=== PATIENT | female | born 1960 | race Caucasian/White ===

== ENCOUNTER 2017-05-29 16:11 | Inpatient (IN) | payer OTHER ==
[~2017-05-29] VITALS: Ht 157.5 cm; Wt 75.5 kg
[~2017-05-29 16:11] MED LIST: ASPI325T PO; GABA300C3 PO; HYDR-2768 PO; LEVEMIR SQ; LISI-363 PO; NOVOLOGP2 SQ; OXYC10TA8 PO; PERC5TAB12 PO; PLAV75TA PO
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
[2017-05-29] MEDS ORDERED: PIPERACIL-TAZO 4.5 GM PREMIX 100 ML IV STA (17:25)
[2017-05-29] MEDS ORDERED: VANCOMYCIN INJ 1,000 MG in SODIUM CHLOR 0.9% 250 ML INJ 250 ML IV STA (17:25)
[2017-05-29] MEDS ORDERED: SODIUM CHLOR 0.9% 1000 ML INJ 400 ML IV ONE (17:25)
[2017-05-29] MEDS ORDERED: SODIUM CHLOR 0.9% 1000 ML INJ 1,000 ML IV ONE ×2 (17:25)
[2017-05-29 17:45] VITALS: BP 165/81; PULSE 120; RESP 20; O2SAT 99
--- NOTE | 2017-05-29 17:54 | RADRPT ---
EXAM DATE/TIME: 05/29/2017 17:30 [facility] COMPARISON: No previous studies available for comparison. INDICATIONS : Fever and chest pain. MEDICAL HISTORY : Chronic obstructive pulmonary disease. Diabetes mellitus type II. Umbilical hernia. SURGICAL HISTORY : None. ENCOUNTER: Initial ACUITY: 1 day PAIN SCORE: 2/10 LOCATION: middle lower chest. FINDINGS: A single view of the chest demonstrates the lungs to be symmetrically aerated without evidence of mas s, infiltrate or effusion. The cardiomediastinal contours are unremarkable. Osseous structures are intact. CONCLUSION: 1. No active disease. Benny Garcia MD on May 29, 2017 at 17:52 Board Certified Radiologist. This report was verified electronically.
--- NOTE | 2017-05-29 17:55 | RADRPT ---
EXAM DATE/TIME: 05/29/2017 17:33 [facility] COMPARISON: No previous studies available for comparison. INDICATIONS : Left foot pain and sore on plantar surface. MEDICAL HISTORY : Diabetes mellitus type II. SURGICAL HISTORY : None. ENCOUNTER: Initial ACUITY: 4 - 6 days PAIN SCORE: 9/10 LOCATION: Left foot, plantar surface, 1st meta tarsal region. FINDINGS: Three view examination of the left foot demonstrates no soft tissue swelling, dislocation, or fractur e. The tarsal bones appear intact. The interphalangeal and metatarsophalangeal joints are intact. The calcaneus is intact. Bony mineralization is normal. CONCLUSION: 1. No acute bony abnormalities. Benny Garcia MD on May 29, 2017 at 17:53 Board Certified Radiologist. This report was verified electronically.
[2017-05-29 17:56] LABS: AUTOMATED NEUTROPHIL # 9.9 TH/MM3 (1.8-7.7); BASOPHIL # 0.1 TH/MM3 (0-0.2); BASOPHIL % 0.7 % (0.0-2.0); EOSINOPHIL # 0.1 TH/MM3 (0-0.4); EOSINOPHIL % 0.6 % (0.0-4.0); HEMATOCRIT 45.8 % (35.0-46.0); HEMO FLAGS DIFF FINAL; LYMPH % 16.3 % (9.0-44.0); LYMPHOCYTE # 2.2 TH/MM3 (1.0-4.8); MEAN CELL VOLUME 94.7 FL (80.0-100.0); MEAN CORPUSCULAR HEMOGLOBIN 32.6 PG (27.0-34.0); MEAN CORPUSCULAR HGB CONC 34.5 % (32.0-36.0); MONO % 7.9 % (0.0-8.0); NEUT % 74.5 % (16.0-70.0); PLATELET COUNT 293 TH/MM3 (150-450); RED BLOOD COUNT 4.84 MIL/MM3 (4.00-5.30); RED CELL DISTRIBUTION WIDTH 13.6 % (11.6-17.2); WHITE BLOOD COUNT 13.3 TH/MM3 (4.0-11.0)
[2017-05-29] MEDS ORDERED: MIDAZOLAM HCL 2 MG/2 ML VIAL IV PUSH ONE ×2 (18:15→19:15)
[2017-05-29] MEDS ORDERED: PLAV75TA29 PO (18:15)
[2017-05-29] MEDS ORDERED: GABA100C4 PO (18:15)
[2017-05-29] MEDS ORDERED: ASPI325T PO (18:15)
[2017-05-29] MEDS ORDERED: HYDR12.56 PO (18:15)
[2017-05-29 18:16] LABS: ALKALINE PHOSPHATASE 82 U/L (45-117); ALT (GPT) 34 U/L (10-53); ANION GAP 15 MEQ/L (5-15); AST (GOT) 17 U/L (15-37); BICARBONATE 23.6 MEQ/L (21.0-32.0); BLOOD UREA NITROGEN 14 MG/DL (7-18); CHLORIDE 97 MEQ/L (98-107); GLOMERULAR FILTRATION RATE 48 ML/MIN (>89); POTASSIUM 3.5 MEQ/L (3.5-5.1); SODIUM (NA) 136 MEQ/L (136-145); TOTAL BILIRUBIN ADULT 0.3 MG/DL (0.2-1.0)
[2017-05-29 18:32] LABS: BLOOD, URINE NEG (NEG); COMMENT (UR) CATH-CULT NOT IND; CULTURE IF INDICATED CATH CULTURE NOT IND; GLUCOSE,URINE 1000 mg/dL (NEG); KETONE, URINE TRACE mg/dL (NEG); NITRITE,URINE NEG (NEG); SQUAMOUS EPITHELIAL CELL URINE 1 /hpf (0-5); URINE COLOR LIGHT-YELLOW (YELLW/STRAW)
[2017-05-29 19:46] LABS: LACTIC ACID GHOST NOT REPORTABLE
--- NOTE | 2017-05-29 19:53 | HHI.HP ---
[facility] Service Critical Care Medicine Primary Care Physician Maranda Mary MD Admission Diagnosis sepsis, hyperglycemia, diabetic foot wound, reduced hernia Diagnosis: Travel History International Travel<30 Days: No Contact w/Intl Traveler <30 Da: No Traveled to Known Affected Are: No History of Present Illness 57-year-old female presents with history of left toe wound that is not healing. She has stepped on a hard rock without noticing injury. Patient says that she was hospitalized until 2 days ago at [facility] and she left AMA because the surgeon wanted to amputate her toe. Patient is a diabetic. She was tachycardic upon arrival saying her leg hurts. She also says she has 2 hernias and her belly hurts. No history of vomiting. No history of fever or chills. Review of Systems Constitutional: COMPLAINS OF: Fatigue, DENIES: Diaphoretic episodes, Fever, Weight gain, Weight loss, Chills, Dizziness, Change in appetite, Night Sweats Endocrine: DENIES: Abnorml menstrual pattern, Heat/cold intolerance, Polydipsia , Polyuria, Polyphagia Eyes: DENIES: Blurred vision, Diplopia, Eye inflammation, Eye pain, Vision loss , Photosensitivity, Double Vision Ears, nose, mouth, throat: DENIES: Tinnitus, Hearing loss, Vertigo, Nasal discharge, Oral lesions, Throat pain, Hoarseness, Ear Pain, Running Nose, Epistaxis, Sinus Pain, Toothache, Odynophagia Respiratory: DENIES: Apneas, Cough, Snoring, Wheezing, Hemoptysis, Sputum production, Shortness of breath Cardiovascular: DENIES: Chest pain, Palpitations, Syncope, Dyspnea on Exertion , PND, Lower Extremity Edema, Orthopnea, Claudication Gastrointestinal: COMPLAINS OF: Abdominal pain, DENIES: Black stools, Bloody stools, Constipation, Diarrhea, Nausea, Vomiting, Difficulty Swallowing, Anorexia Genitourinary: DENIES: Abnormal vaginal bleeding, Dysmenorrhea, Dyspareunia, Sexual dysfunction, Urinary frequency, Urinary incontinence, Urgency, Hematuria , Dysuria, Nocturia, Vaginal discharge Musculoskeletal: DENIES: Joint pain, Muscle aches, Stiffness, Joint Swelling, Back pain, Neck pain Integumentary: DENIES: Abnormal pigmentation, Pruritus, Rash, Nail changes, Breast masses, Breast skin changes, Nipple discharge Hematologic/lymphatic: DENIES: Bruising, Lymphadenopathy Immunologic/allergic: DENIES: Eczema, Urticaria Neurologic: DENIES: Abnormal gait, Headache, Localized weakness, Paresthesias, Seizures, Speech Problems, Tremor, Poor Balance Psychiatric: COMPLAINS OF: Anxiety, DENIES: Confusion, Mood changes, Depression, Hallucinations, Agitation, Suicidal Ideation, Homicidal Ideation, Delusions Past Family Social History Allergies: Coded Allergies: Cipro (Verified Allergy, Severe, 06/15/16) heart stops Levaquin (Verified Allergy, Severe, Anaphylaxis, 06/15/16) stopped her heart Past Medical History Dyslipidemia COPD Diabetes Right renal mass Renal calculi Hypertension Arthritis Osteoporosis CVA 2 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 weakness Anxiety Depressions Obstructive sleep apnea Past Surgical History Partial bowel resection due to clot Left leg stent Tubal ligation Tonsillectomy Hysterectomy Reported Medications Reported Meds & Active Scripts Active Reported Hydrochlorothiazide 12.5 Mg Tab 12.5 Mg PO DAILY Gabapentin 100 Mg Cap 100 Mg PO BID Plavix (Clopidogrel Bisulfate) 75 Mg Tab 75 Mg PO DAILY Aspirin 325 Mg Tab 325 Mg PO DAILY Active Ordered Medications Current Medications Medications (Trade) Dose Ordered Sig/Sachin Route PRN Reason Start Time Stop Time Status Last Admin Dose Admin Aspirin (Aspirin) 325 mg DAILY PO 05/30/17 09:00 UNV Clopidogrel Bisulfate (Plavix) 75 mg DAILY PO 05/30/17 09:00 UNV Gabapentin (Neurontin) 100 mg BID PO 05/29/17 21:00 UNV Hydrochlorothiazide 12.5 mg 12.5 mg DAILY PO 05/30/17 09:00 UNV Sodium Chloride (NS 1000 ml Inj) 1,000 ml @ 124 mls/hr Q8H4M IV 05/29/17 19:53 UNV Sodium Chloride (NS Flush) 2 ml UNSCH PRN .XX FLUSH AFTER USING IV ACCESS 05/29/17 20:00 UNV Sodium Chloride (NS Flush) 2 ml BID .XX 05/29/17 21:00 UNV Acetaminophen (Tylenol) 650 mg Q6H PRN PO PAIN 1-10 AND/OR FEVER >101F 05/29/17 20:00 UNV Morphine Sulfate (Morphine Inj) 2 mg Q2H PRN IV PAIN SCALE 6 TO 10 05/29/17 20:00 UNV Famotidine (Pepcid Inj) 20 mg Q12HR IV PUSH 05/29/17 21:00 UNV Lorazepam (Ativan Inj) 1 mg Q1H PRN IV Agitation/Sedation 05/29/17 20:00 UNV Ondansetron HCl (Zofran Inj) 4 mg Q6H PRN IV NAUSEA OR VOMITING 05/29/17 20:00 UNV Metoclopramide HCl (Reglan Inj) 10 mg Q6H PRN IV NAUSEA OR VOMITING 05/29/17 20:00 UNV Zolpidem Tartrate (Ambien) 5 mg HS PRN PO INSOMNIA 05/29/17 20:00 UNV Heparin Sodium (Porcine) (Heparin Inj) 5,000 units Q8H SQ 05/29/17 20:00 UNV Miscellaneous Information 1 Q361D XX 05/29/17 20:00 UNV Chlorhexidine Gluconate (Chlorhexidine 2% Cloth) 3 pack Taper DAILY@04 TOP 05/30/17 04:00 05/26/18 03:59 UNV Chlorhexidine Gluconate (Chlorhexidine 2% Cloth) 3 pack UNSCH PRN TOP HYGIENIC CARE 05/29/17 20:00 UNV Senna/Docusate Sodium (Elidia-Colace) 1 tab BID PO 05/29/17 21:00 UNV Magnesium Hydroxide (Milk Of Magnesia Liq) 30 ml Q12H PRN PO MILD - MODERATE CONSTIPATION 05/29/17 20:00 UNV Sennosides (Senokot) 17.2 mg Q12H PRN PO MODERATE - SEVERE CONSTIPATION 05/29/17 20:00 UNV Bisacodyl (Dulcolax Supp) 10 mg DAILY PRN RECTAL SEVERE CONSITIPATION 05/29/17 20:00 UNV Lactulose (Lactulose Liq) 30 ml DAILY PRN PO SEVERE CONSITIPATION 05/29/17 20:00 UNV Family History No family history of early cancer or coronary artery disease Social History Smokes one pack per day lifelong Denies alcohol or illicit drug abuse Physical Exam Vital Signs Vital Signs Date Time Temp Pulse Resp B/P Pulse Ox O2 Delivery O2 Flow Rate FiO2 05/29/17 17:45 120 20 165/81 99 Room Air 05/29/17 17:29 95 Room Air Physical Exam GENERAL: Well-nourished, well-developed patient. SKIN: Warm and dry. HEAD: Normocephalic. EYES: No scleral icterus. No injection or drainage. NECK: Supple, trachea midline. No JVD or lymphadenopathy. CARDIOVASCULAR: Regular rate and rhythm without gallops, or rubs. RESPIRATORY: Breath sounds equal bilaterally. No accessory muscle use. Occasional fine rhonchi bilaterally GASTROINTESTINAL: Abdomen soft, mild tenderness in the lower quadrants, nondistended. 2 moderate sized hernias on the ventral aspect of the abdomen below umbilicus. These were tender to touch MUSCULOSKELETAL: No cyanosis, or edema. BACK: Nontender without obvious deformity. No CVA tenderness. EXTREMITIES: Moves all 4, 2+ pulses bilaterally, 5 mm diabetic ulcer on the bottom of the left big toe with no discharge, no redness or edema NEURO EXAM: Mental Status: The patient is alert and oriented to person, place, and time with normal speech. Cranial Nerves: Visual acuity intact bilaterally. Visual mccray normal in all quadrants. Pupils are round, reactive to light and accommodation. Extraocular movements are intact without ptosis. Facial sensation is intact to bilaterally to dull, sharp, and light touch stimuli. Facial muscle strength is normal and equal bilaterally. Hearing is normal bilaterally. Voice is normal. Shoulder shrug strong, and equal bilaterally. Tongue protrudes midline and moves symmetrically. Reflexes: Biceps, brachioradialis, triceps, patellar, and Achilles are 2/4 bilaterally. No clonus. Plantar reflex is downward bilaterally. Sensation: Sensation is intact bilaterally to pain and light touch. Two-point discrimination is intact. Motor: Good muscle tone. Strength is 5/5 bilaterally. Cerebellar: [id number] and [id number] test normal bilaterally. Laboratory Laboratory Tests Test 05/29/17 05/29/17 17:30 17:45 White Blood Count 13.3 Red Blood Count 4.84 Hemoglobin 15.8 Hematocrit 45.8 Mean Corpuscular Volume 94.7 Mean Corpuscular Hemoglobin 32.6 Mean Corpuscular Hemoglobin 34.5 Concent Red Cell Distribution Width 13.6 Platelet Count 293 Mean Platelet Volume 8.9 Neutrophils (%) (Auto) 74.5 Lymphocytes (%) (Auto) 16.3 Monocytes (%) (Auto) 7.9 Eosinophils (%) (Auto) 0.6 Basophils (%) (Auto) 0.7 Neutrophils # (Auto) 9.9 Lymphocytes # (Auto) 2.2 Monocytes # (Auto) 1.1 Eosinophils # (Auto) 0.1 Basophils # (Auto) 0.1 CBC Comment DIFF FINAL Differential Comment Sodium Level 136 Potassium Level 3.5 Chloride Level 97 Carbon Dioxide Level 23.6 Anion Gap 15 Blood Urea Nitrogen 14 Creatinine 1.17 Estimat Glomerular Filtration 48 Rate Random Glucose 431 Lactic Acid Level 5.6 Calcium Level 9.7 Total Bilirubin 0.3 Aspartate Amino Transf 17 (AST/SGOT) Alanine Aminotransferase 34 (ALT/SGPT) Alkaline Phosphatase 82 Total Protein 7.5 Albumin 3.5 Urine Color LIGHT-YELLOW Urine Turbidity CLEAR Urine pH 6.0 Urine Specific [place] 1.035 Urine Protein 100 Urine Glucose (UA) 1000 Urine Ketones TRACE Urine Occult Blood NEG Urine Nitrite NEG Urine Bilirubin NEG Urine Urobilinogen LESS THAN 2.0 Urine Leukocyte Esterase NEG Urine RBC LESS THAN 1 Urine WBC LESS THAN 1 Urine Squamous Epithelial 1 Cells Microscopic Urinalysis Comment CATH-CULT NOT IND Date/Time Procedure Status Source Growth 05/29/17 17:30 Aerobic Blood Culture Received Blood Peripheral Pending 05/29/17 17:30 Anaerobic Blood Culture Received Blood Peripheral Pending Result Diagram: 05/29/17 1730 05/29/17 1730 Imaging Last 24 hours Impressions Chest X-Ray 05/29/17 1725 Signed Impressions: Service Date/Time: Monday, May 29, 2017 17:30 - CONCLUSION: 1. No active disease. Benny Garcia MD Foot X-Ray 05/29/17 0000 Signed Impressions: Service Date/Time: Monday, May 29, 2017 17:33 - CONCLUSION: 1. No acute bony abnormalities. Benny Garcia MD Assessment and Plan Assessment and Plan Diabetic ulcer - Left big toe - Vascular surgery consult - Empiric antibiotics - Follow blood cultures - Follow-up lactic acid trend Dyslipidemia - Atorvastatin Peripheral vascular disease - Aspirin, Plavix, vascular surgery consult Diabetic neuropathy - Gabapentin COPD - No exacerbation - DuoNeb scheduled and when necessary Diabetes mellitus - Uncontrolled - Insulin drip Hypertension - Hydralazine and labetalol when necessary to keep SBP less than 150 Obstructive sleep apnea - Nocturnal BiPAP when necessary DVT GI prophylaxis - Pepcid - Teds SCDs - Subcutaneous heparin Critical Care: The total critical care time was 35 minutes. Time to perform other separately billable procedures was not included in the critical care time. Satish Faith MD May 29, 2017 19:53
[2017-05-29] MEDS ORDERED: LORazepam 2 MG/ML VIAL IV PRN (20:00)
[2017-05-29] MEDS ORDERED: CHLORHEXIDINE GLUCONATE 2 % 1 PACK (2 CLOTHS) TOP PRN (20:00)
[2017-05-29] MEDS ORDERED: MISCELLANEOUS NURSING INFORMATION XX SCH (20:00)
[2017-05-29] MEDS ORDERED: ONDANSETRON HCL 4 MG/2 ML VIAL IV PRN (20:00)
[2017-05-29] MEDS ORDERED: METOCLOPRAMIDE HCL 10 MG/2 ML VIAL IV PRN (20:00)
[2017-05-29] MEDS ORDERED: ZOLPIDEM TARTRATE 5 MG TAB PO PRN (20:00)
[2017-05-29] MEDS ORDERED: SODIUM CHLORIDE 0.9% FLUSH 10 ML FLUSH PRN (20:00)
[2017-05-29] MEDS ORDERED: SENNOSIDES 8.6 MG TAB PO PRN (20:00)
[2017-05-29] MEDS ORDERED: BISACODYL 10 MG SUPP RECTAL PRN (20:00)
[2017-05-29] MEDS ORDERED: LACTULOSE SYRUP 20 GM/30 ML CUP PO PRN (20:00)
[2017-05-29] MEDS ORDERED: ACETAMINOPHEN 325 MG TAB PO PRN (20:00)
[2017-05-29] MEDS ORDERED: MAGNESIUM HYDROXIDE SUSP 30 ML CUP PO PRN (20:00)
[2017-05-29] MEDS ORDERED: RESP: ALBUTEROL 2.5 MG/IPRATROPIUM 0.5 MG NEB (PRN) INH (20:00)
[2017-05-29] MEDS ORDERED: DEXTROSE 50% IN WATER 50 ML VIAL(D50) IV PRN (20:15)
[2017-05-29] MEDS ORDERED: GLUCAGON 1 MG/ML VIAL OTHER PRN (20:15)
[2017-05-29 20:42] VITALS: BP 148/75; PULSE 85; RESP 20; O2SAT 99
[2017-05-29] MEDS: GABAPENTIN 100 MG CAP PO SCH (21:00)
[2017-05-29] MEDS: SODIUM CHLORIDE 0.9% FLUSH 10 ML FLUSH SCH (21:00)
[2017-05-29] MEDS ORDERED: INSULIN ASPART SUPPLEMENTAL SCALE SQ SCH (21:00)
[2017-05-29] MEDS ORDERED: VANCOMYCIN INJ 1,000 MG in SODIUM CHLOR 0.9% 250 ML INJ 250 ML IV ONE (21:00)
[2017-05-29] MEDS: DOCUSATE SODIUM 50 MG/SENNA 8.6 MG TAB PO SCH (21:00)
[2017-05-29] MEDS ORDERED: Vancomycin Consult Pharmacy 1 EA OTHER SCH (21:00)
[2017-05-29] MEDS: RESP: ALBUTEROL 2.5 MG/IPRATROPIUM 0.5 MG NEB (SCH) INH (21:14)
[2017-05-29 21:15] VITALS: O2SAT 98
[2017-05-29] MEDS ORDERED: MISC INFORMATION OTHER ONE (21:15)
[2017-05-29] MEDS ORDERED: INSULIN REGULAR (IV INFUSION) 100 UNITS in SODIUM CHLORIDE 0.9% INJ 99 ML IV SCH (21:15)
[2017-05-29] MEDS ORDERED: DEXTROSE 50% IN WATER 50 ML VIAL(D50) IV PUSH PRN (21:15)
[2017-05-29] MEDS: SODIUM CHLOR 0.9% 1000 ML INJ 1,000 ML IV SCH (22:09)
[2017-05-29] MEDS: FAMOTIDINE 20 MG/2 ML VIAL IV PUSH SCH (22:10)
[2017-05-29] MEDS: HEPARIN SODIUM - SQ 10,000 UNITS/ML VIAL SQ SCH (22:11)
[2017-05-29 22:56] VITALS: BP 170/87; PULSE 91; RESP 20; TEMP 98.6; O2SAT 94
[2017-05-29] MEDS: MORPHINE SULFATE 4 MG/ML INJ IV PRN (23:25)
[2017-05-29] MEDS: PIPERACIL-TAZO 4.5 GM PREMIX 100 ML IV SCH (23:25)
[2017-05-30] VITALS (15 sets, daily range): BP systolic 109–165; BP diastolic 77–92; PULSE 84–114; RESP 14–22; TEMP 97.7–98.4; O2SAT 95–98
[2017-05-30] MEDS ORDERED: LABETALOL HCL 100 MG/20 ML VIAL IV PUSH PRN (02:45)
[2017-05-30] MEDS: RESP: ALBUTEROL 2.5 MG/IPRATROPIUM 0.5 MG NEB (SCH) INH ×4 (03:33→21:52)
[2017-05-30] MEDS: hydrALAZINE HCL 20 MG/ML VIAL IV PUSH PRN (03:43)
[2017-05-30] MEDS: MORPHINE SULFATE 4 MG/ML INJ IV PRN (03:44)
[2017-05-30] MEDS: SODIUM CHLOR 0.9% 1000 ML INJ 1,000 ML IV SCH ×2 (03:44→11:32)
[2017-05-30] MEDS: CHLORHEXIDINE GLUCONATE 2 % 1 PACK (2 CLOTHS) TOP SCH (03:44)
[2017-05-30] MEDS: PIPERACIL-TAZO 4.5 GM PREMIX 100 ML IV SCH ×3 (03:45→18:17)
[2017-05-30] MEDS: HEPARIN SODIUM - SQ 10,000 UNITS/ML VIAL SQ SCH ×3 (06:00→21:59)
[2017-05-30] MEDS: DOCUSATE SODIUM 50 MG/SENNA 8.6 MG TAB PO SCH ×2 (08:58→20:02)
[2017-05-30] MEDS: FAMOTIDINE 20 MG/2 ML VIAL IV PUSH SCH ×2 (08:58→20:02)
[2017-05-30] MEDS: CLOPIDOGREL 75 MG TAB PO SCH (08:59)
[2017-05-30] MEDS: ATORVASTATIN 40 MG TAB PO SCH (08:59)
[2017-05-30] MEDS: GABAPENTIN 100 MG CAP PO SCH ×2 (08:59→20:01)
[2017-05-30] MEDS: HYDROCHLOROTHIAZIDE 12.5 MG CAP PO SCH (08:59)
[2017-05-30] MEDS: ASPIRIN 325 MG TAB PO SCH (08:59)
[2017-05-30 10:00] LABS: AUTOMATED NEUTROPHIL # 12.5 TH/MM3 (1.8-7.7); BASOPHIL # 0.1 TH/MM3 (0-0.2); BASOPHIL % 0.7 % (0.0-2.0); EOSINOPHIL % 0.2 % (0.0-4.0); HEMATOCRIT 42.2 % (35.0-46.0); HEMO FLAGS DIFF FINAL; LYMPH % 11.1 % (9.0-44.0); LYMPHOCYTE # 1.7 TH/MM3 (1.0-4.8); MEAN CELL VOLUME 94.9 FL (80.0-100.0); MEAN CORPUSCULAR HEMOGLOBIN 31.7 PG (27.0-34.0); MEAN CORPUSCULAR HGB CONC 33.4 % (32.0-36.0); MONO % 6.7 % (0.0-8.0); NEUT % 81.3 % (16.0-70.0); PLATELET COUNT 294 TH/MM3 (150-450); RED BLOOD COUNT 4.45 MIL/MM3 (4.00-5.30); RED CELL DISTRIBUTION WIDTH 13.4 % (11.6-17.2); WHITE BLOOD COUNT 15.4 TH/MM3 (4.0-11.0)
[2017-05-30 10:28] LABS: ALT (GPT) 28 U/L (10-53); ANION GAP 10 MEQ/L (5-15); AST (GOT) 16 U/L (15-37); BICARBONATE 24.3 MEQ/L (21.0-32.0); BLOOD UREA NITROGEN 10 MG/DL (7-18); CHLORIDE 107 MEQ/L (98-107); GLOMERULAR FILTRATION RATE 95 ML/MIN (>89); MAGNESIUM 1.6 MG/DL (1.5-2.5); POTASSIUM 3.3 MEQ/L (3.5-5.1); SODIUM (NA) 141 MEQ/L (136-145)
[2017-05-30 10:39] LABS: ALKALINE PHOSPHATASE 69 U/L (45-117); TOTAL BILIRUBIN ADULT 0.3 MG/DL (0.2-1.0)
[2017-05-30] MEDS ORDERED: DEXTROSE 50% IN WATER 50 ML VIAL(D50) IV PRN (10:45)
[2017-05-30] MEDS: INSULIN NovoLIN REGULAR SUPPLEMENTAL SCALE SQ SCH ×4 (10:45→21:59)
[2017-05-30] MEDS ORDERED: GLUCAGON 1 MG/ML VIAL OTHER PRN (10:45)
[2017-05-30] MEDS: INSULIN DETEMIR 100 UNITS/ML VIAL SQ SCH ×2 (10:45→20:05)
--- NOTE | 2017-05-30 10:49 | HHI.CCPN ---
Subjective Remarks/Hospital Course 57-year-old female presents with history of left toe wound that is not healing. She has stepped on a hard rock without noticing injury. Patient says that she was hospitalized until [address] [facility] and she left AMA because the surgeon wanted to amputate her toe. Patient is a diabetic. She was tachycardic upon arrival saying her leg hurts. She also says she has 2 hernias and her belly hurts. No history of vomiting. No history of fever or chills. 05/30 No events overnight on Insulin drip 2units/hr. Afebrile. Objective Vital Signs Date Time Temp Pulse Resp B/P Pulse Ox O2 Delivery O2 Flow Rate FiO2 05/30/17 08:40 95 05/30/17 06:00 101 05/30/17 04:00 98.4 14 115/79 05/29/17 20:42 Room Air Result Diagram: 05/30/17 0941 05/29/17 1730 Other Results Laboratory Tests Test 05/29/17 05/29/17 05/29/17 05/29/17 17:30 17:45 21:02 21:30 White Blood Count 13.3 TH/MM3 Red Blood Count 4.84 MIL/MM3 Hemoglobin 15.8 GM/DL Hematocrit 45.8 % Mean Corpuscular Volume 94.7 FL Mean Corpuscular Hemoglobin 32.6 PG Mean Corpuscular Hemoglobin 34.5 % Concent Red Cell Distribution Width 13.6 % Platelet Count 293 TH/MM3 Mean Platelet Volume 8.9 FL Neutrophils (%) (Auto) 74.5 % Lymphocytes (%) (Auto) 16.3 % Monocytes (%) (Auto) 7.9 % Eosinophils (%) (Auto) 0.6 % Basophils (%) (Auto) 0.7 % Neutrophils # (Auto) 9.9 TH/MM3 Lymphocytes # (Auto) 2.2 TH/MM3 Monocytes # (Auto) 1.1 TH/MM3 Eosinophils # (Auto) 0.1 TH/MM3 Basophils # (Auto) 0.1 TH/MM3 CBC Comment DIFF FINAL Differential Comment Sodium Level 136 MEQ/L Potassium Level 3.5 MEQ/L Chloride Level 97 MEQ/L Carbon Dioxide Level 23.6 MEQ/L Anion Gap 15 MEQ/L Blood Urea Nitrogen 14 MG/DL Creatinine 1.17 MG/DL Estimat Glomerular Filtration 48 ML/MIN Rate Random Glucose 431 MG/DL Lactic Acid Level 5.6 mmol/L 3.5 mmol/L Calcium Level 9.7 MG/DL Total Bilirubin 0.3 MG/DL Aspartate Amino Transf 17 U/L (AST/SGOT) Alanine Aminotransferase 34 U/L (ALT/SGPT) Alkaline Phosphatase 82 U/L Total Protein 7.5 GM/DL Albumin 3.5 GM/DL Urine Color LIGHT-YELLOW Urine Turbidity CLEAR Urine pH 6.0 Urine Specific [place] 1.035 Urine Protein 100 mg/dL Urine Glucose (UA) 1000 mg/dL Urine Ketones TRACE mg/dL Urine Occult Blood NEG Urine Nitrite NEG Urine Bilirubin NEG Urine Urobilinogen LESS THAN 2.0 MG/DL Urine Leukocyte Esterase NEG Urine RBC LESS THAN 1 /hpf Urine WBC LESS THAN 1 /hpf Urine Squamous Epithelial 1 /hpf Cells Microscopic Urinalysis Comment CATH-CULT NOT IND Nasal Screen MRSA (PCR) MRSA NOT DETECTED Test 05/29/17 05/30/17 05/30/17 23:05 09:32 09:41 Lactic Acid Level 3.2 mmol/L 2.1 mmol/L White Blood Count 15.4 TH/MM3 Red Blood Count 4.45 MIL/MM3 Hemoglobin 14.1 GM/DL Hematocrit 42.2 % Mean Corpuscular Volume 94.9 FL Mean Corpuscular Hemoglobin 31.7 PG Mean Corpuscular Hemoglobin 33.4 % Concent Red Cell Distribution Width 13.4 % Platelet Count 294 TH/MM3 Mean Platelet Volume 8.4 FL Neutrophils (%) (Auto) 81.3 % Lymphocytes (%) (Auto) 11.1 % Monocytes (%) (Auto) 6.7 % Eosinophils (%) (Auto) 0.2 % Basophils (%) (Auto) 0.7 % Neutrophils # (Auto) 12.5 TH/MM3 Lymphocytes # (Auto) 1.7 TH/MM3 Monocytes # (Auto) 1.0 TH/MM3 Eosinophils # (Auto) 0.0 TH/MM3 Basophils # (Auto) 0.1 TH/MM3 CBC Comment DIFF FINAL Differential Comment Imaging Last 24 hours Impressions Chest X-Ray 05/29/17 1725 Signed Impressions: Service Date/Time: Monday, May 29, 2017 17:30 - CONCLUSION: 1. No active disease. Benny Garcia MD Foot X-Ray 05/29/17 0000 Signed Impressions: Service Date/Time: Monday, May 29, 2017 17:33 - CONCLUSION: 1. No acute bony abnormalities. Benny Garcia MD Objective Remarks GENERAL: Well-nourished, well-developed patient. SKIN: Warm and dry. HEAD: Normocephalic. EYES: No scleral icterus. No injection or drainage. NECK: Supple, trachea midline. No JVD or lymphadenopathy. CARDIOVASCULAR: Regular rate and rhythm without gallops, or rubs. RESPIRATORY: Breath sounds equal bilaterally. No accessory muscle use. GASTROINTESTINAL: Abdomen soft, mild tenderness in the lower quadrants, nondistended. 2 moderate sized hernias on the ventral aspect of the abdomen below umbilicus. T MUSCULOSKELETAL: No cyanosis, or edema. BACK: Nontender without obvious deformity. No CVA tenderness. EXTREMITIES: Moves all 4, 2+ pulses bilaterally, 5 mm diabetic ulcer on the bottom of the left big toe with no discharge, no redness or edema NEURO EXAM: Awake and alert A/P Assessment and Plan 1)Resp Insuff 2)Diabetic ulcer - Left big toe 3)Lactic acidemia 4)Hyperglycemia 5)Dyslipidemia 6)Peripheral vascular disease 7)Diabetic neuropathy 8)COPD 9)Hypertension 10)Obstructive sleep apnea Neuro: Awake, alert , monitor neuro status Pulm: Continue with oxygen keep sat >92% Bronchodilators CV: Monitor HR and BP keep MAP>65mmHg Continue ASA/Plavix/HCTZ/Lipitor Serial lactic acid monitoring, Lactic acid 2.1, continue with IVF : Monitor renal function, I/O's, electrolytes replacement as needed Decrease IVF-NS@75ml/hr GI: On Pepcid 20mg Q12, start PO diabetic diet ID: Continue with abx ( Zosyn) monitor for signs of infections ( Fever, WBC) 05/29 BC: NGTD, wound care eval, Vasc surg consulted yesterday- patient was recommended amputation of her toe previously. For CTA w runoff Aorta Heme: Monitor CBC Endo- On insulin drip 2units/hr transition to SSI with Levemir GI prophylaxis- On Pepcid DVT prophylaxis-Heparin SQ Level 3 Joaquin Ramos MD May 30, 2017 10:49
[2017-05-30] MEDS ORDERED: POTASSIUM CHLOR 40 MEQ PREMIX 100 ML IV PRN ×2 (11:00)
[2017-05-30] MEDS ORDERED: MAGNESIUM OXIDE 400 MG TAB PO PRN (11:00)
[2017-05-30] MEDS ORDERED: POTASSIUM PHOSPHATE INJ 30 MMOL in SODIUM CHLOR 0.9% 250 ML INJ 250 ML IV PRN (11:00)
[2017-05-30] MEDS ORDERED: SODIUM PHOSPHATE INJ 30 MMOL in SODIUM CHLOR 0.9% 250 ML INJ 240 ML IV PRN (11:00)
[2017-05-30] MEDS ORDERED: POTASSIUM PHOSPHATE MONOBASIC 500 MG TAB PO/TUBE PRN (11:00)
[2017-05-30] MEDS ORDERED: MAGNESIUM SULFATE INJ 2 GM in SODIUM CHLORIDE 0.9% INJ 96 ML IV PRN (11:00)
[2017-05-30] MEDS ORDERED: POTASSIUM CHLORIDE 25 MEQ EFFERVESCENT TAB PO PRN (11:00)
[2017-05-30] MEDS ORDERED: MAGNESIUM SULFATE INJ 4 GM in SODIUM CHLORIDE 0.9% INJ 92 ML IV PRN (11:00)
[2017-05-30] MEDS ORDERED: POTASSIUM PHOSPHATE MONOBASIC 500 MG TAB PO PRN (11:00)
[2017-05-30] MEDS ORDERED: POTASSIUM CHLOR 20 MEQ PREMIX 100 ML IV PRN ×2 (11:00)
--- NOTE | 2017-05-30 11:04 | PD.VS.CON ---
History of Present Illness Chief Complaint: Non Healing Left Great Toe Wound Consult Requested by: Dr. Faith History of Present Illness Ms. Chahal is a 57/F patient who c/o Left great toe ulceration that has worsened over the past 2 weeks. Pt reported she was walking at [employer] 2 weeks ago and stepped on a rock Pt denies fever or chills (Carey Arrington) Past/Family/Social History Past Medical History DM COPD Hyperlipidemia HTN Arthritis Osteoporosis CVA Anxiety Depression Past Surgical History Partial Bowel Resection LLE Stent 2 years ago / Dr. Polanco RLE - Balloon Angio 10/2016/ Dr. Polanco C- Section Tubal Ligation Hysterectomy Tonsillectomy Social History Pt denies Etoh Pt denies Illicit drug usage Pt smokes 1 pack of cigarettes daily Family History Pt denies (Carey Arrington) Home Medications Reported Medications Hydrochlorothiazide 12.5 Mg Tab12.5 Mg PO DAILY #30 TAB Ref 0 05/29/17 Gabapentin 100 Mg [id number] Mg PO BID #60 CAP Ref 0 05/29/17 Clopidogrel (Plavix)75 Mg Tab75 Mg PO DAILY #30 TAB Ref 0 05/29/17 Aspirin 325 Mg [id number] Mg PO DAILY #30 TAB Ref 0 05/29/17 Coded Allergies: Cipro (Verified Allergy, Severe, 06/15/16) heart stops Levaquin (Verified Allergy, Severe, Anaphylaxis, 06/15/16) stopped her heart Review of Systems Integumentary: COMPLAINS OF: Abnormal pigmentation (Left great toe ulceration ) (Carey Arrington) Physical Exam Vitals/I&O Date Time Temp Pulse Resp B/P Pulse Ox O2 Delivery O2 Flow Rate FiO2 05/30/17 08:40 95 05/30/17 06:00 101 05/30/17 04:00 114 05/30/17 04:00 98.4 105 14 115/79 96 05/30/17 02:00 101 05/30/17 00:00 89 05/30/17 00:00 98.0 109 18 109/77 96 05/29/17 22:56 98.6 91 20 170/87 94 05/29/17 21:15 98 05/29/17 20:42 85 20 148/75 99 Room Air 05/29/17 17:45 120 20 165/81 99 Room Air 05/29/17 17:29 95 Room Air Neuro: A&OX3 GCS15 Neck: No JVD Heart: +S1,S2 Lungs: No accessory muscle use Abdomen: NT Vascular: Bilat Palpable Femoral pulses L DP/PT NON PALPABLE R DP/PT NON PALPABLE + R phasic DP/PT heard via Doppler + L phasic DP/PT heard via Doppler LLE cool to touch BLE w/ motor intact Extremities: Left toe ulceration noted Measures 2cm X 1 cm times 2 weeks (Carey Arrington) Laboratory Tests Test 05/29/17 05/29/17 05/29/17 05/29/17 17:30 17:45 21:02 21:30 White Blood Count 13.3 Red Blood Count 4.84 Hemoglobin 15.8 Hematocrit 45.8 Mean Corpuscular Volume 94.7 Mean Corpuscular Hemoglobin 32.6 Mean Corpuscular Hemoglobin 34.5 Concent Red Cell Distribution Width 13.6 Platelet Count 293 Mean Platelet Volume 8.9 Neutrophils (%) (Auto) 74.5 Lymphocytes (%) (Auto) 16.3 Monocytes (%) (Auto) 7.9 Eosinophils (%) (Auto) 0.6 Basophils (%) (Auto) 0.7 Neutrophils # (Auto) 9.9 Lymphocytes # (Auto) 2.2 Monocytes # (Auto) 1.1 Eosinophils # (Auto) 0.1 Basophils # (Auto) 0.1 CBC Comment DIFF FINAL Differential Comment Sodium Level 136 Potassium Level 3.5 Chloride Level 97 Carbon Dioxide Level 23.6 Anion Gap 15 Blood Urea Nitrogen 14 Creatinine 1.17 Estimat Glomerular Filtration 48 Rate Random Glucose 431 Lactic Acid Level 5.6 3.5 Calcium Level 9.7 Total Bilirubin 0.3 Aspartate Amino Transf 17 (AST/SGOT) Alanine Aminotransferase 34 (ALT/SGPT) Alkaline Phosphatase 82 Total Protein 7.5 Albumin 3.5 Urine Color LIGHT-YELLOW Urine Turbidity CLEAR Urine pH 6.0 Urine Specific [place] 1.035 Urine Protein 100 Urine Glucose (UA) 1000 Urine Ketones TRACE Urine Occult Blood NEG Urine Nitrite NEG Urine Bilirubin NEG Urine Urobilinogen LESS THAN 2.0 Urine Leukocyte Esterase NEG Urine RBC LESS THAN 1 Urine WBC LESS THAN 1 Urine Squamous Epithelial 1 Cells Microscopic Urinalysis Comment CATH-CULT NOT IND Nasal Screen MRSA (PCR) MRSA NOT DETECTED Test 05/29/17 05/30/17 05/30/17 23:05 09:32 09:41 Lactic Acid Level 3.2 2.1 Sodium Level 141 Potassium Level 3.3 Chloride Level 107 Carbon Dioxide Level 24.3 Anion Gap 10 Blood Urea Nitrogen 10 Creatinine 0.64 Estimat Glomerular Filtration 95 Rate Random Glucose 149 Calcium Level 7.9 Phosphorus Level 2.3 Magnesium Level 1.6 Total Bilirubin 0.3 Aspartate Amino Transf 16 (AST/SGOT) Alanine Aminotransferase 28 (ALT/SGPT) Alkaline Phosphatase 69 Total Protein 6.6 Albumin 3.1 White Blood Count 15.4 Red Blood Count 4.45 Hemoglobin 14.1 Hematocrit 42.2 Mean Corpuscular Volume 94.9 Mean Corpuscular Hemoglobin 31.7 Mean Corpuscular Hemoglobin 33.4 Concent Red Cell Distribution Width 13.4 Platelet Count 294 Mean Platelet Volume 8.4 Neutrophils (%) (Auto) 81.3 Lymphocytes (%) (Auto) 11.1 Monocytes (%) (Auto) 6.7 Eosinophils (%) (Auto) 0.2 Basophils (%) (Auto) 0.7 Neutrophils # (Auto) 12.5 Lymphocytes # (Auto) 1.7 Monocytes # (Auto) 1.0 Eosinophils # (Auto) 0.0 Basophils # (Auto) 0.1 CBC Comment DIFF FINAL Differential Comment Date/Time Procedure Status Source Growth 05/29/17 17:30 Aerobic Blood Culture Received Blood Peripheral Pending 05/29/17 17:30 Anaerobic Blood Culture Received Blood Peripheral Pending Last 48 hours Impressions Chest X-Ray 05/29/17 1725 Signed Impressions: Service Date/Time: Monday, May 29, 2017 17:30 - CONCLUSION: 1. No active disease. Benny Garcia MD Foot X-Ray 05/29/17 0000 Signed Impressions: Service Date/Time: Monday, May 29, 2017 17:33 - CONCLUSION: 1. No acute bony abnormalities. Benny Garcia MD (Carey Arrington [facility]) Assessment and Plan Assessment: (1) Diabetic toe ulcer Status: Acute Plan Pt presents with a non healing/worsening L great toe ulceration for 2 weeks Pt with non palpable bilat DP/PT Pt reported she has a HX of an occluded LLE stent that was placed 2 years ago Plan Ordered an JEREMY/ CTA w/ Runoff Will Review exams to determine next plan of action Discussed potential Angiogram w/ patient Pt agreed w/ plan Will schedule for later this week with Dr. Ramirez if indicated Carey MARQUEZ [facility] [phone] (Carey Arrington) Plan I agree with above. Patient with known PAD with multiple endovascular revascularizations at [facility]. She notified me that she had stent and stent revisions of her left leg in the past. She has strong left PT signals by doppler. Will get a CTA to confirm anatomy and if stent appears patent. Foot appears to be neuropathic in nature on the plantar aspect of the toe. Patient still continues to smoke about a pack of cigarettes a day. She was tearful when we discussed smoking cessation and that she wanted to leave now and go smoke. Trevor Ramirez DO,FACS (Trevor Ramirez DO) Problem Qualifiers (1) Diabetic toe ulcer: Qualified Code: E13.621 - Diabetic ulcer of toe of left foot associated with diabetes mellitus of other type, unspecified ulcer stage Carey Arrington May 30, 2017 11:04 Trevor Ramirez DO May 30, 2017 12:45
[2017-05-30] MEDS: SODIUM CHLORIDE 0.9% FLUSH 10 ML FLUSH SCH ×2 (11:31→20:01)
--- NOTE | 2017-05-30 14:00 | RADRPT ---
EXAM DATE/TIME: 05/30/2017 00:00 [facility] COMPARISON: No previous studies available for comparison. INDICATIONS : Sepsis, diabetic foot wound TECHNIQUE: Four-cuff ankle and brachial pressures were obtained. Pulse cuff waveform tracings of the ankles were recorded, and ankle-brachial indices were calculated. PRESSURES (mmHg): Brachial (arm): Right 120 Left IV site Ankle: Right 145 Left 148 JEREMY: Right 1.21 Left 1.23 TBI: Right 0.87 Left 1.13 PULSED CUFF WAVEFORMS: Demonstrate normal amplitude bilaterally. CONCLUSION: Unremarkable ankle brachial indices. Ayaan Alejo MD on May 30, 2017 at 13:58 Board Certified Radiologist. This report was verified electronically.
[2017-05-30] MEDS: VANCOMYCIN INJ 1,500 MG in SODIUM CHLORID 0.9% 500 ML INJ 500 ML IV SCH (15:18)
[2017-05-30] MEDS: ALPRAZolam 0.5 MG TAB PO PRN ×2 (15:28→21:59)
[2017-05-30] MEDS: oxyCODONE/ACETAMINOPHEN 10 MG/325 MG TAB PO PRN (15:28)
--- NOTE | 2017-05-30 15:58 | PD.WCN.NOT ---
Wound Consult Description: Consult for WOUND MANAGEMENT of left toe per Dr Ramos Communicated with: ALICIA Dye Recommendation: Apply skin prep BID and PRN to callused dry wound bed on left plantar surface of great toe Additional Information: Patient seen on [facility] for wound eval of left great toe. Patients sock removed from left foot to reveal a hyperkeratotic dry wound bed noted to left plantar surface of great toe. There is no odor, no active drainage. Wound is measuring ~1cm x 2cm x 0.2cm with a dry red center. Periwound is blanching with hazy yellow discoloration noted at 9 o'clock ~1cm out from callused wound bed. There is no fluctuance noted to the dry wound bed or periwound at this time. Sock was returned to patients left foot after skin prepping great toe with Bards barrier film. Di Silverman [facility] May 30, 2017 15:58
[2017-05-30] MEDS ORDERED: IOHEXOL 350 MG/ML 10 ML VIAL (for RAD DIAG) IV ONE (17:56)
[2017-05-30] MEDS: NICOTINE 14 MG/24 HR PATCH T-DERMAL SCH (19:53)
[2017-05-30] MEDS: REMOVE OLD NICODERM (NICOTINE) PATCH T-DERMAL SCH (20:02)
--- NOTE | 2017-05-30 20:29 | RADRPT ---
EXAM DATE/TIME: 05/30/2017 17:41 [facility] COMPARISON: No previous studies available for comparison. INDICATIONS : Patient has history of left great toe ulcer. IV CONTRAST: 100 cc Omnipaque 350 (iohexol) IV RADIATION DOSE: 9.92 CTDIvol (mGy) MEDICAL HISTORY : Cerebrovascular disease. Hypertension. Renal calculi. SURGICAL HISTORY : Hysterectomy. partial bowel resection ENCOUNTER: Initial ACUITY: 2 months PAIN SCALE: 4/10 LOCATION: Left great toe TECHNIQUE: Volumetric scanning was performed using a multi-row detector CT scanner. The data was post processed with a variety of visualization algorithms including full volume maximum intensity projection, multi -planar sliding thin slab reformation, curved planar reformation, and surface rendering techniques. Using automated exposure control and adjustment of the mA and/or kV according to patient size, radiat ion dose was kept as low as reasonably achievable to obtain optimal diagnostic quality images. DICO M format image data is available electronically for review and comparison. FINDINGS: CT findings include diffuse fatty change in liver, 3.2 cm enhancing mass in the left adrenal gland (8 0 Hounsfield units), prominent ventral hernia lower abdominal wall with separation between the rectus muscles measuring 4.1 cm and the hernia sac containing fat. ABDOMINAL AORTA: Atherosclerotic calcification diffusely throughout the abdominal aorta without significant luminal na rrowing. There is prominent calcification at the origin of the celiac artery which causes less than a 30% stenosis. There are 2 renal arteries bilaterally without evidence of ostial stenosis. BIFURCATION: Normal. RIGHT PELVIS: The right common iliac, internal iliac, and external iliac vessels are patent without luminal irregul arity. LEFT PELVIS: The left common iliac, internal iliac, and external iliac vessels are patent and without luminal irre gularity. RIGHT THIGH: Diffuse calcified and noncalcified plaque throughout the thigh with the most severe area of narrowing in the region of the adductor canal, 60%. Multiple noncalcified areas proximally are less than 50% narrowing. LEFT THIGH: Mid femoral artery stent is patent. Mild calcified and noncalcified plaque in the proximal femoral a rtery with less than 50% stenosis. There is proximal 50% stenosis in the femoral artery distal to th e stent. RIGHT KNEE: Popliteal artery is normal dimension. LEFT KNEE: Popliteal artery has mild plaque formation both calcified and noncalcified with less than 30% luminal narrowing. RIGHT LEG: The trifurcation is intact. 2-vessel runoff LEFT LEG: The trifurcation is intact. 1 vessel runoff CONCLUSION: 1. Diffuse atherosclerotic calcification in the femoral and popliteal vessels with most severe stenos is less than 50%. There is a short segment 60% narrowing in the distal right femoral artery. 2. Left femoral artery stent is patent. 3. Intact trifurcation bilaterally. 4. Enhancing 3.2 cm left adrenal mass which does not have features of an adenoma. This suggests a ma lignant adrenal lesion. 5. Large fat containing lower abdominal ventral hernia. Jl Remy MD on May 30, 2017 at 20:16 Board Certified Radiologist. This report was verified electronically.
--- NOTE | 2017-05-30 20:54 | MB ---
cc: JIMMY DIA MD DATE OF CONSULTATION 05/30/17 REASON FOR CONSULTATION Ulcer of the left foot, peripheral vascular disease and previous vascular procedures. HISTORY OF PRESENT ILLNESS This 57-year-old female was admitted to the hospital yesterday with a history of left toe inferior aspect wound that is not healing. The patient apparently said she stepped on something a few weeks ago and this has not healed since. She was apparently hospitalized in another hospital and she left AMA because they suggested toe amputation I guess. This is all unclear. The patient has longstanding diabetes mellitus which is poorly managed. Question arises what to do with the foot. PAST MEDICAL HISTORY 1. Anxiety 2. Hypercholesteremia, 3. Diabetes mellitus, 4. COPD, 5. Hypothyroidism, 6. Renal calculi 7. Hypertension, 8. Arthritis 9. Diabetic neuropathy PAST SURGICAL HISTORY 1. Trans-abdominal hysterectomy and C-sections 2. Tonsillectomy. 3. Some sort of abdominal surgery with bowel resection in the past. 4. Stenting of the left and right leg previously. MEDICATIONS Can be found on the record PHYSICAL EXAMINATION GENERAL: A white female in no acute distress. HEENT: Normocephalic. No trauma to the head. Pupils equally reactive. Extraocular muscles intact. NECK: Bilateral carotid pulses, bilateral carotid faint bruits. CHEST: Clear bilateral breath sounds. HEART: Regular rhythm. ABDOMEN: Soft. Active bowel sounds. The patient has a ventral hernia which is easily reducible. PELVIS: Stable. EXTREMITIES: The patient has very weak palpable femoral pulses and distal pulses by Doppler. dorsalis pedis strong, posterior tibial very weak. Feet are warm. The patient does have indeed small ulceration of the left greater toe which does not seem to be inflamed or infected. IMPRESSION/RECOMMENDATIONS Patient with severe peripheral vascular disease and poorly controlled diabetes mellitus. At this point, the patient does have indeed ulceration of the left hallux. I do not know how deep this is and if it is reaching the bone. The patient will need a bone scan to assess for this. Other than that, we will do CTA with a runoff and see any possible implications as a road map to see if patient will require some type of vascular construction. Thank you much for referral. Jimmy WILHELM /8:32 PM 8:45 PM
--- NOTE | 2017-05-30 22:04 | PD.CAR.PN ---
CVT Progress Note Subjective/Hospital Course: Patient with peripheral vascular disease previous endovascular intervention CTA reveals the non-hemodynamically significant stenotic disease Patient was for some reason seen by both Dr. White and myself for we were both consulted for vascular problems Considering that I'll be leaving town in a few days I would relinquish vascular care at this point to Dr. White and his expertise Will sign off Thanks J Objective: Vital Signs Date Time Temp Pulse Resp B/P Pulse Ox O2 Delivery O2 Flow Rate FiO2 05/30/17 20:00 98.2 84 19 145/92 98 05/30/17 20:00 84 05/30/17 18:00 99 05/30/17 16:00 98.1 91 18 152/77 95 05/30/17 16:00 91 05/30/17 14:00 100 05/30/17 12:00 97.7 97 22 120/81 97 05/30/17 12:00 104 05/30/17 11:00 97 05/30/17 10:00 100 05/30/17 09:00 101 05/30/17 08:40 95 05/30/17 08:00 97.9 104 18 165/85 95 05/30/17 08:00 104 05/30/17 06:00 101 05/30/17 04:00 114 05/30/17 04:00 98.4 105 14 115/79 96 05/30/17 02:00 101 05/30/17 00:00 89 05/30/17 00:00 98.0 109 18 109/77 96 05/29/17 22:56 98.6 91 20 170/87 94 Labs: Laboratory Tests Test 05/30/17 13:00 Phosphorus Level 2.4 MG/DL (2.5-4.9) Result Diagram: 05/30/17 0941 05/30/17 0932 Jimmy Mcgarry MD May 30, 2017 22:04
[2017-05-31] VITALS (13 sets, daily range): BP systolic 142–179; BP diastolic 80–108; PULSE 77–120; RESP 16–41; TEMP 97.8–98.5; O2SAT 94–96
[2017-05-31] MEDS: INSULIN NovoLIN REGULAR SUPPLEMENTAL SCALE SQ SCH ×6 (02:45→22:23)
[2017-05-31] MEDS: CHLORHEXIDINE GLUCONATE 2 % 1 PACK (2 CLOTHS) TOP SCH (04:00)
[2017-05-31] MEDS: RESP: ALBUTEROL 2.5 MG/IPRATROPIUM 0.5 MG NEB (SCH) INH ×4 (04:11→22:00)
[2017-05-31] MEDS: SODIUM CHLOR 0.9% 1000 ML INJ 1,000 ML IV SCH ×2 (04:50→21:34)
[2017-05-31] MEDS: VANCOMYCIN INJ 1,500 MG in SODIUM CHLORID 0.9% 500 ML INJ 500 ML IV SCH ×2 (04:52→17:39)
[2017-05-31] MEDS: HEPARIN SODIUM - SQ 10,000 UNITS/ML VIAL SQ SCH ×3 (04:52→21:35)
[2017-05-31] MEDS: PIPERACIL-TAZO 4.5 GM PREMIX 100 ML IV SCH ×3 (04:53→17:39)
[2017-05-31] MEDS: DOCUSATE SODIUM 50 MG/SENNA 8.6 MG TAB PO SCH ×2 (09:00→21:00)
[2017-05-31] MEDS: GABAPENTIN 100 MG CAP PO SCH ×2 (09:00→21:00)
--- NOTE | 2017-05-31 09:21 | HHI.CCPN ---
Subjective Remarks/Hospital Course 57-year-old female presents with history of left toe wound that is not healing. She has stepped on a hard rock without noticing injury. Patient says that she was hospitalized until [address] [facility] and she left AMA because the surgeon wanted to amputate her toe. Patient is a diabetic. She was tachycardic upon arrival saying her leg hurts. She also says she has 2 hernias and her belly hurts. No history of vomiting. No history of fever or chills. 05/30 No events overnight on Insulin drip 2units/hr. Afebrile. 05/31: Lying in bed no acute distress. Left DP pulse palpable. CTA with run off shows diffuse atherosclerotic disease and patent left femoral stent. Vascular surgery Dr. Thomas following. CT also showed left adrenal mass suspicious for malignancy-oncology consulted Objective Vital Signs Date Time Temp Pulse Resp B/P Pulse Ox O2 Delivery O2 Flow Rate FiO2 05/31/17 06:00 104 05/31/17 04:00 98.3 22 179/80 95 05/29/17 20:42 Room Air Intake and Output 05/30/17 05/30/17 05/30/17 07:59 15:59 23:59 Intake Total 1365 ml 1621 ml 1534 ml Output Total 350 ml Balance 1015 ml 1621 ml 1534 ml Result Diagram: 05/30/17 0941 05/30/17 0932 Imaging Last 24 hours Impressions Chest X-Ray 05/29/17 1725 Signed Impressions: Service Date/Time: Monday, May 29, 2017 17:30 - CONCLUSION: 1. No active disease. Benny Garcia MD Foot X-Ray 05/29/17 0000 Signed Impressions: Service Date/Time: Monday, May 29, 2017 17:33 - CONCLUSION: 1. No acute bony abnormalities. Benny Garcia MD Objective Remarks GENERAL: Well-nourished, well-developed patient. SKIN: Warm and dry. HEAD: Normocephalic. EYES: No scleral icterus. No injection or drainage. NECK: Supple, trachea midline. No JVD or lymphadenopathy. CARDIOVASCULAR: Regular rate and rhythm without gallops, or rubs. RESPIRATORY: Breath sounds equal bilaterally. No accessory muscle use. GASTROINTESTINAL: Abdomen soft, mild tenderness in the lower quadrants, nondistended. 2 moderate sized hernias on the ventral aspect of the abdomen below umbilicus. MUSCULOSKELETAL: No cyanosis, or edema. BACK: Nontender without obvious deformity. No CVA tenderness. EXTREMITIES: 5 mm diabetic ulcer on the bottom of the left big toe with no discharge, no redness or edema. +ve DP and PT pulses by Doppler and weakly palpable NEURO EXAM: Awake and alert. No FND A/P Assessment and Plan Diabetic ulcer, Left big toe Peripheral arterial disease Lactic acidemia Sepsis Hyperglycemia Dyslipidemia Diabetic neuropathy COPD Hypertension Obstructive sleep apnea Neuro: Awake, alert , monitor neuro status Pulm: Continue with oxygen keep sat >90% Bronchodilators CV: Monitor HR and BP keep MAP>65mmHg Continue ASA/Plavix/HCTZ/Lipitor Serial lactic acid monitoring, Lactic acid 2.1, continue with IVF CTA with run off shows diffuse atherosclerotic disease, and patent left femoral artery stent Dr. Thomas following; will discuss with him treatment plan : Monitor renal function, I/O's, electrolytes replacement as needed NS@75ml/hr GI: On Pepcid 20mg Q12, start PO diabetic diet if no OR plan. Currently NPO ID: Continue with abx ( Zosyn) monitor for signs of infections ( Fever, WBC) 05/29 BC: NGTD, wound care eval, Vasc surg Dr. Thomas Heme: Monitor CBC Endo- On SSI with Levemir. Hold Levemir while NPO GI prophylaxis- On Pepcid DVT prophylaxis-Heparin SQ Level 2 Consult [facility] to assume care in am. If no OR plan transfer to Medical Floor Laith Isaac MD May 31, 2017 09:20
[2017-05-31] MEDS: hydrALAZINE HCL 20 MG/ML VIAL IV PUSH PRN ×2 (09:24→22:13)
[2017-05-31] MEDS: FAMOTIDINE 20 MG/2 ML VIAL IV PUSH SCH ×2 (09:26→21:00)
[2017-05-31] MEDS: HYDROCHLOROTHIAZIDE 12.5 MG CAP PO SCH (09:26)
[2017-05-31] MEDS: NICOTINE 14 MG/24 HR PATCH T-DERMAL SCH (09:27)
[2017-05-31] MEDS: oxyCODONE/ACETAMINOPHEN 10 MG/325 MG TAB PO PRN ×2 (09:55→21:57)
--- NOTE | 2017-05-31 10:44 | PD.VS.PN ---
Subjective Subjective/Hospital Course Patient without complaints. Objective Vitals/I&O Date Time Temp Pulse Resp B/P Pulse Ox O2 Delivery O2 Flow Rate FiO2 05/31/17 09:16 94 05/31/17 06:00 104 05/31/17 04:00 79 05/31/17 04:00 98.3 79 22 179/80 95 05/31/17 02:00 77 05/31/17 00:00 77 05/31/17 00:00 77 22 142/84 05/30/17 22:00 92 05/30/17 20:00 98.2 84 19 145/92 98 05/30/17 20:00 84 05/30/17 18:00 99 05/30/17 16:00 98.1 91 18 152/77 95 05/30/17 16:00 91 05/30/17 14:00 100 05/30/17 12:00 97.7 97 22 120/81 97 05/30/17 12:00 104 05/30/17 11:00 97 05/31/17 05/31/17 05/31/17 06:59 14:59 22:59 Intake Total 813 ml Balance 813 ml Laboratory Laboratory Tests Test 05/30/17 13:00 Phosphorus Level 2.4 Date/Time Procedure Status Source Growth 05/29/17 17:30 Aerobic Blood Culture - Preliminary Resulted Blood Peripheral NO GROWTH IN 1 DAY 05/29/17 17:30 Anaerobic Blood Culture - Preliminary Resulted Blood Peripheral NO GROWTH IN 1 DAY Imaging Last 48 hours Impressions Aorta w/Runoff CTA 05/30/17 0000 Signed Impressions: Service Date/Time: Tuesday, May 30, 2017 17:41 - CONCLUSION: 1. Diffuse atherosclerotic calcification in the femoral and popliteal vessels with most severe stenosis less than 50%%. There is a short segment 60%% narrowing in the distal right femoral artery. 2. Left femoral artery stent is patent. 3. Intact trifurcation bilaterally. 4. Enhancing 3.2 cm left adrenal mass which does not have features of an adenoma. This suggests a malignant adrenal lesion. 5. Large fat containing lower abdominal ventral hernia. Jl Remy MD Chest X-Ray 05/29/17 1725 Signed Impressions: Service Date/Time: Monday, May 29, 2017 17:30 - CONCLUSION: 1. No active disease. Benny Garcia MD Assessment and Plan Assessment: (1) Diabetic toe ulcer Status: Acute Plan Patient with known PAD with multiple endovascular revascularizations at [facility] with Dr. Polanco She notified me that she had stent and stent revisions of her left leg in the past. CTA shows patent left SFA stent. She has strong left PT signals by doppler. Foot appears to be neuropathic in nature on the plantar aspect of the left great toe. Patient still continues to smoke about a pack of cigarettes a day. Patient says she will stop smoking now. Podiatry should assess the patient to arrange follow up and to discuss off- loading with the patient. Discussed the plan with Dr. Carrion who will be consulted Plan for follow up with Dr. Polanco after discharge. Patient understands this. Trevor Ramirez DO, FACS Problem Qualifiers (1) Diabetic toe ulcer: Qualified Code: E13.621 - Diabetic ulcer of toe of left foot associated with diabetes mellitus of other type, unspecified ulcer stage Trevor Ramirez DO May 31, 2017 10:44
[2017-05-31] MEDS: ASPIRIN 325 MG TAB PO SCH (11:31)
[2017-05-31] MEDS: CLOPIDOGREL 75 MG TAB PO SCH (11:32)
[2017-05-31] MEDS: ATORVASTATIN 40 MG TAB PO SCH (11:32)
[2017-05-31] MEDS: SODIUM CHLORIDE 0.9% FLUSH 10 ML FLUSH SCH ×2 (11:32→21:35)
[2017-05-31] MEDS: INSULIN DETEMIR 100 UNITS/ML VIAL SQ SCH ×2 (11:34→21:00)
[2017-05-31] MEDS: ALPRAZolam 0.5 MG TAB PO PRN ×2 (14:39→21:23)
[2017-05-31] MEDS: REMOVE OLD NICODERM (NICOTINE) PATCH T-DERMAL SCH (21:00)
--- NOTE | 2017-05-31 21:18 | MB ---
cc: LIDIA CARRION DPM DATE OF CONSULTATION: 05/31/2017. REASON FOR CONSULTATION: Left focal ulcer. HISTORY OF PRESENT ILLNESS: The patient is 57-year-old female with longstanding history of PVD. She had undergone revascularization by Dr. Polanco at [place]. She has been hospitalized at another hospital and left against medical advice because of potential amputation. PAST MEDICAL HISTORY: 1. Anxiety. 2. Diabetes. 3. COPD. 4. Hypothyroidism. 5. Hypertension. 6. Diabetic neuropathy. PAST SURGICAL HISTORY: 1. Transabdominal hysterectomy. 2. section. 3. Tonsillectomy. 4. Stenting bilateral legs. MEDICATIONS: Per history of present illness. PHYSICAL EXAMINATION: DP and PT pulses are diminished bilaterally. The feet are warm proximal to distal. Plantar sub left hallux with a keratotic lesion with no active drainage. No erythema. No acute sign of infection. ASSESSMENT AND PLAN: 1. Diabetes mellitus with neuropathy. 2. Peripheral vascular disease. 3. Left hallux ulcer. At bedside, the ulcer was sharply debrided with a #15 blade to normal healthy vascular bleeding tissue. There was no probing. No deep open wound. There was no exposed bone or tendon. There was no purulence noted. There is no acute sign of infection. I do not think the patient is at risk for bridge to loss. Her CTA with runoff indicated patent superficial femoral artery stent. Her left foot x-rays without cortical disruption of the left hallux. I did discuss with Dr. Thomas while in-house and the patient will follow up with Dr. Polanco as an outpatient. The patient will follow up with Dr. Carrion within one week of discharge. Dry sterile dressings were applied. The patient can be discharged for podiatry. Lidia Carrion DPM SR/NICK /8:52 PM /9:07 PM
[2017-06-01] VITALS (10 sets, daily range): BP systolic 152–190; BP diastolic 78–91; PULSE 80–105; RESP 14–20; TEMP 96.3–98.5; O2SAT 92–98
[2017-06-01] MEDS ORDERED: PHARMACY ORDERED LAB ONE (02:45)
[2017-06-01] MEDS: INSULIN NovoLIN REGULAR SUPPLEMENTAL SCALE SQ SCH ×3 (02:45→10:39)
[2017-06-01] MEDS: VANCOMYCIN INJ 1,500 MG in SODIUM CHLORID 0.9% 500 ML INJ 500 ML IV SCH (03:00)
[2017-06-01] MEDS: CHLORHEXIDINE GLUCONATE 2 % 1 PACK (2 CLOTHS) TOP SCH (04:00)
[2017-06-01] MEDS: RESP: ALBUTEROL 2.5 MG/IPRATROPIUM 0.5 MG NEB (SCH) INH ×4 (04:22→20:00)
[2017-06-01] MEDS: SODIUM CHLOR 0.9% 1000 ML INJ 1,000 ML IV SCH (04:45)
[2017-06-01] MEDS: PIPERACIL-TAZO 4.5 GM PREMIX 100 ML IV SCH ×5 (06:00→23:35)
[2017-06-01] MEDS: HEPARIN SODIUM - SQ 10,000 UNITS/ML VIAL SQ SCH ×3 (06:41→20:59)
[2017-06-01] MEDS: NICOTINE 14 MG/24 HR PATCH T-DERMAL SCH (08:41)
[2017-06-01] MEDS: FAMOTIDINE 20 MG/2 ML VIAL IV PUSH SCH ×2 (09:00→21:03)
[2017-06-01] MEDS: SODIUM CHLORIDE 0.9% FLUSH 10 ML FLUSH SCH ×2 (09:00→21:05)
[2017-06-01] MEDS: GABAPENTIN 100 MG CAP PO SCH ×2 (09:00→21:00)
[2017-06-01] MEDS: HYDROCHLOROTHIAZIDE 12.5 MG CAP PO SCH (09:00)
[2017-06-01] MEDS: DOCUSATE SODIUM 50 MG/SENNA 8.6 MG TAB PO SCH ×2 (09:00→21:00)
[2017-06-01] MEDS: INSULIN DETEMIR 100 UNITS/ML VIAL SQ SCH ×2 (09:00→21:38)
[2017-06-01] MEDS: ASPIRIN 325 MG TAB PO SCH (09:00)
[2017-06-01] MEDS: CLOPIDOGREL 75 MG TAB PO SCH (09:00)
[2017-06-01] MEDS: ATORVASTATIN 40 MG TAB PO SCH (09:00)
[2017-06-01] MEDS ORDERED: INSULIN NovoLIN REGULAR SUPPLEMENTAL SCALE SQ SCH ×2 (10:30→12:00)
[2017-06-01] MEDS: ALPRAZolam 0.5 MG TAB PO PRN ×2 (10:31→20:59)
[2017-06-01] MEDS: oxyCODONE/ACETAMINOPHEN 10 MG/325 MG TAB PO PRN ×2 (14:57→21:42)
--- NOTE | 2017-06-01 15:08 | HHI.DCPOC ---
Discharge Care Plan Diagnosis: (1) Diabetic toe ulcer (2) Adrenal mass (3) HTN (hypertension) Additional Problems infected diabetic foot ulcer adrenal mass Low potassium levels Goals to Promote Your Health * To prevent worsening of your condition and complications * To maintain your health at the optimal level Keep appts for oncology. Directions to Meet Your Goals Take your medications as prescribed Follow your dietary instruction Follow activity as directed Follow-up with primary care provider regarding your dabetes and take steps to obtain better control of your sugars. erous to Your Health. Avoid second hand smoke Call the 24-hour hour crisis hotline for domestic abuse at Julio C Haney MD Jun 01, 2017 15:08
[2017-06-01 15:44] LABS: AUTOMATED NEUTROPHIL # 8.3 TH/MM3 (1.8-7.7); BASOPHIL # 0.1 TH/MM3 (0-0.2); BASOPHIL % 0.5 % (0.0-2.0); EOSINOPHIL # 0.1 TH/MM3 (0-0.4); EOSINOPHIL % 1.2 % (0.0-4.0); HEMATOCRIT 39.1 % (35.0-46.0); HEMO FLAGS DIFF FINAL; LYMPH % 20.2 % (9.0-44.0); LYMPHOCYTE # 2.4 TH/MM3 (1.0-4.8); MEAN CELL VOLUME 93.1 FL (80.0-100.0); MEAN CORPUSCULAR HEMOGLOBIN 32.1 PG (27.0-34.0); MEAN CORPUSCULAR HGB CONC 34.5 % (32.0-36.0); MONO % 8.4 % (0.0-8.0); NEUT % 69.7 % (16.0-70.0); PLATELET COUNT 261 TH/MM3 (150-450); RED CELL DISTRIBUTION WIDTH 12.9 % (11.6-17.2); WHITE BLOOD COUNT 11.9 TH/MM3 (4.0-11.0)
[2017-06-01 16:16] LABS: ALKALINE PHOSPHATASE 82 U/L (45-117); ALT (GPT) 33 U/L (10-53); ANION GAP 9 MEQ/L (5-15); AST (GOT) 15 U/L (15-37); BICARBONATE 28.7 MEQ/L (21.0-32.0); BLOOD UREA NITROGEN 8 MG/DL (7-18); CHLORIDE 102 MEQ/L (98-107); GLOMERULAR FILTRATION RATE 59 ML/MIN (>89); MAGNESIUM 1.8 MG/DL (1.5-2.5); SODIUM (NA) 140 MEQ/L (136-145); TOTAL BILIRUBIN ADULT 0.2 MG/DL (0.2-1.0)
[2017-06-01 16:26] LABS: POTASSIUM 2.8 MEQ/L (3.5-5.1)
[2017-06-01] MEDS ORDERED: POTASSIUM CHLORIDE 10 MEQ CONTROLLED RELEASE TAB PO ONE (16:30)
[2017-06-01] MEDS: POTASSIUM CHLORIDE INJ 40 MEQ in SODIUM CHLOR 0.45% 1000 ML INJ 1,000 ML IV SCH (17:33)
--- NOTE | 2017-06-01 18:00 | HHI.PR ---
Subjective Remarks Follow-up on diabetic foot ulcer. Patient feels good today. Pending lab for follow-up of hypokalemia. Still hypertensive today. Objective Vital Signs Date Time Temp Pulse Resp B/P Pulse Ox O2 Delivery O2 Flow Rate FiO2 06/01/17 13:00 98.2 99 18 189/91 98 06/01/17 12:00 105 06/01/17 08:00 14 06/01/17 06:00 89 06/01/17 04:00 80 06/01/17 04:00 16 06/01/17 02:00 86 06/01/17 00:00 82 06/01/17 00:00 98.0 96 14 152/78 94 05/31/17 22:57 16 05/31/17 22:00 96 05/31/17 20:00 97.8 88 16 179/98 96 05/31/17 20:00 88 05/31/17 18:00 109 I/O 05/31/17 05/31/17 05/31/17 06/01/17 06/01/17 06/01/17 07:00 15:00 23:00 07:00 15:00 23:00 Intake Total 813 ml 1234 ml 393 ml 120 ml Output Total 700 ml Balance 813 ml 534 ml 393 ml 120 ml Intake Oral 480 ml 140 ml 120 ml IV Total 813 ml 754 ml 253 ml 0 ml Output Urine Total 700 ml # Voids 3 3 2 2 # Bowel Movements 1 1 1 0 Result Diagram: 06/01/17 1529 06/01/17 1529 Imaging Last Impressions Aorta w/Runoff CTA 05/30/17 0000 Signed Impressions: Service Date/Time: Tuesday, May 30, 2017 17:41 - CONCLUSION: 1. Diffuse atherosclerotic calcification in the femoral and popliteal vessels with most severe stenosis less than 50%%. There is a short segment 60%% narrowing in the distal right femoral artery. 2. Left femoral artery stent is patent. 3. Intact trifurcation bilaterally. 4. Enhancing 3.2 cm left adrenal mass which does not have features of an adenoma. This suggests a malignant adrenal lesion. 5. Large fat containing lower abdominal ventral hernia. Jl Remy MD Chest X-Ray 05/29/17 1725 Signed Impressions: Service Date/Time: Monday, May 29, 2017 17:30 - CONCLUSION: 1. No active disease. Benny Garcia MD Foot X-Ray 05/29/17 0000 Signed Impressions: Service Date/Time: Monday, May 29, 2017 17:33 - CONCLUSION: 1. No acute bony abnormalities. Benny Garcia MD Objective Remarks GENERAL: Resting comfortably, much better spirits today. EYES: No scleral icterus. No injection or drainage. CARDIOVASCULAR: Regular rate and rhythm without murmurs, gallops, or rubs. RESPIRATORY: Breath sounds equal bilaterally. No accessory muscle use. GASTROINTESTINAL: Abdomen soft, non-tender, nondistended. MUSCULOSKELETAL: No cyanosis, or edema. Extremity: Left first digit with pressure ulcer at the base of distal phalanx with no signs of purulence, surrounding erythema, nor any tenderness. A/P Problem List: (1) Hyperglycemia ICD Code: R73.9 (2) Sepsis ICD Code: A41.9 (3) Diabetic toe ulcer ICD Code: E11.621 Assessment and Plan Sepsis secondary to infected diabetic ulcer - sepsis component resolved, treating ulcer with wound care and antibiotics. podiatry consulted, appreciate recommendations, no need for acute intervention warranted at this time per their note. Vascular surgery feels similarly, outpatient follow-up warranted after discharge. Peripheral arterial disease - Continue aspirin, Plavix, Lipitor Hypertension - uncontrolled, continue lisinopril, vasotec prn hi BP Uncontrolled diabetes - after carefully reviewing in real modifying the patient' s regimen, we will restart her Levemir but at a lower dose of [address] her on a low-dose sliding scale. Dyslipidemia - continue Lipitor Diabetic neuropathy - continue gabapentin Hypokalemia - replace orally and IV, recheck tomorrow. Problem Qualifiers (1) Sepsis: Qualified Code: A41.9 - Sepsis, due to unspecified organism (2) Diabetic toe ulcer: Qualified Code: E13.621 - Diabetic ulcer of toe of left foot associated with diabetes mellitus of other type, unspecified ulcer stage Julio C Haney MD Jun 01, 2017 18:00 (2) Diabetic toe ulcer: Qualified Code: E13.621 - Diabetic ulcer of toe of left foot associated with diabetes mellitus of other type, unspecified ulcer stage Julio C Haney MD Jun 01, 2017 18:00 treatment for her infected diabetic foot wound and short-term with antibiotics the long-term with smoking cessation and antiplatelet therapy. I I spoke to the patient about her adrenal mass and that she would need this worked up by a specialist from other endocrinology or oncology. I related to her that I spoke with the medical oncologist s iron worker and he agreed to see her outpatient since this was not contribution to her acute picture today. Patient also agreed to stop arbitrarily refusing medications as being administered by the nurse so that we could optimize her medical status and facilitate her discharge in a punctual manner when appropriate. GI prophylaxis- On Pepcid Problem Qualifiers (1) Sepsis: Qualified Code: A41.9 - Sepsis, due to unspecified organism (2) Diabetic toe ulcer: Qualified Code: E13.621 - Diabetic ulcer of toe of left foot associated with diabetes mellitus of other type, unspecified ulcer stage Julio C Haney MD Jun 01, 2017 18:00
--- NOTE | 2017-06-01 20:47 | MB ---
cc: KHALIF BETANCUR MD DATE OF CONSULTATION 06/01/17 1959 REQUESTED BY The hospitalist service. REASON FOR CONSULTATION Left adrenal gland mass of unknown etiology. Oncology service has been asked to see the patient for further workup and evaluation. CHIEF COMPLAINT Painful and swollen left big toe. HISTORY OF PRESENT ILLNESS Ms. Chahal is a very pleasant 57-year-old female. She is recently . She lives at home with her two grandchildren whom she has legally adopted after the of her daughter. Ms. Chahal has a longstanding history of diabetes and peripheral arterial disease. She reports having been out walking barefoot about two weeks ago. She stubbed her left big toe and broke the skin. The toe became infected and the patient noticed copious amounts of pus being expressed from the skin break. She assessed the toe to be infected. She was seen at [facility] in [place]. The doctors there recommended surgical debridement and possible amputation. The patient decided to come to [place] for a second opinion. She therefore left [facility] against medical advice and came straight to [place]. The patient was seen at [place] by podiatry and was recommended antibiotic therapy as well as wound care. During the hospitalization, the patient was seen by vascular surgery given her previous history of arterial stent placement in the left lower extremity. As a part of the workup, she underwent a CT scan of the abdomen and pelvis with aorta runoff. The CT scan revealed findings of a 3.2 cm left adrenal mass which was enhancing. The patient denies any abdominal pain or other symptoms at this time. PAST MEDICAL HISTORY 1. Tobaccoism. 2. Diabetes. 3. Peripheral arterial disease. 4. Peripheral neuropathy related to diabetes. 5. H of kidney stones. 6. History of stroke 20 years ago. 7. Hypertension. 8. Chronic elevation of white blood cells. PAST SURGICAL HISTORY 1. Abdominal surgery for removal of intestines for bleeding. 2. Arterial stent placement. FAMILY HISTORY Mother had colon cancer at the age of 76. Father of coronary artery disease and strokes. SOCIAL HISTORY The patient is . She had two children. One of her daughters in a motor vehicle collision in 2013. The patient has adopted the twin babies of the daughter who . (They are now four years old). She has another daughter who is in and out of drug rehab. The patient has been a smoker since her teenage years. HEALTH CARE MAINTENANCE Colonoscopy in 2015 which checked out good without polyps. She is current with mammograms. ALLERGIES LEVOFLOXACIN CIPROFLOXACIN MEDICATIONS Current inpatient 1. Half normal saline with sodium chloride 42 cc/hour. 2. Zosyn 4.5 grams IV q.6 h. 3. Vancomycin per pharmacy dosing 4. Tylenol 650 mg p.o. q. 6 hours. 5. Albuterol/ipratropium 1 ampule q. six as needed for wheezing. 6. Alprazolam 0.5 mg q.6 h as needed for anxiety. 7. Aspirin 325 mg p.o. daily. 8. Atorvastatin 40 mg p.o. daily 9. Plavix 75 mg p.o. daily. 10. Femotidine 20 mcg IV q.12 h. 11. Heparin 5000 units subcu q.8 h. 12. HCTZ 12.5 mg p.o. daily. 13. Labetalol 10 mg IV q 4 hr as needed for hypertension. 14. Lisinopril 20 mg p.o. daily 15. Insulin sliding scale per protocol. 16. Milk of magnesia q.12 h. 17. Metoclopramide 10 mg IV q.6 h. 18. Zofran 4 mg IV q.6 h as needed for nausea or vomiting. 19. Ambien 5 mg p.o. q.h.s. as needed for insomnia. REVIEW OF SYSTEMS A 13-point review of systems is obtained. The following are the pertinent positives: CONSTITUTIONAL: The patient denies fevers, chills, night sweats, fatigue, weakness or weight loss. HEENT: Denies headaches, blurry vision, difficulty swallowing or soreness in the throat. She reports a chronic cough due to scratchiness in her throat. RESPIRATORY: She reports shortness of breath with exertion. She reports chronic cough "smoker's cough". CARDIOVASCULAR: Denies angina-like chest pain, PND, orthopnea. She denies lower extremity swelling. GI: Denies nausea, vomiting, diarrhea, hematochezia, melena, abdominal distension. : No complaints of dysuria, hematuria, urinary incontinence or vaginal discharge or bleeding. LOWER EXTREMITIES: Reports having had a swollen big left toe with pus draining from it. This was not very painful. RESIDENCE LIFE COORDINATOR: Denies any focal sensory or motor deficits. PHYSICAL EXAMINATION VITAL SIGNS: Temperature 98.5 degrees Fahrenheit, heart rate 100 beats a minute, blood pressure is 165-85, respiratory rate 20, O2 sats are 98% on room air. GENERAL APPEARANCE: Ms. Chahal is a middle-aged female. She is of medium height and is of moderate build. She has truncal obesity. She appears to be in no acute distress. HEENT: Head atraumatic, normocephalic, conjunctivae are not pale, sclerae are anicteric, EOMI, PERRLA, oral exam no pharyngeal erythema. NECK: No palpable cervical or supraclavicular adenopathy. RESPIRATORY: Good air movement bilaterally without any added breath sounds. CARDIOVASCULAR: Regular rate and rhythm, S1-S2. No obvious murmurs, rubs or gallops. ABDOMEN: Obese belly, soft, no obvious tenderness. She has a fully healed vertical laparotomy incision in the midline just right of the umbilicus. LYMPH NODES: No palpable hepatosplenomegaly. LOWER EXTREMITIES: Trace pretibial edema. No calf tenderness. There is a small bandage circling the left big toe. There is some erythema but no tenderness. RESIDENCE LIFE COORDINATOR: No motor deficits, but she does have lack of sensation in a sock distribution on her feet. LABORATORY FINDINGS Blood work dated 06/01/2017: WBC count 11.9, hemoglobin 13.5 gm/dl, hematocrit 39%, platelet count is 261, absolute neutrophil count is 8.3. Chemistries: Sodium 140, potassium 2.8, chloride 102, bicarbonate 28.7, BUN 8, creatinine 0.97, random glucose 289, calcium is 8.1. Magnesium is 1.8, total bilirubin 0.2, AST 35, ALT is 33, alkaline phosphatase is 82, albumin 2.7. IMAGING STUDIES CT aorta with runoff dated 05/30/2017: Indicates diffuse atherosclerotic calcifications in the femoral and popliteal vessels with most severe stenosis less than 50%. There is a short segment of 60% narrowing in the distal right femoral artery. Left femoral artery stent is patent. Intact trifurcation bilaterally. Enhancing 3 cm left adrenal mass which does not have features of an adenoma. This suggests presence of malignant adrenal lesion. Fat containing lower abdominal ventral hernia. ASSESSMENT Ms. Chahal is a 57-year-old female with an extensive past history of tobaccoism, diabetes (poorly controlled), hypertension, history of stroke (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 neurologic deficits). She presented to the hospital for an infection involving the left big toe after she stubbed it about a week ago on a rock. She reports having had purulent drainage from it. She does have a history of peripheral arterial disease with a left femoral artery stent placed about a year and a half ago. CT imaging of the abdomen with aortic runoff indicated patency of the left femoral artery stent. However, she was found an enhancing mass involving the left adrenal gland concerning for malignancy. The hematology service has been asked to see this patient for further workup and evaluation. RECOMMENDATIONS 1.. Left adrenal mass: This lesion has a high HU density at over 35. Typically, adrenal lesions with HU units density greater than greater than 20 are likely malignant. I will, therefore, request the patient undergo an MRI of the abdomen with contrast and I will also order CT imaging of the chest to rule out primary lesion within the thorax, especially given her history of tobaccoism. Should there be no primary malignancies identified, she may require a workup by an production graphic designer to rule out a productive adrenal lesion such as a pheochromocytoma or other vasoactive lesions. I will see this patient in my office in the upcoming weeks for further management and followup. MD NAINA Corbin/ /7:09 PM /8:17 PM MTDMaranda
[2017-06-01] MEDS: REMOVE OLD NICODERM (NICOTINE) PATCH T-DERMAL SCH (21:00)
[2017-06-01] MEDS ORDERED: INSULIN ASPART SUPPLEMENTAL SCALE SQ SCH (21:00)
[2017-06-01] MEDS: LISINOPRIL 20 MG TAB PO SCH (21:03)
--- NOTE | 2017-06-01 22:33 | RADRPT ---
EXAM DATE/TIME: 06/01/2017 21:53 [facility] COMPARISON: CTA RUNOFF W 3D RECON, May 30, 2017, 17:41. INDICATIONS : Adrenal mass; rule out metastatic disease. RADIATION DOSE: 9.57 CTDIvol (mGy) MEDICAL HISTORY : Renal calculi. Chronic obstructive pulmonary disease. Cerebrovascular disease. Asthma SURGICAL HISTORY : None. ENCOUNTER: Subsequent ACUITY: 1 day PAIN SCALE: 0/10 LOCATION: chest TECHNIQUE: Volumetric scanning of the chest was performed. Using automated exposure control and adjustment of t he mA and/or kV according to patient size, radiation dose was kept as low as reasonably achievable to obtain optimal diagnostic quality images. DICOM format image data is available electronically for r eview and comparison. Follow-up recommendations for incidentally detected pulmonary nodules are based at a minimum on nodul e size and patient risk factors according to Fleischner Society Guidelines. FINDINGS: LUNGS: Small elongated infiltrate or scarring in the right posterior costophrenic angle. The remainder of t he lungs are clear. No nodules seen. Scattered cystic areas in the lungs suggest moderate severity emphysema. PLEURAE: There is no pleural thickening or pleural effusion. MEDIASTINUM: The heart and great vessels demonstrate no acute abnormality. There is no mediastinal or hilar lymph adenopathy. Coronary artery calcification. AXILLAE: Within normal limits. No lymphadenopathy. MUSCULOSKELETAL: Within normal limits for patient age. MISCELLANEOUS: 3 cm left adrenal mass is low density, [address] runoff performed yesterday demonstrat ed irregular enhancement (80 Hounsfield units). The degree of enhancement in this lesion is greater then would be seen with an adenoma. CONCLUSION: 1. Small area of scarring or infiltrate in the posterior right lung. No suspicious masses seen. 2. 3 cm left adrenal mass is low density on this noncontrast study. However, contrast-enhanced CTA p erformed yesterday demonstrated prominent enhancement with greater than 60 Hounsfield unit increase i n CT density between the pre-and postcontrast images. Jl Remy MD on June 01, 2017 at 22:27 Board Certified Radiologist. This report was verified electronically.
[2017-06-01] MEDS: ENALAPRILAT 1.25 MG/ML VIAL IV PUSH PRN (23:32)
[2017-06-02] VITALS (7 sets, daily range): BP systolic 153–199; BP diastolic 89–98; PULSE 79–103; RESP 17–20; TEMP 96–97.6; O2SAT 95–98
[2017-06-02] MEDS: INSULIN ASPART SUPPLEMENTAL SCALE SQ SCH ×6 (01:54→20:35)
[2017-06-02] MEDS: CHLORHEXIDINE GLUCONATE 2 % 1 PACK (2 CLOTHS) TOP SCH (04:00)
[2017-06-02] MEDS: RESP: ALBUTEROL 2.5 MG/IPRATROPIUM 0.5 MG NEB (SCH) INH ×4 (04:00→20:12)
[2017-06-02] MEDS: HEPARIN SODIUM - SQ 10,000 UNITS/ML VIAL SQ SCH ×3 (05:50→20:36)
[2017-06-02] MEDS: PIPERACIL-TAZO 4.5 GM PREMIX 100 ML IV SCH ×3 (05:50→18:00)
[2017-06-02] MEDS: HYDROCHLOROTHIAZIDE 12.5 MG CAP PO SCH (08:41)
[2017-06-02] MEDS: ASPIRIN 325 MG TAB PO SCH (08:41)
[2017-06-02] MEDS: ALPRAZolam 0.5 MG TAB PO PRN ×2 (08:41→16:33)
[2017-06-02] MEDS: LISINOPRIL 20 MG TAB PO SCH (08:41)
[2017-06-02] MEDS: CLOPIDOGREL 75 MG TAB PO SCH (08:41)
[2017-06-02] MEDS: ATORVASTATIN 40 MG TAB PO SCH (08:41)
[2017-06-02] MEDS: NICOTINE 14 MG/24 HR PATCH T-DERMAL SCH (08:42)
[2017-06-02] MEDS: DOCUSATE SODIUM 50 MG/SENNA 8.6 MG TAB PO SCH ×2 (08:42→20:36)
[2017-06-02] MEDS: SODIUM CHLORIDE 0.9% FLUSH 10 ML FLUSH SCH ×2 (08:43→20:36)
[2017-06-02] MEDS: FAMOTIDINE 20 MG/2 ML VIAL IV PUSH SCH ×2 (08:47→20:36)
[2017-06-02] MEDS: GABAPENTIN 100 MG CAP PO SCH ×2 (08:47→20:36)
[2017-06-02] MEDS ORDERED: GADODIAMIDE PF 287 MG/ML 10 ML VIAL (for RAD MRI) IV ONE (10:02)
--- NOTE | 2017-06-02 10:16 | RADRPT ---
EXAM DATE/TIME: 06/02/2017 09:39 [place] COMPARISON: CT THORAX W/O CONTRAST, June 01, 2017, 21:53. INDICATIONS : Adrenal mass. CONTRAST: 10 cc Omniscan (gadodiamide) IV MEDICAL HISTORY : Hypertension. Diabetes mellitus type 2. SURGICAL HISTORY : Colon resection. section. ENCOUNTER: Initial ACUITY: 1 day PAIN SCORE: 0/10 LOCATION: Abdomen. TECHNIQUE: Multiplanar, multisequence magnetic resonance imaging of the abdomen was performed without and with i ntravenous contrast. FINDINGS: LIVER: The liver measures 20.6 cm and demonstrates moderate to severe signal loss on out of phase imaging. No lesion is identified. Portal vein is within normal limits. BILIARY: There is no intra- or extra-hepatic biliary ductal dilatation. Gallbladder contains no stones. SPLEEN: Within normal limits. PANCREAS: Within normal limits. ADRENALS: There is a left adrenal gland mass measuring 3.1 x 2.4 cm. It demonstrates signal loss on the phase i maging and enhances homogeneously. Right adrenal gland is normal. KIDNEYS: Normal size and signal intensity. There is no hydronephrosis or mass. There is a 7 mm simple cyst in the left mid kidney. OTHER: Aorta is nonaneurysmal. There is no lymphadenopathy. CONCLUSION: 1. There is a 3.1 cm left adrenal gland mass. Imaging features are characteristic of an adrenal gland adenoma. 2. Hepatomegaly with moderate to severe steatosis. Poncho Agosto MD on June 02, 2017 at 10:07 Board Certified Radiologist. This report was verified electronically.
--- NOTE | 2017-06-02 11:02 | PD.ONC.PN ---
Subjective Subjective Remarks Afebrile overnight. Resting in room in nad. No complaints. Objective Data Date Time Temp Pulse Resp B/P Pulse Ox O2 Delivery O2 Flow Rate FiO2 06/02/17 08:00 96.6 88 20 169/89 98 06/02/17 05:59 96.5 86 18 153/96 97 06/02/17 00:30 19 06/02/17 00:00 97.6 103 20 199/93 97 06/01/17 20:01 97 21 06/01/17 20:00 96.3 102 20 190/85 92 06/01/17 16:00 98.5 100 20 165/85 98 06/01/17 13:00 98.2 99 18 189/91 98 06/01/17 12:00 105 06/02/17 06/02/17 06/02/17 07:00 15:00 23:00 Intake Total 1464 ml Balance 1464 ml Result Diagram: 06/01/17 1529 06/01/17 1529 Laboratory Results Laboratory Tests Test 06/01/17 06/01/17 15:29 19:15 White Blood Count 11.9 TH/MM3 Red Blood Count 4.20 MIL/MM3 Hemoglobin 13.5 GM/DL Hematocrit 39.1 % Mean Corpuscular Volume 93.1 FL Mean Corpuscular Hemoglobin 32.1 PG Mean Corpuscular Hemoglobin 34.5 % Concent Red Cell Distribution Width 12.9 % Platelet Count 261 TH/MM3 Mean Platelet Volume 8.9 FL Neutrophils (%) (Auto) 69.7 % Lymphocytes (%) (Auto) 20.2 % Monocytes (%) (Auto) 8.4 % Eosinophils (%) (Auto) 1.2 % Basophils (%) (Auto) 0.5 % Neutrophils # (Auto) 8.3 TH/MM3 Lymphocytes # (Auto) 2.4 TH/MM3 Monocytes # (Auto) 1.0 TH/MM3 Eosinophils # (Auto) 0.1 TH/MM3 Basophils # (Auto) 0.1 TH/MM3 CBC Comment DIFF FINAL Differential Comment Sodium Level 140 MEQ/L Potassium Level 2.8 MEQ/L Chloride Level 102 MEQ/L Carbon Dioxide Level 28.7 MEQ/L Anion Gap 9 MEQ/L Blood Urea Nitrogen 8 MG/DL Creatinine 0.97 MG/DL Estimat Glomerular Filtration 59 ML/MIN Rate Random Glucose 289 MG/DL Calcium Level 8.1 MG/DL Magnesium Level 1.8 MG/DL 1.9 MG/DL Total Bilirubin 0.2 MG/DL Aspartate Amino Transf 15 U/L (AST/SGOT) Alanine Aminotransferase 33 U/L (ALT/SGPT) Alkaline Phosphatase 82 U/L Total Protein 6.1 GM/DL Albumin 2.7 GM/DL Procalcitonin 0.10 ng/mL Vancomycin Level Trough 7.8 MCG/ML Imaging Studies Last 24 hours Impressions Abdomen MRI 06/02/17 0000 Signed Impressions: Service Date/Time: Friday, June 02, 2017 09:39 - CONCLUSION: 1. There is a 3.1 cm left adrenal gland mass. Imaging features are characteristic of an adrenal gland adenoma. 2. Hepatomegaly with moderate to severe steatosis. Poncho Agosto MD Administered Medications Medications (Trade) Dose Ordered Sig/Sachin Route PRN Reason Start Time Stop Time Status Last Admin Dose Admin Aspirin (Aspirin) 325 mg DAILY PO 05/30/17 09:00 06/02/17 08:41 Clopidogrel Bisulfate (Plavix) 75 mg DAILY PO 05/30/17 09:00 06/02/17 08:41 Gabapentin (Neurontin) 100 mg BID PO 05/29/17 21:00 05/30/17 20:01 Hydrochlorothiazide (Microzide) 12.5 mg DAILY PO 05/30/17 09:00 06/02/17 08:41 Sodium Chloride (NS Flush) 2 ml BID .XX 05/29/17 21:00 06/02/17 08:43 Famotidine (Pepcid Inj) 20 mg Q12HR IV PUSH 05/29/17 21:00 06/01/17 21:03 Zolpidem Tartrate (Ambien) 5 mg HS PRN PO INSOMNIA 05/29/17 20:00 06/01/17 23:39 Heparin Sodium (Porcine) (Heparin Inj) 5,000 units Q8HR SQ 05/29/17 22:00 06/02/17 05:50 Chlorhexidine Gluconate (Chlorhexidine 2% Cloth) 3 pack Taper DAILY@04 TOP 05/30/17 04:00 05/26/18 03:59 06/02/17 04:00 Senna/Docusate Sodium 1 tab 1 tab BID PO 05/29/17 21:00 05/30/17 20:02 Piperacillin Sod/ Tazobactam Sod (Zosyn 4.5 Gm Premix) 100 ml @ 200 mls/hr Q6H IV 05/30/17 00:00 06/02/17 05:50 Labetalol HCl (Trandate Inj) 10 mg Q4H PRN IV PUSH SBP>160, DBP>90 05/30/17 02:45 05/31/17 17:49 Hydralazine HCl (Apresoline Inj) 20 mg Q4H PRN IV PUSH SBP>160, DBP>90 05/30/17 02:45 05/31/17 22:13 Atorvastatin Calcium (Lipitor) 40 mg DAILY PO 05/30/17 09:00 06/02/17 08:41 Alprazolam (Xanax) 0.5 mg Q6H PRN PO anxiety 05/30/17 04:30 06/02/17 08:41 Nicotine (Habitrol 14 Mg Patch.24 Hr) 1 patch DAILY T-DERMAL 05/30/17 19:15 06/02/17 08:42 Miscellaneous Information 1 HS T-DERMAL 05/30/17 21:00 06/01/17 21:00 Enalaprilat 1.25 mg 1.25 mg Q6H PRN IV PUSH SBP>160, DBP>90 06/01/17 15:30 06/01/17 23:32 Potassium Chloride/Sodium Chloride (KCl Inj/1/2 NS 1000 ml Inj) 1,020 ml @ 42 mls/hr Q24H IV 06/01/17 17:00 06/01/17 17:33 Insulin Detemir (Levemir Inj) 8 units HS SQ 06/01/17 21:00 06/01/17 21:38 Lisinopril (Prinivil) 20 mg DAILY PO 06/01/17 18:30 06/02/17 08:41 Oxycodone/ Acetaminophen (Percocet 10-325 Mg) 1 tab Q4H PRN PO pain 6-10 06/01/17 21:45 06/01/17 21:42 Insulin Aspart (NovoLOG SUPPLEMENTAL SCALE) 1 Q4H SQ 06/02/17 00:00 06/02/17 08:45 Objective Remarks GENERAL: Middle aged female upright in bed in nad. SKIN: Warm and dry. HEAD: Normocephalic. EYES: No injection or drainage. NECK: Supple, trachea midline. CARDIOVASCULAR: Regular rate and rhythm RESPIRATORY: Breath sounds equal bilaterally. No accessory muscle use. GASTROINTESTINAL: Abdomen soft, non-tender, nondistended. EXTREMITIES: No cyanosis NEUROLOGICAL: No obvious focal deficit. Awake, alert, and oriented x3. Assessment/Plan Assessment 57y/o female admitted with complications from PAD. Oncology consulted for left adrenal gland mass of unknown etiology. Plan 1. MRI abdomen and CT thorax reviewed. MRI abdomen indicating adrenal mass more consistent with adenoma. discussed with patient. advised to follow up to have it monitored 2. supportive care 3. antibiotics per primary Attending Statement The exam, history, and the medical decision-making described in the above note were completed with the assistance of the mid-level provider. I reviewed and agree with the findings presented. I attest that I had a [id number] encounter with the patient on the same day, and personally performed and documented my assessment and findings in the medical record. Review MRI result with pt. MRI finding is more consistent with adenoma. I told her she will need outpt f/u to ensure stability. Harriet Mcghee Jun 02, 2017 11:02 Perfecto Capellan MD Jun 02, 2017 11:16
[2017-06-02] MEDS: oxyCODONE/ACETAMINOPHEN 10 MG/325 MG TAB PO PRN ×2 (11:43→16:34)
[2017-06-02] MEDS ORDERED: hydrALAZINE HCL 25 MG TAB PO ONE (13:00)
[2017-06-02] MEDS: CARVEDILOL 6.25 MG TAB PO SCH ×2 (13:41→20:36)
[2017-06-02] MEDS: ENALAPRILAT 1.25 MG/ML VIAL IV PUSH PRN ×2 (13:41→21:11)
[2017-06-02] MEDS: MUPIROCIN 2% CREAM 15 GM TOPICAL SCH ×2 (14:30→20:36)
[2017-06-02] MEDS ORDERED: PHARMACY ORDERED LAB ONE (14:45)
[2017-06-02] MEDS ORDERED: MUPI2%T TOPICAL (15:51)
[2017-06-02] MEDS: POTASSIUM CHLORIDE INJ 40 MEQ in SODIUM CHLOR 0.45% 1000 ML INJ 1,000 ML IV SCH (17:00)
[2017-06-02 18:23] LABS: BICARBONATE 28.3 MEQ/L (21.0-32.0)
[2017-06-02] MEDS: INSULIN DETEMIR 100 UNITS/ML VIAL SQ SCH (20:35)
[2017-06-02] MEDS: REMOVE OLD NICODERM (NICOTINE) PATCH T-DERMAL SCH (21:00)
[2017-06-03] MEDS: CHLORHEXIDINE GLUCONATE 2 % 1 PACK (2 CLOTHS) TOP SCH (01:18)
[2017-06-03 04:00] VITALS: BP 126/65; PULSE 70; RESP 18; TEMP 96.9; O2SAT 100
[2017-06-03] MEDS: INSULIN ASPART SUPPLEMENTAL SCALE SQ SCH ×4 (04:36→12:00)
[2017-06-03] MEDS: HEPARIN SODIUM - SQ 10,000 UNITS/ML VIAL SQ SCH (04:37)
[2017-06-03] MEDS: PIPERACIL-TAZO 4.5 GM PREMIX 100 ML IV SCH ×3 (04:37→12:00)
[2017-06-03 08:00] VITALS: PULSE 90; RESP 18; TEMP 97.4; O2SAT 96
[2017-06-03] MEDS: NICOTINE 14 MG/24 HR PATCH T-DERMAL SCH (08:59)
[2017-06-03] MEDS: FAMOTIDINE 20 MG/2 ML VIAL IV PUSH SCH (09:00)
[2017-06-03] MEDS: SODIUM CHLORIDE 0.9% FLUSH 10 ML FLUSH SCH (09:00)
[2017-06-03] MEDS: DOCUSATE SODIUM 50 MG/SENNA 8.6 MG TAB PO SCH (09:00)
[2017-06-03] MEDS: CARVEDILOL 6.25 MG TAB PO SCH (09:00)
[2017-06-03] MEDS: GABAPENTIN 100 MG CAP PO SCH (09:00)
[2017-06-03] MEDS: MUPIROCIN 2% CREAM 15 GM TOPICAL SCH (09:00)
[2017-06-03] MEDS: HYDROCHLOROTHIAZIDE 12.5 MG CAP PO SCH (09:01)
[2017-06-03] MEDS: ATORVASTATIN 40 MG TAB PO SCH (09:01)
[2017-06-03] MEDS: CLOPIDOGREL 75 MG TAB PO SCH (09:01)
[2017-06-03] MEDS: LISINOPRIL 20 MG TAB PO SCH (09:02)
[2017-06-03] MEDS: ASPIRIN 325 MG TAB PO SCH (09:02)
--- NOTE | 2017-06-03 10:46 | HHI.PR ---
Subjective Remarks Pt was seen on 06/02. Follow-up on diabetic foot ulcer. Patient feels good today. Pending lab for follow-up of hypokalemia. Still very hypertensive today. CT scan chest showing no suspicious lesion. Objective Vital Signs Date Time Temp Pulse Resp B/P Pulse Ox O2 Delivery O2 Flow Rate FiO2 06/03/17 08:00 97.4 90 18 96 06/03/17 04:00 96.9 70 18 126/65 100 06/02/17 21:00 97.3 79 17 170/98 95 06/02/17 20:00 06/02/17 16:27 162/93 06/02/17 16:00 96.0 81 20 169/97 98 06/02/17 12:24 97.1 103 20 169/96 95 I/O 06/02/17 06/02/17 06/02/17 06/03/17 06/03/17 06/03/17 07:00 15:00 23:00 07:00 15:00 23:00 Intake Total 1464 ml 720 ml 480 ml 240 ml Balance 1464 ml 720 ml 480 ml 240 ml Intake Oral 720 ml 720 ml 480 ml 240 ml IV Total 744 ml # Voids 2 4 2 1 # Bowel Movements 0 0 Result Diagram: 06/01/17 1529 06/02/17 1725 Imaging Last Impressions Abdomen MRI 06/02/17 0000 Signed Impressions: Service Date/Time: Friday, June 02, 2017 09:39 - CONCLUSION: 1. There is a 3.1 cm left adrenal gland mass. Imaging features are characteristic of an adrenal gland adenoma. 2. Hepatomegaly with moderate to severe steatosis. Poncho Agosto MD Chest CT 06/01/17 0000 Signed Impressions: Service Date/Time: Thursday, June 01, 2017 21:53 - CONCLUSION: 1. Small area of scarring or infiltrate in the posterior right lung. No suspicious masses seen. 2. 3 cm left adrenal mass is low density on this noncontrast study. However, contrast-enhanced CTA performed yesterday demonstrated prominent enhancement with greater than 60 Houn[address] increase in CT density between the pre- and postcontrast images. Jl Remy MD Aorta w/Runoff CTA 05/30/17 0000 Signed Impressions: Service Date/Time: Tuesday, May 30, 2017 17:41 - CONCLUSION: 1. Diffuse atherosclerotic calcification in the femoral and popliteal vessels with most severe stenosis less than 50%%. There is a short segment 60%% narrowing in the distal right femoral artery. 2. Left femoral artery stent is patent. 3. Intact trifurcation bilaterally. 4. Enhancing 3.2 cm left adrenal mass which does not have features of an adenoma. This suggests a malignant adrenal lesion. 5. Large fat containing lower abdominal ventral hernia. lJ Remy MD Chest X-Ray 05/29/17 1725 Signed Impressions: Service Date/Time: Monday, May 29, 2017 17:30 - CONCLUSION: 1. No active disease. Benny Garcia MD Foot X-Ray 05/29/17 0000 Signed Impressions: Service Date/Time: Monday, May 29, 2017 17:33 - CONCLUSION: 1. No acute bony abnormalities. Benny Garcia MD Objective Remarks GENERAL: Resting comfortably, much better spirits today. EYES: No scleral icterus. No injection or drainage. CARDIOVASCULAR: Regular rate and rhythm without murmurs, gallops, or rubs. RESPIRATORY: Breath sounds equal and clear bilaterally. No accessory muscle use. GASTROINTESTINAL: Abdomen soft, non-tender, nondistended. MUSCULOSKELETAL: No cyanosis, or edema. Extremity: Left first digit with pressure ulcer at the base of distal phalanx with no signs of purulence, surrounding erythema, nor any tenderness. A/P Problem List: (1) Hyperglycemia ICD Code: R73.9 (2) Sepsis ICD Code: A41.9 (3) Diabetic toe ulcer ICD Code: E11.621 Assessment and Plan Sepsis secondary to infected diabetic ulcer - sepsis component resolved, treating ulcer with wound care and antibiotics. podiatry consulted, appreciate recommendations, no need for acute intervention warranted at this time per their note. Vascular surgery feels similarly, outpatient follow-up warranted after discharge. Peripheral arterial disease - Continue aspirin, Plavix, Lipitor Hypertension - still very uncontrolled, adding on coreg scheduled and prn hydralazine, continue scheduled lisinopril, vasotec prn hi BP Uncontrolled diabetes - after carefully reviewing in real modifying the patient' s regimen, we will restart her Levemir but at a lower dose of [address] her on a low-dose sliding scale. Dyslipidemia - continue Lipitor Diabetic neuropathy - continue gabapentin Hypokalemia - delay on lab, called lab, pending result. replace orally and IV, recheck tomorrow. Pt staying another night due to persistent severe hypertension and hypokalemia. Problem Qualifiers (1) Sepsis: Qualified Code: A41.9 - Sepsis, due to unspecified organism (2) Diabetic toe ulcer: Qualified Code: E13.621 - Diabetic ulcer of toe of left foot associated with diabetes mellitus of other type, unspecified ulcer stage Julio C Haney MD Jun 03, 2017 10:46
[2017-06-03] MEDS ORDERED: POTA-163 PO (11:24)
[2017-06-03] MEDS ORDERED: CARV6.252 PO (11:24)
[2017-06-03] MEDS ORDERED: LISI40TA PO (11:24)
[2017-06-03] MEDS ORDERED: LANTUS2P SQ (11:26)
[2017-06-03] MEDS ORDERED: NOVOLOGP2 SQ (11:28)
[2017-06-03] MEDS ORDERED: POTASSIUM CHLORIDE 20 MEQ CONTROLLED RELEASE TAB PO ONE (11:30)
--- NOTE | 2017-06-03 11:40 | HHI.DS ---
Discharge Summary Admission Date May 29, 2017 at 18:53 Discharge Date: Jun 03, 2017 Admitting Diagnosis sepsis, hyperglycemia, diabetic foot wound, reduced hernia (1) Diabetic toe ulcer ICD Code: E11.621 Diagnosis: Principal (2) Adrenal mass ICD Code: E27.9 Diagnosis: Secondary (3) HTN (hypertension) ICD Code: I10 Diagnosis: Secondary Procedures Lower extremity CTA Brief History - From Admission 57-year-old female presents with history of left toe wound that is not healing. She has stepped on a hard rock without noticing injury. Patient says that she was hospitalized until 2 days ago at [facility] and she left AMA because the surgeon wanted to amputate her toe. Patient is a diabetic. She was tachycardic upon arrival saying her leg hurts. She also says she has 2 hernias and her belly hurts. No history of vomiting. No history of fever or chills. CBC/BMP: 06/01/17 1529 06/02/17 1725 Significant Findings Laboratory Tests Test 06/01/17 06/02/17 15:29 17:25 White Blood Count 11.9 TH/MM3 (4.0-11.0) Monocytes (%) (Auto) 8.4 % (0.0-8.0) Neutrophils # (Auto) 8.3 TH/MM3 (1.8-7.7) Monocytes # (Auto) 1.0 TH/MM3 (0-0.9) Potassium Level 2.8 MEQ/L 3.0 MEQ/L (3.5-5.1) (3.5-5.1) Estimat Glomerular Filtration 59 ML/MIN (>89) 74 ML/MIN (>89) Rate Random Glucose 289 MG/DL 310 MG/DL (74-106) (74-106) Calcium Level 8.1 MG/DL (8.5-10.1) Total Protein 6.1 GM/DL (6.4-8.2) Albumin 2.7 GM/DL (3.4-5.0) Imaging Last Impressions Abdomen MRI 06/02/17 0000 Signed Impressions: Service Date/Time: Friday, June 02, 2017 09:39 - CONCLUSION: 1. There is a 3.1 cm left adrenal gland mass. Imaging features are characteristic of an adrenal gland adenoma. 2. Hepatomegaly with moderate to severe steatosis. Poncho Agosto MD Chest CT 06/01/17 0000 Signed Impressions: Service Date/Time: Thursday, June 01, 2017 21:53 - CONCLUSION: 1. Small area of scarring or infiltrate in the posterior right lung. No suspicious masses seen. 2. 3 cm left adrenal mass is low density on this noncontrast study. However, contrast-enhanced CTA performed yesterday demonstrated prominent enhancement with greater than 60 Houn[address] unit increase in CT density between the pre- and postcontrast images. Jl Remy MD Aorta w/Runoff CTA 05/30/17 0000 Signed Impressions: Service Date/Time: Tuesday, May 30, 2017 17:41 - CONCLUSION: 1. Diffuse atherosclerotic calcification in the femoral and popliteal vessels with most severe stenosis less than 50%%. There is a short segment 60%% narrowing in the distal right femoral artery. 2. Left femoral artery stent is patent. 3. Intact trifurcation bilaterally. 4. Enhancing 3.2 cm left adrenal mass which does not have features of an adenoma. This suggests a malignant adrenal lesion. 5. Large fat containing lower abdominal ventral hernia. Jl Remy MD Chest X-Ray 05/29/17 1725 Signed Impressions: Service Date/Time: Monday, May 29, 2017 17:30 - CONCLUSION: 1. No active disease. Benny Garcia MD Foot X-Ray 05/29/17 0000 Signed Impressions: Service Date/Time: Monday, May 29, 2017 17:33 - CONCLUSION: 1. No acute bony abnormalities. Benny Garcia MD PE at Discharge GENERAL: Resting comfortably, ambulating without any limp EYES: No scleral icterus. No injection or drainage. CARDIOVASCULAR: Regular rate and rhythm without murmurs, gallops, or rubs. RESPIRATORY: Breath sounds equal and clear bilaterally. No accessory muscle use. GASTROINTESTINAL: nondistended. MUSCULOSKELETAL: Grossly intact range of motion, ambulating well Hospital Course Patient was admitted to intensive care due to sepsis secondary to a foot ulcer after leaving [facility] since she was against statement by one of their physicians stating she needed to have an amputation of her right toe. Vascular surgery was involved, performed a aorta CTA which showed some perfusion. Patient's overall foot ulcer improved clinically with aggressive antibiotics. Podiatry was consulted and did not have any further recommendations apart from completing classic antibiotic course. While undergoing imaging of her vasculature, and incidental adrenal mass was noted on the patient's left side measuring greater than 3 cm. Oncology was consulted, performed further imaging and did not find any secondary or any other primary source for could be cancer. Patient completed her antibiotic course eventually showed clinical resolution of infection in her foot ulcer. Have her blood pressures remained high throughout her stay and had to stay an additional 48 hours to stabilize her pressures and her hypokalemia. Had a very thorough discussion with the patient about following up with numerous consultants including cardiovascular surgery, podiatry, oncology, and also primary care to ultimately control her blood sugars, her potassium levels, and her blood pressures. I instructed the patient that she needed to demonstrate her administration of her home insulin to a certified professional outpatient since it is difficult to predict how she will respond to her home regimen of 20 units of Lantus since she was responding quite well to much lower dosing while she was inpatient on just 8 units at nighttime Levemir. For this reason her home regimen was not adjusted since the patient says that she has sugars running the 200s easily in the mornings prior to her hospitalization. Patient has met maximal benefit from hospitalization and is clinically stable for discharge. Pt Condition on Discharge: Good Discharge Disposition: Discharge Home Discharge Time: > 30 minutes Discharge Instructions DIET: Follow Instructions for: As Tolerated, No Restrictions Activities you can perform: Regular-No Restrictions Follow up Referrals: Appointment for Follow Up Appointment for Follow Up - [address] Polanco Oncology - 1 Week with Samy Francis MD PCP Follow-up - 1 Week Podiatry - 1 Week with Lidia Carrion DPM Podiatry - 2 Weeks New Medications: Carvedilol (Carvedilol) 6.25 Mg Tab 6.25 MG PO BID #60 Ref 0 TAB Lisinopril (Lisinopril) 40 Mg Tab 40 MG PO DAILY Blood Pressure Management #30 Ref 0 TAB Mupirocin Topical (Bactroban Topical) 22 Gm Cream 1 APPLIC TOPICAL BID Mgmt Bacterial Infection #1 Ref 0 TUBE Potassium Chloride ER (Potassium Chloride ER) 20 Meq Tab 20 MEQ PO BID Electrolyte Replacement #60 Ref 0 TAB Continued Medications: Aspirin (Aspirin) 325 Mg Tab 325 MG PO DAILY #30 Ref 0 TAB Clopidogrel (Plavix) 75 Mg Tab 75 MG PO DAILY Blood Clot Prevention #30 Ref 0 TAB Gabapentin (Gabapentin) 100 Mg Cap 100 MG PO BID #60 Ref 0 CAP Hydrochlorothiazide (Hydrochlorothiazide) 12.5 Mg Tab 12.5 MG PO DAILY #30 Ref 0 TAB Insulin Aspart Inj (Novolog Inj) 1,000 Unit/10 Ml Vial 15 UNITS SQ TIDAC Blood Sugar Management #10 Ref 0 ML Insulin Glargine Inj (Lantus Inj) 1,000 Unit/10 Ml Vial 20 UNITS SQ HS Blood Sugar Management #30 Ref 0 VIAL Julio C Haney MD Jun 03, 2017 11:40
[2017-06-03 12:00] VITALS: PULSE 84; RESP 18; TEMP 97; O2SAT 97
== END 2017-06-03 14:16 | disposition home or self-care (01) | DRG 854 ==
LOC: NEPE 16:11 → NEDA 18:53 → HIMN 22:40 → HOCA 06-01 12:52
PROVIDERS: ADMIT Hospitalist; ATTEND Hospitalist
PROC: 0HBNXZZ Excision of Left Foot Skin, External Approach (ICD-10-PCS; principal; 2017-05-31)
DX: A41.9 Sepsis, unspecified organism (principal); E87.2 Acidosis; E11.51 Type 2 diabetes mellitus with diabetic peripheral angiopathy without gangrene; E11.42 Type 2 diabetes mellitus with diabetic polyneuropathy; K43.6 Other and unspecified ventral hernia with obstruction, without gangrene; E11.621 Type 2 diabetes mellitus with foot ulcer; E11.65 Type 2 diabetes mellitus with hyperglycemia; L97.529 Non-pressure chronic ulcer of other part of left foot with unspecified severity; J44.9 Chronic obstructive pulmonary disease, unspecified; I10 Essential (primary) hypertension; M19.90 Unspecified osteoarthritis, unspecified site; M81.0 Age-related osteoporosis without current pathological fracture; R00.0 Tachycardia, unspecified; F41.9 Anxiety disorder, unspecified; F32.9 Major depressive disorder, single episode, unspecified; E03.9 Hypothyroidism, unspecified; G47.33 Obstructive sleep apnea (adult) (pediatric); G47.30 Sleep apnea, unspecified; F17.210 Nicotine dependence, cigarettes, uncomplicated; E78.5 Hyperlipidemia, unspecified; E87.6 Hypokalemia; E27.8 Other specified disorders of adrenal gland; Z86.73 Personal history of transient ischemic attack (TIA), and cerebral infarction 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 deficits; Z95.820 Peripheral vascular angioplasty status with implants and grafts
CPT/HCPCS: 71010; 71250; 73630; 74183; 75635; 76937; 80048; 80053; 80202; 81001; 82948; 83605; 83735; 84100; 84145; 85025; 87040; 87641; 93922; 94640; 94664; A9579; J0360; J1644; J1815; J1817; J2250; J2270; J2405; J2543; J3010; J3370; J3480; J7030; J7040; J7050; Q9967

== ENCOUNTER 2017-09-07 13:01 | Emergency (ER) | payer OTHER ==
[~2017-09-07] VITALS: Ht 157.5 cm; Wt 75.0 kg
[~2017-09-07 13:01] MED LIST changes: +ASPI-183 PO; -ASPI325T PO; +AUGM500T7 PO; +CARV6.252 PO; -GABA300C3 PO; -HYDR-2768 PO; +HYDR12.56 PO; +LANTUS2P SQ; -LEVEMIR SQ; -LISI-363 PO; -OXYC10TA8 PO; -PERC5TAB12 PO; +PHEN0.4T PO; -PLAV75TA PO; +PLAV75TA29 PO; +POTA-163 PO
[2017-09-07 13:04] VITALS: BP 180/83; PULSE 130; RESP 14; TEMP 98.6; O2SAT 97
--- NOTE | 2017-09-07 13:13 | PD ---
HPI Chief Complaint: Skin Problem Time Seen by Provider: 13:11 Travel History International Travel<30 days: No Contact w/Intl Traveler<30days: No Traveled to known affect area: No History of Present Illness HPI 57 YO F with PMH of DMT2, HTN, PVD, HLD, MEGAN, current smoker presents to the ED for evaluation of chronic wound of the left great toe. She states that the wound has gotten worse over the last few days. She states that she has chronic neuropathy and is unable to feel the wound. She denies fever or chills. She endorses chronic nausea, no worse today. She states that she was treated at this hospital for multiple medical conditions in the past and has been unable to follow up with the laser set up operator as ordered at discharge. She states that she has not taken her antihypertensive medications for 2 days. Her primary care provider is in [place]. [facility] Past Medical History Autoimmune Disease: No Anxiety: No Depression: No Heart Rhythm Problems: No Cancer: No Cardiovascular Problems: No High Cholesterol: Yes Chest Pain: No Congestive Heart Failure: No COPD: Yes Cerebrovascular Accident: Yes Diabetes: Yes Endocrine: Yes Gastrointestinal Disorders: Yes (GERD) GERD: No Genitourinary: Yes (CALCULI, RIGHT RENAL 4MM MASS) Hepatitis: No Hiatal Hernia: No Hypertension: Yes Immune Disorder: No Kidney Stones: Yes Musculoskeletal: Yes (ARTHRITIS, OSTEOPOROSIS) Neurologic: Yes (NUMB FEET, STROKE (X2)) Psychiatric: Yes (ANXIETY/ DEPRESSION) Reproductive: No Respiratory: Yes (COPD, SLEEP APNEA/ NO CPAP) Renal Failure: No Sleep Apnea: No Thyroid Disease: No Ulcer: No Menopausal: Yes Past Surgical History Abdominal Surgery: Yes (PARTIAL BOWEL RESECT. (CLOT)) AICD: No Body Medical Devices: LEFT LEG STENT Cardiac Surgery: No Ear Surgery: No Endocrine Surgery: No Eye Surgery: No Genitourinary Surgery: No Gynecologic Surgery: Yes (C SECTION, LIZETT) Joint Replacement: No Oral Surgery: Yes (TONSILLECTOMY) Pacemaker: No Thoracic Surgery: No Other Surgery: Yes (hysterectomy/intestinal/tonsillectomy/.) Social History Alcohol Use: No Tobacco Use: Yes Substance Use: No Allergies-Medications (Allergen,Severity, Reaction): Coded Allergies: ciprofloxacin (Unverified Allergy, Severe, 09/07/17) heart stops levofloxacin (Unverified Allergy, Severe, Anaphylaxis, 09/07/17) stopped her heart Reported Meds & Prescriptions Reported Meds & Active Scripts Active Pyridium (Phenazopyridine HCl) 100 Mg Tab 100 Mg PO Q8HR Augmentin (Amoxicillin-Clavulanate) 500-125 mg Tab 500 Mg PO Q8H Potassium Chloride ER (Potassium Chloride) 20 Meq Tab 20 Meq PO BID Carvedilol 6.25 Mg Tab 6.25 Mg PO BID Reported Novolog Inj (Insulin Aspart) 1,000 Unit/10 Ml Vial 15 Units SQ TIDAC Lantus Inj (Insulin Glargine) 1,000 Unit/10 Ml Vial 20 Units SQ HS Hydrochlorothiazide 12.5 Mg Tab 12.5 Mg PO DAILY Plavix (Clopidogrel Bisulfate) 75 Mg Tab 75 Mg PO DAILY Aspirin 325 Mg Tab 325 Mg PO DAILY Review of Systems Except as stated in HPI: all other systems reviewed are Neg Physical Exam Narrative GENERAL: Well-nourished, well-developed centrally obese white female in no acute distress. SKIN: Focused skin assessment warm/dry. There is a 2.5 x 1.5 cm chronic appearing shallow ulcer on the plantar aspect of the left great toe. There is no associated erythema, warmth, edema, or discharge. HEAD: Normocephalic. EYES: No scleral icterus. No injection or drainage. NECK: Supple, trachea midline. No JVD or lymphadenopathy. CARDIOVASCULAR: Regular rate and rhythm without murmurs, gallops, or rubs. RESPIRATORY: Breath sounds clear and equal bilaterally. No accessory muscle use. GASTROINTESTINAL: Abdomen soft, protuberant, non-tender, nondistended. Active bowel sounds. MUSCULOSKELETAL: No cyanosis, or edema. FOCUSED LEFT LOWER EXTREMITY EXAM: Dopplerable DP pulse. Patient retains full, active, painless ROM of the joints of the foot and ankle. Sensation diminished distally, chronic according to the patient. Cap refill less than 2 seconds. BACK: Nontender without obvious deformity. No CVA tenderness. Data Data Last Documented VS Vital Signs Date Time Temp Pulse Resp B/P (MAP) Pulse Ox O2 Delivery O2 Flow Rate FiO2 09/07/17 13:25 114 20 09/07/17 13:04 98.6 180/83 (115) 97 Orders Orders Complete Blood Count With Diff (09/07/17 13:18) Blood Culture (09/07/17 13:18) Wound Culture And Gram Stain (09/07/17 13:18) Iv Access Insert/Monitor (09/07/17 13:18) Comprehensive Metabolic Panel (09/07/17 13:18) Toe (Min 2vws) (09/07/17 13:26) Ed Discharge Order (09/07/17 14:52) Labs Laboratory Tests Test 09/07/17 13:45 White Blood Count 11.9 TH/MM3 Red Blood Count 4.39 MIL/MM3 Hemoglobin 14.1 GM/DL Hematocrit 41.9 % Mean Corpuscular Volume 95.3 FL Mean Corpuscular Hemoglobin 32.1 PG Mean Corpuscular Hemoglobin Concent 33.7 % Red Cell Distribution Width 13.6 % Platelet Count 288 TH/MM3 Mean Platelet Volume 8.6 FL Neutrophils (%) (Auto) 74.6 % Lymphocytes (%) (Auto) 16.8 % Monocytes (%) (Auto) 7.3 % Eosinophils (%) (Auto) 0.8 % Basophils (%) (Auto) 0.5 % Neutrophils # (Auto) 8.9 TH/MM3 Lymphocytes # (Auto) 2.0 TH/MM3 Monocytes # (Auto) 0.9 TH/MM3 Eosinophils # (Auto) 0.1 TH/MM3 Basophils # (Auto) 0.1 TH/MM3 CBC Comment DIFF FINAL Differential Comment Blood Urea Nitrogen 13 MG/DL Creatinine 0.94 MG/DL Random Glucose 312 MG/DL Total Protein 6.9 GM/DL Albumin 3.0 GM/DL Calcium Level 8.4 MG/DL Alkaline Phosphatase 84 U/L Aspartate Amino Transf (AST/SGOT) 29 U/L Alanine Aminotransferase (ALT/SGPT) 26 U/L Total Bilirubin 0.3 MG/DL Sodium Level 138 MEQ/L Potassium Level 4.1 MEQ/L Chloride Level 103 MEQ/L Carbon Dioxide Level 24.4 MEQ/L Anion Gap 11 MEQ/L Estimat Glomerular Filtration Rate 61 ML/MIN [facility] Medical Decision Making Medical Screen Exam Complete: Yes Emergency Medical Condition: Yes Differential Diagnosis Diabetic ulcer versus cellulitis versus osteomyelitis versus less likely sepsis versus other Narrative Course 57 YO F with PMH of DMT2, HTN, PVD, HLD, MEGAN, current smoker presents to the ED for evaluation of chronic wound of the left great toe. She states that the wound has gotten worse over the last few days. She states that she has chronic neuropathy and is unable to feel the wound. She denies fever or chills. She endorses chronic nausea, no worse today. She has been unable to follow up with the laser set up operator as ordered at previous discharge. She states that she has not taken her antihypertensive medications for 2 days. Her primary care provider is in [place]. Vitals reviewed. Patient is hypertensive and tachycardic on presentation. Physical exam revealed an anxious white female in no acute distress. There is a 2.5 x 1.5 cm shallow, chronic appearing wound on the plantar aspect of the left great toe without signs of active infection. She has a white count 11.9 and her blood sugars over 300 but the laboratory evaluation is otherwise unremarkable. X-ray reveals no evidence of osteomyelitis per radiology read. Blood and wound cultures were obtained and are pending at this time. I feel the patient is safe for follow-up with the laser set up operator for care of her chronic wound. I discussed the results of the work up with the patient who is very reassured. She assures me that she will follow up with the laser set up operator. She is instructed to resume her at-home medications, especially her antihypertensives. We discussed reasons to return to the ED. She is stable and discharged home. Diagnosis Primary Impression: Diabetic toe ulcer Qualified Codes: E11.621 - Type 2 diabetes mellitus with foot ulcer; L97.529 - Non-pressure chronic ulcer of other part of left foot with unspecified severity Referrals: Curly Viera DPM Patient Instructions: Diabetic Foot Ulcers (ED), General Instructions Additional Instructions: Rest, hydrate. Return to normal, gentle activities as tolerated. Keep the wound clean, dry and covered. Resume your at home medications as prescribed. Follow-up with the laser set up operator who's information was provided on these discharge instructions. Return to the ED for worsening symptoms or any urgent or emergent medical condition. Disposition: 01 DISCHARGE HOME Condition: Stable Shirley Melendrez Sep 07, 2017 13:13
[2017-09-07 14:09] LABS: AUTOMATED NEUTROPHIL # 8.9 TH/MM3 (1.8-7.7); BASOPHIL # 0.1 TH/MM3 (0-0.2); BASOPHIL % 0.5 % (0.0-2.0); EOSINOPHIL # 0.1 TH/MM3 (0-0.4); EOSINOPHIL % 0.8 % (0.0-4.0); HEMATOCRIT 41.9 % (35.0-46.0); HEMO FLAGS DIFF FINAL; LYMPH % 16.8 % (9.0-44.0); MEAN CELL VOLUME 95.3 FL (80.0-100.0); MEAN CORPUSCULAR HEMOGLOBIN 32.1 PG (27.0-34.0); MEAN CORPUSCULAR HGB CONC 33.7 % (32.0-36.0); MONO % 7.3 % (0.0-8.0); NEUT % 74.6 % (16.0-70.0); PLATELET COUNT 288 TH/MM3 (150-450); RED BLOOD COUNT 4.39 MIL/MM3 (4.00-5.30); RED CELL DISTRIBUTION WIDTH 13.6 % (11.6-17.2); WHITE BLOOD COUNT 11.9 TH/MM3 (4.0-11.0)
[2017-09-07 14:30] LABS: ALKALINE PHOSPHATASE 84 U/L (45-117); ALT (GPT) 26 U/L (10-53); TOTAL BILIRUBIN ADULT 0.3 MG/DL (0.2-1.0)
--- NOTE | 2017-09-07 14:34 | RADRPT ---
EXAM DATE/TIME: 09/07/2017 14:13 [facility] COMPARISON: No previous studies available for comparison. INDICATIONS : Toe infection. MEDICAL HISTORY : Diabetes mellitus type II. SURGICAL HISTORY : None. ENCOUNTER: Initial ACUITY: 1 day PAIN SCORE: 3/10 LOCATION: Left toe. FINDINGS: Examination of the first digit of the left foot demonstrates no evidence of fracture or dislocation. No radiopaque foreign bodies are seen. Soft tissue swelling. CONCLUSION: Soft tissue swelling great toe, negative for osteomyelitis.. Tyshawn Francisco MD FACR on September 07, 2017 at 14:32 Board Certified Radiologist. This report was verified electronically.
[2017-09-07 14:38] LABS: ANION GAP 11 MEQ/L (5-15); AST (GOT) 29 U/L (15-37); BICARBONATE 24.4 MEQ/L (21.0-32.0); BLOOD UREA NITROGEN 13 MG/DL (7-18); CHLORIDE 103 MEQ/L (98-107); GLOMERULAR FILTRATION RATE 61 ML/MIN (>89); SODIUM (NA) 138 MEQ/L (136-145)
[2017-09-07 14:40] LABS: POTASSIUM 4.1 MEQ/L (3.5-5.1)
[2017-09-07 15:07] VITALS: BP 156/80
== END 2017-09-07 15:08 | disposition home or self-care (01) ==
LOC: NEPC 13:01
DX: E11.621 Type 2 diabetes mellitus with foot ulcer (principal); L97.529 Non-pressure chronic ulcer of other part of left foot with unspecified severity; B96.20 Unspecified Escherichia coli [E. coli] as the cause of diseases classified elsewhere; B95.2 Enterococcus as the cause of diseases classified elsewhere; I10 Essential (primary) hypertension; E11.40 Type 2 diabetes mellitus with diabetic neuropathy, unspecified; I73.9 Peripheral vascular disease, unspecified; E78.5 Hyperlipidemia, unspecified; R00.0 Tachycardia, unspecified
CPT/HCPCS: 73660; 80053; 85025; 87040; 87070; 87077; 87186; 87205; 99284

== ENCOUNTER 2018-06-26 11:30 | Inpatient (IN) ==
[2018-06-26] MEDS ORDERED: Sod Chloride 0.9% Inj 1,000 ML IV.SIG SCH ×2 (12:15→13:15)
[2018-06-26] MEDS ORDERED: Piperacil/Tazo 3.375 GM Premix 50 ML IV.SIG ONE (12:17)
--- NOTE | 2018-06-26 12:26 | ED ---
HPI General Chief Complaint: Wound/Laceration Stated Complaint: Dizziness/Medical Complaint Time Seen by Provider: 06/26/18 12:11 Source: patient Mode of arrival: ambulatory Limitations: no limitations History of Present Illness HPI narrative: 58-year-old female presents with wound to the bottom of her foot that she has had for a year. She states 3 weeks ago it got painful but over the past couple of days her foot got red and felt worse. She states now she has chills and nausea as well. She denies any other concurrent complaints. Onset (ago): day(s) Extremity Location: Left: foot Related Data Home Medications Medication Instructions Recorded Confirmed Novolog U-100 Insulin aspart 20 unit SUB-Q DAILY 06/26/18 06/26/18 clopidogrel [Plavix] 75 mg PO DAILY 06/26/18 06/26/18 hydrochlorothiazide 0 mg PO DAILY 06/26/18 06/26/18 insulin glargine [Lantus U-100 20 unit SUB-Q DAILY 06/26/18 06/26/18 Insulin] Allergies Allergy/AdvReac Type Severity Reaction Status Date / Time ciprofloxacin Allergy Severe Anaphylaxis Verified 06/26/18 12:09 levofloxacin Allergy Severe Anaphylaxis Verified 06/26/18 12:09 Review of Systems ROS: all other systems reviewed are negative [facility] Medical History Medical History Carotid artery disease (Acute) Diabetes (Acute) H/O: hysterectomy (Acute) Hernia (Acute) Surgical History Surgical History H/O heart artery stent (Acute) Social History Social History Substance History: No History of Abuse Second Hand Smoke Exposure: No Smoking Status: Current every day smoker Tobacco Type: Cigarettes How Often Do You Have a Drink Containing Alcohol: Never Recent Travel in [facility] within the Last 8 Weeks: No Recent Out of Country Travel within the Last 8 Weeks: No Immunization History Tetanus Immunization: >5 Years Hx Influenza Vaccine This Season: No Exam Narrative Exam Narrative: GENERAL: 58 y/o female in no apparent distress SKIN: Patient has thickened skin noted to the plantar aspect of her left hallux. She has associated erythema and warmth spreading up the top of her left foot HEAD: Atraumatic. Normocephalic. EYES: Pupils equal and round. No scleral icterus. No injection or drainage. ENT: No nasal bleeding or discharge. Mucous membranes pink and moist. NECK: Trachea midline. CARDIOVASCULAR: Tachycardic rate and regular rhythm RESPIRATORY: No accessory muscle use. Clear to auscultation. Breath sounds equal bilaterally. GASTROINTESTINAL: Abdomen soft, non-tender, nondistended. MUSCULOSKELETAL: No obvious deformities. No clubbing. No cyanosis. No edema. Pain with palpation of left foot, no pain with other joints , neurovascularly intact, compartments soft. NEUROLOGICAL: Awake and alert. Moves all extremities. Normal speech. PSYCHIATRIC: Appropriate mood and affect; insight and judgment normal. Course Reevaluation(s) Reevaluation #1: Patient given pain control, will admit Consultations Consultation #1: Dr. hernandez agrees to admission Initial Documented Vital Signs Temperature 98.6 F 06/26/18 11:34 Pulse Rate 135 H 06/26/18 11:34 Respiratory Rate 24 06/26/18 11:34 Blood Pressure 177/99 H 06/26/18 11:34 Pulse Oximetry 97 06/26/18 11:34 Last Documented Vital Signs Temperature 98.6 F 06/26/18 11:34 Pulse Rate 117 H 06/26/18 12:03 Respiratory Rate 18 06/26/18 12:03 Blood Pressure 182/92 H 06/26/18 12:03 Pulse Oximetry 99 06/26/18 12:03 Medical Decision Making MDM Narrative Medical decision making narrative: Will check blood work, imaging and dose with IV fluids and antibiotics and reevaluate Medical Screen Exam Complete: Yes Emergency Medical Condition: Yes Differential Diagnosis Differential Diagnosis: Cellulitis, sepsis, abscess Medical Records Medical records reviewed: Yes I reviewed the patient's medical records. Lab Data Lab results reviewed: Yes I reviewed the patient's lab results. Result diagrams: 06/26/18 12:31 06/26/18 12:31 Lab Results 06/26/18 06/26/18 06/26/18 Range/Units 12:20 12:31 12:31 WBC (4.0-11.0) th/mm3 RBC (4.00-5.30) mil/mm3 Hgb (11.6-15.3) gm/dL Hct (35.0-46.0) % MCV (80.0-100.0) fL MCH (27.0-34.0) pg MCHC (32.0-36.0) % RDW (11.6-17.2) % Plt Count (150-450) th/mm3 MPV (7.0-11.0) fL Neut % (Auto) (16.0-70.0) % Lymph % (Auto) (9.0-44.0) % [place] % (Auto) (0.0-8.0) % Eos % (Auto) (0.0-4.0) % Baso % (Auto) (0.0-2.0) % Neut # (Auto) (1.8-7.7) th/mm3 Lymph # (Auto) (1.0-4.8) th/mm3 [place] # (Auto) (0.0-0.9) th/mm3 Eos # (Auto) (0.0-0.4) th/mm3 Baso # (Auto) (0.0-0.2) th/mm3 WBC Differential Differential Comment PT 9.6 L (9.8-11.6) sec INR 0.9 Ratio APTT 25.0 (24.3-30.1) sec Sodium 133 L (136-145) meq/L Potassium 3.6 (3.5-5.1) meq/L Chloride 97 L (98-107) meq/L Carbon Dioxide 22.3 (21.0-32.0) meq/L Anion Gap 14 (5-15) meq/L BUN 10 (7-18) mg/dL Creatinine 1.06 H (0.50-1.00) mg/dL Estimated GFR 53 L (>89) mL/min Random Glucose 492 H* (74-106) mg/dL Lactic Acid 4.6 H* (0.4-2.0) mmol/L Calcium 8.8 (8.5-10.1) mg/dL Prot Corrected Calcium Magnesium 2.0 (1.5-2.5) mg/dL Total Bilirubin 0.3 (0.2-1.0) mg/dL AST 9 L (15-37) U/L ALT 14 (10-53) U/L Alkaline Phosphatase 101 (45-117) U/L Total Protein 7.9 (6.4-8.2) g/dL Albumin 2.9 L (3.4-5.0) g/dL 06/26/18 06/26/18 Range/Units 12:31 12:31 WBC 22.2 H (4.0-11.0) th/mm3 RBC 4.52 (4.00-5.30) mil/mm3 Hgb 14.3 (11.6-15.3) gm/dL Hct 43.5 (35.0-46.0) % MCV 96.2 (80.0-100.0) fL MCH 31.7 (27.0-34.0) pg MCHC 33.0 (32.0-36.0) % RDW 13.8 (11.6-17.2) % Plt Count 287 (150-450) th/mm3 MPV 9.1 (7.0-11.0) fL Neut % (Auto) 87.8 H (16.0-70.0) % Lymph % (Auto) 3.8 L (9.0-44.0) % [place] % (Auto) 8.1 H (0.0-8.0) % Eos % (Auto) 0.0 (0.0-4.0) % Baso % (Auto) 0.3 (0.0-2.0) % Neut # (Auto) 19.5 H (1.8-7.7) th/mm3 Lymph # (Auto) 0.8 L (1.0-4.8) th/mm3 [place] # (Auto) 1.8 H (0.0-0.9) th/mm3 Eos # (Auto) 0.0 (0.0-0.4) th/mm3 Baso # (Auto) 0.1 (0.0-0.2) th/mm3 WBC Differential . Differential Comment Auto diff final PT (9.8-11.6) sec INR Ratio APTT (24.3-30.1) sec Sodium Cancelled (136-145) meq/L Potassium Cancelled (3.5-5.1) meq/L Chloride Cancelled (98-107) meq/L Carbon Dioxide Cancelled (21.0-32.0) meq/L Anion Gap Cancelled (5-15) meq/L BUN Cancelled (7-18) mg/dL Creatinine Cancelled (0.50-1.00) mg/dL Estimated GFR Cancelled (>89) mL/min Random Glucose Cancelled (74-106) mg/dL Lactic Acid (0.4-2.0) mmol/L Calcium Cancelled (8.5-10.1) mg/dL Prot Corrected Calcium Cancelled Magnesium (1.5-2.5) mg/dL Total Bilirubin Cancelled (0.2-1.0) mg/dL AST Cancelled (15-37) U/L ALT Cancelled (10-53) U/L Alkaline Phosphatase Cancelled (45-117) U/L Total Protein Cancelled (6.4-8.2) g/dL Albumin Cancelled (3.4-5.0) g/dL Imaging Data Attestation: I personally reviewed and interpreted this imaging study as follows : Radiologist's impression: Foot X-Ray 06/26/18 12:13 CONCLUSION: The first digit nail appears up lifted and there is soft tissue swelling of the first digit. Chest X-Ray 06/26/18 12:14 CONCLUSION: No acute cardiopulmonary abnormality is identified. Discharge Plan Discharge Disposition Patient Disposition: 30 Still Patient Discharge Condition Condition: Stable Discharge Details Diagnosis: Severe sepsis, Diabetic foot infection Physicians Team ED Provider: Sonia Lunsford Primary Care Provider: Ammy Nj Attending Provider: Jax Nelson Status ED Status: Admitted Patient
[2018-06-26 12:50] LABS: Baso # (Auto) 0.1 th/mm3 (0.0-0.2); Baso % (Auto) 0.3 % (0.0-2.0); Hematocrit 43.5 % (35.0-46.0); Hemoglobin 14.3 gm/dL (11.6-15.3); Lymph # (Auto) 0.8 th/mm3 (1.0-4.8); Lymph % (Auto) 3.8 % (9.0-44.0); Mean Corpuscular Hemoglobin 31.7 pg (27.0-34.0); Mean Corpuscular Volume 96.2 fL (80.0-100.0); Mean Platelet Volume 9.1 fL (7.0-11.0); Mono # (Auto) 1.8 th/mm3 (0.0-0.9); Mono % (Auto) 8.1 % (0.0-8.0); Neut # (Auto) 19.5 th/mm3 (1.8-7.7); Neut % (Auto) 87.8 % (16.0-70.0); Platelet Count 287 th/mm3 (150-450); Red Blood Count 4.52 mil/mm3 (4.00-5.30); Red Cell Distribution Width 13.8 % (11.6-17.2); White Blood Count 22.2 th/mm3 (4.0-11.0)
[2018-06-26 12:59] LABS: INR 0.9 Ratio; Prothrombin Time 9.6 sec (9.8-11.6)
[2018-06-26] MEDS ORDERED: Vancomycin Inj 1 GM/200 ML PIGGYBACK IV.SIG ONE (13:06)
--- NOTE | 2018-06-26 13:08 | XR ---
EXAM DATE: 06/26/2018 12:40 PM EDT AGE/SEX: 58 years / Female INDICATIONS: Productive cough and fever. CLINICAL DATA: This is the patient's initial encounter. Patient reports that signs and symptoms have been present for 1 day and indicates a pain score of 0/10. MEDICAL/SURGICAL HISTORY: . Hypertension. Diabetes mellitus type 2. . Colon resection. Asim an section. COMPARISON: [facility] [place], CHEST SINGLE AP, 05/29/2017. . FINDINGS: Single AP view of the chest demonstrates a normal size cardiac silhouette with calcification of the a neelam. EKG lines overlie the patient. No effusion, consolidation, or pneumothorax is identified. The b ones and soft tissues demonstrate no acute finding. CONCLUSION: No acute cardiopulmonary abnormality is identified. Electronically signed by: Poncho Agosto MD 06/26/2018 1:07 PM EDT
--- NOTE | 2018-06-26 13:13 | XR ---
EXAM DATE: 06/26/2018 12:48 PM EDT AGE/SEX: 58 years / Female INDICATIONS: Stepped on a rock and swelling started one week ago. CLINICAL DATA: This is the patient's initial encounter. Patient reports that signs and symptoms have been present for 1 week and indicates a pain score of 9/10. MEDICAL/SURGICAL HISTORY: . Hypertension. Diabetes mellitus type 2. . Colon resection. Asim an section. [place] [facility] [place] 1ST [place]MIN 2VWS[place] 09/07/2017. . FINDINGS: The patient's first digit toenail appears upper lifted with soft tissue swelling. No underlying fract ures are seen. Bone density is normal and joint space widths are intact. CONCLUSION: The first digit nail appears up lifted and there is soft tissue swelling of the first digit. Electronically signed by: Keivn Rivera MD 06/26/2018 1:12 PM EDT
[2018-06-26 13:16] LABS: Alanine Aminotransferase 14 U/L (10-53); Albumin 2.9 g/dL (3.4-5.0); Alkaline Phosphatase 101 U/L (45-117); Anion Gap 14 meq/L (5-15); Aspartate Aminotransferase 9 U/L (15-37); Blood Urea Nitrogen 10 mg/dL (7-18); Calcium 8.8 mg/dL (8.5-10.1); Carbon Dioxide 22.3 meq/L (21.0-32.0); Chloride 97 meq/L (98-107); Glomerular Filtration Rate 53 mL/min (>89); Potassium 3.6 meq/L (3.5-5.1); Sodium 133 meq/L (136-145); Total Protein 7.9 g/dL (6.4-8.2)
[2018-06-26 13:17] LABS: Glucose,Random 492 mg/dL (74-106)
[2018-06-26] MEDS ORDERED: Dextrose 50% in Water 50 ML Vial IV.PUSH PRN (13:29)
[2018-06-26] MEDS ORDERED: Acetaminophen 325 MG Tablet PO PRN (13:29)
--- NOTE | 2018-06-26 13:55 | P.HPIM ---
History of Present Illness Primary Care Physician: Ammy Nj Chief Complaint: left foot infection History of Present Illness: patient is a 58 y/o female with history of PVD, diabetes, neuropathy, CVA who presented to ER with redness and pain to the left foot. she says that she was treated for left big toe ulcer about a year ago but ' it never healed all the way'. she says that she noticed some redness, pain of the left foot with some extension to the left leg. she had some fever and chills. she denies any recent trauma. pain was moderate in intensity at the time of my evaluation. Inpatient Certification: I certify that the inpatient services were ordered in accordance with Medicare regulations governing the order. This includes certification that hospital inpatient services are reasonable and necessary and in the case of services not specified as inpatient-only under 42 CFR 419.22(n), that they are appropriately provided as inpatient services in accordance to with the 2-midnight benchmark under 43 CFR 412.3(e) Review of Systems All other systems reviewed negative except as stated in HPI PMFSH - History History Provided By: Patient - Medical History Medical History: Medical History (Last Reviewed 06/26/18 @ 12:24 by Sonia Lunsford MD) Carotid artery disease Diabetes H/O: hysterectomy Hernia - Surgical History Surgical History: Surgical History (Last Reviewed 06/26/18 @ 12:24 by Sonia Lunsford MD) H/O heart artery stent - Family History Family History: Family History (Last Updated 06/26/18 @ 14:07 by Jax Nelson MD) Mother Family history of cancer - Tobacco History Second Hand Smoke Exposure: No Tobacco Use In Past 30 Days: Yes Smoking Status: Current every day smoker Tobacco Type: Cigarettes - Alcohol History How Often Do You Have a Drink Containing Alcohol: Never - Substance Use History Substance History: No History of Abuse - Travel History Recent Travel in the [place] Within the Last 8 Weeks: No Recent Travel Out of the Country Within the Last 8 Weeks: No - Immunization History Tetanus Immunization: >5 Years Hx Influenza Vaccine This Season: No Medications and Allergies Active Medications: Active Medications Acetaminophen (Tylenol) 650 mg PO Q4H PRN PRN Reason: fever Dextrose (D50w Vial) 50 ml IV.PUSH UNSCH PRN PRN Reason: PER HYPOGLYCEMIA PROTOCOL Glucagon (Glucagon Inj) 1 mg OTHER UNSCH PRN PRN Reason: for Hypoglycemia Protocol Sodium Chloride (Ns Inj) 1,000 mls @ 0 mls/hr IV.SIG BOLUS GIL Sodium Chloride (Ns Inj) 1,000 mls @ 0 mls/hr IV.SIG BOLUS GIL Vancomycin HCl 1,000 mg/ (Sodium Chloride) 250 mls @ 250 mls/hr IV.SIG ONCE ONE Stop: 06/26/18 14:59 Insulin Aspart (Novolog Insulin Correctional Sugar Inj) 0 unit SQ ACHS GIL; Protocol Allergies Allergy/AdvReac Type Severity Reaction Status Date / Time ciprofloxacin Allergy Severe Anaphylaxis Verified 06/26/18 12:09 levofloxacin Allergy Severe Anaphylaxis Verified 06/26/18 12:09 Home Medications Medication Instructions Recorded Confirmed Type Novolog U-100 Insulin aspart 20 unit SUB-Q DAILY 06/26/18 06/26/18 History clopidogrel [Plavix] 75 mg PO DAILY 06/26/18 06/26/18 History hydrochlorothiazide 0 mg PO DAILY 06/26/18 06/26/18 History insulin glargine [Lantus U-100 20 unit SUB-Q DAILY 06/26/18 06/26/18 History Insulin] Exam Vital signs: Vital Signs 06/26/18 11:34 06/26/18 12:03 Temperature 98.6 F Pulse Rate 135 H 117 H Respiratory Rate 24 18 Blood Pressure 177/99 H 182/92 H Pulse Oximetry 97 99 Intake & Output 06/25/18 06/26/18 06/26/18 18:59 06:59 18:59 Weight 72.575 kg - Constitutional no acute distress - Routine Respiratory Exam Present: CTA bilaterally - Routine Cardiovascular Exam Present: RRR - Routine Abdominal Exam Present: soft - Routine Extremities Exam Present: tenderness Comments: left foot/ left leg. - Routine Skin Exam Present: erythema Comments: left leg. - Routine Neurological Exam Present: alert, oriented X3 Results - Labs CBC & Chem 7: 06/26/18 12:31 06/26/18 12:31 Labs: Short CBC 06/26/18 Range/Units 12:31 WBC 22.2 H (4.0-11.0) th/mm3 Hgb 14.3 (11.6-15.3) gm/dL Hct 43.5 (35.0-46.0) % Plt Count 287 (150-450) th/mm3 BMP 06/26/18 06/26/18 12:31 12:31 Sodium 133 L Cancelled Potassium 3.6 Cancelled Chloride 97 L Cancelled Carbon Dioxide 22.3 Cancelled BUN 10 Cancelled Creatinine 1.06 H Cancelled Calcium 8.8 Cancelled Liver Function 06/26/18 06/26/18 Range/Units 12:31 12:31 Total Bilirubin 0.3 Cancelled (0.2-1.0) mg/dL AST 9 L Cancelled (15-37) U/L ALT 14 Cancelled (10-53) U/L Alkaline Phosphatase 101 Cancelled (45-117) U/L Albumin 2.9 L Cancelled (3.4-5.0) g/dL - Imaging Impressions Foot X-Ray 06/26/18 12:13 CONCLUSION: The first digit nail appears up lifted and there is soft tissue swelling of the first digit. Chest X-Ray 06/26/18 12:14 CONCLUSION: No acute cardiopulmonary abnormality is identified. Caprini VTE Risk Assessment Caprini VTE Risk Assessment: Moderate/High Risk (score >= 2) Caprini Risk Assessment Model: Point Value = 1 Point Value = 2 Point Value = 3 Point Value = 5 Age 41-60 Minor surgery BMI > 25 kg/m2 Swollen legs Varicose veins or History of unexplained or recurrent spontaneous Oral contraceptives or hormone replacement Sepsis (< 1 month) Serious lung disease, including pneumonia (< 1 month) Abnormal pulmonary function Acute myocardial infarction Congestive heart failure (< 1 month) History of inflammatory bowel disease Medical patient at bed rest Age 61-74 Arthroscopic surgery Major open surgery (> 45 min) Laparoscopic surgery (> 45 min) Malignancy Confined to bed (> 72 hours) Immobilizing plaster cast Central venous access Age >= 75 History of VTE Family history of VTE Factor V Leiden Prothrombin [id number] Lupus anticoagulant Anticardiolipin antibodies Elevated serum homocysteine Heparin-induced thrombocytopenia Other congenital or acquired thrombophilia Stroke (< 1 month) Elective arthroplasty Hip, pelvis, or leg fracture Acute spinal cord injury (< 1 month) Prophylaxis Regimen: Total Risk Factor Score Risk Level Prophylaxis Regimen 0-1 Low Early ambulation 2 Moderate Order ONE of the following: *Sequential Compression Device (SCD) *Heparin 5000 units SQ BID 3-4 Higher Order ONE of the following medications: *Heparin 5000 units SQ TID *Enoxaparin/Lovenox 40 mg SQ daily (WT < 150 kg, CrCl > 30 mL/min) *Enoxaparin/Lovenox 30 mg SQ daily (WT < 150 kg, CrCl > 10-29 mL/min) *Enoxaparin/Lovenox 30 mg SQ BID (WT < 150 kg, CrCl > 30 mL/min) AND/OR *Sequential Compression Device (SCD) 5 or more Highest Order ONE of the following medications: *Heparin 5000 units SQ TID (Preferred with Epidurals) *Enoxaparin/Lovenox 40 mg SQ daily (WT < 150 kg, CrCl > 30 mL/min) *Enoxaparin/Lovenox 30 mg SQ daily (WT < 150 kg, CrCl > 10-29 mL/min) *Enoxaparin/Lovenox 30 mg SQ BID (WT < 150 kg, CrCl > 30 mL/min) AND *Sequential Compression Device (SCD) Assessment and Plan - Plan A/P -severe sepsis due to diabetic foot infection continue with broad-spectrum IV antibiotics; Vanco and Zosyn- follow the cultures and consult podiatry -diabetes mellitus; uncontrolled resume home insulin regimen and start on IV fluid and accu-check with SSI -PVD- s/p angioplasty/ stent placement lower extremities- hold Plavix till podiatry evaluation. -history of CVA; hold plavix till podiatry evaluation. -DVT prophylaxis with subq Lovenox. Discussed Condition With: ER physician and the patient.
[2018-06-26] MEDS ORDERED: Vancomycin Consult Pharmacy OTHER PRN (13:56)
[2018-06-26] MEDS ORDERED: Vancomycin Inj 1,000 MG in Sodium Chlor 0.9% Inj 250 ML IV.SIG ONE (14:00)
[2018-06-26] MEDS: Sod Chloride 0.9% Inj 1,000 ML IV.CONT SCH (17:59)
[2018-06-26] MEDS: Piperacil/Tazo 3.375 GM Premix 50 ML IV.SIG SCH (18:00)
[2018-06-26] MEDS: Insulin NovoLOG Aspart Correctional Sugar Inj SQ SCH ×2 (18:35→22:17)
--- NOTE | 2018-06-26 18:36 | P.CON ---
History of Present Illness Service: Foot and ankle surgery/podiatry Consult date: 06/26/18 Reason for Consult: Left foot infection Primary Care Provider: Ammy Nj Chief Complaint: left foot infection History of Present Illness: Podiatry consulted for this 58-year-old female with history of peripheral vascular disease, diabetes, neuropathy, and CVA who presented to the emergency department with redness and pain to the left hallux. She states that she did have treatment for a hallux ulcer to the left foot about a year ago but has stayed open and never healed all the way. She does relate that she has peripheral arterial disease to the left lower extremity and that she has had stents placed in her leg, she feels like maybe one might be closed. She does report fevers and chills. She reports sensitivity and pain to submetatarsal area of first metatarsal. Review of Systems All other systems reviewed negative except as stated in HPI Constitutional: Reports chills, Reports fatigue, Reports fever(s) PMFSH - History History Provided By: Patient - Medical History Medical History: Medical History (Last Reviewed 06/26/18 @ 18:23 by Magaly Cat DPM) Carotid artery disease Diabetes H/O: hysterectomy Hernia - Surgical History Surgical History: Surgical History (Last Reviewed 06/26/18 @ 18:23 by Magaly Cat DPM) H/O heart artery stent - Family History Family History: Family History (Last Reviewed 06/26/18 @ 18:23 by Magaly Cat DPM) Mother Family history of cancer - Tobacco History Second Hand Smoke Exposure: No Tobacco Use In Past 30 Days: Yes Smoking Status: Current every day smoker Tobacco Type: Cigarettes - Alcohol History How Often Do You Have a Drink Containing Alcohol: Never - Substance Use History Substance History: No History of Abuse - Travel History Recent Travel in the [place] Within the Last 8 Weeks: No Recent Travel Out of the Country Within the Last 8 Weeks: No - Immunization History Tetanus Immunization: >5 Years Hx Influenza Vaccine This Season: No Medications and Allergies Active Medications: Active Medications Acetaminophen (Tylenol) 650 mg PO Q4H PRN PRN Reason: fever/pain 1-5 Hydrocodone Bitart/Acetaminophen ([place] 5/325) 1 tab PO Q4H PRN PRN Reason: acute pain 6-10 Dextrose (D50w Vial) 50 ml IV.PUSH UNSCH PRN PRN Reason: PER HYPOGLYCEMIA PROTOCOL Enalaprilat (Vasotec Inj) 1.25 mg IV.PUSH Q8H PRN PRN Reason: SBP > 180 or DBP > 100. Enoxaparin Sodium (Lovenox Inj) 40 mg SQ DAILY GIL Glucagon (Glucagon Inj) 1 mg OTHER UNSCH PRN PRN Reason: for Hypoglycemia Protocol Sodium Chloride (Ns Inj) 1,000 mls @ 0 mls/hr IV.SIG BOLUS GIL Sodium Chloride (Ns Inj) 1,000 mls @ 0 mls/hr IV.SIG BOLUS GIL Piperacillin/Tazobactam/Dextrose (Zosyn 3.375 Gm Premix) 50 mls @ 100 mls/hr IV.SIG Q6H GIL Last Admin: 06/26/18 18:00 Dose: 100 mls/hr Sodium Chloride (Ns Inj) 1,000 mls @ 100 mls/hr IV.CONT .Q10H GIL Last Admin: 06/26/18 17:59 Dose: 100 mls/hr Vancomycin HCl 1,250 mg/ (Sodium Chloride) 262.5 mls @ 250 mls/hr IV.SIG Q24H GIL Insulin Aspart (Novolog Insulin Correctional Sugar Inj) 0 unit SQ ACHS GIL; Protocol Insulin Detemir (Levemir Inj) 20 unit SQ DAILY GIL Miscellaneous Information ([facility] Ordered Lab Info) 0 each OTHER ONCE ONE Stop: 06/29/18 16:46 Pharmacy Profile Note (Vancomycin Consult Pharmacy) 1 each OTHER UNSCH PRN PRN Reason: Pharmacy to dose Allergies Allergy/AdvReac Type Severity Reaction Status Date / Time ciprofloxacin Allergy Severe Anaphylaxis Verified 06/26/18 12:09 levofloxacin Allergy Severe Anaphylaxis Verified 06/26/18 12:09 Home Medications Medication Instructions Recorded Confirmed Type Novolog U-100 Insulin aspart 20 unit SUB-Q DAILY 06/26/18 06/26/18 History clopidogrel [Plavix] 75 mg PO DAILY 06/26/18 06/26/18 History hydrochlorothiazide 0 mg PO DAILY 06/26/18 06/26/18 History insulin glargine [Lantus U-100 20 unit SUB-Q DAILY 06/26/18 06/26/18 History Insulin] Physical Exam Vital signs: Vital Signs 06/26/18 11:34 06/26/18 12:03 06/26/18 14:02 Temperature 98.6 F Pulse Rate 135 H 117 H Respiratory Rate 24 18 Blood Pressure 177/99 H 182/92 H Pulse Oximetry 97 99 95 06/26/18 16:00 Temperature 98.5 F Pulse Rate 109 H Respiratory Rate 16 Blood Pressure 178/89 H Pulse Oximetry 97 Intake & Output 06/25/18 06/26/18 06/26/18 18:59 06:59 18:59 Intake Total 300 / 300 Balance 300 / 300 Weight 72.575 kg Intake: IV 300 / 300 Zosyn 3.375 GM Premix 50 ML @ 50 / 50 100 mls/hr IV.SIG ONCE ONE Rx#: [id number] Vancomycin Inj 1,000 MG In NS 250 / 250 Inj 250 ML @ 250 mls/hr IV.SIG ONCE ONE Rx#:[id number] Narrative: GENERAL: This is a well-nourished, well-developed patient, in no apparent distress. SKIN: HEAD: Atraumatic. EYES: Pupils equal round and reactive. ENT: Airway patent. NECK: Trachea midline. RESPIRATORY: Nonlabored breathing. MUSCULOSKELETAL:. Negative Homans sign bilaterally. NEUROLOGICAL: Awake and alert. Normal speech. Lower extremity physical exam: Vascular: Dorsalis pedis nonpalpable, posterior tibial nonpalpable. Capillary refill time within normal limits to digits 5 bilateral foot. Edema present left foot Neuro: Gross sensation intact to bilateral lower extremity. Pinpoint sensation intact. No hyperalgesia noted to bilateral lower extremity Dermatology: Erythema present to left hallux with erythema extending into forefoot. Purulent drainage noted to the submetatarsal 1 ulceration with hyperkeratotic borders and mild fluctuance noted assessment 1. Musculoskeletal: Tender to palpation to left sub-met one. Assessment and Plan - Plan 58-year-old female with left hallux ulceration and left foot infection Patient examined and evaluated Will obtain ABIs Will obtain MRI N.p.o. after midnight for possible surgical intervention tomorrow Consent to be obtained for left foot incision and drainage/debridement and irrigation with possible bone biopsy Will sign out care to Dr. Nadir LOCKWOOD per hospitalist Will consult ID once OR cultures obtained
--- NOTE | 2018-06-26 18:51 | ECHRPT ---
EXAM DATE: 06/26/2018 6:44 PM EDT AGE/SEX: 58 years / Female INDICATIONS: SEPSIS, DIABETIC FOOT INFECTION CLINICAL DATA: This is the patient's initial encounter. Patient reports that signs and symptoms have been present for 3 weeks and indicates a pain score of 9/10. MEDICAL/SURGICAL HISTORY: . PVD, CAD, DIABETES, HERNIA . HEART ARTERY STENT, HYSTERECTOMY COMPARISON: No prior exams available for comparison. TECHNIQUE: Five-station segmental examination of the lower extremities was performed. Pulsed-cuff wa veform tracings and pressures were recorded. Ankle-brachial indices and toe-brachial indices were christina culated. PRESSURES (mmHg): Brachial (arm) : RIGHT: 189, LEFT: 168 Lower Thigh : RIGHT: 77, LEFT: 132 Calf : RIGHT: 59, LEFT: 103 Ankle : RIGHT: 80, LEFT: 77 Toe : RIGHT: 45, LEFT: 55 JEREMY : RIGHT: 0.42, LEFT: 0.41 TBI : RIGHT: 0.24, LEFT: 0.29 FINDINGS: Pulsed-Cuff Waveform: There are good upstroke and dicrotic downstroke of the tracings. Other: None. CONCLUSION: 1. Decreased pressure in the right thigh concerning for right pelvic/proximal thigh disease. 2. Decreased ankle brachial indices bilaterally consistent with bilateral lower extremity disease. 3. The pressure in the right ankle is higher than the right knee which could be secondary to calcifi ed vessels. Electronically signed by: Poncho Duval MD 06/26/2018 6:50 PM EDT
--- NOTE | 2018-06-26 21:02 | ECG ---
Date Performed: 06/26/2018 Time Performed: 11:47:47 PTAGE: 58 years EKG: SINUS TACHYCARDIA LEFT ATRIAL ENLARGEMENT MARKED LEFT AXIS DEVIATION INCOMPLETE RIGHT BUNDL E BRANCH BLOCK NONSPECIFIC T-WAVE ABNORMALITY ABNORMAL ECG PREVIOUS TRACING : 05/31/2016 10.37 Compared to previous tracing, sinus tachycardia is new DOCTOR: Mark Wheeler Interpretating Date/Time 06/26/2018 21:00:06
[2018-06-26] MEDS ORDERED: ALPRAZolam 0.25 MG Tablet PO ONE (22:37)
[2018-06-26 23:34] LABS: Bacteria,Urine Rare /hpf; Bilirubin,Urine Negative (Negative); Clarity,Urine Cloudy (Clear); Color,Urine Yellow (Yellw/Straw); Glucose,Urine (UA) 500 or Greater mg/dL (Negative); Leukocyte Esterase,Urine Small (Negative); Mucus,Urine Few /lpf (Occasional); Nitrite,Urine Negative (Negative); Specific Gravity,Urine 1.037 (1.002-1.035); Squamous Epithelial Cell,Urine 2 /hpf (0-5)
[2018-06-27] MEDS: Piperacil/Tazo 3.375 GM Premix 50 ML IV.SIG SCH ×4 (01:50→18:47)
[2018-06-27] MEDS: Sod Chloride 0.9% Inj 1,000 ML IV.CONT SCH ×3 (04:59→20:43)
[2018-06-27 07:03] LABS: Baso # (Auto) 0.1 th/mm3 (0.0-0.2); Baso % (Auto) 0.4 % (0.0-2.0); Eos # (Auto) 0.1 th/mm3 (0.0-0.4); Eos % (Auto) 0.4 % (0.0-4.0); Hematocrit 35.4 % (35.0-46.0); Lymph # (Auto) 1.3 th/mm3 (1.0-4.8); Lymph % (Auto) 8.4 % (9.0-44.0); Mean Corpuscular HGB Conc 33.8 % (32.0-36.0); Mean Corpuscular Hemoglobin 32.1 pg (27.0-34.0); Mean Corpuscular Volume 95.1 fL (80.0-100.0); Mean Platelet Volume 8.8 fL (7.0-11.0); Mono # (Auto) 1.2 th/mm3 (0.0-0.9); Mono % (Auto) 8.1 % (0.0-8.0); Neut # (Auto) 12.7 th/mm3 (1.8-7.7); Neut % (Auto) 82.7 % (16.0-70.0); Platelet Count 261 th/mm3 (150-450); Red Blood Count 3.72 mil/mm3 (4.00-5.30); Red Cell Distribution Width 13.3 % (11.6-17.2); White Blood Count 15.3 th/mm3 (4.0-11.0)
[2018-06-27 07:41] LABS: Anion Gap 8 meq/L (5-15); Blood Urea Nitrogen 6 mg/dL (7-18); Carbon Dioxide 25.7 meq/L (21.0-32.0); Chloride 104 meq/L (98-107); Glomerular Filtration Rate Greater Than 89 mL/min (>89); Glucose,Random 292 mg/dL (74-106); Potassium 3.4 meq/L (3.5-5.1); Sodium 138 meq/L (136-145)
[2018-06-27] MEDS ORDERED: Insulin Detemir Inj 1,000 UNIT/10 ML Vial SQ SCH (09:00)
[2018-06-27] MEDS ORDERED: Gadobutrol PF 7.5 MMOL/7.5 ML Vial (for RAD) IV.SIG ONE (10:30)
--- NOTE | 2018-06-27 10:42 | MR ---
EXAM DATE: 06/27/2018 10:31 AM EDT AGE/SEX: 58 years / Female INDICATIONS: Abscess. Ulcer on plantar aspect of great toe. CLINICAL DATA: This is the patient's initial encounter. Patient reports that signs and symptoms have been present for 1 day and indicates a pain score of 5/10. MEDICAL/SURGICAL HISTORY: None. Hysterectomy. Stent in leg. COMPARISON: No prior exams available for comparison. TECHNIQUE: Multiplanar, multisequence MRI examination was performed without contrast and after th e intravenous administration of 7.3 ml Gadavist (gadobutrol) single exam dose. FINDINGS: Bones: The osseous structures are in normal alignment. No evidence of fracture or bony edema. There are no obvious erosions present. Joint Spaces: No joint effusion or loose bodies are seen. The joint spaces are preserved. Soft Tissues: There is nonspecific soft tissue swelling and edema in the subcutaneous soft tissues pr edominantly along the plantar surface of the distal foot. There is soft tissue swelling of the first toe. No loculated or drainable fluid collections are demonstrated. There is also some edema along the dorsum of the foot. Other: The plantar fascia is intact. No signal abnormalities are seen in the plantar musculature. Post Contrast: There are no abnormal areas of enhancement in the marrow, muscle or soft tissues on im ages obtained after intravenous administration of gadolinium. CONCLUSION: 1. There is nonspecific soft tissue swelling in the subcutaneous soft tissues involving the mid to d istal foot as well as the first toe. 2. There is no evidence of abnormal bone marrow edema in the first toe to suggest osteomyelitis. 3. No loculated soft tissue fluid collections are seen to suggest a soft tissue abscess. Electronically signed by: Danyel Spence MD 06/27/2018 10:40 AM EDT
--- NOTE | 2018-06-27 12:23 | P.PNIM ---
Subjective Interval history: in no acute distress. no fever. pain seems to be fairly controlled. d/w the RN. Physical Exam Vital signs: Vital Signs 06/26/18 14:02 06/26/18 16:00 06/26/18 20:00 Temperature 98.5 F 98.6 F Pulse Rate 109 H 105 H Respiratory Rate 16 18 Blood Pressure 178/89 H 167/93 H Pulse Oximetry 95 97 96 06/27/18 00:00 06/27/18 04:00 06/27/18 08:00 Temperature 98.6 F 98.2 F 97.9 F Pulse Rate 88 111 H 89 Respiratory Rate 18 20 18 Blood Pressure 131/65 161/103 H 152/77 H Pulse Oximetry 95 94 L 94 L Intake & Output 06/26/18 06/27/18 06/27/18 18:59 06:59 18:59 Intake Total 350 / 350 1150 / 1150 50 / 50 Balance 350 / 350 1150 / 1150 50 / 50 Weight 72.575 kg 67.6 kg Intake: IV 350 / 350 1150 / 1150 50 / 50 NS Inj 1,000 ML @ 100 mls/hr IV 1000 / 1000 .CONT .Q10H [facility] Rx#:[id number] Zosyn 3.375 GM Premix 50 ML @ 100 / 100 50 / 50 50 / 50 100 mls/hr IV.SIG Q6H [facility] Rx#: [id number] Vancomycin Inj 1,000 MG In NS 250 / 250 Inj 250 ML @ 250 mls/hr IV.SIG ONCE ONE Rx#:[id number] Vancomycin Inj 500 MG In NS Inj 100 / 100 100 ML @ 100 mls/hr IV.SIG ONCE ONE Rx#:[id number] Other: # Voids 3 Date of Last Bowel Movement 06/26/18 # Bowel Movements 2 Weight On Admission 73 kg - Constitutional no acute distress - Routine Respiratory Exam Present: CTA bilaterally - Routine Cardiovascular Exam Present: RRR - Routine Abdominal Exam Present: soft - Routine Extremities Exam Comments: no pedal edema. - Routine Skin Exam Present: wounds (noted on the left great toe.) - Routine Neurological Exam Present: alert, oriented X3 Results - Labs CBC & Chem 7: 06/27/18 06:26 06/27/18 06:26 Laboratory Results - last 24 hr 06/26/18 06/26/18 06/26/18 12:20 12:31 12:31 WBC RBC Hgb Hct MCV MCH MCHC RDW Plt Count MPV Neut % (Auto) Lymph % (Auto) [place] % (Auto) Eos % (Auto) Baso % (Auto) Neut # (Auto) Lymph # (Auto) [place] # (Auto) Eos # (Auto) Baso # (Auto) WBC Differential Differential Comment PT 9.6 L INR 0.9 APTT 25.0 Sodium 133 L Potassium 3.6 Chloride 97 L Carbon Dioxide 22.3 Anion Gap 14 BUN 10 Creatinine 1.06 H Estimated GFR 53 L POC Glucose Random Glucose 492 H* Lactic Acid 4.6 H* Calcium 8.8 Prot Corrected Calcium Magnesium 2.0 Total Bilirubin 0.3 AST 9 L ALT 14 Alkaline Phosphatase 101 Total Protein 7.9 Albumin 2.9 L Urine Color Urine Clarity Urine pH Ur Specific [place] Urine Protein Urine Glucose (UA) Urine Ketones Urine Occult Blood Urine Nitrate Urine Bilirubin Urine Urobilinogen Ur Leukocyte Esterase Urine RBC Urine WBC Ur Squamous Epith Cells Urine Bacteria Urine Mucus Micro UA Comment Ur Microscopic Review Urine Culture Comments 06/26/18 06/26/18 06/26/18 12:31 12:31 16:43 WBC 22.2 H RBC 4.52 Hgb 14.3 Hct 43.5 MCV 96.2 MCH 31.7 MCHC 33.0 RDW 13.8 Plt Count 287 MPV 9.1 Neut % (Auto) 87.8 H Lymph % (Auto) 3.8 L [place] % (Auto) 8.1 H Eos % (Auto) 0.0 Baso % (Auto) 0.3 Neut # (Auto) 19.5 H Lymph # (Auto) 0.8 L [place] # (Auto) 1.8 H Eos # (Auto) 0.0 Baso # (Auto) 0.1 WBC Differential . Differential Comment Auto diff final PT INR APTT Sodium Cancelled Potassium Cancelled Chloride Cancelled Carbon Dioxide Cancelled Anion Gap Cancelled BUN Cancelled Creatinine Cancelled Estimated GFR Cancelled POC Glucose 317 H Random Glucose Cancelled Lactic Acid Calcium Cancelled Prot Corrected Calcium Cancelled Magnesium Total Bilirubin Cancelled AST Cancelled ALT Cancelled Alkaline Phosphatase Cancelled Total Protein Cancelled Albumin Cancelled Urine Color Urine Clarity Urine pH Ur Specific [place] Urine Protein Urine Glucose (UA) Urine Ketones Urine Occult Blood Urine Nitrate Urine Bilirubin Urine Urobilinogen Ur Leukocyte Esterase Urine RBC Urine WBC Ur Squamous Epith Cells Urine Bacteria Urine Mucus Micro UA Comment Ur Microscopic Review Urine Culture Comments 06/26/18 06/26/18 06/26/18 19:56 21:40 22:46 WBC RBC Hgb Hct MCV MCH MCHC RDW Plt Count MPV Neut % (Auto) Lymph % (Auto) [place] % (Auto) Eos % (Auto) Baso % (Auto) Neut # (Auto) Lymph # (Auto) [place] # (Auto) Eos # (Auto) Baso # (Auto) WBC Differential Differential Comment PT INR APTT Sodium Potassium Chloride Carbon Dioxide Anion Gap BUN Creatinine Estimated GFR POC Glucose 236 H Random Glucose Lactic Acid 3.0 H Calcium Prot Corrected Calcium Magnesium Total Bilirubin AST ALT Alkaline Phosphatase Total Protein Albumin Urine Color Yellow Urine Clarity Cloudy H Urine pH 5.0 Ur Specific [place] 1.037 H Urine Protein 100 H Urine Glucose (UA) 500 or greater Urine Ketones 20 Urine Occult Blood Negative Urine Nitrate Negative Urine Bilirubin Negative Urine Urobilinogen Less than 2 Ur Leukocyte Esterase Small H Urine RBC 5 H Urine WBC Ur Squamous Epith Cells 2 Urine Bacteria Rare H Urine Mucus Few H Micro UA Comment Culture indicated Ur Microscopic Review Not Reportable Urine Culture Comments Culture indicated 06/27/18 06/27/18 06/27/18 06:26 06:26 06:26 WBC 15.3 H RBC 3.72 L Hgb 12.0 D Hct 35.4 MCV 95.1 MCH 32.1 MCHC 33.8 RDW 13.3 Plt Count 261 MPV 8.8 Neut % (Auto) 82.7 H Lymph % (Auto) 8.4 L [place] % (Auto) 8.1 H Eos % (Auto) 0.4 Baso % (Auto) 0.4 Neut # (Auto) 12.7 H Lymph # (Auto) 1.3 [place] # (Auto) 1.2 H Eos # (Auto) 0.1 Baso # (Auto) 0.1 WBC Differential . Differential Comment Auto diff final PT INR APTT Sodium 138 Potassium 3.4 L Chloride 104 Carbon Dioxide 25.7 Anion Gap 8 BUN 6 L Creatinine 0.63 Estimated GFR Greater than 89 POC Glucose Random Glucose 292 H D Lactic Acid 1.2 Calcium 8.0 L D Prot Corrected Calcium Magnesium Total Bilirubin AST ALT Alkaline Phosphatase Total Protein Albumin Urine Color Urine Clarity Urine pH Ur Specific [place] Urine Protein Urine Glucose (UA) Urine Ketones Urine Occult Blood Urine Nitrate Urine Bilirubin Urine Urobilinogen Ur Leukocyte Esterase Urine RBC Urine WBC Ur Squamous Epith Cells Urine Bacteria Urine Mucus Micro UA Comment Ur Microscopic Review Urine Culture Comments 06/27/18 09:47 WBC RBC Hgb Hct MCV MCH MCHC RDW Plt Count MPV Neut % (Auto) Lymph % (Auto) [place] % (Auto) Eos % (Auto) Baso % (Auto) Neut # (Auto) Lymph # (Auto) [place] # (Auto) Eos # (Auto) Baso # (Auto) WBC Differential Differential Comment PT INR APTT Sodium Potassium Chloride Carbon Dioxide Anion Gap BUN Creatinine Estimated GFR POC Glucose 281 H Random Glucose Lactic Acid Calcium Prot Corrected Calcium Magnesium Total Bilirubin AST ALT Alkaline Phosphatase Total Protein Albumin Urine Color Urine Clarity Urine pH Ur Specific [place] Urine Protein Urine Glucose (UA) Urine Ketones Urine Occult Blood Urine Nitrate Urine Bilirubin Urine Urobilinogen Ur Leukocyte Esterase Urine RBC Urine WBC Ur Squamous Epith Cells Urine Bacteria Urine Mucus Micro UA Comment Ur Microscopic Review Urine Culture Comments Microbiology 06/26/18 12:31 Blood - Peripheral Aerobic Blood Culture - Preliminary No growth in 1 day 06/26/18 12:31 Blood - Peripheral Anaerobic Blood Culture - Preliminary No growth in 1 day 06/26/18 12:20 Blood - Peripheral Aerobic Blood Culture - Preliminary No growth in 1 day 06/26/18 12:20 Blood - Peripheral Anaerobic Blood Culture - Preliminary No growth in 1 day - Imaging Impressions Foot X-Ray 06/26/18 12:13 CONCLUSION: The first digit nail appears up lifted and there is soft tissue swelling of the first digit. Chest X-Ray 06/26/18 12:14 CONCLUSION: No acute cardiopulmonary abnormality is identified. Extremity Arterial Study 06/26/18 16:30 CONCLUSION: 1. Decreased pressure in the right thigh concerning for right pelvic/proximal thigh disease. 2. Decreased ankle brachial indices bilaterally consistent with bilateral lower extremity disease. 3. The pressure in the right ankle is higher than the right knee which could be secondary to calcified vessels. Foot MRI 06/27/18 00:00 CONCLUSION: 1. There is nonspecific soft tissue swelling in the subcutaneous soft tissues involving the mid to distal foot as well as the first toe. 2. There is no evidence of abnormal bone marrow edema in the first toe to suggest osteomyelitis. 3. No loculated soft tissue fluid collections are seen to suggest a soft tissue abscess. Assessment and Plan - Plan A/P -severe sepsis due to diabetic foot infection MRI of the foot with no evidence of osteomyelitis or abscess. continue with broad-spectrum IV antibiotics; Vanco and Zosyn- follow the cultures . -diabetes mellitus; uncontrolled resumed home insulin regimen and started on IV fluid and accu-check with SSI -PVD- s/p angioplasty/ stent placement lower extremities- resume plavix if no surgeries planned by podiatry. -history of CVA;resume plavix if no plan for surgery. -DVT prophylaxis with subq Lovenox. Discharge Planning: awaiting podiatry f/u and recommendations.
[2018-06-27] MEDS: Insulin NovoLOG Aspart Correctional Sugar Inj SQ SCH ×4 (14:23→20:41)
[2018-06-27] MEDS: Enoxaparin Inj 40 MG/0.4 ML Syringe SQ SCH (14:23)
--- NOTE | 2018-06-27 15:11 | P.PNPOD ---
Subjective Interval history: Left foot infection. Patient denies any pain but is severely emotional. She has been told by her vascular surgeon () that if she doesn't stop smoking she will lose her legs, and she is concerned this is what will happen. She is also very upset about the difficulty obtaining vascular assess, but admits this is an issue any time she has blood drawn or an IV placed. She denies any n/v/f/h /c/sob. Physical Exam Vital signs: Vital Signs 06/26/18 16:00 06/26/18 20:00 06/27/18 00:00 Temperature 98.5 F 98.6 F 98.6 F Pulse Rate 109 H 105 H 88 Respiratory Rate 16 18 18 Blood Pressure 178/89 H 167/93 H 131/65 Pulse Oximetry 97 96 95 06/27/18 04:00 06/27/18 08:00 Temperature 98.2 F 97.9 F Pulse Rate 111 H 89 Respiratory Rate 20 18 Blood Pressure 161/103 H 152/77 H Pulse Oximetry 94 L 94 L Intake & Output 06/26/18 06/27/18 06/27/18 18:59 06:59 18:59 Intake Total 350 / 350 1150 / 1150 50 / 50 Balance 350 / 350 1150 / 1150 50 / 50 Weight 72.575 kg 67.6 kg Intake: IV 350 / 350 1150 / 1150 50 / 50 NS Inj 1,000 ML @ 100 mls/hr IV 1000 / 1000 .CONT .Q10H [facility] Rx#:[id number] Zosyn 3.375 GM Premix 50 ML @ 100 / 100 50 / 50 50 / 50 100 mls/hr IV.SIG Q6H [facility] Rx#: [id number] Vancomycin Inj 1,000 MG In NS 250 / 250 Inj 250 ML @ 250 mls/hr IV.SIG ONCE ONE Rx#:[id number] Vancomycin Inj 500 MG In NS Inj 100 / 100 100 ML @ 100 mls/hr IV.SIG ONCE ONE Rx#:[id number] Other: # Voids 3 Date of Last Bowel Movement 06/26/18 # Bowel Movements 2 Weight On Admission 73 kg Narrative: Left first ray erythema circumferentially. Thick plantar hallux callus with subhemorrhagic tissue noted. Mild edema to the whole foot. Medications and Allergies Active Medications: Active Medications Acetaminophen (Tylenol) 650 mg PO Q4H PRN PRN Reason: fever/pain 1-5 Hydrocodone Bitart/Acetaminophen (Purdin 5/325) 1 tab PO Q4H PRN PRN Reason: acute pain 6-10 Last Admin: 06/27/18 14:19 Dose: 1 tab Bacitracin (Baciguent Oint) 1 applicatio TOPICAL ONCE ONE Stop: 06/27/18 15:07 Dextrose (D50w Vial) 50 ml IV.PUSH UNSCH PRN PRN Reason: PER HYPOGLYCEMIA PROTOCOL Enalaprilat (Vasotec Inj) 1.25 mg IV.PUSH Q8H PRN PRN Reason: SBP > 180 or DBP > 100. Enoxaparin Sodium (Lovenox Inj) 40 mg SQ DAILY [facility] Last Admin: 06/27/18 14:23 Dose: 40 mg Glucagon (Glucagon Inj) 1 mg OTHER UNSCH PRN PRN Reason: for Hypoglycemia Protocol Sodium Chloride (Ns Inj) 1,000 mls @ 0 mls/hr IV.SIG BOLUS [facility] Sodium Chloride (Ns Inj) 1,000 mls @ 0 mls/hr IV.SIG BOLUS [facility] Piperacillin/Tazobactam/Dextrose (Zosyn 3.375 Gm Premix) 50 mls @ 100 mls/hr IV.SIG Q6H [facility] Last Admin: 06/27/18 13:19 Dose: 100 mls/hr Sodium Chloride (Ns Inj) 1,000 mls @ 100 mls/hr IV.CONT .Q10H [facility] Last Admin: 06/27/18 04:59 Dose: 100 mls/hr Vancomycin HCl 1,250 mg/ (Sodium Chloride) 262.5 mls @ 250 mls/hr IV.SIG Q12H [facility] Insulin Aspart (Novolog Insulin Correctional Sugar Inj) 0 unit SQ ACHS [facility]; Protocol Last Admin: 06/27/18 14:24 Dose: Not Given Insulin Detemir (Levemir Inj) 20 unit SQ HS [facility] Miscellaneous Information ([facility] Ordered Lab Info) 0 each OTHER ONCE ONE Stop: 06/29/18 05:46 Pharmacy Profile Note (Vancomycin Consult Pharmacy) 1 each OTHER UNSCH PRN PRN Reason: Pharmacy to dose Allergies Allergy/AdvReac Type Severity Reaction Status Date / Time ciprofloxacin Allergy Severe Anaphylaxis Verified 06/26/18 12:09 levofloxacin Allergy Severe Anaphylaxis Verified 06/26/18 12:09 Home Medications Medication Instructions Recorded Confirmed Type Novolog U-100 Insulin aspart 20 unit SUB-Q DAILY 06/26/18 06/26/18 History clopidogrel [Plavix] 75 mg PO DAILY 06/26/18 06/26/18 History hydrochlorothiazide 0 mg PO DAILY 06/26/18 06/26/18 History insulin glargine [Lantus U-100 20 unit SUB-Q DAILY 06/26/18 06/26/18 History Insulin] Results - Labs CBC & Chem 7: 06/27/18 06:26 06/27/18 06:26 Laboratory Results - last 24 hr 06/26/18 06/26/18 06/26/18 16:43 19:56 21:40 WBC RBC Hgb Hct MCV MCH MCHC RDW Plt Count MPV Neut % (Auto) Lymph % (Auto) [place] % (Auto) Eos % (Auto) Baso % (Auto) Neut # (Auto) Lymph # (Auto) [place] # (Auto) Eos # (Auto) Baso # (Auto) WBC Differential Differential Comment Sodium Potassium Chloride Carbon Dioxide Anion Gap BUN Creatinine Estimated GFR POC Glucose 317 H 236 H Random Glucose Lactic Acid 3.0 H Calcium Urine Color Urine Clarity Urine pH Ur Specific [place] Urine Protein Urine Glucose (UA) Urine Ketones Urine Occult Blood Urine Nitrate Urine Bilirubin Urine Urobilinogen Ur Leukocyte Esterase Urine RBC Urine WBC Ur Squamous Epith Cells Urine Bacteria Urine Mucus Micro UA Comment Ur Microscopic Review Urine Culture Comments 06/26/18 06/27/18 06/27/18 22:46 06:26 06:26 WBC 15.3 H RBC 3.72 L Hgb 12.0 D Hct 35.4 MCV 95.1 MCH 32.1 MCHC 33.8 RDW 13.3 Plt Count 261 MPV 8.8 Neut % (Auto) 82.7 H Lymph % (Auto) 8.4 L [place] % (Auto) 8.1 H Eos % (Auto) 0.4 Baso % (Auto) 0.4 Neut # (Auto) 12.7 H Lymph # (Auto) 1.3 [place] # (Auto) 1.2 H Eos # (Auto) 0.1 Baso # (Auto) 0.1 WBC Differential . Differential Comment Auto diff final Sodium Potassium Chloride Carbon Dioxide Anion Gap BUN Creatinine Estimated GFR POC Glucose Random Glucose Lactic Acid 1.2 Calcium Urine Color Yellow Urine Clarity Cloudy H Urine pH 5.0 Ur Specific [place] 1.037 H Urine Protein 100 H Urine Glucose (UA) 500 or greater Urine Ketones 20 Urine Occult Blood Negative Urine Nitrate Negative Urine Bilirubin Negative Urine Urobilinogen Less than 2 Ur Leukocyte Esterase Small H Urine RBC 5 H Urine WBC Ur Squamous Epith Cells 2 Urine Bacteria Rare H Urine Mucus Few H Micro UA Comment Culture indicated Ur Microscopic Review Not Reportable Urine Culture Comments Culture indicated 06/27/18 06/27/18 06/27/18 06:26 09:47 13:46 WBC RBC Hgb Hct MCV MCH MCHC RDW Plt Count MPV Neut % (Auto) Lymph % (Auto) [place] % (Auto) Eos % (Auto) Baso % (Auto) Neut # (Auto) Lymph # (Auto) [place] # (Auto) Eos # (Auto) Baso # (Auto) WBC Differential Differential Comment Sodium 138 Potassium 3.4 L Chloride 104 Carbon Dioxide 25.7 Anion Gap 8 BUN 6 L Creatinine 0.63 Estimated GFR Greater than 89 POC Glucose 281 H 258 H Random Glucose 292 H D Lactic Acid Calcium 8.0 L D Urine Color Urine Clarity Urine pH Ur Specific [place] Urine Protein Urine Glucose (UA) Urine Ketones Urine Occult Blood Urine Nitrate Urine Bilirubin Urine Urobilinogen Ur Leukocyte Esterase Urine RBC Urine WBC Ur Squamous Epith Cells Urine Bacteria Urine Mucus Micro UA Comment Ur Microscopic Review Urine Culture Comments Microbiology 06/26/18 12:31 Blood - Peripheral Aerobic Blood Culture - Preliminary No growth in 1 day 06/26/18 12:31 Blood - Peripheral Anaerobic Blood Culture - Preliminary No growth in 1 day 06/26/18 12:20 Blood - Peripheral Aerobic Blood Culture - Preliminary No growth in 1 day 06/26/18 12:20 Blood - Peripheral Anaerobic Blood Culture - Preliminary No growth in 1 day - Imaging Impressions Extremity Arterial Study 06/26/18 16:30 CONCLUSION: 1. Decreased pressure in the right thigh concerning for right pelvic/proximal thigh disease. 2. Decreased ankle brachial indices bilaterally consistent with bilateral lower extremity disease. 3. The pressure in the right ankle is higher than the right knee which could be secondary to calcified vessels. Foot MRI 06/27/18 00:00 CONCLUSION: 1. There is nonspecific soft tissue swelling in the subcutaneous soft tissues involving the mid to distal foot as well as the first toe. 2. There is no evidence of abnormal bone marrow edema in the first toe to suggest osteomyelitis. 3. No loculated soft tissue fluid collections are seen to suggest a soft tissue abscess. Assessment and Plan - Assessment (1) Diabetic foot infection Code(s): E11.628 - Type 2 diabetes mellitus with other skin complications; L08.9 - Local infection of the skin and subcutaneous tissue, unspecified Status: Acute - Plan -MRI negative for OM or abscess -plan for bedside debridement and further investigation of skin integrity at bedside tomorrow -CTA with runoff and vascular consult pending -cont iv abx -heel WBing in surgical shoe
--- NOTE | 2018-06-27 16:45 | MB ---
cc: Jimmy Mcgarry MD DATE: 06/27/2018 CONSULTING PHYSICIAN: Jimmy Mcgarry MD of vascular surgery. REASON FOR CONSULTATION: Peripheral vascular disease, ischemia of both lower legs, gangrenous ulcer, left first metatarsal. HISTORY OF PRESENT ILLNESS: This is a 58-year-old female who is known to me from previous encounter about by a year and a half ago, at which point she was a patient of Dr. Ruiz and transferred to the care of Dr. White. Patient now comes to the hospital with an ulcer over the left foot and question arises about the nature of her problems. The patient states that she had this ulcer now for months. Finally, the area got more red and she showed up. This noted ulcer has been there for about 12 months. PAST MEDICAL HISTORY: Carotid artery disease, diabetes mellitus. PAST SURGICAL HISTORY: Hernia repair and diabetes. The patient is very noncompliant with her care and I believe the patient was started to be seen by Dr. Delacruz in 2012. At that time, she was noted to have severe small vessel disease for which she was told to stop smoking. At that time, she was smoking about 2 packs a day. Since then, the patient has been coming between [facility] and [facility] where Dr. Polanco stented her, both the SFA in 1999 and 2016. Then, the patient came here, would not go back there, signed out AMA twice from [facility] and then at the same time signed out AMA from this [facility]. The patient refused to have surgery on her foot now 3 or 4 times. MEDICATIONS: Can be found in the record. PHYSICAL EXAMINATION: GENERAL: Reveals a 58-year-old female, appearing much older than her actual age. HEENT: Normocephalic. No trauma to the head. Pupils equal, reactive. Extraocular muscles intact. NECK: Bilateral carotid pulses. Bilateral carotid bruits. CHEST: Bilateral breath sounds, decreased though to both lungs [place]. The patient has moderate to severe COPD with loss of chest musculature and pulmonary cachexia. HEART: Regular rate and rhythm. ABDOMEN: Patulous, soft, active bowel sounds. No masses noted. Scars from previous surgery. EXTREMITIES: Extremities appear to be somewhat atrophic. The patient has palpable femoral pulses. She has weak but present Doppler signal popliteal bilateral. Posterior tibial and dorsalis pedis very weak bilateral. NEUROLOGIC: The patient is grossly intact. IMPRESSION Patient with severe peripheral vascular disease from snf calves down and the last CT was bilateral about 50% SFA stenosis. The patient does have a distal ulcer on the plantar surface of the first metatarsal bone left and there is no question in my mind that the patient has osteomyelitis whether an MRI shows it not. This is clearly osteomyelitis by definition. Based on clinical exam I believe patient probably has bilateral SFA occlusions with collateral revascularization and then a runoff to the feet which is probably diseased but at least 2 other 3 vessels are patent. At this point is to do a CTA with a runoff to see if there is anything we can do to improve the patient's inflow and improve the healing. However, it is my unequivocal recommendation that the patient has amputation of her first toe of the left foot in face of osteomyelitis. Thank you very much for the referral. I will follow the patient with you. MD LILIA Taylor/claude/naomy , 04:01 PM , 04:14 PM [email or web address]
[2018-06-27] MEDS: ALPRAZolam 0.25 MG Tablet PO PRN (17:09)
[2018-06-27] MEDS: Vancomycin Inj 1,250 MG in Sodium Chlor 0.9% Inj 250 ML IV.SIG SCH (17:09)
[2018-06-27] MEDS: Insulin Detemir Inj 1,000 UNIT/10 ML Vial SQ SCH (20:42)
--- NOTE | 2018-06-27 21:03 | CT ---
EXAM DATE: 06/27/2018 8:47 PM EDT AGE/SEX: 58 years / Female INDICATIONS: PVD both leg gangrene toes CLINICAL DATA: This is the patient's initial encounter. Patient reports that signs and symptoms have been present for 1 day and indicates a pain score of 7/10. MEDICAL/SURGICAL HISTORY: Cardiovascular disease. Diabetes. hernia Hysterectomy. Coronary artery stent. RADIATION DOSE: 4.8 CTDI (mGy) COMPARISON: No prior exams available for comparison. TECHNIQUE: Volumetric scanning was performed using a multi-row detector CT scanner during bolus infu eder of 98 ml Omnipaque 350 (iohexol) nonionic water-soluble contrast as a single exam dose. The d gennaro was post processed with a variety of visualization algorithms including full volume maximum inten sity projection, multi-planar sliding thin slab reformation, curved planar reformation, and surface r endering techniques. Using automated exposure control and adjustment of the mA and/or kV according t o patient size, radiation dose was kept as low as reasonably achievable to obtain optimal diagnostic quality images. DICOM format image data is available electronically for review and comparison. FINDINGS: Abdominal Aorta: There is atherosclerotic calcified plaque seen throughout the arterial system inclu ding the abdominal aorta. The lumen is smooth without significant narrowing or aneurysmal dilation. The proximal celiac and superior mesenteric arteries are patent and normal in diameter. There is c alcified plaque at the origin of the SMA without significant stenosis. The main renal arteries are no rmal bilaterally. There are bilateral accessory renal arteries that are patent. Bifurcation: There is atherosclerotic calcification seen at the right common iliac artery. Significa nt stenosis is not appreciated. Right Pelvis: There is scattered atherosclerotic plaque seen throughout the right external and inter nal iliac arteries without a definite significant stenosis. Left Pelvis: There is scattered atherosclerotic plaque seen throughout the left external and interna l iliac arteries without a definite significant stenosis. Right Thigh: There is atherosclerotic change seen throughout the superficial femoral and profunda fe moral arteries. There are several areas of moderate to severe stenosis seen. Left Thigh: There is absence right change seen throughout the superficial femoral and profunda femor is artery. There are several areas of severe stenosis in the proximal superficial femoral artery. The re is a stent seen in the mid superficial femoral artery. There is plaque seen within the stent. Right Knee: There is mild atherosclerotic change in the popliteal artery. Left Knee: There is mild atherosclerotic change in the popliteal artery.. Right Leg: The trifurcation is intact. Left Leg: The trifurcation is intact. There is a midline hernia below the umbilicus with the defect measuring 4 cm in the anterior abdomina l wall. The hernia contains mesenteric fat. There is small amount of air and induration superficial l eft anterior abdominal wall likely from recent injection. There is diffuse hepatic steatosis. Liver d oes appear enlarged. There is a 3.9 cm left adrenal gland mass. This was shown to represent an adenom a on a prior MRI examination. CONCLUSION: 1. Atherosclerotic change seen throughout the arterial system as described above. 2. Moderate to severe areas of focal stenosis in the superficial femoral arteries bilaterally. There is a stent in the mid left superficial femoral artery. 3. Hepatic steatosis. 4. Left adrenal gland adenoma. 5. Midline hernia containing mesenteric fat. Electronically signed by: Poncho Duval MD 06/27/2018 9:02 PM EDT
[2018-06-28] MEDS: Piperacil/Tazo 3.375 GM Premix 50 ML IV.SIG SCH ×4 (00:27→18:26)
[2018-06-28] MEDS: ALPRAZolam 0.25 MG Tablet PO PRN (01:22)
[2018-06-28] MEDS: Vancomycin Inj 1,250 MG in Sodium Chlor 0.9% Inj 250 ML IV.SIG SCH ×2 (05:56→17:08)
[2018-06-28] MEDS: Sod Chloride 0.9% Inj 1,000 ML IV.CONT SCH ×2 (07:36→16:15)
[2018-06-28] MEDS: Insulin NovoLOG Aspart Correctional Sugar Inj SQ SCH ×4 (10:33→21:43)
[2018-06-28] MEDS: Enoxaparin Inj 40 MG/0.4 ML Syringe SQ SCH (10:34)
--- NOTE | 2018-06-28 10:59 | P.PNIM ---
Subjective Interval history: in no distress. however seems anxious and worried about her foot. pain seems to be controlled. no fever. d/w the RN at the bedside. Physical Exam Vital signs: Vital Signs 06/27/18 12:00 06/27/18 16:00 06/27/18 21:20 Temperature 97.6 F 97.7 F 97.8 F Pulse Rate 92 H 106 H 101 H Respiratory Rate 18 18 18 Blood Pressure 162/87 H 158/74 H 150/90 H Pulse Oximetry 93 L 93 L 93 L 06/28/18 00:20 06/28/18 05:50 06/28/18 08:00 Temperature 98 F 98 F 97.8 F Pulse Rate 66 90 80 Respiratory Rate 19 17 18 Blood Pressure 145/88 H 150/60 H 142/77 H Pulse Oximetry 96 94 L 91 L 06/28/18 09:00 Temperature Pulse Rate 80 Respiratory Rate Blood Pressure Pulse Oximetry Intake & Output 06/27/18 06/28/18 06/28/18 18:59 06:59 18:59 Intake Total 1912.5 / 1912.5 3637.5 / 3637.5 50 / 50 Balance 1912.5 / 1912.5 3637.5 / 3637.5 50 / 50 Weight 68 kg Intake: IV 1312.5 / 1312.5 2362.5 / 2362.5 50 / 50 NS Inj 1,000 ML @ 100 mls/hr IV 950 / 950 2000 / 2000 .CONT .Q10H GIL Rx#:[id number] Zosyn 3.375 GM Premix 50 ML @ 100 / 100 100 / 100 50 / 50 100 mls/hr IV.SIG Q6H GIL Rx#: [id number] Vancomycin Inj 1,250 MG In NS 262.5 / 262.5 262.5 / 262.5 Inj 250 ML @ 250 mls/hr IV.SIG Q12H GIL Rx#:[id number] Oral 600 / 600 1275 / 1275 Other: # Voids 3 2 Date of Last Bowel Movement 06/26/18 06/27/18 06/27/18 # Bowel Movements 1 0 - Constitutional no acute distress - Routine Respiratory Exam Present: CTA bilaterally - Routine Cardiovascular Exam Present: RRR - Routine Abdominal Exam Present: soft - Routine Extremities Exam Comments: left great toe covered with clean dressing. - Routine Neurological Exam Present: alert, oriented X3 Results - Labs CBC & Chem 7: 06/27/18 06:26 06/27/18 06:26 Laboratory Results - last 24 hr 06/27/18 06/27/18 06/27/18 13:46 17:30 20:33 POC Glucose 258 H 292 H 192 H Microbiology 06/26/18 22:46 Clean Catch Urine Urine Culture - Final No growth in 48 hours 06/26/18 12:31 Blood - Peripheral Aerobic Blood Culture - Preliminary No growth in 1 day 06/26/18 12:31 Blood - Peripheral Anaerobic Blood Culture - Preliminary No growth in 1 day 06/26/18 12:20 Blood - Peripheral Aerobic Blood Culture - Preliminary No growth in 1 day 06/26/18 12:20 Blood - Peripheral Anaerobic Blood Culture - Preliminary No growth in 1 day - Imaging Impressions Aorta w/Runoff CTA 06/27/18 13:36 CONCLUSION: 1. Atherosclerotic change seen throughout the arterial system as described above. 2. Moderate to severe areas of focal stenosis in the superficial femoral arteries bilaterally. There is a stent in the mid left superficial femoral artery. 3. Hepatic steatosis. 4. Left adrenal gland adenoma. 5. Midline hernia containing mesenteric fat. Assessment and Plan - Plan A/P -severe sepsis due to diabetic foot infection MRI of the foot with no evidence of osteomyelitis or abscess. continue with broad-spectrum IV antibiotics; Vanco and Zosyn- follow the cultures . podiatry and vascular surgery evaluation appreciated; for possible bedside debridement today. -diabetes mellitus; uncontrolled resumed home insulin regimen - continue accu-check with SSI -PVD- s/p angioplasty/ stent placement lower extremities- resume plavix if no surgeries planned by podiatry. vascular surgery following. -history of CVA;resume plavix if no plan for surgery. -DVT prophylaxis with subq Lovenox. Discharge Planning: when cleared by podiatry and vascular surgery.
--- NOTE | 2018-06-28 15:03 | P.PNVS ---
Subjective Subjective/Hospital Course: 06/28/18 This is a 58-year-old female who is known to me from previous encounter about by a year and a half ago. Patient now comes to the hospital with an ulcer over the left foot andquestion arises about the nature of her problems. The patient states that she had this ulcer now for months. Finally, the area got more red and she showed up. This noted ulcer has been there for about 12 months. The patient is very noncompliant with her care and I believe the patient was started to be seen by Dr. Delacruz in 2012. At that time, she was noted to have severe small vessel disease for which she was told to stop smoking. At that time, she was smoking about 2 packs a day. Since then, the patient has been coming between [facility] and [facility] where Dr. Polanco stented her, both the SFA in 1999 and 2016. Then, the patient came here, would not go back there, signed out AMA twice from [facility] and then at the same time signed out AMA from [facility]. The patient refused to have surgery on her foot now [address] angiogram with runoff confirms the initial impression. Patient has several severe stenosis superficial femoral arteries right and left above and below the stents placed 2 years ago by another surgeon so the stents are known consequential at this time as far as the hemodynamics is concerned. Patient needs bilateral femoral-popliteal bypass in order to preserve the legs and if she continues to smoke she will definitely lose both of her legs with in next few years. In addition amputation of the toe is mandatory because we cannot put a PTFE graft with knowledge that the patient has untreated source of seeding infection. We will proceed with left femoropopliteal bypass next week. Objective Vital Signs / I&O: Vital Signs 06/27/18 16:00 06/27/18 21:20 06/28/18 00:20 Temperature 97.7 F 97.8 F 98 F Pulse Rate 106 H 101 H 66 Respiratory Rate 18 18 19 Blood Pressure 158/74 H 150/90 H 145/88 H Pulse Oximetry 93 L 93 L 96 06/28/18 05:50 06/28/18 08:00 06/28/18 09:00 Temperature 98 F 97.8 F Pulse Rate 90 80 80 Respiratory Rate 17 18 Blood Pressure 150/60 H 142/77 H Pulse Oximetry 94 L 91 L 06/28/18 12:00 Temperature 98.1 F Pulse Rate 92 H Respiratory Rate 18 Blood Pressure 148/85 H Pulse Oximetry 92 L Intake & Output 06/27/18 06/28/18 06/28/18 18:59 06:59 18:59 Intake Total 1912.5 / 1912.5 3637.5 / 3637.5 50 / 50 Balance 1912.5 / 1912.5 3637.5 / 3637.5 50 / 50 Weight 68 kg Intake: IV 1312.5 / 1312.5 2362.5 / 2362.5 50 / 50 NS Inj 1,000 ML @ 100 mls/hr IV 950 / 950 2000 / 2000 .CONT .Q10H GIL Rx#:[id number] Zosyn 3.375 GM Premix 50 ML @ 100 / 100 100 / 100 50 / 50 100 mls/hr IV.SIG Q6H GIL Rx#: [id number] Vancomycin Inj 1,250 MG In NS 262.5 / 262.5 262.5 / 262.5 Inj 250 ML @ 250 mls/hr IV.SIG Q12H GIL Rx#:[id number] Oral 600 / 600 1275 / 1275 Other: # Voids 3 2 Date of Last Bowel Movement 06/26/18 06/27/18 06/27/18 # Bowel Movements 1 0 Laboratory Results - last 24 hr 06/27/18 06/27/18 06/28/18 17:30 20:33 10:29 POC Glucose 292 H 192 H 221 H Microbiology 06/26/18 12:31 Aerobic Blood Culture - Preliminary Blood - Peripheral No growth in 2 days Anaerobic Blood Culture - Preliminary No growth in 2 days 06/26/18 12:20 Aerobic Blood Culture - Preliminary Blood - Peripheral No growth in 2 days Anaerobic Blood Culture - Preliminary No growth in 2 days 06/26/18 22:46 Urine Culture - Final Clean Catch Urine No growth in 48 hours Impressions Extremity Arterial Study 06/26/18 16:30 CONCLUSION: 1. Decreased pressure in the right thigh concerning for right pelvic/proximal thigh disease. 2. Decreased ankle brachial indices bilaterally consistent with bilateral lower extremity disease. 3. The pressure in the right ankle is higher than the right knee which could be secondary to calcified vessels. Foot MRI 06/27/18 00:00 CONCLUSION: 1. There is nonspecific soft tissue swelling in the subcutaneous soft tissues involving the mid to distal foot as well as the first toe. 2. There is no evidence of abnormal bone marrow edema in the first toe to suggest osteomyelitis. 3. No loculated soft tissue fluid collections are seen to suggest a soft tissue abscess. Aorta w/Runoff CTA 06/27/18 13:36 CONCLUSION: 1. Atherosclerotic change seen throughout the arterial system as described above. 2. Moderate to severe areas of focal stenosis in the superficial femoral arteries bilaterally. There is a stent in the mid left superficial femoral artery. 3. Hepatic steatosis. 4. Left adrenal gland adenoma. 5. Midline hernia containing mesenteric fat.
--- NOTE | 2018-06-28 16:37 | P.PNPOD ---
Subjective Interval history: Pt seen at bedside, baseline emotions and anxiety. No pain at this time. She states she was suffering from some nausea last night but it has subsided. Physical Exam Vital signs: Vital Signs 06/27/18 21:20 06/28/18 00:20 06/28/18 05:50 Temperature 97.8 F 98 F 98 F Pulse Rate 101 H 66 90 Respiratory Rate 18 19 17 Blood Pressure 150/90 H 145/88 H 150/60 H Pulse Oximetry 93 L 96 94 L 06/28/18 08:00 06/28/18 09:00 06/28/18 12:00 Temperature 97.8 F 98.1 F Pulse Rate 80 80 92 H Respiratory Rate 18 18 Blood Pressure 142/77 H 148/85 H Pulse Oximetry 91 L 92 L Intake & Output 06/27/18 06/28/18 06/28/18 18:59 06:59 18:59 Intake Total 1912.5 / 1912.5 3637.5 / 3637.5 1100 / 1100 Balance 1912.5 / 1912.5 3637.5 / 3637.5 1100 / 1100 Weight 68 kg Intake: IV 1312.5 / 1312.5 2362.5 / 2362.5 1100 / 1100 NS Inj 1,000 ML @ 100 mls/hr IV 950 / 950 2000 / 2000 1000 / 1000 .CONT .Q10H GIL Rx#:[id number] Zosyn 3.375 GM Premix 50 ML @ 100 / 100 100 / 100 100 / 100 100 mls/hr IV.SIG Q6H GIL Rx#: [id number] Vancomycin Inj 1,250 MG In NS 262.5 / 262.5 262.5 / 262.5 Inj 250 ML @ 250 mls/hr IV.SIG Q12H GIL Rx#:[id number] Oral 600 / 600 1275 / 1275 Other: # Voids 3 2 Date of Last Bowel Movement 06/26/18 06/27/18 06/27/18 # Bowel Movements 1 0 Narrative: Left plantar ulcer 0.5cm x 0.5cm x 0, no exposed bone or tendon, + malodor, avila wound callusing. Medications and Allergies Active Medications: Active Medications Acetaminophen (Tylenol) 650 mg PO Q4H PRN PRN Reason: fever/pain 1-5 Hydrocodone Bitart/Acetaminophen ([place] 5/325) 1 tab PO Q4H PRN PRN Reason: acute pain 6-10 Last Admin: 06/28/18 13:47 Dose: 1 tab Alprazolam (Xanax) 0.5 mg PO Q8H PRN PRN Reason: ANXIETY Dextrose (D50w Vial) 50 ml IV.PUSH UNSCH PRN PRN Reason: PER HYPOGLYCEMIA PROTOCOL Enalaprilat (Vasotec Inj) 1.25 mg IV.PUSH Q8H PRN PRN Reason: SBP > 180 or DBP > 100. Enoxaparin Sodium (Lovenox Inj) 40 mg SQ DAILY GIL Last Admin: 06/28/18 10:34 Dose: 40 mg Glucagon (Glucagon Inj) 1 mg OTHER UNSCH PRN PRN Reason: for Hypoglycemia Protocol Sodium Chloride (Ns Inj) 1,000 mls @ 0 mls/hr IV.SIG BOLUS GIL Sodium Chloride (Ns Inj) 1,000 mls @ 0 mls/hr IV.SIG BOLUS GIL Piperacillin/Tazobactam/Dextrose (Zosyn 3.375 Gm Premix) 50 mls @ 100 mls/hr IV.SIG Q6H GIL Last Infusion: 06/28/18 14:56 Dose: Infused Sodium Chloride (Ns Inj) 1,000 mls @ 100 mls/hr IV.CONT .Q10H GIL Last Admin: 06/28/18 16:15 Dose: 100 mls/hr Vancomycin HCl 1,250 mg/ (Sodium Chloride) 262.5 mls @ 250 mls/hr IV.SIG Q12H GIL Last Infusion: 06/28/18 06:56 Dose: Infused Insulin Aspart (Novolog Insulin [employer] Sugar Inj) 0 unit SQ ACHS GIL; Protocol Last Admin: 06/28/18 16:14 Dose: 7 unit Insulin Detemir (Levemir Inj) 20 unit SQ HS GIL Last Admin: 06/27/18 20:42 Dose: 20 unit Miscellaneous Information ([facility] Ordered Lab Info) 0 each OTHER ONCE ONE Stop: 06/29/18 05:46 Ondansetron HCl (Zofran Inj) 4 mg IV.PUSH Q6H PRN PRN Reason: NAUSEA Pharmacy Profile Note (Vancomycin Consult Pharmacy) 1 each OTHER UNSCH PRN PRN Reason: Pharmacy to dose Allergies Allergy/AdvReac Type Severity Reaction Status Date / Time ciprofloxacin Allergy Severe Anaphylaxis Verified 06/26/18 12:09 levofloxacin Allergy Severe Anaphylaxis Verified 06/26/18 12:09 Home Medications Medication Instructions Recorded Confirmed Type Novolog U-100 Insulin aspart 20 unit SUB-Q DAILY 06/26/18 06/26/18 History clopidogrel [Plavix] 75 mg PO DAILY 06/26/18 06/26/18 History hydrochlorothiazide 0 mg PO DAILY 06/26/18 06/26/18 History insulin glargine [Lantus U-100 20 unit SUB-Q DAILY 06/26/18 06/26/18 History Insulin] Results - Labs CBC & Chem 7: 06/27/18 06:26 06/27/18 06:26 Laboratory Results - last 24 hr 06/27/18 06/27/18 06/28/18 17:30 20:33 10:29 POC Glucose 292 H 192 H 221 H 06/28/18 16:05 POC Glucose 349 H Microbiology 06/26/18 12:31 Blood - Peripheral Aerobic Blood Culture - Preliminary No growth in 2 days 06/26/18 12:31 Blood - Peripheral Anaerobic Blood Culture - Preliminary No growth in 2 days 06/26/18 12:20 Blood - Peripheral Aerobic Blood Culture - Preliminary No growth in 2 days 06/26/18 12:20 Blood - Peripheral Anaerobic Blood Culture - Preliminary No growth in 2 days 06/26/18 22:46 Clean Catch Urine Urine Culture - Final No growth in 48 hours - Imaging Impressions Aorta w/Runoff CTA 06/27/18 13:36 CONCLUSION: 1. Atherosclerotic change seen throughout the arterial system as described above. 2. Moderate to severe areas of focal stenosis in the superficial femoral arteries bilaterally. There is a stent in the mid left superficial femoral artery. 3. Hepatic steatosis. 4. Left adrenal gland adenoma. 5. Midline hernia containing mesenteric fat. Assessment and Plan - Assessment (1) Diabetic foot infection Code(s): E11.628 - Type 2 diabetes mellitus with other skin complications; L08.9 - Local infection of the skin and subcutaneous tissue, unspecified Status: Acute - Plan -MRI negative for OM or abscess -wound care orders placed for nursing staff -cont iv abx -Vascular surgery input read and appreciated. Plan is for bypass next week. Aware of suggested amputation, but at this time with negative MRI findings and poor circulation my recommendation is conservative care. We will continue to closely monitor her in house and based on her reaction to the antibiotics and vascular bypass determine if surgical intervention is warranted in the near future. Procedures: Left foot wound/callus sharply debrided with a #15 scalpel. Wound cleansed and appropriately bandaged. CFT remained consistent through out the procedure. No drainage seen, but slight malodor noted.
[2018-06-28] MEDS: ALPRAZolam 0.5 MG Tablet PO PRN (19:48)
[2018-06-28] MEDS: Insulin Detemir Inj 1,000 UNIT/10 ML Vial SQ SCH (21:41)
[2018-06-29] MEDS: Piperacil/Tazo 3.375 GM Premix 50 ML IV.SIG SCH ×4 (01:11→18:17)
[2018-06-29] MEDS: Sod Chloride 0.9% Inj 1,000 ML IV.CONT SCH ×3 (03:00→23:00)
[2018-06-29] MEDS ORDERED: Pharmacy Ordered Lab Info OTHER ONE ×2 (05:45→17:45)
[2018-06-29] MEDS: Vancomycin Inj 1,250 MG in Sodium Chlor 0.9% Inj 250 ML IV.SIG SCH (06:48)
[2018-06-29] MEDS: Insulin NovoLOG Aspart Correctional Sugar Inj SQ SCH ×4 (07:54→20:48)
[2018-06-29] MEDS: Enoxaparin Inj 40 MG/0.4 ML Syringe SQ SCH (08:04)
--- NOTE | 2018-06-29 11:19 | P.PNIM ---
Subjective Interval history: in no acute distress. has some pain to the left foot. no fever. Physical Exam Vital signs: Vital Signs 06/28/18 12:00 06/28/18 16:00 06/28/18 20:00 Temperature 98.1 F 97.9 F 98.7 F Pulse Rate 92 H 79 67 Respiratory Rate 18 18 17 Blood Pressure 148/85 H 155/74 H 148/67 H Pulse Oximetry 92 L 90 L 94 L 06/29/18 00:27 06/29/18 00:37 06/29/18 00:38 Temperature 98.7 F Pulse Rate 116 H 105 H Respiratory Rate Blood Pressure 201/92 H 180/75 H Pulse Oximetry 86 L 90 L 90 L 06/29/18 00:39 06/29/18 00:41 06/29/18 00:45 Temperature Pulse Rate 100 H 101 H Respiratory Rate 16 Blood Pressure 165/82 H Pulse Oximetry 94 L 95 06/29/18 01:28 06/29/18 05:45 06/29/18 08:00 Temperature 97.7 F 98.2 F Pulse Rate 105 H 86 41 L Respiratory Rate 19 18 Blood Pressure 175/84 H 133/77 182/118 H Pulse Oximetry 96 93 L 90 L Intake & Output 06/28/18 06/29/18 06/29/18 18:59 06:59 18:59 Intake Total 2775 / 2775 1262.5 / 1262.5 Balance 2775 / 2775 1262.5 / 1262.5 Weight 68 kg Intake: IV 1412.5 / 1412.5 1100 / 1100 1262.5 / 1262.5 NS Inj 1,000 ML @ 100 mls/hr IV 1000 / 1000 1000 / 1000 1000 / 1000 .CONT .Q10H GIL Rx#:[id number] Zosyn 3.375 GM Premix 50 ML @ 150 / 150 100 / 100 100 mls/hr IV.SIG Q6H GIL Rx#: [id number] Vancomycin Inj 1,250 MG In NS 262.5 / 262.5 262.5 / 262.5 Inj 250 ML @ 250 mls/hr IV.SIG Q12H GIL Rx#:[id number] Oral 600 / 600 1675 / 1675 Other: # Voids 5 1 Date of Last Bowel Movement 06/28/18 06/28/18 06/28/18 # Bowel Movements 0 - Constitutional no acute distress - Routine Respiratory Exam Present: CTA bilaterally - Routine Cardiovascular Exam Present: RRR - Routine Abdominal Exam Present: soft - Routine Extremities Exam Comments: left foot covered with clean dressing. - Routine Neurological Exam Present: alert, oriented X3 Results - Labs CBC & Chem 7: 06/27/18 06:26 06/29/18 08:28 Laboratory Results - last 24 hr 06/28/18 06/28/18 06/29/18 16:05 21:12 00:30 Creatinine Estimated GFR POC Glucose 349 H 290 H 270 H Vancomycin Trough 06/29/18 06/29/18 06/29/18 06:02 07:27 08:28 Creatinine Estimated GFR POC Glucose 224 H 213 H Vancomycin Trough 44.1 H 06/29/18 08:28 Creatinine 0.74 Estimated GFR 80 L POC Glucose Vancomycin Trough Microbiology 06/26/18 12:31 Blood - Peripheral Aerobic Blood Culture - Preliminary No growth in 3 days 06/26/18 12:31 Blood - Peripheral Anaerobic Blood Culture - Preliminary No growth in 3 days 06/26/18 12:20 Blood - Peripheral Aerobic Blood Culture - Preliminary No growth in 3 days 06/26/18 12:20 Blood - Peripheral Anaerobic Blood Culture - Preliminary No growth in 3 days 06/26/18 22:46 Clean Catch Urine Urine Culture - Final No growth in 48 hours Assessment and Plan - Plan A/P -severe sepsis due to diabetic foot infection MRI of the foot with no evidence of osteomyelitis or abscess. s/p bedside debridement . continue with broad-spectrum IV antibiotics; Vanco and Zosyn- follow the cultures . podiatry following. -diabetes mellitus; uncontrolled resumed home insulin regimen - continue accu-check with SSI -PVD- s/p angioplasty/ stent placement lower extremities- r vascular surgery f/u appreciated; for possible fem-pop bypass this week. -history of CVA;plavix on hold- pending possible procedures. -DVT prophylaxis with subq Lovenox. Discharge Planning: when cleared by podiatry and vascular surgery.
--- NOTE | 2018-06-29 12:39 | P.PNVS ---
Subjective Subjective/Hospital Course: 06/28/18 This is a 58-year-old female who is known to me from previous encounter about by a year and a half ago. Patient now comes to the hospital with an ulcer over the left foot andquestion arises about the nature of her problems. The patient states that she had this ulcer now for months. Finally, the area got more red and she showed up. This noted ulcer has been there for about 12 months. The patient is very noncompliant with her care and I believe the patient was started to be seen by Dr. Delacrzu in 2012. At that time, she was noted to have severe small vessel disease for which she was told to stop smoking. At that time, she was smoking about 2 packs a day. Since then, the patient has been coming between [facility] and [facility] where Dr. Polanco stented her, both the SFA in 1999 and 2016. Then, the patient came here, would not go back there, signed out AMA twice from [facility] and then at the same time signed out AMA from [facility]. The patient refused to have surgery on her foot now [address] angiogram with runoff confirms the initial impression. Patient has several severe stenosis superficial femoral arteries right and left above and below the stents placed 2 years ago by another surgeon so the stents are known consequential at this time as far as the hemodynamics is concerned. Patient needs bilateral femoral-popliteal bypass in order to preserve the legs and if she continues to smoke she will definitely lose both of her legs with in next few years. In addition amputation of the toe is mandatory because we cannot put a PTFE graft with knowledge that the patient has untreated source of seeding infection. We will proceed with left femoropopliteal bypass next week. 06/29/2018 Patient with severe peripheral vascular disease and hemodynamically significant stenotic disease in both SFAs. Patient does not have any endovascularly reconstructable disease at this point. I discussed with patient at length the therapy and patient keeps repeating how she wants to keep the toe. At this point I have explained repeatedly that surgery is designed to lessen the chance of losing the left lower extremity. While this might improve the blood flow to the toes patient also has small vessel disease in the feet and I am still convinced that patient will eventually need left hallux amputation. Schedule for left femoral-popliteal bypass on Sunday Objective Vital Signs / I&O: Vital Signs 06/28/18 16:00 06/28/18 20:00 06/29/18 00:27 Temperature 97.9 F 98.7 F 98.7 F Pulse Rate 79 67 116 H Respiratory Rate 18 17 Blood Pressure 155/74 H 148/67 H 201/92 H Pulse Oximetry 90 L 94 L 86 L 06/29/18 00:37 06/29/18 00:38 06/29/18 00:39 Temperature Pulse Rate 105 H 100 H Respiratory Rate 16 Blood Pressure 180/75 H Pulse Oximetry 90 L 90 L 06/29/18 00:41 06/29/18 00:45 06/29/18 01:28 Temperature Pulse Rate 101 H 105 H Respiratory Rate Blood Pressure 165/82 H 175/84 H Pulse Oximetry 94 L 95 96 06/29/18 05:45 06/29/18 08:00 06/29/18 12:24 Temperature 97.7 F 98.2 F Pulse Rate 86 41 L 50 L Respiratory Rate 19 18 16 Blood Pressure 133/77 182/118 H Pulse Oximetry 93 L 90 L Intake & Output 06/28/18 06/29/18 06/29/18 18:59 06:59 18:59 Intake Total 2775 / 2775 1262.5 / 1262.5 Balance 2775 / 2775 1262.5 / 1262.5 Weight 68 kg Intake: IV 1412.5 / 1412.5 1100 / 1100 1262.5 / 1262.5 NS Inj 1,000 ML @ 100 mls/hr IV 1000 / 1000 1000 / 1000 1000 / 1000 .CONT .Q10H GIL Rx#:[id number] Zosyn 3.375 GM Premix 50 ML @ 150 / 150 100 / 100 100 mls/hr IV.SIG Q6H GIL Rx#: [id number] Vancomycin Inj 1,250 MG In NS 262.5 / 262.5 262.5 / 262.5 Inj 250 ML @ 250 mls/hr IV.SIG Q12H GIL Rx#:[id number] Oral 600 / 600 1675 / 1675 Other: # Voids 5 1 Date of Last Bowel Movement 06/28/18 06/28/18 06/28/18 # Bowel Movements 0 Laboratory Results - last 24 hr 0806/28/18 06/29/18 16:05 21:12 00:30 Creatinine Estimated GFR POC Glucose 349 H 290 H 270 H Vancomycin Trough 06/29/18 06/29/18 06/29/18 06:02 07:27 08:28 Creatinine Estimated GFR POC Glucose 224 H 213 H Vancomycin Trough 44.1 H 06/29/18 06/29/18 08:28 11:28 Creatinine 0.74 Estimated GFR 80 L POC Glucose 279 H Vancomycin Trough Microbiology 06/26/18 12:31 Aerobic Blood Culture - Preliminary Blood - Peripheral No growth in 3 days Anaerobic Blood Culture - Preliminary No growth in 3 days 06/26/18 12:20 Aerobic Blood Culture - Preliminary Blood - Peripheral No growth in 3 days Anaerobic Blood Culture - Preliminary No growth in 3 days 06/26/18 22:46 Urine Culture - Final Clean Catch Urine No growth in 48 hours Impressions Aorta w/Runoff CTA 06/27/18 13:36 CONCLUSION: 1. Atherosclerotic change seen throughout the arterial system as described above. 2. Moderate to severe areas of focal stenosis in the superficial femoral arteries bilaterally. There is a stent in the mid left superficial femoral artery. 3. Hepatic steatosis. 4. Left adrenal gland adenoma. 5. Midline hernia containing mesenteric fat.
[2018-06-29] MEDS: Insulin Detemir Inj 1,000 UNIT/10 ML Vial SQ SCH (20:48)
[2018-06-30] MEDS: Piperacil/Tazo 3.375 GM Premix 50 ML IV.SIG SCH ×4 (00:42→18:23)
[2018-06-30 06:24] LABS: Baso # (Auto) 0.1 th/mm3 (0.0-0.2); Baso % (Auto) 0.6 % (0.0-2.0); Eos # (Auto) 0.2 th/mm3 (0.0-0.4); Eos % (Auto) 1.3 % (0.0-4.0); Hematocrit 38.1 % (35.0-46.0); Hemoglobin 12.7 gm/dL (11.6-15.3); Mean Corpuscular HGB Conc 33.2 % (32.0-36.0); Mean Corpuscular Hemoglobin 31.3 pg (27.0-34.0); Mean Corpuscular Volume 94.1 fL (80.0-100.0); Mean Platelet Volume 8.2 fL (7.0-11.0); Mono # (Auto) 1.4 th/mm3 (0.0-0.9); Mono % (Auto) 10.9 % (0.0-8.0); Neut % (Auto) 71.2 % (16.0-70.0); Platelet Count 330 th/mm3 (150-450); Red Blood Count 4.05 mil/mm3 (4.00-5.30); Red Cell Distribution Width 13.4 % (11.6-17.2); White Blood Count 12.6 th/mm3 (4.0-11.0)
[2018-06-30 06:58] LABS: Anion Gap 11 meq/L (5-15); Blood Urea Nitrogen 5 mg/dL (7-18); Calcium 8.3 mg/dL (8.5-10.1); Carbon Dioxide 28.2 meq/L (21.0-32.0); Chloride 105 meq/L (98-107); Glomerular Filtration Rate Greater Than 89 mL/min (>89); Glucose,Random 157 mg/dL (74-106); Sodium 144 meq/L (136-145)
[2018-06-30 07:00] LABS: Potassium 2.9 meq/L (3.5-5.1)
[2018-06-30] MEDS: Insulin NovoLOG Aspart Correctional Sugar Inj SQ SCH ×4 (07:21→21:10)
[2018-06-30] MEDS: Sod Chloride 0.9% Inj 1,000 ML IV.CONT SCH ×2 (08:08→18:22)
[2018-06-30] MEDS: Enoxaparin Inj 40 MG/0.4 ML Syringe SQ SCH (08:08)
--- NOTE | 2018-06-30 10:22 | P.PNVS ---
Subjective Subjective/Hospital Course: 06/28/18 This is a 58-year-old female who is known to me from previous encounter about by a year and a half ago. Patient now comes to the hospital with an ulcer over the left foot andquestion arises about the nature of her problems. The patient states that she had this ulcer now for months. Finally, the area got more red and she showed up. This noted ulcer has been there for about 12 months. The patient is very noncompliant with her care and I believe the patient was started to be seen by Dr. Delacruz in 2012. At that time, she was noted to have severe small vessel disease for which she was told to stop smoking. At that time, she was smoking about 2 packs a day. Since then, the patient has been coming between [facility] and [facility] where Dr. Polanco stented her, both the SFA in 1999 and 2016. Then, the patient came here, would not go back there, signed out AMA twice from [facility] and then at the same time signed out AMA from [facility]. The patient refused to have surgery on her foot now [address] angiogram with runoff confirms the initial impression. Patient has several severe stenosis superficial femoral arteries right and left above and below the stents placed 2 years ago by another surgeon so the stents are known consequential at this time as far as the hemodynamics is concerned. Patient needs bilateral femoral-popliteal bypass in order to preserve the legs and if she continues to smoke she will definitely lose both of her legs with in next few years. In addition amputation of the toe is mandatory because we cannot put a PTFE graft with knowledge that the patient has untreated source of seeding infection. We will proceed with left femoropopliteal bypass next week. 06/29/2018 Patient with severe peripheral vascular disease and hemodynamically significant stenotic disease in both SFAs. Patient does not have any endovascularly reconstructable disease at this point. I discussed with patient at length the therapy and patient keeps repeating how she wants to keep the toe. At this point I have explained repeatedly that surgery is designed to lessen the chance of losing the left lower extremity. While this might improve the blood flow to the toes patient also has small vessel disease in the feet and I am still convinced that patient will eventually need left hallux amputation. Schedule for left femoral-popliteal bypass on Sunday06/30/2018 Patient awake alert and oriented As above noted plan to take to the operating room on Sunday for left femoral- popliteal bypass I have explained to patient again that this procedure is meant to improve her chances of preserving the leg and the foot provided she does not continue smoking but that there is absolutely no chance that she will save her toe and she will have to have this amputated I also explained patient that she has small vessel disease in the foot and despite surgery she still may end up losing her leg Objective Vital Signs / I&O: Vital Signs 06/29/18 12:00 06/29/18 12:24 06/29/18 19:44 Temperature 98 F 97.4 F L Pulse Rate 101 H 50 L 109 H Respiratory Rate 18 16 18 Blood Pressure 196/88 H 187/98 H Pulse Oximetry 91 L 93 L 06/30/18 00:00 06/30/18 04:00 06/30/18 08:00 Temperature 97.9 F 98 F 98.6 F Pulse Rate 88 95 H 75 Respiratory Rate 18 18 20 Blood Pressure 164/92 H 181/82 H 202/89 H Pulse Oximetry 96 95 95 06/30/18 09:00 Temperature Pulse Rate 75 Respiratory Rate Blood Pressure Pulse Oximetry Intake & Output 06/29/18 06/30/18 06/30/18 18:59 06:59 18:59 Intake Total 1312.5 / 1312.5 1100 / 1100 50 / 50 Balance 1312.5 / 1312.5 1100 / 1100 50 / 50 Weight 68.6 kg Intake: IV 1312.5 / 1312.5 1100 / 1100 50 / 50 NS Inj 1,000 ML @ 100 mls/hr IV 1000 / 1000 1000 / 1000 .CONT .Q10H GIL Rx#:[id number] Zosyn 3.375 GM Premix 50 ML @ 50 / 50 100 / 100 50 / 50 100 mls/hr IV.SIG Q6H GIL Rx#: [id number] Vancomycin Inj 1,250 MG In NS 262.5 / 262.5 Inj 250 ML @ 250 mls/hr IV.SIG Q12H GIL Rx#:[id number] Other: # Voids 3 Date of Last Bowel Movement 06/28/18 06/30/18 06/28/18 Laboratory Results - last 24 hr 06/29/18 06/29/18 06/29/18 11:28 15:56 16:02 WBC RBC Hgb Hct MCV MCH MCHC RDW Plt Count MPV Neut % (Auto) Lymph % (Auto) [place] % (Auto) Eos % (Auto) Baso % (Auto) Neut # (Auto) Lymph # (Auto) [place] # (Auto) Eos # (Auto) Baso # (Auto) WBC Differential Differential Comment Sodium Potassium Chloride Carbon Dioxide Anion Gap BUN Creatinine Estimated GFR POC Glucose 279 H 252 H Random Glucose Calcium Vancomycin Trough 15.5 H 06/29/18 06/30/18 06/30/18 20:40 06:06 06:06 WBC 12.6 H RBC 4.05 Hgb 12.7 Hct 38.1 MCV 94.1 MCH 31.3 MCHC 33.2 RDW 13.4 Plt Count 330 MPV 8.2 Neut % (Auto) 71.2 H Lymph % (Auto) 16.0 [place] % (Auto) 10.9 H Eos % (Auto) 1.3 Baso % (Auto) 0.6 Neut # (Auto) 9.0 H Lymph # (Auto) 2.0 [place] # (Auto) 1.4 H Eos # (Auto) 0.2 Baso # (Auto) 0.1 WBC Differential . Differential Comment Auto diff final Sodium 144 Potassium 2.9 L* Chloride 105 Carbon Dioxide 28.2 Anion Gap 11 BUN 5 L Creatinine 0.65 Estimated GFR Greater than 89 POC Glucose 288 H Random Glucose 157 H Calcium 8.3 L Vancomycin Trough 06/30/18 07:00 WBC RBC Hgb Hct MCV MCH MCHC RDW Plt Count MPV Neut % (Auto) Lymph % (Auto) [place] % (Auto) Eos % (Auto) Baso % (Auto) Neut # (Auto) Lymph # (Auto) [place] # (Auto) Eos # (Auto) Baso # (Auto) WBC Differential Differential Comment Sodium Potassium Chloride Carbon Dioxide Anion Gap BUN Creatinine Estimated GFR POC Glucose 176 H Random Glucose Calcium Vancomycin Trough Microbiology 06/26/18 12:31 Aerobic Blood Culture - Preliminary Blood - Peripheral No growth in 3 days Anaerobic Blood Culture - Preliminary No growth in 3 days 06/26/18 12:20 Aerobic Blood Culture - Preliminary Blood - Peripheral No growth in 3 days Anaerobic Blood Culture - Preliminary No growth in 3 days
--- NOTE | 2018-06-30 10:40 | P.PNIM ---
Subjective Interval history: in no acute distress. had a few loose BM over night. pain seems to be controlled. BP trend noted. no fever. Physical Exam Vital signs: Vital Signs 06/29/18 12:00 06/29/18 12:24 06/29/18 19:44 Temperature 98 F 97.4 F L Pulse Rate 101 H 50 L 109 H Respiratory Rate 18 16 18 Blood Pressure 196/88 H 187/98 H Pulse Oximetry 91 L 93 L 06/30/18 00:00 06/30/18 04:00 06/30/18 08:00 Temperature 97.9 F 98 F 98.6 F Pulse Rate 88 95 H 75 Respiratory Rate 18 18 20 Blood Pressure 164/92 H 181/82 H 202/89 H Pulse Oximetry 96 95 95 06/30/18 09:00 Temperature Pulse Rate 75 Respiratory Rate Blood Pressure Pulse Oximetry Intake & Output 06/29/18 06/30/18 06/30/18 18:59 06:59 18:59 Intake Total 1312.5 / 1312.5 1100 / 1100 50 / 50 Balance 1312.5 / 1312.5 1100 / 1100 50 / 50 Weight 68.6 kg Intake: IV 1312.5 / 1312.5 1100 / 1100 50 / 50 NS Inj 1,000 ML @ 100 mls/hr IV 1000 / 1000 1000 / 1000 .CONT .Q10H GIL Rx#:[id number] Zosyn 3.375 GM Premix 50 ML @ 50 / 50 100 / 100 50 / 50 100 mls/hr IV.SIG Q6H GIL Rx#: [id number] Vancomycin Inj 1,250 MG In NS 262.5 / 262.5 Inj 250 ML @ 250 mls/hr IV.SIG Q12H GIL Rx#:[id number] Other: # Voids 3 Date of Last Bowel Movement 06/28/18 06/30/18 06/28/18 - Constitutional no acute distress - Routine Respiratory Exam Present: CTA bilaterally - Routine Cardiovascular Exam Present: RRR - Routine Abdominal Exam Present: soft - Routine Extremities Exam Comments: no pedal edema. - Routine Neurological Exam Present: alert, oriented X3 Results - Labs CBC & Chem 7: 06/30/18 06:06 06/30/18 06:06 Laboratory Results - last 24 hr 06/29/18 06/29/18 06/29/18 11:28 15:56 16:02 WBC RBC Hgb Hct MCV MCH MCHC RDW Plt Count MPV Neut % (Auto) Lymph % (Auto) [place] % (Auto) Eos % (Auto) Baso % (Auto) Neut # (Auto) Lymph # (Auto) [place] # (Auto) Eos # (Auto) Baso # (Auto) WBC Differential Differential Comment Sodium Potassium Chloride Carbon Dioxide Anion Gap BUN Creatinine Estimated GFR POC Glucose 279 H 252 H Random Glucose Calcium Vancomycin Trough 15.5 H 06/29/18 06/30/18 06/30/18 20:40 06:06 06:06 WBC 12.6 H RBC 4.05 Hgb 12.7 Hct 38.1 MCV 94.1 MCH 31.3 MCHC 33.2 RDW 13.4 Plt Count 330 MPV 8.2 Neut % (Auto) 71.2 H Lymph % (Auto) 16.0 [place] % (Auto) 10.9 H Eos % (Auto) 1.3 Baso % (Auto) 0.6 Neut # (Auto) 9.0 H Lymph # (Auto) 2.0 [place] # (Auto) 1.4 H Eos # (Auto) 0.2 Baso # (Auto) 0.1 WBC Differential . Differential Comment Auto diff final Sodium 144 Potassium 2.9 L* Chloride 105 Carbon Dioxide 28.2 Anion Gap 11 BUN 5 L Creatinine 0.65 Estimated GFR Greater than 89 POC Glucose 288 H Random Glucose 157 H Calcium 8.3 L Vancomycin Trough 06/30/18 07:00 WBC RBC Hgb Hct MCV MCH MCHC RDW Plt Count MPV Neut % (Auto) Lymph % (Auto) [place] % (Auto) Eos % (Auto) Baso % (Auto) Neut # (Auto) Lymph # (Auto) [place] # (Auto) Eos # (Auto) Baso # (Auto) WBC Differential Differential Comment Sodium Potassium Chloride Carbon Dioxide Anion Gap BUN Creatinine Estimated GFR POC Glucose 176 H Random Glucose Calcium Vancomycin Trough Microbiology 06/26/18 12:31 Blood - Peripheral Aerobic Blood Culture - Preliminary No growth in 3 days 06/26/18 12:31 Blood - Peripheral Anaerobic Blood Culture - Preliminary No growth in 3 days 06/26/18 12:20 Blood - Peripheral Aerobic Blood Culture - Preliminary No growth in 3 days 06/26/18 12:20 Blood - Peripheral Anaerobic Blood Culture - Preliminary No growth in 3 days Assessment and Plan - Plan A/P -severe sepsis due to diabetic foot infection MRI of the foot with no evidence of osteomyelitis or abscess. s/p bedside debridement . continue with broad-spectrum IV antibiotics; Vanco and Zosyn- follow the cultures . podiatry following. -diabetes mellitus; uncontrolled resumed home insulin regimen - continue accu-check with SSI -PVD- s/p angioplasty/ stent placement lower extremities- vascular surgery f/u appreciated; for possible fem-pop bypass this week. -hypertension- not well-controlled- start on lisinopril- vasotec prn- will monitor and adjust the regimen as needed. -diarrhea- check the stool for c-diff -hypokalemia; will replace and monitor as needed. -history of CVA;plavix on hold- pending possible procedures. -DVT prophylaxis with subq Lovenox. Discharge Planning: when cleared by podiatry and vascular surgery.
[2018-06-30] MEDS: Lisinopril 10 MG Tablet PO SCH ×2 (11:25→11:30)
[2018-06-30] MEDS: Vancomycin Inj 1,250 MG in Sodium Chlor 0.9% Inj 250 ML IV.SIG SCH (17:41)
[2018-06-30] MEDS: Insulin Detemir Inj 1,000 UNIT/10 ML Vial SQ SCH (21:10)
[2018-06-30] MEDS: ALPRAZolam 0.5 MG Tablet PO PRN (21:16)
[2018-07-01] MEDS: Piperacil/Tazo 3.375 GM Premix 50 ML IV.SIG SCH ×4 (00:41→18:40)
[2018-07-01] MEDS: Vancomycin Inj 1,250 MG in Sodium Chlor 0.9% Inj 250 ML IV.SIG SCH ×2 (05:25→17:16)
[2018-07-01] MEDS: Sod Chloride 0.9% Inj 1,000 ML IV.CONT SCH ×2 (05:26→17:17)
[2018-07-01 06:03] LABS: Calcium 8.8 mg/dL (8.5-10.1); Carbon Dioxide 30.2 meq/L (21.0-32.0); Potassium 3.1 meq/L (3.5-5.1)
[2018-07-01] MEDS: Insulin NovoLOG Aspart Correctional Sugar Inj SQ SCH ×4 (09:17→20:54)
[2018-07-01] MEDS: Enoxaparin Inj 40 MG/0.4 ML Syringe SQ SCH (09:17)
--- NOTE | 2018-07-01 11:14 | P.PNIM ---
Subjective Interval history: in no acute distress. no fever. pain seems to be controlled. still with some diarrhea. Physical Exam Vital signs: Vital Signs 06/30/18 12:00 06/30/18 16:00 06/30/18 20:00 Temperature 97.9 F 97.9 F 98.2 F Pulse Rate 94 H 89 92 H Respiratory Rate 18 20 20 Blood Pressure 202/98 H 168/76 H 202/90 H Pulse Oximetry 94 L 92 L 95 06/30/18 21:14 07/01/18 00:00 07/01/18 04:00 Temperature 97.7 F 97.4 F L Pulse Rate 88 84 Respiratory Rate 18 18 Blood Pressure 175/79 H 149/74 H 146/67 H Pulse Oximetry 94 L 95 07/01/18 08:58 Temperature 98.4 F Pulse Rate 95 H Respiratory Rate 16 Blood Pressure 193/88 H Pulse Oximetry 93 L Intake & Output 06/30/18 07/01/18 07/01/18 18:59 06:59 18:59 Intake Total 100 / 100 362.5 / 362.5 312.5 / 312.5 Balance 100 / 100 362.5 / 362.5 312.5 / 312.5 Weight 66.5 kg Intake: IV 100 / 100 362.5 / 362.5 312.5 / 312.5 Zosyn 3.375 GM Premix 50 ML @ 100 / 100 100 / 100 50 / 50 100 mls/hr IV.SIG Q6H GIL Rx#: [id number] Vancomycin Inj 1,250 MG In NS 262.5 / 262.5 262.5 / 262.5 Inj 250 ML @ 250 mls/hr IV.SIG Q12H GIL Rx#:[id number] Other: # Voids 4 Date of Last Bowel Movement 06/30/18 07/01/18 # Bowel Movements 2 - Constitutional no acute distress - Routine Respiratory Exam Present: CTA bilaterally - Routine Cardiovascular Exam Present: RRR - Routine Abdominal Exam Present: soft - Routine Extremities Exam Comments: no pedal edema. - Routine Neurological Exam Present: alert, oriented X3 Results - Labs CBC & Chem 7: 06/30/18 06:06 07/01/18 05:23 Laboratory Results - last 24 hr 06/30/18 06/30/18 06/30/18 16:14 17:45 21:01 Sodium Potassium Chloride Carbon Dioxide Anion Gap BUN Creatinine Estimated GFR POC Glucose 337 H 226 H Random Glucose Calcium St C. diff Tox Epid 027 Negative C. difficile Tox (PCR) Positive H 07/01/18 07/01/18 05:23 08:28 Sodium 142 Potassium 3.1 L Chloride 102 Carbon Dioxide 30.2 Anion Gap 10 BUN 7 Creatinine 0.70 Estimated GFR 86 L POC Glucose 215 H Random Glucose [address] C. diff Tox Epid 027 C. difficile Tox (PCR) Microbiology 06/26/18 12:31 Blood - Peripheral Aerobic Blood Culture - Final No growth in 5 days 06/26/18 12:31 Blood - Peripheral Anaerobic Blood Culture - Final No growth in 5 days 06/26/18 12:20 Blood - Peripheral Aerobic Blood Culture - Final No growth in 5 days 06/26/18 12:20 Blood - Peripheral Anaerobic Blood Culture - Final No growth in 5 days Assessment and Plan - Plan A/P -severe sepsis due to diabetic foot infection MRI of the foot with no evidence of osteomyelitis or abscess. s/p bedside debridement . continue with broad-spectrum IV antibiotics; Vanco and Zosyn- blood cultures negative. podiatry following. -C diff colitis; start on oral vancomycin and continue to monitor. -diabetes mellitus; uncontrolled resumed home insulin regimen - continue accu-check with SSI -PVD- s/p angioplasty/ stent placement lower extremities- vascular surgery f/u appreciated; for possible fem-pop bypass tomorrow. -hypertension- not well-controlled- started on Procardia- vasotec prn- will monitor and adjust the regimen as needed. -Hypokalemia; will replace and monitor. -history of CVA;plavix on hold- pending possible procedures. -DVT prophylaxis with subq Lovenox. Discharge Planning: when cleared by podiatry and vascular surgery.
--- NOTE | 2018-07-01 18:43 | P.PNPOD ---
Subjective Interval history: Patient seen at bedside this am, distraught about the possibility of digital loss. Physical Exam Vital signs: Vital Signs 06/30/18 20:00 06/30/18 21:14 07/01/18 00:00 Temperature 98.2 F 97.7 F Pulse Rate 92 H 88 Respiratory Rate 20 18 Blood Pressure 202/90 H 175/79 H 149/74 H Pulse Oximetry 95 94 L 07/01/18 04:00 07/01/18 08:58 07/01/18 12:01 Temperature 97.4 F L 98.4 F 98.1 F Pulse Rate 84 95 H 103 H Respiratory Rate 18 16 16 Blood Pressure 146/67 H 193/88 H 177/87 H Pulse Oximetry 95 93 L 94 L 07/01/18 16:47 Temperature 99.0 F Pulse Rate 133 H Respiratory Rate 16 Blood Pressure 177/87 H Pulse Oximetry 92 L Intake & Output 06/30/18 07/01/18 07/01/18 18:59 06:59 18:59 Intake Total 100 / 100 362.5 / 362.5 362.5 / 362.5 Balance 100 / 100 362.5 / 362.5 362.5 / 362.5 Weight 66.5 kg Intake: IV 100 / 100 362.5 / 362.5 362.5 / 362.5 Zosyn 3.375 GM Premix 50 ML @ 100 / 100 100 / 100 100 / 100 100 mls/hr IV.SIG Q6H GIL Rx#: [id number] Vancomycin Inj 1,250 MG In NS 262.5 / 262.5 262.5 / 262.5 Inj 250 ML @ 250 mls/hr IV.SIG Q12H GIL Rx#:[id number] Other: # Voids 4 Date of Last Bowel Movement 06/30/18 07/01/18 07/01/18 # Bowel Movements 2 Narrative: Left hallux with plantar ulcer and erythema. No drainage, no streaking and mild edema. DP and PT non palpable. No ischemia noted. Medications and Allergies Active Medications: Active Medications Acetaminophen (Tylenol) 650 mg PO Q4H PRN PRN Reason: fever/pain 1-5 Hydrocodone Bitart/Acetaminophen ([place]al[place] 5/325) 1 tab PO Q4H PRN PRN Reason: acute pain 6-10 Last Admin: 07/01/18 17:17 Dose: 1 tab Albuterol (Duoneb Neb (Prn)) 1 ampul NEB Q4HR NEB PRN PRN Reason: sob Last Admin: 06/29/18 12:21 Dose: 1 ampul Alprazolam (Xanax) 0.5 mg PO Q8H PRN PRN Reason: ANXIETY Last Admin: 06/30/18 21:16 Dose: 0.5 mg Dextrose (D50w Vial) 50 ml IV.PUSH UNSCH PRN PRN Reason: PER HYPOGLYCEMIA PROTOCOL Enalaprilat (Vasotec Inj) 1.25 mg IV.PUSH Q8H PRN PRN Reason: SBP > 180 or DBP > 100. Last Admin: 06/30/18 19:11 Dose: 1.25 mg Enoxaparin Sodium (Lovenox Inj) 40 mg SQ DAILY [facility] Last Admin: 07/01/18 09:17 Dose: 40 mg Glucagon (Glucagon Inj) 1 mg OTHER UNSCH PRN PRN Reason: for Hypoglycemia Protocol Sodium Chloride (Ns Inj) 1,000 mls @ 0 mls/hr IV.SIG BOLUS GIL Sodium Chloride (Ns Inj) 1,000 mls @ 0 mls/hr IV.SIG BOLUS GIL Piperacillin/Tazobactam/Dextrose (Zosyn 3.375 Gm Premix) 50 mls @ 100 mls/hr IV.SIG Q6H [facility] Last Infusion: 07/01/18 15:15 Dose: Infused Sodium Chloride (Ns Inj) 1,000 mls @ 100 mls/hr IV.CONT .Q10H [facility] Last Admin: 07/01/18 17:17 Dose: Not Given Vancomycin HCl 1,250 mg/ (Sodium Chloride) 262.5 mls @ 250 mls/hr IV.SIG Q12H GIL Last Admin: 07/01/18 17:16 Dose: 250 mls/hr Insulin Aspart (Novolog Insulin Correctional Sugar Inj) 0 unit SQ ACHS GIL; Protocol Last Admin: 07/01/18 12:15 Dose: 5 unit Insulin Detemir (Levemir Inj) 20 unit SQ HS GIL Last Admin: 06/30/18 21:10 Dose: 20 unit Miscellaneous Information ([facility] Ordered Lab Info) 0 each OTHER ONCE ONE Stop: 07/02/18 05:46 Nifedipine (Procardia Xl) 30 mg PO DAILY GIL Last Admin: 07/01/18 09:18 Dose: 30 mg Ondansetron HCl (Zofran Inj) 4 mg IV.PUSH Q6H PRN PRN Reason: NAUSEA Pharmacy Profile Note (Vancomycin Consult Pharmacy) 1 each OTHER UNSCH PRN PRN Reason: Pharmacy to dose Potassium Chloride (K-Dur) 40 meq PO Q4H GIL Vancomycin HCl (Vancomycin Po) 250 mg PO QID GIL Last Admin: 07/01/18 17:16 Dose: 250 mg Allergies Allergy/AdvReac Type Severity Reaction Status Date / Time ciprofloxacin Allergy Severe Anaphylaxis Verified 06/26/18 12:09 levofloxacin Allergy Severe Anaphylaxis Verified 06/26/18 12:09 lisinopril AdvReac Intermediate Cough Verified 06/30/18 13:54 Home Medications Medication Instructions Recorded Confirmed Type Novolog U-100 Insulin aspart 20 unit SUB-Q DAILY 06/26/18 06/26/18 History clopidogrel [Plavix] 75 mg PO DAILY 06/26/18 06/26/18 History hydrochlorothiazide 0 mg PO DAILY 06/26/18 06/26/18 History insulin glargine [Lantus U-100 20 unit SUB-Q DAILY 06/26/18 06/26/18 History Insulin] Results - Labs CBC & Chem 7: 06/30/18 06:06 07/01/18 05:23 Laboratory Results - last 24 hr 06/30/18 06/30/18 07/01/18 17:45 21:01 05:23 Sodium 142 Potassium 3.1 L Chloride 102 Carbon Dioxide 30.2 Anion Gap 10 BUN 7 Creatinine 0.70 Estimated GFR 86 L POC Glucose 226 H Random Glucose [address] C. diff Tox Epid 027 Negative C. difficile Tox (PCR) Positive H 07/01/18 07/01/18 07/01/18 08:28 12:03 18:32 Sodium Potassium Chloride Carbon Dioxide Anion Gap BUN Creatinine Estimated GFR POC Glucose 215 H 289 H 364 H Random Glucose Calcium St C. diff Tox Epid 027 C. difficile Tox (PCR) Microbiology 06/30/18 17:45 Stool Clostridium difficile GDH Antigen - Final C. difficile Antigen Positive 06/30/18 17:45 Stool Clostridium difficile Toxin Assay - Final Negative - No C. difficile Toxin A or B detected. 06/26/18 12:31 Blood - Peripheral Aerobic Blood Culture - Final No growth in 5 days 06/26/18 12:31 Blood - Peripheral Anaerobic Blood Culture - Final No growth in 5 days 06/26/18 12:20 Blood - Peripheral Aerobic Blood Culture - Final No growth in 5 days 06/26/18 12:20 Blood - Peripheral Anaerobic Blood Culture - Final No growth in 5 days Assessment and Plan - Assessment (1) Diabetic foot infection Code(s): E11.628 - Type 2 diabetes mellitus with other skin complications; L08.9 - Local infection of the skin and subcutaneous tissue, unspecified Status: Acute - Plan Pending vascular Intervention. Continue with local wound care. No plan for hallux amputation. Discussed with the patient d/c smoking and local wound care and if failure and ischemic digit then indicated for an amputation.
[2018-07-01] MEDS ORDERED: Chlorhexidine Gluconate 2% 1 Pack (2 Cloths) TOPICAL ONE (20:48)
[2018-07-01] MEDS: ALPRAZolam 0.5 MG Tablet PO PRN (20:54)
[2018-07-01] MEDS: Insulin Detemir Inj 1,000 UNIT/10 ML Vial SQ SCH (20:54)
[2018-07-01] MEDS ORDERED: Metoprolol Tartrate 25 MG Tablet PO ONE (21:00)
[2018-07-01] MEDS ORDERED: Sodium Chlor 0.9% Inj 500 ML IV.SIG SCH (21:00)
[2018-07-02] MEDS: Piperacil/Tazo 3.375 GM Premix 50 ML IV.SIG SCH ×2 (00:24→08:53)
[2018-07-02] MEDS ORDERED: Pharmacy Ordered Lab Info OTHER ONE (05:45)
[2018-07-02] MEDS: Vancomycin Inj 1,250 MG in Sodium Chlor 0.9% Inj 250 ML IV.SIG SCH (05:53)
[2018-07-02] MEDS: Sod Chloride 0.9% Inj 1,000 ML IV.CONT SCH ×3 (06:36→22:13)
[2018-07-02] MEDS: Insulin NovoLOG Aspart Correctional Sugar Inj SQ SCH ×3 (08:53→22:11)
--- NOTE | 2018-07-02 09:38 | P.PNIM ---
Subjective Interval history: f/u; diabetic foot wound/ diarrhea in no acute distress. no fever. pain is controlled. still has some diarrhea but she says that she didn't want to take her meds today ' on empty stomach'. d/w the RN. Physical Exam Vital signs: Vital Signs 07/01/18 12:01 07/01/18 16:47 07/01/18 20:00 Temperature 98.1 F 99.0 F 97.8 F Pulse Rate 103 H 133 H 82 Respiratory Rate 16 16 18 Blood Pressure 177/87 H 177/87 H 159/79 H Pulse Oximetry 94 L 92 L 95 07/02/18 00:00 07/02/18 04:00 07/02/18 08:00 Temperature 97.9 F 98.1 F 97.8 F Pulse Rate 99 H 75 89 Respiratory Rate 18 18 18 Blood Pressure 155/80 H 189/78 H 168/80 H Pulse Oximetry 94 L 93 L 92 L Intake & Output 07/01/18 07/02/18 07/02/18 18:59 06:59 18:59 Intake Total 625.0 / 625.0 820 / 820 Balance 625.0 / 625.0 820 / 820 Weight 66.5 kg Intake: IV 625.0 / 625.0 100 / 100 Zosyn 3.375 GM Premix 50 ML @ 100 / 100 100 / 100 100 mls/hr IV.SIG Q6H GIL Rx#: [id number] Vancomycin Inj 1,250 MG In NS 525.0 / 525.0 Inj 250 ML @ 250 mls/hr IV.SIG Q12H GIL Rx#:[id number] Oral 720 / 720 Other: # Voids 2 Date of Last Bowel Movement 07/01/18 07/01/18 07/01/18 - Constitutional no acute distress - Routine Respiratory Exam Present: CTA bilaterally - Routine Cardiovascular Exam Present: RRR - Routine Abdominal Exam Present: soft - Routine Extremities Exam Comments: no pedal edema. - Routine Neurological Exam Present: alert, oriented X3 Results - Labs CBC & Chem 7: 06/30/18 06:06 07/02/18 05:26 Laboratory Results - last 24 hr 07/01/18 07/01/18 07/01/18 12:03 18:32 19:06 Potassium POC Glucose 289 H 364 H Vancomycin Trough Blood Type A Positive Antibody Screen Negative 07/01/18 07/02/18 07/02/18 20:15 05:26 07:50 Potassium 3.0 L POC Glucose 339 H 216 H Vancomycin Trough 10.0 Blood Type Antibody Screen Microbiology 06/30/18 17:45 Stool Clostridium difficile GDH Antigen - Final C. difficile Antigen Positive 06/30/18 17:45 Stool Clostridium difficile Toxin Assay - Final Negative - No C. difficile Toxin A or B detected. 06/26/18 12:31 Blood - Peripheral Aerobic Blood Culture - Final No growth in 5 days 06/26/18 12:31 Blood - Peripheral Anaerobic Blood Culture - Final No growth in 5 days 06/26/18 12:20 Blood - Peripheral Aerobic Blood Culture - Final No growth in 5 days 06/26/18 12:20 Blood - Peripheral Anaerobic Blood Culture - Final No growth in 5 days Assessment and Plan - Plan A/P -severe sepsis due to diabetic foot infection MRI of the foot with no evidence of osteomyelitis or abscess. s/p bedside debridement . started broad-spectrum IV antibiotics; Vanco and Zosyn- will dc al antibiotics today per my d/w . blood cultures negative. podiatry following; no plan for amputation of the left great toe- continue with local wound care. -C diff colitis; started on oral vancomycin and continue to monitor. -diabetes mellitus; uncontrolled resumed home insulin regimen - continue accu-check with SSI -PVD- s/p angioplasty/ stent placement lower extremities- vascular surgery f/u appreciated; for fem-pop bypass today. -hypertension- not well-controlled- started on Procardia- vasotec prn- will monitor and adjust the regimen as needed. -Hypokalemia; will replace and monitor. -history of CVA;plavix on hold- pending possible procedures. -DVT prophylaxis with subq Lovenox. Discharge Planning: when cleared by podiatry and vascular surgery. for fem-pop bypass today.
[2018-07-02] MEDS ORDERED: Potassium Chlor 20 mEq Premix 20 MEQ/100 ML PIGGYBACK IV.SIG SCH (09:45)
[2018-07-02] MEDS: Potassium Chlor 10 mEq Premix 10 MEQ/100 ML PIGGYBACK IV.SIG SCH ×4 (10:42→13:08)
[2018-07-02] MEDS ORDERED: Heparin - SQ 10,000 UNITS/ML Vial ONE ×2 (13:08→15:04)
[2018-07-02] MEDS ORDERED: fentaNYL Citrate Inj 100 MCG/2 ML Ampul ONE (13:10)
[2018-07-02] MEDS ORDERED: Famotidine PF Inj 20 MG/2 ML Vial ONE (13:10)
[2018-07-02] MEDS ORDERED: Vancomycin Inj 1,000 MG in Sodium Chlor 0.9% Inj 250 ML IV.SIG SCH (14:00)
[2018-07-02] MEDS ORDERED: Lidocaine PF 1% Inj 5 ML Syringe INFILTRATN ONE (14:44)
[2018-07-02] MEDS ORDERED: Phenylephrine/NS 1000 MCG/10ML Syringe IV.PUSH ONE (14:44)
[2018-07-02] MEDS ORDERED: Neostigmine Inj 5 MG/5 ML Syringe IV.PUSH ONE (14:44)
[2018-07-02] MEDS ORDERED: Glycopyrrolate Inj 1 MG/5 ML Syringe IV.PUSH ONE (14:44)
[2018-07-02] MEDS ORDERED: Protamine Sulfate Inj 50 MG/5 ML Vial ONE (15:48)
[2018-07-02] MEDS ORDERED: Morphine Inj 4 MG/ML Vial ONE (16:35)
[2018-07-02] MEDS ORDERED: *morphine SULFATE 4 MG/ML PERIprocedure ONLY ONE (16:36)
[2018-07-02] MEDS ORDERED: *Meperidine Inj 25 MG/ML Vial PERIprocedural Use ONLY ONE (16:46)
[2018-07-02] MEDS ORDERED: *Ondansetron Inj 4 MG/2 ML Vial PERIprocedural Use ONLY ONE (16:49)
[2018-07-02] MEDS ORDERED: *morphine SULFATE 10 MG/ML PERIprocedure ONLY ONE (17:01)
[2018-07-02] MEDS ORDERED: *Promethazine Inj 25 MG/ML Vial PERIprocedural use ONLY ONE (17:01)
[2018-07-02] MEDS: Insulin Detemir Inj 1,000 UNIT/10 ML Vial SQ SCH (21:04)
--- NOTE | 2018-07-03 07:47 | MP ---
cc: Jimmy Mcgarry MD DATE OF OPERATION: 07/02/2018 PREOPERATIVE DIAGNOSES: Ischemia of the left leg, superficial femoral artery occlusion, gangrene of the right hallux. POSTOPERATIVE DIAGNOSES: Ischemia of the left leg, superficial femoral artery occlusion, gangrene of the right hallux. PROCEDURE PERFORMED: Left femoral-popliteal bypass. SURGEON: Jimmy Mcgarry MD. ANESTHESIA: General. ESTIMATED BLOOD LOSS: 100 mL. DESCRIPTION OF PROCEDURE: The patient was prepped and draped in usual fashion. A left inguinal incision was made and deepened down. Common femoral, deep femoral and superficial femoral arteries were isolated and placed in vessel loops. The popliteal space was opened through a medial incision and the popliteal artery was isolated. The popliteal artery was nice and soft, but very small, measuring only about 6 mm in diameter. This was isolated and placed in vessel loops proximally and distally, and then a Ami-Wick tunneler was used to pass a 6 mm ringed Boling-Dennis PTFE graft from proximal to distal. A distal anastomosis was first attempted. The patient was given 5000 units of heparin and then a bulldog was placed distally on the popliteal artery and proximally a profunda clamp. The vessel was opened longitudinally with Samuel scissors to about a 1.5 cm length. The distal clamp was now removed and there was fairly nice backbleeding present. A Yasargil clamp was now applied. The graft was cut under an oblique angle and then sewn in with running 5-0 Prolene, creating an end-to-side anastomosis. This was irrigated and now a proximal anastomosis was attempted. The graft was flushed with heparinized saline. The clamps were removed from the popliteal artery and a clamp was placed on the graft itself, allowing natural flow. Proximally, the common femoral artery appeared to be soft with a large plaque in it, which was rubbery. Therefore, a Satinsky clamp was placed proximally on the distal external iliac artery. The profunda was clamped with a profunda clamp and a bulldog was placed distal on the superficial femoral artery. The vessel was opened longitudinally to a length of about 2.5 cm, i.e., about an inch. There was a huge plaque overlying the deep femoral artery. This was dissected free with a Braddock dissector and removed. The Satinsky was flashed, and there was excellent inflow which was brisk. The Boling-Dennis graft was now cut to size, and then under a very oblique angle in a spatulated fashion, it was sewn in with running 5-0 Prolene. Blood flow was now reestablished in the usual order and fashion. At this point, the patient had a bounding pulse in the popliteal artery. Meticulous hemostasis was assured. The incision was closed with 0 Vicryl and 4-0 Monocryl. The patient tolerated the procedure well. MD LILIA Taylor/aston/ , 08:08 PM , 08:17 PM
[2018-07-03] MEDS: Sod Chloride 0.9% Inj 1,000 ML IV.CONT SCH ×2 (09:09→18:11)
[2018-07-03] MEDS: Insulin NovoLOG Aspart Correctional Sugar Inj SQ SCH ×4 (09:10→21:55)
[2018-07-03] MEDS: ALPRAZolam 0.5 MG Tablet PO PRN ×2 (09:14→21:56)
[2018-07-03 09:24] VITALS: RESP 18
[2018-07-03 09:41] LABS: Baso # (Auto) 0.1 th/mm3 (0.0-0.2); Baso % (Auto) 0.9 % (0.0-2.0); Eos # (Auto) 0.2 th/mm3 (0.0-0.4); Lymph % (Auto) 12.3 % (9.0-44.0); Mean Corpuscular HGB Conc 34.2 % (32.0-36.0); Mean Corpuscular Hemoglobin 31.9 pg (27.0-34.0); Mean Corpuscular Volume 93.4 fL (80.0-100.0); Mean Platelet Volume 8.1 fL (7.0-11.0); Mono # (Auto) 1.6 th/mm3 (0.0-0.9); Mono % (Auto) 10.2 % (0.0-8.0); Neut # (Auto) 12.2 th/mm3 (1.8-7.7); Neut % (Auto) 75.6 % (16.0-70.0); Platelet Count 439 th/mm3 (150-450); Red Blood Count 4.39 mil/mm3 (4.00-5.30); Red Cell Distribution Width 13.8 % (11.6-17.2); White Blood Count 16.1 th/mm3 (4.0-11.0)
--- NOTE | 2018-07-03 10:31 | P.PNIM ---
Subjective Interval history: f/u; PVD/ left great toe infection in no acute distress. but very uncomfortable with the pain to the left lower extremity. no fever. diarrhea seems to be improving. Physical Exam Vital signs: Vital Signs 07/02/18 12:00 07/02/18 16:26 07/02/18 16:30 Temperature 97.8 F 97.7 F Pulse Rate 76 102 H 97 H Respiratory Rate 18 17 17 Blood Pressure 199/86 H 155/80 H 159/81 H Pulse Oximetry 94 L 94 L 94 L 07/02/18 16:38 07/02/18 16:45 07/02/18 17:00 Temperature Pulse Rate 92 H 94 H Respiratory Rate 15 15 21 Blood Pressure 162/77 H 155/75 H Pulse Oximetry 94 L 96 07/02/18 17:15 07/02/18 20:00 07/03/18 00:00 Temperature 98.2 F 97.2 F L Pulse Rate 85 103 H 100 H Respiratory Rate 13 18 18 Blood Pressure 144/69 H 198/94 H 153/86 H Pulse Oximetry 95 93 L 93 L 07/03/18 04:00 07/03/18 08:02 07/03/18 09:21 Temperature 97.5 F L 97.9 F Pulse Rate 107 H 105 H 97 H Respiratory Rate 18 20 18 Blood Pressure 171/90 H 209/94 H Pulse Oximetry 93 L 93 L Intake & Output 07/02/18 07/03/18 07/03/18 18:59 06:59 18:59 Intake Total 1562.5 / 1562.5 Output Total 200 / 200 800 / 800 Balance 1362.5 / 1362.5 -800 / -800 Weight 66.5 kg Intake: IV 262.5 / 262.5 Vancomycin Inj 1,250 MG In NS 262.5 / 262.5 Inj 250 ML @ 250 mls/hr IV.SIG Q12H [facility] Rx#:[id number] Anesthesia Amount 1300 / 1300 Output: Urine 800 / 800 Estimated Blood Loss 100 / 100 Urine Amount (Catheter) 100 / 100 Indwelling Urethral Catheter 100 / 100 Other: # Voids 1 Date of Last Bowel Movement 07/01/18 07/01/18 07/02/18 - Constitutional no acute distress - Routine Respiratory Exam Present: CTA bilaterally - Routine Cardiovascular Exam Present: RRR - Routine Abdominal Exam Present: soft - Routine Extremities Exam Comments: no pedal edema. - Routine Neurological Exam Present: alert, oriented X3 - Urinary Catheter Management Indwelling Urethral Catheter Cath placed during this visit: yes Reason for continuing: Hourly intake/output Insertion date: 07/02/18 Insertion time: 14:10 Results - Labs CBC & Chem 7: 07/03/18 08:59 07/03/18 08:59 Laboratory Results - last 24 hr 07/02/18 07/02/18 07/02/18 12:04 16:29 16:33 WBC RBC Hgb Hct MCV MCH MCHC RDW Plt Count MPV Neut % (Auto) Lymph % (Auto) [place] % (Auto) Eos % (Auto) Baso % (Auto) Neut # (Auto) Lymph # (Auto) [place] # (Auto) Eos # (Auto) Baso # (Auto) WBC Differential Differential Comment BUN 8 Creatinine Estimated GFR POC Glucose 197 H 185 H 07/02/18 07/02/18 07/03/18 16:33 20:37 08:59 WBC RBC Hgb Hct MCV MCH MCHC RDW Plt Count MPV Neut % (Auto) Lymph % (Auto) [place] % (Auto) Eos % (Auto) Baso % (Auto) Neut # (Auto) Lymph # (Auto) [place] # (Auto) Eos # (Auto) Baso # (Auto) WBC Differential Differential Comment BUN Creatinine 0.75 0.98 Estimated GFR 79 L 58 L POC Glucose 304 H 07/03/18 07/03/18 08:59 09:07 WBC 16.1 H RBC 4.39 Hgb 14.0 Hct 41.0 MCV 93.4 MCH 31.9 MCHC 34.2 RDW 13.8 Plt Count 439 D MPV 8.1 Neut % (Auto) 75.6 H Lymph % (Auto) 12.3 [place] % (Auto) 10.2 H Eos % (Auto) 1.0 Baso % (Auto) 0.9 Neut # (Auto) 12.2 H Lymph # (Auto) 2.0 [place] # (Auto) 1.6 H Eos # (Auto) 0.2 Baso # (Auto) 0.1 WBC Differential . Differential Comment Auto diff final BUN Creatinine Estimated GFR POC Glucose 262 H Assessment and Plan - Plan A/P -severe sepsis due to diabetic foot infection MRI of the foot with no evidence of osteomyelitis or abscess. s/p bedside debridement . dc'ed all antibiotics per my previous d/w . blood cultures negative. podiatry following; no plan for amputation of the left great toe- continue with local wound care. -C diff colitis; started on oral vancomycin and continue to monitor. -diabetes mellitus; uncontrolled resumed home insulin regimen - continue accu-check with SSI -PVD- s/p angioplasty/ stent placement lower extremities- vascular surgery f/u appreciated; s/p fem-pop bypass -continue with pain control. -hypertension- not well-controlled; likely due to pain and axiety- started on Procardia- vasotec/clonidine prn- will monitor and adjust the regimen as needed. -Hypokalemia; BMP today pending. -history of CVA;resume plavix when ok with surgery. -DVT prophylaxis with subq Lovenox. Discharge Planning: when cleared by podiatry and vascular surgery.
--- NOTE | 2018-07-03 11:34 | P.PNVS ---
Subjective Subjective/Hospital Course: 06/28/18 This is a 58-year-old female who is known to me from previous encounter about by a year and a half ago. Patient now comes to the hospital with an ulcer over the left foot andquestion arises about the nature of her problems. The patient states that she had this ulcer now for months. Finally, the area got more red and she showed up. This noted ulcer has been there for about 12 months. The patient is very noncompliant with her care and I believe the patient was started to be seen by Dr. Delacruz in 2012. At that time, she was noted to have severe small vessel disease for which she was told to stop smoking. At that time, she was smoking about 2 packs a day. Since then, the patient has been coming between [facility] and [facility] where Dr. Polanco stented her, both the SFA in 1999 and 2016. Then, the patient came here, would not go back there, signed out AMA twice from [facility] and then at the same time signed out AMA from [facility]. The patient refused to have surgery on her foot now [address] angiogram with runoff confirms the initial impression. Patient has several severe stenosis superficial femoral arteries right and left above and below the stents placed 2 years ago by another surgeon so the stents are known consequential at this time as far as the hemodynamics is concerned. Patient needs bilateral femoral-popliteal bypass in order to preserve the legs and if she continues to smoke she will definitely lose both of her legs with in next few years. In addition amputation of the toe is mandatory because we cannot put a PTFE graft with knowledge that the patient has untreated source of seeding infection. We will proceed with left femoropopliteal bypass next week. 06/29/2018 Patient with severe peripheral vascular disease and hemodynamically significant stenotic disease in both SFAs. Patient does not have any endovascularly reconstructable disease at this point. I discussed with patient at length the therapy and patient keeps repeating how she wants to keep the toe. At this point I have explained repeatedly that surgery is designed to lessen the chance of losing the left lower extremity. While this might improve the blood flow to the toes patient also has small vessel disease in the feet and I am still convinced that patient will eventually need left hallux amputation. Schedule for left femoral-popliteal bypass on Sunday06/30/2018 Patient awake alert and oriented As above noted plan to take to the operating room on Sunday for left femoral- popliteal bypass I have explained to patient again that this procedure is meant to improve her chances of preserving the leg and the foot provided she does not continue smoking but that there is absolutely no chance that she will save her toe and she will have to have this amputated I also explained patient that she has small vessel disease in the foot and despite surgery she still may end up losing her leg 07/03/2018 Patient status post left femoral-popliteal bypass Incisions are clean and dry Patient has nice warm foot with excellent capillary refill and bounding Doppler signal Palpable popliteal artery pulse Patient may be discharged from my point any time follow-up with me about 3 weeks in the office Objective Vital Signs / I&O: Vital Signs 07/02/18 12:00 07/02/18 16:26 07/02/18 16:30 Temperature 97.8 F 97.7 F Pulse Rate 76 102 H 97 H Respiratory Rate 18 17 17 Blood Pressure 199/86 H 155/80 H 159/81 H Pulse Oximetry 94 L 94 L 94 L 07/02/18 16:38 07/02/18 16:45 07/02/18 17:00 Temperature Pulse Rate 92 H 94 H Respiratory Rate 15 15 21 Blood Pressure 162/77 H 155/75 H Pulse Oximetry 94 L 96 07/02/18 17:15 07/02/18 20:00 07/03/18 00:00 Temperature 98.2 F 97.2 F L Pulse Rate 85 103 H 100 H Respiratory Rate 13 18 18 Blood Pressure 144/69 H 198/94 H 153/86 H Pulse Oximetry 95 93 L 93 L 07/03/18 04:00 07/03/18 08:02 07/03/18 09:21 Temperature 97.5 F L 97.9 F Pulse Rate 107 H 105 H 97 H Respiratory Rate 18 20 18 Blood Pressure 171/90 H 209/94 H Pulse Oximetry 93 L 93 L Intake & Output 07/02/18 07/03/18 07/03/18 18:59 06:59 18:59 Intake Total 1562.5 / 1562.5 Output Total 200 / 200 800 / 800 Balance 1362.5 / 1362.5 -800 / -800 Weight 66.5 kg Intake: IV 262.5 / 262.5 Vancomycin Inj 1,250 MG In NS 262.5 / 262.5 Inj 250 ML @ 250 mls/hr IV.SIG Q12H [facility] Rx#:[id number] Anesthesia Amount 1300 / 1300 Output: Urine 800 / 800 Estimated Blood Loss 100 / 100 Urine Amount (Catheter) 100 / 100 Indwelling Urethral Catheter 100 / 100 Other: # Voids 1 Date of Last Bowel Movement 07/01/18 07/01/18 07/02/18 Laboratory Results - last 24 hr 07/02/18 07/02/18 07/02/18 12:04 16:29 16:33 WBC RBC Hgb Hct MCV MCH MCHC RDW Plt Count MPV Neut % (Auto) Lymph % (Auto) [place] % (Auto) Eos % (Auto) Baso % (Auto) Neut # (Auto) Lymph # (Auto) [place] # (Auto) Eos # (Auto) Baso # (Auto) WBC Differential Differential Comment BUN 8 Creatinine Estimated GFR POC Glucose 197 H 185 H 07/02/18 07/02/18 07/03/18 16:33 20:37 08:59 WBC RBC Hgb Hct MCV MCH MCHC RDW Plt Count MPV Neut % (Auto) Lymph % (Auto) [place] % (Auto) Eos % (Auto) Baso % (Auto) Neut # (Auto) Lymph # (Auto) [place] # (Auto) Eos # (Auto) Baso # (Auto) WBC Differential Differential Comment BUN Creatinine 0.75 0.98 Estimated GFR 79 L 58 L POC Glucose 304 H 07/03/18 07/03/18 07/03/18 08:59 09:07 11:07 WBC 16.1 H RBC 4.39 Hgb 14.0 Hct 41.0 MCV 93.4 MCH 31.9 MCHC 34.2 RDW 13.8 Plt Count 439 D MPV 8.1 Neut % (Auto) 75.6 H Lymph % (Auto) 12.3 [place] % (Auto) 10.2 H Eos % (Auto) 1.0 Baso % (Auto) 0.9 Neut # (Auto) 12.2 H Lymph # (Auto) 2.0 [place] # (Auto) 1.6 H Eos # (Auto) 0.2 Baso # (Auto) 0.1 WBC Differential . Differential Comment Auto diff final BUN Creatinine Estimated GFR POC Glucose 262 H 303 H
--- NOTE | 2018-07-03 11:59 | P.DCO ---
- Physical Therapy Order: Evaluate and treat - Home Health Nursing Order: Medical education, Signs/symptoms of disease process, Medication education-adverse effect, Nursing assessment with vital signs - Certification I have seen patient Tabitha Chahal on 07/03/18. My clinical findings support the need for the requested home health care services because: Limited mobility due to disease progression I certify that my clinical findings support that this patient is homebound because: Post-op weakness
[2018-07-03] MEDS ORDERED: Pharmacy Ordered Lab Info OTHER SCH (13:45)
[2018-07-03 15:37] LABS: Calcium 8.7 mg/dL (8.5-10.1); Carbon Dioxide 27.8 meq/L (21.0-32.0); Magnesium 2.1 mg/dL (1.5-2.5)
[2018-07-03 15:38] LABS: Potassium 4.2 meq/L (3.5-5.1)
[2018-07-03 20:56] VITALS: O2SAT 94
[2018-07-03] MEDS: Insulin Detemir Inj 1,000 UNIT/10 ML Vial SQ SCH (21:55)
[2018-07-04] MEDS: Sod Chloride 0.9% Inj 1,000 ML IV.CONT SCH (02:36)
[2018-07-04] MEDS: Insulin NovoLOG Aspart Correctional Sugar Inj SQ SCH (08:17)
[2018-07-04 08:55] VITALS: BP 158/88; PULSE 93; TEMP 98.1
--- NOTE | 2018-07-04 10:01 | P.PNIM ---
Subjective Interval history: in no acute distress. looks more comfortable today. pain and BP is better. no fever.diarrhea is improving. Physical Exam Vital signs: Vital Signs 07/03/18 12:00 07/03/18 14:51 07/03/18 17:57 Temperature 97.9 F 98.1 F Pulse Rate 123 H 120 H 110 H Respiratory Rate 18 18 18 Blood Pressure 187/109 H 179/95 H 165/75 H Pulse Oximetry 92 L 95 07/03/18 20:00 07/04/18 00:00 07/04/18 04:00 Temperature 98.2 F 98 F 98 F Pulse Rate 119 H 96 H 98 H Respiratory Rate 18 18 18 Blood Pressure 161/83 H 145/75 H 147/84 H Pulse Oximetry 94 L 94 L 94 L 07/04/18 08:00 Temperature 98.1 F Pulse Rate 93 H Respiratory Rate 18 Blood Pressure 158/88 H Pulse Oximetry 94 L Intake & Output 07/03/18 07/04/18 07/04/18 18:59 06:59 18:59 Weight 66.3 kg Other: # Voids 1 3 Date of Last Bowel Movement 07/03/18 07/03/18 07/04/18 # Bowel Movements 1 3 - Constitutional no acute distress - Routine Respiratory Exam Present: CTA bilaterally - Routine Cardiovascular Exam Present: RRR - Routine Abdominal Exam Present: soft - Routine Extremities Exam Comments: no pedal edema. - Routine Neurological Exam Present: alert, oriented X3 - Urinary Catheter Management Indwelling Urethral Catheter Cath placed during this visit: yes Reason for continuing: Hourly intake/output Insertion date: 07/02/18 Insertion time: 14:10 Results - Labs CBC & Chem 7: 07/03/18 08:59 07/04/18 06:58 Laboratory Results - last 24 hr 07/03/18 07/03/18 07/03/18 08:59 08:59 11:07 Sodium Cancelled 138 Potassium Cancelled 4.2 D Chloride Cancelled 95 L Carbon Dioxide Cancelled 27.8 Anion Gap Cancelled 15 BUN Cancelled 14 Creatinine Cancelled 0.98 Estimated GFR Cancelled 58 L POC Glucose 303 H Random Glucose Cancelled 257 H Calcium Cancelled 8.7 Magnesium Cancelled 2.1 07/03/18 07/03/18 07/04/18 17:53 21:35 06:58 Sodium Potassium Chloride Carbon Dioxide Anion Gap BUN 12 Creatinine Estimated GFR POC Glucose 333 H 331 H Random Glucose Calcium Magnesium 07/04/18 07:33 Sodium Potassium Chloride Carbon Dioxide Anion Gap BUN Creatinine Estimated GFR POC Glucose 228 H Random Glucose Calcium Magnesium Assessment and Plan - Plan A/P -severe sepsis due to diabetic foot infection MRI of the foot with no evidence of osteomyelitis or abscess. s/p bedside debridement . dc'ed all antibiotics per my previous d/w . blood cultures negative. podiatry following; no plan for amputation of the left great toe- continue with local wound care. -C diff colitis; started on oral vancomycin and continue to monitor. -diabetes mellitus resumed home insulin regimen - continue accu-check with SSI -PVD- s/p angioplasty/ stent placement lower extremities- vascular surgery f/u appreciated; s/p fem-pop bypass -cleared for discharge with outpatient follow-up. continue with pain control. -hypertension- overall better controlled; likely due to pain and axiety- started on Procardia- vasotec/clonidine prn-f/u as outpatient. -Hypokalemia; resolved. -history of CVA;resume plavix . -DVT prophylaxis with subq Lovenox. Discharge Planning: dc home today with f/u with pcp, podiatry and vascular surgery. see med list. d/w the patient and previously with d/w today and she was cleared for discharge per podiatry. case management consulted for [facility]. E-[facility]arsce was reviewed.
--- NOTE | 2018-07-04 10:02 | P.DS ---
Date of admission: 06/26/18 13:32 Primary care physician: Ammy Nj Brief History from admission: patient is a 58 y/o female with history of PVD, diabetes, neuropathy, CVA who presented to ER with redness and pain to the left foot. she says that she was treated for left big toe ulcer about a year ago but ' it never healed all the way'. she says that she noticed some redness, pain of the left foot with some extension to the left leg. she had some fever and chills. she denies any recent trauma. pain was moderate in intensity at the time of my evaluation. DS: Summary Hospital Course: Acute on chronic hypercapnic and hypoxemic respiratory failure. -Status post intubation and self extubation. -Patient is satting well on nasal cannula on 4L. -Chest x-ray suggest possible pulmonary edema. -Continue with Levaquin. COPD- on 4L home oxygen -Continue with current treatment. Urinary tract infection. -Urine cultures grew gram negative rods. Patient currently on Levaquin pending sensitivity of urine cultures. Mild acute kidney injury. -Strict ins and out. On normal saline. -Avoid nephrotoxins. Continue to monitor creatinine. Hyperglycemia with underlying history of diabetes mellitus. -Continue with insulin sliding scale. History of hypertension/Coronary artery disease/Obesity/Gastroesophageal reflux disease. -Continue current regimen. GI prophylaxis with Pepcid DVT prophylaxis with SCDs and heparin subcutaneous. - Time Spent with Patient Total time spent providing and/or coordinating discharge services: Greater than 30 minutes (35 min.) - Quality: VTE Deep Vein Thrombosis/Pulmonary Embolism Present on Admission: No Exam Vital signs: Vital Signs 07/03/18 12:00 07/03/18 14:51 07/03/18 17:57 Temperature 97.9 F 98.1 F Pulse Rate 123 H 120 H 110 H Respiratory Rate 18 18 18 Blood Pressure 187/109 H 179/95 H 165/75 H Pulse Oximetry 92 L 95 07/03/18 20:00 07/04/18 00:00 07/04/18 04:00 Temperature 98.2 F 98 F 98 F Pulse Rate 119 H 96 H 98 H Respiratory Rate 18 18 18 Blood Pressure 161/83 H 145/75 H 147/84 H Pulse Oximetry 94 L 94 L 94 L 07/04/18 08:00 Temperature 98.1 F Pulse Rate 93 H Respiratory Rate 18 Blood Pressure 158/88 H Pulse Oximetry 94 L Intake & Output 07/03/18 07/04/18 07/04/18 18:59 06:59 18:59 Weight 66.3 kg Other: # Voids 1 3 Date of Last Bowel Movement 07/03/18 07/03/18 07/04/18 # Bowel Movements 1 3 - Constitutional no acute distress - Routine Respiratory Exam Present: CTA bilaterally - Routine Cardiovascular Exam Present: RRR - Routine Abdominal Exam Present: soft - Routine Extremities Exam Comments: no pedal edema. - Routine Neurological Exam Present: alert, oriented X3 Results Procedures completed during hospitalization: s/p left fem-pop bypass. Labs on day of discharge: Labs from last 24 hours 07/04/18 07/04/18 07/03/18 07:33 06:58 21:35 Sodium Potassium Chloride Carbon Dioxide Anion Gap BUN 12 Creatinine Estimated GFR POC Glucose 228 H 331 H Random Glucose Calcium Magnesium 07/03/18 07/03/18 07/03/18 17:53 11:07 08:59 Sodium 138 Potassium 4.2 D Chloride 95 L Carbon Dioxide 27.8 Anion Gap 15 BUN 14 Creatinine 0.98 Estimated GFR 58 L POC Glucose 333 H 303 H Random Glucose 257 H Calcium 8.7 Magnesium 2.1 07/03/18 08:59 Sodium Cancelled Potassium Cancelled Chloride Cancelled Carbon Dioxide Cancelled Anion Gap Cancelled BUN Cancelled Creatinine Cancelled Estimated GFR Cancelled POC Glucose Random Glucose Cancelled Calcium Cancelled Magnesium Cancelled - Impressions ITS Impressions Foot X-Ray 06/26/18 12:13 CONCLUSION: The first digit nail appears up lifted and there is soft tissue swelling of the first digit. Chest X-Ray 06/26/18 12:14 CONCLUSION: No acute cardiopulmonary abnormality is identified. Extremity Arterial Study 06/26/18 16:30 CONCLUSION: 1. Decreased pressure in the right thigh concerning for right pelvic/proximal thigh disease. 2. Decreased ankle brachial indices bilaterally consistent with bilateral lower extremity disease. 3. The pressure in the right ankle is higher than the right knee which could be secondary to calcified vessels. Foot MRI 06/27/18 00:00 CONCLUSION: 1. There is nonspecific soft tissue swelling in the subcutaneous soft tissues involving the mid to distal foot as well as the first toe. 2. There is no evidence of abnormal bone marrow edema in the first toe to suggest osteomyelitis. 3. No loculated soft tissue fluid collections are seen to suggest a soft tissue abscess. Aorta w/Runoff CTA 06/27/18 13:36 CONCLUSION: 1. Atherosclerotic change seen throughout the arterial system as described above. 2. Moderate to severe areas of focal stenosis in the superficial femoral arteries bilaterally. There is a stent in the mid left superficial femoral artery. 3. Hepatic steatosis. 4. Left adrenal gland adenoma. 5. Midline hernia containing mesenteric fat. Discharge Plan - Discharge Condition Condition: Stable - Physicians Team Primary Care Provider: Ammy Nj Attending Provider: Jax Nelson Other Providers: Magaly Cat DPM ; Jimmy Mcgarry MD
--- NOTE | 2018-07-04 11:49 | P.DCO ---
- Home Health Nursing Order: Medical education, Signs/symptoms of disease process, Medication education-adverse effect, Wound care and dressing changes, Nursing assessment with vital signs - Certification I have seen patient Tabitha Chahal on 07/04/18. My clinical findings support the need for the requested home health care services because: Limited mobility due to disease progression I certify that my clinical findings support that this patient is homebound because: Post-op weakness
== END 2018-07-04 12:25 | disposition home health service (06) ==
LOC: NEPC 11:30 → NEDA 13:32 → N05 15:38
PROVIDERS: ADMIT Internal Medicine; ATTEND Internal Medicine
DX: J96.22 Acute and chronic respiratory failure with hypercapnia; E11.52 Type 2 diabetes mellitus with diabetic peripheral angiopathy with gangrene; E11.621 Type 2 diabetes mellitus with foot ulcer; K21.9 Gastro-esophageal reflux disease without esophagitis; N17.9 Acute kidney failure, unspecified; I10 Essential (primary) hypertension; Z86.73 Personal history of transient ischemic attack (TIA), and cerebral infarction 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 deficits; E87.6 Hypokalemia; J96.21 Acute and chronic respiratory failure with hypoxia; Z91.19 Patient's noncompliance with other medical treatment and regimen; Z95.5 Presence of coronary angioplasty implant and graft; Z79.4 Long term (current) use of insulin; M86.9 Osteomyelitis, unspecified; I25.10 Atherosclerotic heart disease of native coronary artery without angina pectoris; Z79.02 Long term (current) use of antithrombotics/antiplatelets; R65.20 Severe sepsis without septic shock; A41.9 Sepsis, unspecified organism; E11.628 Type 2 diabetes mellitus with other skin complications; E11.65 Type 2 diabetes mellitus with hyperglycemia; A04.72 Enterocolitis due to Clostridium difficile, not specified as recurrent; E11.69 Type 2 diabetes mellitus with other specified complication; E66.9 Obesity, unspecified; N39.0 Urinary tract infection, site not specified; E11.40 Type 2 diabetes mellitus with diabetic neuropathy, unspecified; J44.9 Chronic obstructive pulmonary disease, unspecified; F17.210 Nicotine dependence, cigarettes, uncomplicated; Z95.828 Presence of other vascular implants and grafts; Z99.81 Dependence on supplemental oxygen; L97.529 Non-pressure chronic ulcer of other part of left foot with unspecified severity

== ENCOUNTER 2018-07-21 14:28 | Inpatient (IN) ==
--- NOTE | 2018-07-21 15:24 | ED ---
HPI General Chief complaint: Skin/Abscess/Foreign Body Stated complaint: Surgery Complaint Time Seen by Provider: 07/21/18 15:03 History of Present Illness HPI narrative: Patient 58-year-old female who was admitted here earlier this month for evaluation of left great toe osteomyelitis, her osteomyelitis was complicated by the fact that she had what appeared to be some ischemic moment and needed a revascularization by femoropopliteal bypass by . She presents emergency department today for evaluation of worsening great toe infection as well as infection of her groin. Patient is a smoker, diabetic. She states she has been taking her Ceftin at home. Denies any fever denies any chest pain shortness breath abdominal pain nausea vomiting moderate, for the past few days, context associated signs symptoms as above, rapidly worsening. Related Data Home Medications Medication Instructions Recorded Confirmed Novolog U-100 Insulin aspart 20 unit SUB-Q DAILY 06/26/18 07/21/18 clopidogrel [Plavix] 75 mg PO DAILY 06/26/18 07/21/18 insulin glargine [Lantus U-100 20 unit SUB-Q DAILY 06/26/18 07/21/18 Insulin] Previous Rx's Medication Instructions Recorded hydrocodone-acetaminophen [[place]] 1 tab PO Q6H PRN #8 tab 07/04/18 nifedipine 30 mg PO DAILY 30 Days #30 tab 07/04/18 Allergies Allergy/AdvReac Type Severity Reaction Status Date / Time ciprofloxacin Allergy Severe Anaphylaxis Verified 07/21/18 15:24 levofloxacin Allergy Severe Anaphylaxis Verified 07/21/18 15:24 lisinopril AdvReac Intermediate Cough Verified 07/21/18 15:24 Review of Systems ROS: all other systems reviewed are negative [facility] Medical History Medical History H/O: hysterectomy (Acute) Carotid artery disease (Acute) Hernia (Acute) Diabetes (Acute) COPD (chronic obstructive pulmonary disease) (Acute) HTN (hypertension) (Acute) PVD (peripheral vascular disease) (Acute) Surgical History Surgical History H/O heart artery stent (Acute) Hx of tonsillectomy (Acute) S/P femoral-popliteal bypass surgery (Acute) Social History Social History Substance History: Active Abuse Second Hand Smoke Exposure: No Smoking Status: Current every day smoker Tobacco Type: Cigarettes How Often Do You Have a Drink Containing Alcohol: Never Recent Travel in [facility] within the Last 8 Weeks: No Recent Out of Country Travel within the Last 8 Weeks: No Substance Abuse Detail Marijuana: Reason for Use: Calm Down Immunization History Tetanus Immunization: >5 Years Hx Influenza Vaccine This Season: No Exam Narrative Exam Narrative: GENERAL: Well-developed well-nourished appears uncomfortable but nontoxic. SKIN: Focused skin assessment warm/dry. Surgical wound in the left groin does not show any surrounding erythema, the total length of wound is about 3 cm, there is what appears to be some granulation tissue and probable purulent discharge. There is a foul smell coming from this wound. Distally on her great toe the patient eYES: PERRL, EOMI, no discharge or injection. No scleral icterus. A wound on the plantar surface and when pressures applied to the wound the patient has bloody purulent discharge from the wound. There is surrounding erythema induration and swelling of the great toe. Patient does have A refill though it is delayed in all 10 digits of the lower extremities. HEAD: Atraumatic. Normocephalic. EYES: Pupils equal and round. No scleral icterus. No injection or drainage. ENT: No nasal bleeding or discharge. Mucous membranes pink and moist. NECK: Trachea midline. No JVD. CARDIOVASCULAR: Regular rate and rhythm. No murmur appreciated. RESPIRATORY: No accessory muscle use. Clear to auscultation. Breath sounds equal bilaterally. GASTROINTESTINAL: Abdomen soft, non-tender, nondistended. Hepatic and splenic margins not palpable. MUSCULOSKELETAL: No obvious deformities. No clubbing. No cyanosis. No edema. NEUROLOGICAL: Awake and alert. No obvious cranial nerve deficits. Motor grossly within normal limits. Normal speech. PSYCHIATRIC: Appropriate mood and affect; insight and judgment normal. Course Initial Documented Vital Signs Temperature 98.4 F 07/21/18 14:55 Pulse Rate 137 H 07/21/18 14:55 Respiratory Rate 24 07/21/18 14:55 Blood Pressure 190/94 H 07/21/18 14:55 Pulse Oximetry 97 07/21/18 14:55 Last Documented Vital Signs Temperature 97.8 F 07/26/18 08:00 Pulse Rate 119 H 07/26/18 08:00 Respiratory Rate 18 07/26/18 08:00 Blood Pressure 172/80 H 07/26/18 08:00 Pulse Oximetry 97 07/26/18 08:00 Medical Decision Making MDM Narrative Medical decision making narrative: Patient room to the emergency department, 58- year-old female smoker, diabetes, peripheral vascular disease, status post femoropopliteal bypass earlier this month with Dr. Emery. She presents with what appears to be the gangrenous and/or osteomyelitic toe on the left side ipsilateral to her femoropopliteal. This was a known infection prior to the revascularization. Patient is sirs criteria and therefore septic, 3 L normal saline boluses been ordered, lactic acid 3.8. Patient will be admitted to [facility], vancomycin and Zosyn ordered, discussed with Dr. Emery discussed the possibility for imaging and he would like to defer at this time. Patient discussed with [facility] for admission. Medical Screen Exam Complete: Yes Emergency Medical Condition: Yes Lab Data Result diagrams: 07/22/18 06:38 07/26/18 04:45 Lab Results 07/21/18 07/21/18 07/21/18 Range/Units 15:20 15:35 15:35 WBC 14.5 H (4.0-11.0) th/mm3 RBC 4.70 (4.00-5.30) mil/mm3 Hgb 14.7 (11.6-15.3) gm/dL Hct 43.9 (35.0-46.0) % MCV 93.3 (80.0-100.0) fL MCH 31.2 (27.0-34.0) pg MCHC 33.4 (32.0-36.0) % RDW 13.6 (11.6-17.2) % Plt Count 418 (150-450) th/mm3 MPV 8.5 (7.0-11.0) fL Neut % (Auto) 74.4 H (16.0-70.0) % Lymph % (Auto) 13.8 (9.0-44.0) % Randall % (Auto) 9.8 H (0.0-8.0) % Eos % (Auto) 1.2 (0.0-4.0) % Baso % (Auto) 0.8 (0.0-2.0) % Neut # (Auto) 10.8 H (1.8-7.7) th/mm3 Lymph # (Auto) 2.0 (1.0-4.8) th/mm3 Randall # (Auto) 1.4 H (0.0-0.9) th/mm3 Eos # (Auto) 0.2 (0.0-0.4) th/mm3 Baso # (Auto) 0.1 (0.0-0.2) th/mm3 WBC Differential . Differential Comment Auto diff final Sodium 136 (136-145) meq/L Potassium 4.6 (3.5-5.1) meq/L Chloride 98 (98-107) meq/L Carbon Dioxide 22.5 (21.0-32.0) meq/L Anion Gap 16 H (5-15) meq/L BUN 21 H (7-18) mg/dL Creatinine 0.97 (0.50-1.00) mg/dL Estimated GFR 59 L (>89) mL/min POC Glucose (68-110) mg/dl Random Glucose 319 H (74-106) mg/dL Lactic Acid (0.4-2.0) mmol/L Calcium 9.1 (8.5-10.1) mg/dL Total Bilirubin 0.3 (0.2-1.0) mg/dL AST 20 (15-37) U/L ALT 23 (10-53) U/L Alkaline Phosphatase 128 H (45-117) U/L Total Protein 8.3 H (6.4-8.2) g/dL Albumin 3.2 L (3.4-5.0) g/dL Urine Color Yellow (Yellw/Straw) Urine Clarity Hazy H (Clear) Urine pH 5.0 (5.0-8.5) Ur Specific [place] 1.023 (1.002-1.035) Urine Protein 500 or greater (Neg-Trace) mg/dL Urine Glucose (UA) 500 or greater (Negative) mg/dL Urine Ketones Trace H (Negative) mg/dL Urine Occult Blood Negative (Negative) Urine Nitrate Positive H (Negative) Urine Bilirubin Negative (Negative) Urine Urobilinogen Less than 2 (Less than 2) mg/dL Ur Leukocyte Esterase Small H (Negative) Urine RBC 1 (0-3) /hpf Urine WBC 59 H (0-5) /hpf Ur Squamous Epith Cells 4 (0-5) /hpf Urine Bacteria Few H (None) /hpf Granular Casts 12 (None) /lpf Urine Mucus Few H (Occasional) /lpf Micro UA Comment Culture indicated Ur Microscopic Review Not Reportable Urine Culture Comments Culture indicated Vancomycin Trough (5.0-10.0) mcg/mL 07/21/18 07/21/18 07/21/18 Range/Units 15:40 18:25 22:34 WBC (4.0-11.0) th/mm3 RBC (4.00-5.30) mil/mm3 Hgb (11.6-15.3) gm/dL Hct (35.0-46.0) % MCV (80.0-100.0) fL MCH (27.0-34.0) pg MCHC (32.0-36.0) % RDW (11.6-17.2) % Plt Count (150-450) th/mm3 MPV (7.0-11.0) fL Neut % (Auto) (16.0-70.0) % Lymph % (Auto) (9.0-44.0) % Randall % (Auto) (0.0-8.0) % Eos % (Auto) (0.0-4.0) % Baso % (Auto) (0.0-2.0) % Neut # (Auto) (1.8-7.7) th/mm3 Lymph # (Auto) (1.0-4.8) th/mm3 Randall # (Auto) (0.0-0.9) th/mm3 Eos # (Auto) (0.0-0.4) th/mm3 Baso # (Auto) (0.0-0.2) th/mm3 WBC Differential Differential Comment Sodium (136-145) meq/L Potassium (3.5-5.1) meq/L Chloride (98-107) meq/L Carbon Dioxide (21.0-32.0) meq/L Anion Gap (5-15) meq/L BUN (7-18) mg/dL Creatinine (0.50-1.00) mg/dL Estimated GFR (>89) mL/min POC Glucose 251 H (68-110) mg/dl Random Glucose (74-106) mg/dL Lactic Acid 3.8 H 3.4 H (0.4-2.0) mmol/L Calcium (8.5-10.1) mg/dL Total Bilirubin (0.2-1.0) mg/dL AST (15-37) U/L ALT (10-53) U/L Alkaline Phosphatase (45-117) U/L Total Protein (6.4-8.2) g/dL Albumin (3.4-5.0) g/dL Urine Color (Yellw/Straw) Urine Clarity (Clear) Urine pH (5.0-8.5) Ur Specific [place] (1.002-1.035) Urine Protein (Neg-Trace) mg/dL Urine Glucose (UA) (Negative) mg/dL Urine Ketones (Negative) mg/dL Urine Occult Blood (Negative) Urine Nitrate (Negative) Urine Bilirubin (Negative) Urine Urobilinogen (Less than 2) mg/dL Ur Leukocyte Esterase (Negative) Urine RBC (0-3) /hpf Urine WBC (0-5) /hpf Ur Squamous Epith Cells (0-5) /hpf Urine Bacteria (None) /hpf Granular Casts (None) /lpf Urine Mucus (Occasional) /lpf Micro UA Comment Ur Microscopic Review Urine Culture Comments Vancomycin Trough (5.0-10.0) mcg/mL 07/22/18 07/22/18 07/22/18 Range/Units 06:38 07:59 09:09 WBC 11.1 H (4.0-11.0) th/mm3 RBC 4.46 (4.00-5.30) mil/mm3 Hgb 13.9 (11.6-15.3) gm/dL Hct 41.7 (35.0-46.0) % MCV 93.5 (80.0-100.0) fL MCH 31.1 (27.0-34.0) pg MCHC 33.2 (32.0-36.0) % RDW 13.9 (11.6-17.2) % Plt Count 388 (150-450) th/mm3 MPV 8.6 (7.0-11.0) fL Neut % (Auto) 69.8 (16.0-70.0) % Lymph % (Auto) 17.2 (9.0-44.0) % Randall % (Auto) 9.1 H (0.0-8.0) % Eos % (Auto) 2.9 (0.0-4.0) % Baso % (Auto) 1.0 (0.0-2.0) % Neut # (Auto) 7.7 (1.8-7.7) th/mm3 Lymph # (Auto) 1.9 (1.0-4.8) th/mm3 Randall # (Auto) 1.0 H (0.0-0.9) th/mm3 Eos # (Auto) 0.3 (0.0-0.4) th/mm3 Baso # (Auto) 0.1 (0.0-0.2) th/mm3 WBC Differential . Differential Comment Auto diff final Sodium 135 L (136-145) meq/L Potassium 4.5 (3.5-5.1) meq/L Chloride 104 (98-107) meq/L Carbon Dioxide 21.8 (21.0-32.0) meq/L Anion Gap 9 (5-15) meq/L BUN 15 (7-18) mg/dL Creatinine 0.70 (0.50-1.00) mg/dL Estimated GFR 86 L (>89) mL/min POC Glucose 209 H (68-110) mg/dl Random Glucose 215 H D (74-106) mg/dL Lactic Acid (0.4-2.0) mmol/L Calcium 8.2 L D (8.5-10.1) mg/dL Total Bilirubin 0.4 (0.2-1.0) mg/dL AST 30 (15-37) U/L ALT 20 (10-53) U/L Alkaline Phosphatase 103 (45-117) U/L Total Protein 7.2 D (6.4-8.2) g/dL Albumin 2.8 L (3.4-5.0) g/dL Urine Color (Yellw/Straw) Urine Clarity (Clear) Urine pH (5.0-8.5) Ur Specific [place] (1.002-1.035) Urine Protein (Neg-Trace) mg/dL Urine Glucose (UA) (Negative) mg/dL Urine Ketones (Negative) mg/dL Urine Occult Blood (Negative) Urine Nitrate (Negative) Urine Bilirubin (Negative) Urine Urobilinogen (Less than 2) mg/dL Ur Leukocyte Esterase (Negative) Urine RBC (0-3) /hpf Urine WBC (0-5) /hpf Ur Squamous Epith Cells (0-5) /hpf Urine Bacteria (None) /hpf Granular Casts (None) /lpf Urine Mucus (Occasional) /lpf Micro UA Comment Ur Microscopic Review Urine Culture Comments Vancomycin Trough (5.0-10.0) mcg/mL 07/22/18 07/22/18 07/22/18 Range/Units 12:11 16:51 20:43 WBC (4.0-11.0) th/mm3 RBC (4.00-5.30) mil/mm3 Hgb (11.6-15.3) gm/dL Hct (35.0-46.0) % MCV (80.0-100.0) fL MCH (27.0-34.0) pg MCHC (32.0-36.0) % RDW (11.6-17.2) % Plt Count (150-450) th/mm3 MPV (7.0-11.0) fL Neut % (Auto) (16.0-70.0) % Lymph % (Auto) (9.0-44.0) % Randall % (Auto) (0.0-8.0) % Eos % (Auto) (0.0-4.0) % Baso % (Auto) (0.0-2.0) % Neut # (Auto) (1.8-7.7) th/mm3 Lymph # (Auto) (1.0-4.8) th/mm3 Randall # (Auto) (0.0-0.9) th/mm3 Eos # (Auto) (0.0-0.4) th/mm3 Baso # (Auto) (0.0-0.2) th/mm3 WBC Differential Differential Comment Sodium (136-145) meq/L Potassium (3.5-5.1) meq/L Chloride (98-107) meq/L Carbon Dioxide (21.0-32.0) meq/L Anion Gap (5-15) meq/L BUN (7-18) mg/dL Creatinine (0.50-1.00) mg/dL Estimated GFR (>89) mL/min POC Glucose 236 H 294 H 326 H (68-110) mg/dl Random Glucose (74-106) mg/dL Lactic Acid (0.4-2.0) mmol/L Calcium (8.5-10.1) mg/dL Total Bilirubin (0.2-1.0) mg/dL AST (15-37) U/L ALT (10-53) U/L Alkaline Phosphatase (45-117) U/L Total Protein (6.4-8.2) g/dL Albumin (3.4-5.0) g/dL Urine Color (Yellw/Straw) Urine Clarity (Clear) Urine pH (5.0-8.5) Ur Specific [place] (1.002-1.035) Urine Protein (Neg-Trace) mg/dL Urine Glucose (UA) (Negative) mg/dL Urine Ketones (Negative) mg/dL Urine Occult Blood (Negative) Urine Nitrate (Negative) Urine Bilirubin (Negative) Urine Urobilinogen (Less than 2) mg/dL Ur Leukocyte Esterase (Negative) Urine RBC (0-3) /hpf Urine WBC (0-5) /hpf Ur Squamous Epith Cells (0-5) /hpf Urine Bacteria (None) /hpf Granular Casts (None) /lpf Urine Mucus (Occasional) /lpf Micro UA Comment Ur Microscopic Review Urine Culture Comments Vancomycin Trough (5.0-10.0) mcg/mL 07/23/18 07/23/18 07/23/18 Range/Units 07:26 10:37 10:37 WBC (4.0-11.0) th/mm3 RBC (4.00-5.30) mil/mm3 Hgb (11.6-15.3) gm/dL Hct (35.0-46.0) % MCV (80.0-100.0) fL MCH (27.0-34.0) pg MCHC (32.0-36.0) % RDW (11.6-17.2) % Plt Count (150-450) th/mm3 MPV (7.0-11.0) fL Neut % (Auto) (16.0-70.0) % Lymph % (Auto) (9.0-44.0) % Randall % (Auto) (0.0-8.0) % Eos % (Auto) (0.0-4.0) % Baso % (Auto) (0.0-2.0) % Neut # (Auto) (1.8-7.7) th/mm3 Lymph # (Auto) (1.0-4.8) th/mm3 Randall # (Auto) (0.0-0.9) th/mm3 Eos # (Auto) (0.0-0.4) th/mm3 Baso # (Auto) (0.0-0.2) th/mm3 WBC Differential Differential Comment Sodium (136-145) meq/L Potassium (3.5-5.1) meq/L Chloride (98-107) meq/L Carbon Dioxide (21.0-32.0) meq/L Anion Gap (5-15) meq/L BUN 11 (7-18) mg/dL Creatinine 0.60 (0.50-1.00) mg/dL Estimated GFR Greater than 89 (>89) mL/min POC Glucose 215 H (68-110) mg/dl Random Glucose (74-106) mg/dL Lactic Acid (0.4-2.0) mmol/L Calcium (8.5-10.1) mg/dL Total Bilirubin (0.2-1.0) mg/dL AST (15-37) U/L ALT (10-53) U/L Alkaline Phosphatase (45-117) U/L Total Protein (6.4-8.2) g/dL Albumin (3.4-5.0) g/dL Urine Color (Yellw/Straw) Urine Clarity (Clear) Urine pH (5.0-8.5) Ur Specific [place] (1.002-1.035) Urine Protein (Neg-Trace) mg/dL Urine Glucose (UA) (Negative) mg/dL Urine Ketones (Negative) mg/dL Urine Occult Blood (Negative) Urine Nitrate (Negative) Urine Bilirubin (Negative) Urine Urobilinogen (Less than 2) mg/dL Ur Leukocyte Esterase (Negative) Urine RBC (0-3) /hpf Urine WBC (0-5) /hpf Ur Squamous Epith Cells (0-5) /hpf Urine Bacteria (None) /hpf Granular Casts (None) /lpf Urine Mucus (Occasional) /lpf Micro UA Comment Ur Microscopic Review Urine Culture Comments Vancomycin Trough 11.1 H (5.0-10.0) mcg/mL 07/23/18 07/23/18 07/23/18 Range/Units 12:27 17:08 18:26 WBC (4.0-11.0) th/mm3 RBC (4.00-5.30) mil/mm3 Hgb (11.6-15.3) gm/dL Hct (35.0-46.0) % MCV (80.0-100.0) fL MCH (27.0-34.0) pg MCHC (32.0-36.0) % RDW (11.6-17.2) % Plt Count (150-450) th/mm3 MPV (7.0-11.0) fL Neut % (Auto) (16.0-70.0) % Lymph % (Auto) (9.0-44.0) % Randall % (Auto) (0.0-8.0) % Eos % (Auto) (0.0-4.0) % Baso % (Auto) (0.0-2.0) % Neut # (Auto) (1.8-7.7) th/mm3 Lymph # (Auto) (1.0-4.8) th/mm3 Randall # (Auto) (0.0-0.9) th/mm3 Eos # (Auto) (0.0-0.4) th/mm3 Baso # (Auto) (0.0-0.2) th/mm3 WBC Differential Differential Comment Sodium (136-145) meq/L Potassium (3.5-5.1) meq/L Chloride (98-107) meq/L Carbon Dioxide (21.0-32.0) meq/L Anion Gap (5-15) meq/L BUN (7-18) mg/dL Creatinine (0.50-1.00) mg/dL Estimated GFR (>89) mL/min POC Glucose 210 H 161 H 164 H (68-110) mg/dl Random Glucose (74-106) mg/dL Lactic Acid (0.4-2.0) mmol/L Calcium (8.5-10.1) mg/dL Total Bilirubin (0.2-1.0) mg/dL AST (15-37) U/L ALT (10-53) U/L Alkaline Phosphatase (45-117) U/L Total Protein (6.4-8.2) g/dL Albumin (3.4-5.0) g/dL Urine Color (Yellw/Straw) Urine Clarity (Clear) Urine pH (5.0-8.5) Ur Specific [place] (1.002-1.035) Urine Protein (Neg-Trace) mg/dL Urine Glucose (UA) (Negative) mg/dL Urine Ketones (Negative) mg/dL Urine Occult Blood (Negative) Urine Nitrate (Negative) Urine Bilirubin (Negative) Urine Urobilinogen (Less than 2) mg/dL Ur Leukocyte Esterase (Negative) Urine RBC (0-3) /hpf Urine WBC (0-5) /hpf Ur Squamous Epith Cells (0-5) /hpf Urine Bacteria (None) /hpf Granular Casts (None) /lpf Urine Mucus (Occasional) /lpf Micro UA Comment Ur Microscopic Review Urine Culture Comments Vancomycin Trough (5.0-10.0) mcg/mL 07/23/18 07/24/18 07/24/18 Range/Units 21:03 05:11 08:28 WBC (4.0-11.0) th/mm3 RBC (4.00-5.30) mil/mm3 Hgb (11.6-15.3) gm/dL Hct (35.0-46.0) % MCV (80.0-100.0) fL MCH (27.0-34.0) pg MCHC (32.0-36.0) % RDW (11.6-17.2) % Plt Count (150-450) th/mm3 MPV (7.0-11.0) fL Neut % (Auto) (16.0-70.0) % Lymph % (Auto) (9.0-44.0) % Randall % (Auto) (0.0-8.0) % Eos % (Auto) (0.0-4.0) % Baso % (Auto) (0.0-2.0) % Neut # (Auto) (1.8-7.7) th/mm3 Lymph # (Auto) (1.0-4.8) th/mm3 Randall # (Auto) (0.0-0.9) th/mm3 Eos # (Auto) (0.0-0.4) th/mm3 Baso # (Auto) (0.0-0.2) th/mm3 WBC Differential Differential Comment Sodium (136-145) meq/L Potassium (3.5-5.1) meq/L Chloride (98-107) meq/L Carbon Dioxide (21.0-32.0) meq/L Anion Gap (5-15) meq/L BUN 11 (7-18) mg/dL Creatinine 0.62 (0.50-1.00) mg/dL Estimated GFR Greater than 89 (>89) mL/min POC Glucose 217 H 237 H (68-110) mg/dl Random Glucose (74-106) mg/dL Lactic Acid (0.4-2.0) mmol/L Calcium (8.5-10.1) mg/dL Total Bilirubin (0.2-1.0) mg/dL AST (15-37) U/L ALT (10-53) U/L Alkaline Phosphatase (45-117) U/L Total Protein (6.4-8.2) g/dL Albumin (3.4-5.0) g/dL Urine Color (Yellw/Straw) Urine Clarity (Clear) Urine pH (5.0-8.5) Ur Specific [place] (1.002-1.035) Urine Protein (Neg-Trace) mg/dL Urine Glucose (UA) (Negative) mg/dL Urine Ketones (Negative) mg/dL Urine Occult Blood (Negative) Urine Nitrate (Negative) Urine Bilirubin (Negative) Urine Urobilinogen (Less than 2) mg/dL Ur Leukocyte Esterase (Negative) Urine RBC (0-3) /hpf Urine WBC (0-5) /hpf Ur Squamous Epith Cells (0-5) /hpf Urine Bacteria (None) /hpf Granular Casts (None) /lpf Urine Mucus (Occasional) /lpf Micro UA Comment Ur Microscopic Review Urine Culture Comments Vancomycin Trough (5.0-10.0) mcg/mL 07/24/18 07/24/18 07/24/18 Range/Units 11:39 16:40 22:19 WBC (4.0-11.0) th/mm3 RBC (4.00-5.30) mil/mm3 Hgb (11.6-15.3) gm/dL Hct (35.0-46.0) % MCV (80.0-100.0) fL MCH (27.0-34.0) pg MCHC (32.0-36.0) % RDW (11.6-17.2) % Plt Count (150-450) th/mm3 MPV (7.0-11.0) fL Neut % (Auto) (16.0-70.0) % Lymph % (Auto) (9.0-44.0) % Randall % (Auto) (0.0-8.0) % Eos % (Auto) (0.0-4.0) % Baso % (Auto) (0.0-2.0) % Neut # (Auto) (1.8-7.7) th/mm3 Lymph # (Auto) (1.0-4.8) th/mm3 Randall # (Auto) (0.0-0.9) th/mm3 Eos # (Auto) (0.0-0.4) th/mm3 Baso # (Auto) (0.0-0.2) th/mm3 WBC Differential Differential Comment Sodium (136-145) meq/L Potassium (3.5-5.1) meq/L Chloride (98-107) meq/L Carbon Dioxide (21.0-32.0) meq/L Anion Gap (5-15) meq/L BUN (7-18) mg/dL Creatinine (0.50-1.00) mg/dL Estimated GFR (>89) mL/min POC Glucose 253 H 270 H 214 H (68-110) mg/dl Random Glucose (74-106) mg/dL Lactic Acid (0.4-2.0) mmol/L Calcium (8.5-10.1) mg/dL Total Bilirubin (0.2-1.0) mg/dL AST (15-37) U/L ALT (10-53) U/L Alkaline Phosphatase (45-117) U/L Total Protein (6.4-8.2) g/dL Albumin (3.4-5.0) g/dL Urine Color (Yellw/Straw) Urine Clarity (Clear) Urine pH (5.0-8.5) Ur Specific [place] (1.002-1.035) Urine Protein (Neg-Trace) mg/dL Urine Glucose (UA) (Negative) mg/dL Urine Ketones (Negative) mg/dL Urine Occult Blood (Negative) Urine Nitrate (Negative) Urine Bilirubin (Negative) Urine Urobilinogen (Less than 2) mg/dL Ur Leukocyte Esterase (Negative) Urine RBC (0-3) /hpf Urine WBC (0-5) /hpf Ur Squamous Epith Cells (0-5) /hpf Urine Bacteria (None) /hpf Granular Casts (None) /lpf Urine Mucus (Occasional) /lpf Micro UA Comment Ur Microscopic Review Urine Culture Comments Vancomycin Trough (5.0-10.0) mcg/mL 07/25/18 07/25/18 07/25/18 Range/Units 06:53 07:24 11:20 WBC (4.0-11.0) th/mm3 RBC (4.00-5.30) mil/mm3 Hgb (11.6-15.3) gm/dL Hct (35.0-46.0) % MCV (80.0-100.0) fL MCH (27.0-34.0) pg MCHC (32.0-36.0) % RDW (11.6-17.2) % Plt Count (150-450) th/mm3 MPV (7.0-11.0) fL Neut % (Auto) (16.0-70.0) % Lymph % (Auto) (9.0-44.0) % Randall % (Auto) (0.0-8.0) % Eos % (Auto) (0.0-4.0) % Baso % (Auto) (0.0-2.0) % Neut # (Auto) (1.8-7.7) th/mm3 Lymph # (Auto) (1.0-4.8) th/mm3 Randall # (Auto) (0.0-0.9) th/mm3 Eos # (Auto) (0.0-0.4) th/mm3 Baso # (Auto) (0.0-0.2) th/mm3 WBC Differential Differential Comment Sodium (136-145) meq/L Potassium (3.5-5.1) meq/L Chloride (98-107) meq/L Carbon Dioxide (21.0-32.0) meq/L Anion Gap (5-15) meq/L BUN 11 (7-18) mg/dL Creatinine 0.57 (0.50-1.00) mg/dL Estimated GFR Greater than 89 (>89) mL/min POC Glucose 230 H (68-110) mg/dl Random Glucose (74-106) mg/dL Lactic Acid (0.4-2.0) mmol/L Calcium (8.5-10.1) mg/dL Total Bilirubin (0.2-1.0) mg/dL AST (15-37) U/L ALT (10-53) U/L Alkaline Phosphatase (45-117) U/L Total Protein (6.4-8.2) g/dL Albumin (3.4-5.0) g/dL Urine Color (Yellw/Straw) Urine Clarity (Clear) Urine pH (5.0-8.5) Ur Specific [place] (1.002-1.035) Urine Protein (Neg-Trace) mg/dL Urine Glucose (UA) (Negative) mg/dL Urine Ketones (Negative) mg/dL Urine Occult Blood (Negative) Urine Nitrate (Negative) Urine Bilirubin (Negative) Urine Urobilinogen (Less than 2) mg/dL Ur Leukocyte Esterase (Negative) Urine RBC (0-3) /hpf Urine WBC (0-5) /hpf Ur Squamous Epith Cells (0-5) /hpf Urine Bacteria (None) /hpf Granular Casts (None) /lpf Urine Mucus (Occasional) /lpf Micro UA Comment Ur Microscopic Review Urine Culture Comments Vancomycin Trough 16.6 H (5.0-10.0) mcg/mL 07/25/18 07/25/18 07/25/18 Range/Units 11:52 16:20 21:18 WBC (4.0-11.0) th/mm3 RBC (4.00-5.30) mil/mm3 Hgb (11.6-15.3) gm/dL Hct (35.0-46.0) % MCV (80.0-100.0) fL MCH (27.0-34.0) pg MCHC (32.0-36.0) % RDW (11.6-17.2) % Plt Count (150-450) th/mm3 MPV (7.0-11.0) fL Neut % (Auto) (16.0-70.0) % Lymph % (Auto) (9.0-44.0) % Randall % (Auto) (0.0-8.0) % Eos % (Auto) (0.0-4.0) % Baso % (Auto) (0.0-2.0) % Neut # (Auto) (1.8-7.7) th/mm3 Lymph # (Auto) (1.0-4.8) th/mm3 Randall # (Auto) (0.0-0.9) th/mm3 Eos # (Auto) (0.0-0.4) th/mm3 Baso # (Auto) (0.0-0.2) th/mm3 WBC Differential Differential Comment Sodium (136-145) meq/L Potassium (3.5-5.1) meq/L Chloride (98-107) meq/L Carbon Dioxide (21.0-32.0) meq/L Anion Gap (5-15) meq/L BUN (7-18) mg/dL Creatinine (0.50-1.00) mg/dL Estimated GFR (>89) mL/min POC Glucose 313 H 202 H 267 H (68-110) mg/dl Random Glucose (74-106) mg/dL Lactic Acid (0.4-2.0) mmol/L Calcium (8.5-10.1) mg/dL Total Bilirubin (0.2-1.0) mg/dL AST (15-37) U/L ALT (10-53) U/L Alkaline Phosphatase (45-117) U/L Total Protein (6.4-8.2) g/dL Albumin (3.4-5.0) g/dL Urine Color (Yellw/Straw) Urine Clarity (Clear) Urine pH (5.0-8.5) Ur Specific [place] (1.002-1.035) Urine Protein (Neg-Trace) mg/dL Urine Glucose (UA) (Negative) mg/dL Urine Ketones (Negative) mg/dL Urine Occult Blood (Negative) Urine Nitrate (Negative) Urine Bilirubin (Negative) Urine Urobilinogen (Less than 2) mg/dL Ur Leukocyte Esterase (Negative) Urine RBC (0-3) /hpf Urine WBC (0-5) /hpf Ur Squamous Epith Cells (0-5) /hpf Urine Bacteria (None) /hpf Granular Casts (None) /lpf Urine Mucus (Occasional) /lpf Micro UA Comment Ur Microscopic Review Urine Culture Comments Vancomycin Trough (5.0-10.0) mcg/mL 07/26/18 07/26/18 07/26/18 Range/Units 04:45 09:21 11:27 WBC (4.0-11.0) th/mm3 RBC (4.00-5.30) mil/mm3 Hgb (11.6-15.3) gm/dL Hct (35.0-46.0) % MCV (80.0-100.0) fL MCH (27.0-34.0) pg MCHC (32.0-36.0) % RDW (11.6-17.2) % Plt Count (150-450) th/mm3 MPV (7.0-11.0) fL Neut % (Auto) (16.0-70.0) % Lymph % (Auto) (9.0-44.0) % Randall % (Auto) (0.0-8.0) % Eos % (Auto) (0.0-4.0) % Baso % (Auto) (0.0-2.0) % Neut # (Auto) (1.8-7.7) th/mm3 Lymph # (Auto) (1.0-4.8) th/mm3 Randall # (Auto) (0.0-0.9) th/mm3 Eos # (Auto) (0.0-0.4) th/mm3 Baso # (Auto) (0.0-0.2) th/mm3 WBC Differential Differential Comment Sodium (136-145) meq/L Potassium (3.5-5.1) meq/L Chloride (98-107) meq/L Carbon Dioxide (21.0-32.0) meq/L Anion Gap (5-15) meq/L BUN 10 (7-18) mg/dL Creatinine 0.51 (0.50-1.00) mg/dL Estimated GFR Greater than 89 (>89) mL/min POC Glucose 255 H 330 H (68-110) mg/dl Random Glucose (74-106) mg/dL Lactic Acid (0.4-2.0) mmol/L Calcium (8.5-10.1) mg/dL Total Bilirubin (0.2-1.0) mg/dL AST (15-37) U/L ALT (10-53) U/L Alkaline Phosphatase (45-117) U/L Total Protein (6.4-8.2) g/dL Albumin (3.4-5.0) g/dL Urine Color (Yellw/Straw) Urine Clarity (Clear) Urine pH (5.0-8.5) Ur Specific [place] (1.002-1.035) Urine Protein (Neg-Trace) mg/dL Urine Glucose (UA) (Negative) mg/dL Urine Ketones (Negative) mg/dL Urine Occult Blood (Negative) Urine Nitrate (Negative) Urine Bilirubin (Negative) Urine Urobilinogen (Less than 2) mg/dL Ur Leukocyte Esterase (Negative) Urine RBC (0-3) /hpf Urine WBC (0-5) /hpf Ur Squamous Epith Cells (0-5) /hpf Urine Bacteria (None) /hpf Granular Casts (None) /lpf Urine Mucus (Occasional) /lpf Micro UA Comment Ur Microscopic Review Urine Culture Comments Vancomycin Trough (5.0-10.0) mcg/mL Imaging Data Radiologist's impression: Chest X-Ray 07/21/18 15:23 CONCLUSION: Negative examination. Foot X-Ray 07/22/18 00:00 CONCLUSION: Soft tissue swelling of the great toe with new bone erosion of the distal phalanx. Findings are suspicious for osteomyelitis in the proper clinical setting. Foot X-Ray 07/23/18 00:00 CONCLUSION: 1. Postsurgical changes from recent first digit phalangeal amputation. 2. Thin linear density in the soft tissues at the surgical site seen on 3 views , of uncertain significance. Foot MRI 07/23/18 07:01 CONCLUSION: 1. Marrow edema and enhancement with surrounding soft tissue swelling and ulceration involving the great toe characteristic of osteomyelitis. Chest X-Ray 07/26/18 13:19 CONCLUSION: 1. Right PICC line tip at the cavoatrial junction. Discharge Plan Discharge Disposition Patient Disposition: 30 Still Patient Discharge Details Diagnosis: Sepsis, Postoperative wound infection, Osteomyelitis of toe of left foot Physicians Team ED Provider: Tex Mcconnell Primary Care Provider: Ammy Nj Attending Provider: Curly Muinz Other Providers: Jimmy Mcgarry ; Terri Walton ; Crystal Sanchez ; [facility], ; [facility],Ag[facility] Discharge Interventions Interventions: ED Discharge Assessment Last Done: 07/21/18 22:03 Vital Signs Last Done: 07/21/18 17:46 Status ED Status: Left Department Discharge Information Discharge Date/Time: 07/21/18 22:07
[2018-07-21] MEDS ORDERED: Sod Chloride 0.9% Inj 1,000 ML IV.SIG SCH ×2 (15:30→16:30)
[2018-07-21 16:04] LABS: Baso # (Auto) 0.1 th/mm3 (0.0-0.2); Baso % (Auto) 0.8 % (0.0-2.0); Eos # (Auto) 0.2 th/mm3 (0.0-0.4); Eos % (Auto) 1.2 % (0.0-4.0); Hematocrit 43.9 % (35.0-46.0); Hemoglobin 14.7 gm/dL (11.6-15.3); Lymph % (Auto) 13.8 % (9.0-44.0); Mean Corpuscular HGB Conc 33.4 % (32.0-36.0); Mean Corpuscular Hemoglobin 31.2 pg (27.0-34.0); Mean Corpuscular Volume 93.3 fL (80.0-100.0); Mean Platelet Volume 8.5 fL (7.0-11.0); Mono # (Auto) 1.4 th/mm3 (0.0-0.9); Mono % (Auto) 9.8 % (0.0-8.0); Neut # (Auto) 10.8 th/mm3 (1.8-7.7); Neut % (Auto) 74.4 % (16.0-70.0); Platelet Count 418 th/mm3 (150-450); Red Cell Distribution Width 13.6 % (11.6-17.2); White Blood Count 14.5 th/mm3 (4.0-11.0)
--- NOTE | 2018-07-21 16:04 | XR ---
EXAM DATE: 07/21/2018 3:59 PM EDT AGE/SEX: 58 years / Female INDICATIONS: Fever. CLINICAL DATA: This is the patient's initial encounter. Patient reports that signs and symptoms have been present for 1 day and indicates a pain score of 0/10. MEDICAL/SURGICAL HISTORY: . Hypertension. Diabetes mellitus type 2. . Colon resection. Asim an section. COMPARISON: [facility] [place], CHEST 1V SINGLE AP, 06/26/2018. . FINDINGS: A single AP view of the chest demonstrates the lungs to be symmetrically aerated without evidence of mass, infiltrate or effusion. The cardiomediastinal contours are unremarkable. Osseous structures d emonstrate remote right fourth and fifth posterior rib fractures. CONCLUSION: Negative examination. Electronically signed by: Kevin Rivera MD 07/21/2018 4:03 PM EDT
[2018-07-21 16:13] LABS: Alkaline Phosphatase 128 U/L (45-117); Total Protein 8.3 g/dL (6.4-8.2)
[2018-07-21 16:17] LABS: Bacteria,Urine Few /hpf; Bilirubin,Urine Negative (Negative); Clarity,Urine Hazy (Clear); Color,Urine Yellow (Yellw/Straw); Glucose,Urine (UA) 500 or Greater mg/dL (Negative); Leukocyte Esterase,Urine Small (Negative); Mucus,Urine Few /lpf (Occasional); Nitrite,Urine Positive (Negative); Specific Gravity,Urine 1.023 (1.002-1.035); Squamous Epithelial Cell,Urine 4 /hpf (0-5)
[2018-07-21 16:21] LABS: Alanine Aminotransferase 23 U/L (10-53); Albumin 3.2 g/dL (3.4-5.0); Anion Gap 16 meq/L (5-15); Aspartate Aminotransferase 20 U/L (15-37); Blood Urea Nitrogen 21 mg/dL (7-18); Calcium 9.1 mg/dL (8.5-10.1); Carbon Dioxide 22.5 meq/L (21.0-32.0); Chloride 98 meq/L (98-107); Glomerular Filtration Rate 59 mL/min (>89); Glucose,Random 319 mg/dL (74-106); Potassium 4.6 meq/L (3.5-5.1); Sodium 136 meq/L (136-145)
[2018-07-21] MEDS ORDERED: Vancomycin Inj 1 GM/200 ML PIGGYBACK IV.SIG ONE (16:23)
[2018-07-21] MEDS ORDERED: Piperacil/Tazo 4.5 GM Premix 4.5 GM/100 ML BAG IV.SIG ONE (16:23)
[2018-07-21] MEDS ORDERED: Vancomycin Inj 1,000 MG in Sodium Chlor 0.9% Inj 250 ML IV.SIG ONE (16:45)
[2018-07-21] MEDS ORDERED: Morphine Inj 4 MG/ML Vial IV.PUSH ONE (17:20)
[2018-07-21] MEDS ORDERED: Vancomycin Consult Pharmacy OTHER PRN (19:23)
[2018-07-21] MEDS ORDERED: Dextrose 50% in Water 50 ML Vial IV.PUSH PRN (19:25)
[2018-07-21] MEDS ORDERED: Bisacodyl 10 MG Supp RECTAL PRN (19:25)
[2018-07-21] MEDS ORDERED: Acetaminophen 325 MG Tablet PO PRN (19:25)
--- NOTE | 2018-07-21 19:28 | P.HPIM ---
History of Present Illness Primary Care Physician: Ammy Nj History of Present Illness: This is a 58-year-old female with a PMH of HTN, COPD, PVD, DM, Tobacco Abuse and h/o Diabetic Foot Infection who presented to the ER w/ complaints of left great toe infection and wound dehiscence of left groin. Recent admit s/p Fem- Pop Bypass by Dr. Lainez on 07/02/18, s/p eval by Dr. Carrion w/ Podiatry, no surgical intervention for left great toe planned. States she was doing well after discharge until 2-3 days ago when she developed severe pain in her left great toe, states she "got a hold of a pack of cigarettes" and started smoking again to help with the pain. Yesterday, noted purulent drainage from left groin. Denies fever or chills. On arrival, BP 190/94, HR 137, O2 sat 97% on RA, Afebrile. W BC 14.5. BS 319. Lactic Acid 2.8. UA positive for UTI. CXR with no acute findings. Dr. Lainez consulted by ER physician, s/p Deborah/Price in ER - Diagnosis (1) Sepsis (2) Postoperative wound infection (3) COPD (chronic obstructive pulmonary disease) (4) UTI (urinary tract infection) (5) Tobacco abuse (6) DM (diabetes mellitus) Review of Systems PAST FAMILY HISTORY: Reviewed, positive for DM and CAD. All other systems reviewed negative except as stated in HPI PMFSH - History History Provided By: Patient - Medical History Medical History: Medical History (Last Updated 07/21/18 @ 15:21 by Sujata Davis) H/O: hysterectomy (Acute) Carotid artery disease (Acute) Hernia (Acute) Diabetes (Acute) COPD (chronic obstructive pulmonary disease) HTN (hypertension) - Surgical History Surgical History: Surgical History (Last Updated 07/21/18 @ 15:21 by Sujata Davis) H/O heart artery stent (Acute) Hx of tonsillectomy - Family History Family History: Family History (Last Reviewed 07/04/18 @ 10:45 by Verito Fam) Mother Family history of cancer - Tobacco History Second Hand Smoke Exposure: No Tobacco Use In Past 30 Days: Yes Smoking Status: Current every day smoker Tobacco Type: Cigarettes - Alcohol History How Often Do You Have a Drink Containing Alcohol: Never - Substance Use History Substance History: Active Abuse - Substance Use Type Marijuana Reason for Use: Calm Down - Travel History Recent Travel in the [place] Within the Last 8 Weeks: No Recent Travel Out of the Country Within the Last 8 Weeks: No - Immunization History Tetanus Immunization: >5 Years Hx Influenza Vaccine This Season: No Medications and Allergies Active Medications: Active Medications Sodium Chloride (Ns Inj) 1,000 mls @ 0 mls/hr IV.SIG BOLUS GIL Last Infusion: 07/21/18 16:59 Dose: Infused Sodium Chloride (Ns Inj) 1,000 mls @ 0 mls/hr IV.SIG BOLUS GIL Stop: 07/22/18 16:31 Last Infusion: 07/21/18 19:03 Dose: Infused Allergies Allergy/AdvReac Type Severity Reaction Status Date / Time ciprofloxacin Allergy Severe Anaphylaxis Verified 07/21/18 15:24 levofloxacin Allergy Severe Anaphylaxis Verified 07/21/18 15:24 lisinopril AdvReac Intermediate Cough Verified 07/21/18 15:24 Home Medications Medication Instructions Recorded Confirmed Type Novolog U-100 Insulin aspart 20 unit SUB-Q DAILY 06/26/18 07/21/18 History clopidogrel [Plavix] 75 mg PO DAILY 06/26/18 07/21/18 History insulin glargine [Lantus U-100 20 unit SUB-Q DAILY 06/26/18 07/21/18 History Insulin] Exam Vital signs: Vital Signs 07/21/18 14:55 07/21/18 15:15 07/21/18 15:38 Temperature 98.4 F 98.3 F Pulse Rate 137 H 123 H 117 H Respiratory Rate 24 22 Blood Pressure 190/94 H 135/89 Pulse Oximetry 97 95 07/21/18 15:39 07/21/18 17:46 Temperature Pulse Rate 100 H Respiratory Rate 22 Blood Pressure 194/84 H Pulse Oximetry 95 95 Intake & Output 07/21/18 07/21/18 07/22/18 06:59 18:59 06:59 Intake Total 1100 / 1100 1250 / 1250 Balance 1100 / 1100 1250 / 1250 Intake: IV 1100 / 1100 1250 / 1250 Zosyn 4.5 GM Premix 4.5 gm In 100 / 100 100 ml @ 200 mls/hr IV.SIG ONCE ONE Rx#:[id number] NS Inj 1,000 ML @ Wide Open IV. 1000 / 1000 1000 / 1000 SIG BOLUS GIL Rx#:[id number] Vancomycin Inj 1,000 MG In NS 250 / 250 Inj 250 ML @ 250 mls/hr IV.SIG ONCE ONE Rx#:[id number] Narrative: PE: GENERAL: Malaise white female in no acute distress, tearful. SKIN: Focused skin assessment warm and dry. HEENT: PERRLA, EOMI. No scleral icterus or conjunctival pallor. No lid lag or facial droop. CARDIOVASCULAR: Regular rate and rhythm. No obvious murmurs to auscultation. No chest tenderness to palpation. RESPIRATORY: No obvious rhonchi or wheezing. Clear to auscultation. Breath sounds equal bilaterally. GASTROINTESTINAL: Abdomen soft, non-tender, nondistended. BS normal. MUSCULOSKELETAL: Extremities without clubbing, cyanosis, or edema. No obvious deformities. Left groin w/ purulent drainage, foul-smelling, left great toe w/ ulcer, no drainage. NEUROLOGICAL: Awake, alert and oriented x4. No focal neurologic deficits. Moving both upper and lower extremities spontaneously. PSYCHIATRIC: Appropriate mood and affect. Insight and judgment normal. Results - Labs CBC & Chem 7: 07/21/18 15:35 07/21/18 15:35 Labs: Short CBC 07/21/18 Range/Units 15:35 WBC 14.5 H (4.0-11.0) th/mm3 Hgb 14.7 (11.6-15.3) gm/dL Hct 43.9 (35.0-46.0) % Plt Count 418 (150-450) th/mm3 BMP 07/21/18 15:35 Sodium 136 Potassium 4.6 Chloride 98 Carbon Dioxide 22.5 BUN 21 H Creatinine 0.97 Calcium 9.1 Liver Function 07/21/18 Range/Units 15:35 Total Bilirubin 0.3 (0.2-1.0) mg/dL AST 20 (15-37) U/L ALT 23 (10-53) U/L Alkaline Phosphatase 128 H (45-117) U/L Albumin 3.2 L (3.4-5.0) g/dL Urine 07/21/18 Range/Units 15:20 Urine Color Yellow (Yellw/Straw) Urine Clarity Hazy H (Clear) Urine pH 5.0 (5.0-8.5) Ur Specific [place] 1.023 (1.002-1.035) Urine Protein 500 or greater (Neg-Trace) mg/dL Urine Glucose (UA) 500 or greater (Negative) mg/dL - Imaging Impressions Chest X-Ray 07/21/18 15:23 CONCLUSION: Negative examination. Caprini VTE Risk Assessment Caprini VTE Risk Assessment: No/Low Risk (score <= 1) VTE Mechanical Exception: LE injury/wound Caprini Risk Assessment Model: Point Value = 1 Point Value = 2 Point Value = 3 Point Value = 5 Age 41-60 Minor surgery BMI > 25 kg/m2 Swollen legs Varicose veins or History of unexplained or recurrent spontaneous Oral contraceptives or hormone replacement Sepsis (< 1 month) Serious lung disease, including pneumonia (< 1 month) Abnormal pulmonary function Acute myocardial infarction Congestive heart failure (< 1 month) History of inflammatory bowel disease Medical patient at bed rest Age 61-74 Arthroscopic surgery Major open surgery (> 45 min) Laparoscopic surgery (> 45 min) Malignancy Confined to bed (> 72 hours) Immobilizing plaster cast Central venous access Age >= 75 History of VTE Family history of VTE Factor V Leiden Prothrombin [id number] Lupus anticoagulant Anticardiolipin antibodies Elevated serum homocysteine Heparin-induced thrombocytopenia Other congenital or acquired thrombophilia Stroke (< 1 month) Elective arthroplasty Hip, pelvis, or leg fracture Acute spinal cord injury (< 1 month) Prophylaxis Regimen: Total Risk Factor Score Risk Level Prophylaxis Regimen 0-1 Low Early ambulation 2 Moderate Order ONE of the following: *Sequential Compression Device (SCD) *Heparin 5000 units SQ BID 3-4 Higher Order ONE of the following medications: *Heparin 5000 units SQ TID *Enoxaparin/Lovenox 40 mg SQ daily (WT < 150 kg, CrCl > 30 mL/min) *Enoxaparin/Lovenox 30 mg SQ daily (WT < 150 kg, CrCl > 10-29 mL/min) *Enoxaparin/Lovenox 30 mg SQ BID (WT < 150 kg, CrCl > 30 mL/min) AND/OR *Sequential Compression Device (SCD) 5 or more Highest Order ONE of the following medications: *Heparin 5000 units SQ TID (Preferred with Epidurals) *Enoxaparin/Lovenox 40 mg SQ daily (WT < 150 kg, CrCl > 30 mL/min) *Enoxaparin/Lovenox 30 mg SQ daily (WT < 150 kg, CrCl > 10-29 mL/min) *Enoxaparin/Lovenox 30 mg SQ BID (WT < 150 kg, CrCl > 30 mL/min) AND *Sequential Compression Device (SCD) Assessment and Plan - Assessment (1) Sepsis Code(s): A41.9 - Sepsis, unspecified organism Status: Acute (2) Postoperative wound infection Code(s): T81.4XXA - Infection following a procedure, initial encounter Status : Acute (3) COPD (chronic obstructive pulmonary disease) Code(s): J44.9 - Chronic obstructive pulmonary disease, unspecified Status: Acute (4) UTI (urinary tract infection) Code(s): N39.0 - Urinary tract infection, site not specified Status: Acute (5) Tobacco abuse Code(s): Z72.0 - Tobacco use Status: Acute (6) DM (diabetes mellitus) Code(s): E11.9 - Type 2 diabetes mellitus without complications Status: Acute - Plan A/P 1. Sepsis: HR 123, WBC 14, Lactic Acid 3.8, Source-post op wound infection/ toe infection, s/p Blood Cultures, continue IV Abx, follow up cultures, repeat Lactic Acid 2. Post Op Infection: S/p Fem-Pop Bypass by Dr. Lainez on 07/02/18, wound w/ dehiscence and purulent drainage, +wound cultures, continue w/ IV Abx, Dr. Lainez consulted by ER physician will evaluate during hospitalization. 3. UTI: U/a w/ significant UTI, continue w/ IV Abx, monitor I/O, follow up urine cultures, IVF 4. COPD: Chronic Respiratory Failure, recent admit w/ respiratory failure requiring intubation/extubation, currently controlled, DuoNeb prn. Counselled against smoking. 5. DM: Uncontrolled. BS 319, Sliding scale w/ Accu-Cheks 6. Tobacco Abuse: Pt counselled extensively. No NicoDerm to avoid vasoconstriction. Ativan prn if needed 7. DVT Prophylaxis: Mechanical contraindication in light of acute infection 8. Social work for d/c planning as needed 9. Case discussed w/ ER physician at length, labs/records/imaging reviewed by me.
[2018-07-21] MEDS ORDERED: Vancomycin Inj 500 MG in Sodium Chlor 0.9% Inj 100 ML IV.SIG ONE (20:00)
[2018-07-21] MEDS: Sod Chloride 0.9% Inj 1,000 ML IV.CONT SCH (21:27)
[2018-07-21] MEDS: Senna/Docusate Sodium 8.6/50 MG Tablet PO SCH (22:38)
[2018-07-21] MEDS: Morphine Sulfate Inj 2 MG/ML Vial IV.PUSH PRN (22:38)
[2018-07-21] MEDS: Insulin NovoLOG Aspart Correctional Sugar Inj SQ SCH (22:39)
[2018-07-22] MEDS: Sod Chloride 0.9% Inj 1,000 ML IV.CONT SCH ×2 (06:24→20:46)
[2018-07-22] MEDS: Morphine Sulfate Inj 2 MG/ML Vial IV.PUSH PRN ×2 (06:40→11:12)
[2018-07-22 08:45] LABS: Baso # (Auto) 0.1 th/mm3 (0.0-0.2); Eos # (Auto) 0.3 th/mm3 (0.0-0.4); Eos % (Auto) 2.9 % (0.0-4.0); Hematocrit 41.7 % (35.0-46.0); Hemoglobin 13.9 gm/dL (11.6-15.3); Lymph # (Auto) 1.9 th/mm3 (1.0-4.8); Lymph % (Auto) 17.2 % (9.0-44.0); Mean Corpuscular HGB Conc 33.2 % (32.0-36.0); Mean Corpuscular Hemoglobin 31.1 pg (27.0-34.0); Mean Corpuscular Volume 93.5 fL (80.0-100.0); Mean Platelet Volume 8.6 fL (7.0-11.0); Mono % (Auto) 9.1 % (0.0-8.0); Neut # (Auto) 7.7 th/mm3 (1.8-7.7); Neut % (Auto) 69.8 % (16.0-70.0); Platelet Count 388 th/mm3 (150-450); Red Blood Count 4.46 mil/mm3 (4.00-5.30); Red Cell Distribution Width 13.9 % (11.6-17.2); White Blood Count 11.1 th/mm3 (4.0-11.0)
[2018-07-22] MEDS: Senna/Docusate Sodium 8.6/50 MG Tablet PO SCH ×2 (09:27→20:46)
[2018-07-22] MEDS: Insulin NovoLOG Aspart Correctional Sugar Inj SQ SCH ×4 (09:28→21:05)
[2018-07-22 10:07] LABS: Albumin 2.8 g/dL (3.4-5.0); Anion Gap 9 meq/L (5-15); Aspartate Aminotransferase 30 U/L (15-37); Blood Urea Nitrogen 15 mg/dL (7-18); Calcium 8.2 mg/dL (8.5-10.1); Carbon Dioxide 21.8 meq/L (21.0-32.0); Chloride 104 meq/L (98-107); Glomerular Filtration Rate 86 mL/min (>89); Glucose,Random 215 mg/dL (74-106); Potassium 4.5 meq/L (3.5-5.1); Sodium 135 meq/L (136-145)
[2018-07-22 10:08] LABS: Alanine Aminotransferase 20 U/L (10-53)
[2018-07-22 10:10] LABS: Alkaline Phosphatase 103 U/L (45-117); Total Protein 7.2 g/dL (6.4-8.2)
[2018-07-22] MEDS: Vancomycin Inj 1,000 MG in Sodium Chlor 0.9% Inj 250 ML IV.SIG SCH ×2 (11:11→23:18)
--- NOTE | 2018-07-22 11:36 | P.PNIM ---
Subjective Interval history: The patient said that she is always in the hospital. She said that she continues to smoke cigarettes. She said that she was having trouble with her wound and that the visiting nurses were not evaluating it. Discussed with nursing. Physical Exam Vital signs: Vital Signs 07/21/18 14:55 07/21/18 15:15 07/21/18 15:38 Temperature 98.4 F 98.3 F Pulse Rate 137 H 123 H 117 H Respiratory Rate 24 22 Blood Pressure 190/94 H 135/89 Pulse Oximetry 97 95 07/21/18 15:39 07/21/18 17:46 07/21/18 19:00 Temperature Pulse Rate 100 H 97 H Respiratory Rate 22 15 Blood Pressure 194/84 H 154/85 H Pulse Oximetry 95 95 98 07/21/18 20:00 07/21/18 21:54 07/21/18 22:59 Temperature Pulse Rate Respiratory Rate 18 18 Blood Pressure Pulse Oximetry 96 07/22/18 01:14 07/22/18 01:18 07/22/18 04:00 Temperature 97.8 F 97.8 F Pulse Rate 92 H 92 H Respiratory Rate 18 18 Blood Pressure 189/78 H 159/75 H 161/79 H Pulse Oximetry 96 93 L 07/22/18 06:44 07/22/18 08:00 07/22/18 09:00 Temperature 97.8 F 97.5 F L Pulse Rate 94 H 100 H 98 H Respiratory Rate 19 20 Blood Pressure 161/79 H 181/75 H Pulse Oximetry 95 94 L Intake & Output 07/21/18 07/22/18 07/22/18 18:59 06:59 18:59 Intake Total 1100 / 1100 2585 / 2585 1000 / 1000 Balance 1100 / 1100 2585 / 2585 1000 / 1000 Weight 69.9 kg Intake: IV 1100 / 1100 1350 / 1350 1000 / 1000 NS Inj 1,000 ML @ 100 mls/hr IV 1000 / 1000 .CONT .Q10H GIL Rx#:[id number] Zosyn 4.5 GM Premix 4.5 gm In 100 / 100 100 ml @ 200 mls/hr IV.SIG ONCE ONE Rx#:[id number] NS Inj 1,000 ML @ Wide Open IV. 1000 / 1000 1000 / 1000 SIG BOLUS GIL Rx#:[id number] Vancomycin Inj 1,000 MG In NS 250 / 250 Inj 250 ML @ 250 mls/hr IV.SIG ONCE ONE Rx#:[id number] Vancomycin Inj 500 MG In NS Inj 100 / 100 100 ML @ 200 mls/hr IV.SIG ONCE ONE Rx#:[id number] Oral 442 / 442 Other 793 / 793 Other: Other Intake Source Saline Solution # Voids 2 1 Date of Last Bowel Movement 07/21/18 Weight On Admission 69.2 kg Narrative: GENERAL: Resting comfortably in bed. SKIN: Focused skin assessment warm and dry. HEENT: PERRLA, EOMI. No scleral icterus or conjunctival pallor. No lid lag or facial droop. CARDIOVASCULAR: Regular rate and rhythm. No obvious murmurs to auscultation. No chest tenderness to palpation. RESPIRATORY: No obvious rhonchi or wheezing. Clear to auscultation. Breath sounds equal bilaterally. GASTROINTESTINAL: Abdomen soft, non-tender, nondistended. BS normal. MUSCULOSKELETAL: Extremities without clubbing, cyanosis, or edema. Left groin w / purulent drainage, foul-smelling, left great toe w/ necrotic skin, ulcer. NEUROLOGICAL: Awake, alert and oriented x4. No focal neurologic deficits. Moving both upper and lower extremities spontaneously. PSYCHIATRIC: Appropriate mood and affect. Insight and judgment normal. Results - Labs CBC & Chem 7: 07/22/18 06:38 07/22/18 09:09 Laboratory Results - last 24 hr 07/21/18 07/21/18 07/21/18 15:20 15:35 15:35 WBC 14.5 H RBC 4.70 Hgb 14.7 Hct 43.9 MCV 93.3 MCH 31.2 MCHC 33.4 RDW 13.6 Plt Count 418 MPV 8.5 Neut % (Auto) 74.4 H Lymph % (Auto) 13.8 [place] % (Auto) 9.8 H Eos % (Auto) 1.2 Baso % (Auto) 0.8 Neut # (Auto) 10.8 H Lymph # (Auto) 2.0 [place] # (Auto) 1.4 H Eos # (Auto) 0.2 Baso # (Auto) 0.1 WBC Differential . Differential Comment Auto diff final Sodium 136 Potassium 4.6 Chloride 98 Carbon Dioxide 22.5 Anion Gap 16 H BUN 21 H Creatinine 0.97 Estimated GFR 59 L POC Glucose Random Glucose 319 H Lactic Acid Calcium 9.1 Total Bilirubin 0.3 AST 20 ALT 23 Alkaline Phosphatase 128 H Total Protein 8.3 H Albumin 3.2 L Urine Color Yellow Urine Clarity Hazy H Urine pH 5.0 Ur Specific [place] 1.023 Urine Protein 500 or greater Urine Glucose (UA) 500 or greater Urine Ketones Trace H Urine Occult Blood Negative Urine Nitrate Positive H Urine Bilirubin Negative Urine Urobilinogen Less than 2 Ur Leukocyte Esterase Small H Urine RBC 1 Urine WBC 59 H Ur Squamous Epith Cells 4 Urine Bacteria Few H Granular Casts 12 Urine Mucus Few H Micro UA Comment Culture indicated Ur Microscopic Review Not Reportable Urine Culture Comments Culture indicated 07/21/18 07/21/18 07/21/18 15:40 18:25 22:34 WBC RBC Hgb Hct MCV MCH MCHC RDW Plt Count MPV Neut % (Auto) Lymph % (Auto) [place] % (Auto) Eos % (Auto) Baso % (Auto) Neut # (Auto) Lymph # (Auto) [place] # (Auto) Eos # (Auto) Baso # (Auto) WBC Differential Differential Comment Sodium Potassium Chloride Carbon Dioxide Anion Gap BUN Creatinine Estimated GFR POC Glucose 251 H Random Glucose Lactic Acid 3.8 H 3.4 H Calcium Total Bilirubin AST ALT Alkaline Phosphatase Total Protein Albumin Urine Color Urine Clarity Urine pH Ur Specific [place] Urine Protein Urine Glucose (UA) Urine Ketones Urine Occult Blood Urine Nitrate Urine Bilirubin Urine Urobilinogen Ur Leukocyte Esterase Urine RBC Urine WBC Ur Squamous Epith Cells Urine Bacteria Granular Casts Urine Mucus Micro UA Comment Ur Microscopic Review Urine Culture Comments 07/22/18 07/22/18 07/22/18 06:38 07:59 09:09 WBC 11.1 H RBC 4.46 Hgb 13.9 Hct 41.7 MCV 93.5 MCH 31.1 MCHC 33.2 RDW 13.9 Plt Count 388 MPV 8.6 Neut % (Auto) 69.8 Lymph % (Auto) 17.2 [place] % (Auto) 9.1 H Eos % (Auto) 2.9 Baso % (Auto) 1.0 Neut # (Auto) 7.7 Lymph # (Auto) 1.9 [place] # (Auto) 1.0 H Eos # (Auto) 0.3 Baso # (Auto) 0.1 WBC Differential . Differential Comment Auto diff final Sodium 135 L Potassium 4.5 Chloride 104 Carbon Dioxide 21.8 Anion Gap 9 BUN 15 Creatinine 0.70 Estimated GFR 86 L POC Glucose 209 H Random Glucose 215 H D Lactic Acid Calcium 8.2 L D Total Bilirubin 0.4 AST 30 ALT 20 Alkaline Phosphatase 103 Total Protein 7.2 D Albumin 2.8 L Urine Color Urine Clarity Urine pH Ur Specific [place] Urine Protein Urine Glucose (UA) Urine Ketones Urine Occult Blood Urine Nitrate Urine Bilirubin Urine Urobilinogen Ur Leukocyte Esterase Urine RBC Urine WBC Ur Squamous Epith Cells Urine Bacteria Granular Casts Urine Mucus Micro UA Comment Ur Microscopic Review Urine Culture Comments Microbiology 07/21/18 15:00 Blood - Peripheral Aerobic Blood Culture - Preliminary No growth in 1 day 07/21/18 15:00 Blood - Peripheral Anaerobic Blood Culture - Preliminary No growth in 1 day 07/21/18 15:35 Blood - Peripheral Aerobic Blood Culture - Preliminary No growth in 1 day 07/21/18 15:35 Blood - Peripheral Anaerobic Blood Culture - Preliminary No growth in 1 day - Imaging Impressions Chest X-Ray 07/21/18 15:23 CONCLUSION: Negative examination. Assessment and Plan - Assessment (1) Sepsis Code(s): A41.9 - Sepsis, unspecified organism Status: Acute (2) Postoperative wound infection Code(s): T81.4XXA - Infection following a procedure, initial encounter Status : Acute (3) COPD (chronic obstructive pulmonary disease) Code(s): J44.9 - Chronic obstructive pulmonary disease, unspecified Status: Acute (4) UTI (urinary tract infection) Code(s): N39.0 - Urinary tract infection, site not specified Status: Acute (5) Tobacco abuse Code(s): Z72.0 - Tobacco use Status: Acute (6) DM (diabetes mellitus) Code(s): E11.9 - Type 2 diabetes mellitus without complications Status: Acute - Plan Sepsis HR 123, WBC 14, Lactic Acid 3.8, source-post op wound infection/toe infection. -continue IV Abx including cefepime and vancomycin. -follow up cultures. -IVFs. Post-op infection S/p Fem-Pop bypass by Dr. Lainez on 07/02/18, wound w/ dehiscence and purulent drainage. Also with necrotic toe on LLE. -continue w/ IV Abx as above. -Dr. Lainez consulted. -follow culture data. -pain control as needed. UTI U/a w/ significant UTI. -continue w/ IV Abx and follow up urine cultures. COPD Chronic respiratory failure, recent admit w/ respiratory failure requiring intubation, currently controlled. -DuoNeb prn. -Counselled against smoking. -encourage ambulation. -incentive spirometry. DM Uncontrolled. -Sliding scale w/ Accu-Cheks. -Levemir 10 units HS. DVT Prophylaxis: Mechanical contraindication in light of acute infection Discharge Planning: Await vacular evaluation
--- NOTE | 2018-07-22 14:28 | P.PNVS ---
Subjective Subjective/Hospital Course: 58-year-old female known to me from previous encounters Underwent left femoral-popliteal bypass about 3 weeks ago. At the time she was noted to have incipient gangrene any reversible ischemia of the left greater toe but refused amputation. Patient was supposed to come to my office last week but failed to show up. Now comes back with partial dehiscence of the skin of the left groin incision and gangrene and osteomyelitis of the left greater toe Apparently throughout her stay patient has not been noncompliant with care continue to smoke and did not wash the incision is instructed Allegedly she had some home health visits bilateral how that went Physical examination reveals left femoral-popliteal graft to be patent with excellent Doppler signal Brisk popliteal artery signal in warm left foot Left greater toe is gangrenous and needs to be amputated for otherwise patient will get infection of the entire graft and it will lead to catastrophe for the time graft would need to be explanted and patient with end up with above-knee amputation. As far as left groin is concerned there is a small area of skin dehiscence with some fibrin in it and all given instructions for wound care No surgery is needed at this time Objective Vital Signs / I&O: Vital Signs 07/21/18 14:55 07/21/18 15:15 07/21/18 15:38 Temperature 98.4 F 98.3 F Pulse Rate 137 H 123 H 117 H Respiratory Rate 24 22 Blood Pressure 190/94 H 135/89 Pulse Oximetry 97 95 07/21/18 15:39 07/21/18 17:46 07/21/18 19:00 Temperature Pulse Rate 100 H 97 H Respiratory Rate 22 15 Blood Pressure 194/84 H 154/85 H Pulse Oximetry 95 95 98 07/21/18 20:00 07/21/18 21:54 07/21/18 22:59 Temperature Pulse Rate Respiratory Rate 18 18 Blood Pressure Pulse Oximetry 96 07/22/18 01:14 07/22/18 01:18 07/22/18 04:00 Temperature 97.8 F 97.8 F Pulse Rate 92 H 92 H Respiratory Rate 18 18 Blood Pressure 189/78 H 159/75 H 161/79 H Pulse Oximetry 96 93 L 07/22/18 06:44 07/22/18 08:00 07/22/18 09:00 Temperature 97.8 F 97.5 F L Pulse Rate 94 H 100 H 98 H Respiratory Rate 19 20 Blood Pressure 161/79 H 181/75 H Pulse Oximetry 95 94 L 07/22/18 12:00 Temperature 98 F Pulse Rate 76 Respiratory Rate 20 Blood Pressure 191/82 H Pulse Oximetry 96 Intake & Output 07/21/18 07/22/18 07/22/18 18:59 06:59 18:59 Intake Total 1100 / 1100 2585 / 2585 1100 / 1100 Balance 1100 / 1100 2585 / 2585 1100 / 1100 Weight 69.9 kg Intake: IV 1100 / 1100 1350 / 1350 1100 / 1100 NS Inj 1,000 ML @ 100 mls/hr IV 1000 / 1000 .CONT .Q10H [facility] Rx#:[id number] Maxipime Inj 1,000 MG In NS Inj 100 / 100 100 ML @ 200 mls/hr IV.SIG Q12H [facility] Rx#:[id number] Zosyn 4.5 GM Premix 4.5 gm In 100 / 100 100 ml @ 200 mls/hr IV.SIG ONCE ONE Rx#:[id number] NS Inj 1,000 ML @ Wide Open IV. 1000 / 1000 1000 / 1000 SIG BOLUS GIL Rx#:[id number] Vancomycin Inj 1,000 MG In NS 250 / 250 Inj 250 ML @ 250 mls/hr IV.SIG ONCE ONE Rx#:[id number] Vancomycin Inj 500 MG In NS Inj 100 / 100 100 ML @ 200 mls/hr IV.SIG ONCE ONE Rx#:[id number] Oral 442 / 442 Other 793 / 793 Other: Other Intake Source Saline Solution # Voids 2 1 Date of Last Bowel Movement 07/21/18 Weight On Admission 69.2 kg Laboratory Results - last 24 hr 07/21/18 07/21/18 07/21/18 15:20 15:35 15:35 WBC 14.5 H RBC 4.70 Hgb 14.7 Hct 43.9 MCV 93.3 MCH 31.2 MCHC 33.4 RDW 13.6 Plt Count 418 MPV 8.5 Neut % (Auto) 74.4 H Lymph % (Auto) 13.8 [place] % (Auto) 9.8 H Eos % (Auto) 1.2 Baso % (Auto) 0.8 Neut # (Auto) 10.8 H Lymph # (Auto) 2.0 [place] # (Auto) 1.4 H Eos # (Auto) 0.2 Baso # (Auto) 0.1 WBC Differential . Differential Comment Auto diff final Sodium 136 Potassium 4.6 Chloride 98 Carbon Dioxide 22.5 Anion Gap 16 H BUN 21 H Creatinine 0.97 Estimated GFR 59 L POC Glucose Random Glucose 319 H Lactic Acid Calcium 9.1 Total Bilirubin 0.3 AST 20 ALT 23 Alkaline Phosphatase 128 H Total Protein 8.3 H Albumin 3.2 L Urine Color Yellow Urine Clarity Hazy H Urine pH 5.0 Ur Specific [place] 1.023 Urine Protein 500 or greater Urine Glucose (UA) 500 or greater Urine Ketones Trace H Urine Occult Blood Negative Urine Nitrate Positive H Urine Bilirubin Negative Urine Urobilinogen Less than 2 Ur Leukocyte Esterase Small H Urine RBC 1 Urine WBC 59 H Ur Squamous Epith Cells 4 Urine Bacteria Few H Granular Casts 12 Urine Mucus Few H Micro UA Comment Culture indicated Ur Microscopic Review Not Reportable Urine Culture Comments Culture indicated 07/21/18 07/21/18 07/21/18 15:40 18:25 22:34 WBC RBC Hgb Hct MCV MCH MCHC RDW Plt Count MPV Neut % (Auto) Lymph % (Auto) [place] % (Auto) Eos % (Auto) Baso % (Auto) Neut # (Auto) Lymph # (Auto) [place] # (Auto) Eos # (Auto) Baso # (Auto) WBC Differential Differential Comment Sodium Potassium Chloride Carbon Dioxide Anion Gap BUN Creatinine Estimated GFR POC Glucose 251 H Random Glucose Lactic Acid 3.8 H 3.4 H Calcium Total Bilirubin AST ALT Alkaline Phosphatase Total Protein Albumin Urine Color Urine Clarity Urine pH Ur Specific [place] Urine Protein Urine Glucose (UA) Urine Ketones Urine Occult Blood Urine Nitrate Urine Bilirubin Urine Urobilinogen Ur Leukocyte Esterase Urine RBC Urine WBC Ur Squamous Epith Cells Urine Bacteria Granular Casts Urine Mucus Micro UA Comment Ur Microscopic Review Urine Culture Comments 07/22/18 07/22/18 07/22/18 06:38 07:59 09:09 WBC 11.1 H RBC 4.46 Hgb 13.9 Hct 41.7 MCV 93.5 MCH 31.1 MCHC 33.2 RDW 13.9 Plt Count 388 MPV 8.6 Neut % (Auto) 69.8 Lymph % (Auto) 17.2 [place] % (Auto) 9.1 H Eos % (Auto) 2.9 Baso % (Auto) 1.0 Neut # (Auto) 7.7 Lymph # (Auto) 1.9 [place] # (Auto) 1.0 H Eos # (Auto) 0.3 Baso # (Auto) 0.1 WBC Differential . Differential Comment Auto diff final Sodium 135 L Potassium 4.5 Chloride 104 Carbon Dioxide 21.8 Anion Gap 9 BUN 15 Creatinine 0.70 Estimated GFR 86 L POC Glucose 209 H Random Glucose 215 H D Lactic Acid Calcium 8.2 L D Total Bilirubin 0.4 AST 30 ALT 20 Alkaline Phosphatase 103 Total Protein 7.2 D Albumin 2.8 L Urine Color Urine Clarity Urine pH Ur Specific [place] Urine Protein Urine Glucose (UA) Urine Ketones Urine Occult Blood Urine Nitrate Urine Bilirubin Urine Urobilinogen Ur Leukocyte Esterase Urine RBC Urine WBC Ur Squamous Epith Cells Urine Bacteria Granular Casts Urine Mucus Micro UA Comment Ur Microscopic Review Urine Culture Comments 07/22/18 12:11 WBC RBC Hgb Hct MCV MCH MCHC RDW Plt Count MPV Neut % (Auto) Lymph % (Auto) [place] % (Auto) Eos % (Auto) Baso % (Auto) Neut # (Auto) Lymph # (Auto) [place] # (Auto) Eos # (Auto) Baso # (Auto) WBC Differential Differential Comment Sodium Potassium Chloride Carbon Dioxide Anion Gap BUN Creatinine Estimated GFR POC Glucose 236 H Random Glucose Lactic Acid Calcium Total Bilirubin AST ALT Alkaline Phosphatase Total Protein Albumin Urine Color Urine Clarity Urine pH Ur Specific [place] Urine Protein Urine Glucose (UA) Urine Ketones Urine Occult Blood Urine Nitrate Urine Bilirubin Urine Urobilinogen Ur Leukocyte Esterase Urine RBC Urine WBC Ur Squamous Epith Cells Urine Bacteria Granular Casts Urine Mucus Micro UA Comment Ur Microscopic Review Urine Culture Comments Microbiology 07/21/18 15:20 Urine Culture - Preliminary Clean Catch Urine gram negative rods 07/21/18 15:00 Aerobic Blood Culture - Preliminary Blood - Peripheral No growth in 1 day Anaerobic Blood Culture - Preliminary No growth in 1 day 07/21/18 15:35 Aerobic Blood Culture - Preliminary Blood - Peripheral No growth in 1 day Anaerobic Blood Culture - Preliminary No growth in 1 day Impressions Chest X-Ray 07/21/18 15:23 CONCLUSION: Negative examination.
[2018-07-22] MEDS: amLODIPine 5 MG Tablet PO SCH (16:58)
[2018-07-22] MEDS: Morphine Inj 4 MG/ML Vial IV.PUSH PRN ×2 (16:58→20:45)
--- NOTE | 2018-07-22 18:39 | ECG ---
Date Performed: 07/21/2018 Time Performed: 16:47:55 PTAGE: 58 years EKG: SINUS TACHYCARDIA MARKED LEFT AXIS DEVIATION NONSPECIFIC T-WAVE ABNORMALITY ABNORMAL ECG PREVIOUS TRACING : 06/26/2018 11.47 DOCTOR: Radha Olson Interpretating Date/Time 07/22/2018 18:35:57
[2018-07-22] MEDS ORDERED: Insulin Detemir Inj 1,000 UNIT/10 ML Vial SQ SCH (21:00)
--- NOTE | 2018-07-22 22:30 | P.CONPOD ---
History of Present Illness Service: Podiatry Consult date: 07/22/18 Reason for Consult: Left hallux infection Primary Care Provider: Ammy Nj History of Present Illness: Patient relates approximately 1 year history of wound to left plantar hallux with infections along the way. She has had previous imaging that she says was negative for signs of bone infection. She says the infection worsened about 2 weeks ago with redness, swelling, and drainage. Review of Systems All other systems reviewed negative except as stated in HPI PMFSH - History History Provided By: Patient - Medical History Medical History: Medical History (Last Updated 07/21/18 @ 15:21 by Sujata Davis) H/O: hysterectomy (Acute) Carotid artery disease (Acute) Hernia (Acute) Diabetes (Acute) COPD (chronic obstructive pulmonary disease) HTN (hypertension) - Surgical History Surgical History: Surgical History (Last Updated 07/21/18 @ 15:21 by Sujata Davis) H/O heart artery stent (Acute) Hx of tonsillectomy - Family History Family History: Family History (Last Reviewed 07/04/18 @ 10:45 by Verito Fam) Mother Family history of cancer - Tobacco History Second Hand Smoke Exposure: No Tobacco Use In Past 30 Days: Yes Smoking Status: Current every day smoker Tobacco Type: Cigarettes - Alcohol History How Often Do You Have a Drink Containing Alcohol: Never - Substance Use History Substance History: Active Abuse - Substance Use Type Marijuana Type: cannabis Status: Active Route Used: Inhalation Frequency: once weekly Reason for Use: Calm Down Comment: when not in pain she doesn't smoke it - Travel History Recent Travel in the [place] Within the Last 8 Weeks: No Recent Travel Out of the Country Within the Last 8 Weeks: No - Immunization History Tetanus Immunization: >5 Years Hx Influenza Vaccine This Season: No Medications and Allergies Active Medications: Active Medications Acetaminophen (Tylenol) 650 mg PO Q4H PRN PRN Reason: Temp > 100.4 Hydrocodone Bitart/Acetaminophen (Blue Eye 5/325) 1 tab PO Q4H PRN PRN Reason: PAIN 3-5 Hydrocodone Bitart/Acetaminophen ([place] 10/325) 1 tab PO Q4H PRN PRN Reason: Pain 6-10 Al Hydroxide/Mg Hydroxide (Milk Of Magnesia Liq) 30 ml PO Q12H PRN PRN Reason: Mild Constipation Albuterol (Duoneb Neb (Prn)) 1 ampul NEB Q4HR NEB PRN PRN Reason: SOB/WHEEZING Amlodipine Besylate (Norvasc) 5 mg PO DAILY [facility] Last Admin: 07/22/18 16:58 Dose: 5 mg Bisacodyl (Dulcolax Supp) 10 mg RECTAL DAILY PRN PRN Reason: SEVERE CONSITIPATION Clonidine HCl (Catapres) 0.1 mg PO Q6H PRN PRN Reason: SBP>160,DBP>100;HR>60 Dextrose (D50w Vial) 50 ml IV.PUSH UNSCH PRN PRN Reason: PER HYPOGLYCEMIA PROTOCOL Glucagon (Glucagon Inj) 1 mg OTHER PRN PRN PRN Reason: for Hypoglycemia Protocol Sodium Chloride (Ns Inj) 1,000 mls @ 0 mls/hr IV.SIG BOLUS [facility] Last Infusion: 07/21/18 16:59 Dose: Infused Cefepime HCl 1,000 mg/ Sodium (Chloride) 100 mls @ 200 mls/hr IV.SIG Q12H [facility] Last Infusion: 07/22/18 21:44 Dose: Infused Sodium Chloride (Ns Inj) 1,000 mls @ 100 mls/hr IV.CONT .Q10H [facility] Last Admin: 07/22/18 20:46 Dose: 100 mls/hr Vancomycin HCl 1,000 mg/ (Sodium Chloride) 250 mls @ 250 mls/hr IV.SIG Q12H [facility] Last Infusion: 07/22/18 15:09 Dose: Infused Insulin Aspart (Novolog Insulin Correctional Sugar Inj) 0 unit SQ ACHS [facility]; Protocol Last Admin: 07/22/18 21:05 Dose: 7 unit Insulin Detemir (Levemir Inj) 10 unit SQ HS [facility] Last Admin: 07/22/18 21:05 Dose: 10 unit Lactulose (Lactulose Liq) 30 ml PO DAILY PRN PRN Reason: SEVERE CONSITIPATION Miscellaneous Information ([facility] Ordered Lab Info) 1 each OTHER ONCE ONE Stop: 07/23/18 10:46 Morphine Sulfate (Morphine Inj) 4 mg IV.PUSH Q4H PRN PRN Reason: BREAKTHROUGH PAIN Last Admin: 07/22/18 20:45 Dose: 4 mg Nifedipine (Procardia Xl) 30 mg PO DAILY [facility] Last Admin: 07/22/18 09:27 Dose: 30 mg Ondansetron HCl (Zofran Inj) 4 mg IV.PUSH Q6H PRN PRN Reason: NAUSEA OR VOMITING Pharmacy Profile Note (Vancomycin Consult Pharmacy) 1 each OTHER UNSCH PRN PRN Reason: Pharmacy to dose Senna/Docusate Sodium (Elidia-Colace) 1 tab PO BID [facility] Last Admin: 07/22/18 20:46 Dose: 1 tab Sennosides (Senokot) 17.2 mg PO Q12H PRN PRN Reason: Moderate Constipation Allergies Allergy/AdvReac Type Severity Reaction Status Date / Time ciprofloxacin Allergy Severe Anaphylaxis Verified 07/21/18 15:24 levofloxacin Allergy Severe Anaphylaxis Verified 07/21/18 15:24 lisinopril AdvReac Intermediate Cough Verified 07/21/18 15:24 Home Medications Medication Instructions Recorded Confirmed Type Novolog U-100 Insulin aspart 20 unit SUB-Q DAILY 06/26/18 07/21/18 History clopidogrel [Plavix] 75 mg PO DAILY 06/26/18 07/21/18 History insulin glargine [Lantus U-100 20 unit SUB-Q DAILY 06/26/18 07/21/18 History Insulin] Physical Exam Vital signs: Vital Signs 07/21/18 22:59 07/22/18 01:14 07/22/18 01:18 Temperature 97.8 F Pulse Rate 92 H Respiratory Rate 18 18 Blood Pressure 189/78 H 159/75 H Pulse Oximetry 96 07/22/18 04:00 07/22/18 06:44 07/22/18 08:00 Temperature 97.8 F 97.8 F 97.5 F L Pulse Rate 92 H 94 H 100 H Respiratory Rate 18 19 20 Blood Pressure 161/79 H 161/79 H 181/75 H Pulse Oximetry 93 L 95 94 L 07/22/18 09:00 07/22/18 12:00 07/22/18 16:00 Temperature 98 F 97.3 F L Pulse Rate 98 H 76 103 H Respiratory Rate 20 20 Blood Pressure 191/82 H 177/80 H Pulse Oximetry 96 93 L 07/22/18 20:00 07/22/18 20:46 07/22/18 20:52 Temperature 98.3 F Pulse Rate 112 H Respiratory Rate 20 20 20 Blood Pressure 133/70 Pulse Oximetry 94 L Intake & Output 07/22/18 07/22/18 07/23/18 06:59 18:59 06:59 Intake Total 2585 / 2585 1350 / 1350 100 / 100 Balance 2585 / 2585 1350 / 1350 100 / 100 Weight 69.9 kg Intake: IV 1350 / 1350 1350 / 1350 100 / 100 NS Inj 1,000 ML @ 100 mls/hr IV 1000 / 1000 .CONT .Q10H [facility] Rx#:[id number] Maxipime Inj 1,000 MG In NS Inj 100 / 100 100 / 100 100 ML @ 200 mls/hr IV.SIG Q12H [facility] Rx#:[id number] NS Inj 1,000 ML @ Wide Open IV. 1000 / 1000 SIG BOLUS [facility]IL Rx#:[id number] Vancomycin Inj 1,000 MG In NS 250 / 250 250 / 250 Inj 250 ML @ 250 mls/hr IV.SIG Q12H [facility] Rx#:[id number] Vancomycin Inj 500 MG In NS Inj 100 / 100 100 ML @ 200 mls/hr IV.SIG ONCE ONE Rx#:[id number] Oral 442 / 442 Other 793 / 793 Other: Other Intake Source Saline Solution # Voids 2 1 Date of Last Bowel Movement 07/21/18 Weight On Admission 69.2 kg Narrative: Left foot warm with erythema to hallux, mild edema. Plantar ulceration to IPJ area that has significant hyperkeratotic buildup and fibrotic tissue centrally with purulence present. No foul odor. No ascending erythema at this time, appears localized to hallux. Sensation diminished to light touch. Results - Labs CBC & Chem 7: 07/22/18 06:38 07/22/18 09:09 Laboratory Results - last 24 hr 07/21/18 07/21/18 07/22/18 15:20 22:34 06:38 WBC 11.1 H RBC 4.46 Hgb 13.9 Hct 41.7 MCV 93.5 MCH 31.1 MCHC 33.2 RDW 13.9 Plt Count 388 MPV 8.6 Neut % (Auto) 69.8 Lymph % (Auto) 17.2 [place] % (Auto) 9.1 H Eos % (Auto) 2.9 Baso % (Auto) 1.0 Neut # (Auto) 7.7 Lymph # (Auto) 1.9 [place] # (Auto) 1.0 H Eos # (Auto) 0.3 Baso # (Auto) 0.1 WBC Differential . Differential Comment Auto diff final Sodium Potassium Chloride Carbon Dioxide Anion Gap BUN Creatinine Estimated GFR POC Glucose 251 H Random Glucose Calcium Total Bilirubin AST ALT Alkaline Phosphatase Total Protein Albumin Urine Color Yellow Urine Clarity Hazy H Urine pH 5.0 Ur Specific [place] 1.023 Urine Protein 500 or greater Urine Glucose (UA) 500 or greater Urine Ketones Trace H Urine Occult Blood Negative Urine Nitrate Positive H Urine Bilirubin Negative Urine Urobilinogen Less than 2 Ur Leukocyte Esterase Small H Urine RBC 1 Urine WBC 59 H Ur Squamous Epith Cells 4 Urine Bacteria Few H Granular Casts 12 Urine Mucus Few H Micro UA Comment Culture indicated Urine Culture Comments Culture indicated 07/22/18 07/22/18 07/22/18 07:59 09:09 12:11 WBC RBC Hgb Hct MCV MCH MCHC RDW Plt Count MPV Neut % (Auto) Lymph % (Auto) [place] % (Auto) Eos % (Auto) Baso % (Auto) Neut # (Auto) Lymph # (Auto) [place] # (Auto) Eos # (Auto) Baso # (Auto) WBC Differential Differential Comment Sodium 135 L Potassium 4.5 Chloride 104 Carbon Dioxide 21.8 Anion Gap 9 BUN 15 Creatinine 0.70 Estimated GFR 86 L POC Glucose 209 H 236 H Random Glucose 215 H D Calcium 8.2 L D Total Bilirubin 0.4 AST 30 ALT 20 Alkaline Phosphatase 103 Total Protein 7.2 D Albumin 2.8 L Urine Color Urine Clarity Urine pH Ur Specific [place] Urine Protein Urine Glucose (UA) Urine Ketones Urine Occult Blood Urine Nitrate Urine Bilirubin Urine Urobilinogen Ur Leukocyte Esterase Urine RBC Urine WBC Ur Squamous Epith Cells Urine Bacteria Granular Casts Urine Mucus Micro UA Comment Urine Culture Comments 07/22/18 07/22/18 16:51 20:43 WBC RBC Hgb Hct MCV MCH MCHC RDW Plt Count MPV Neut % (Auto) Lymph % (Auto) [place] % (Auto) Eos % (Auto) Baso % (Auto) Neut # (Auto) Lymph # (Auto) [place] # (Auto) Eos # (Auto) Baso # (Auto) WBC Differential Differential Comment Sodium Potassium Chloride Carbon Dioxide Anion Gap BUN Creatinine Estimated GFR POC Glucose 294 H 326 H Random Glucose Calcium Total Bilirubin AST ALT Alkaline Phosphatase Total Protein Albumin Urine Color Urine Clarity Urine pH Ur Specific [place] Urine Protein Urine Glucose (UA) Urine Ketones Urine Occult Blood Urine Nitrate Urine Bilirubin Urine Urobilinogen Ur Leukocyte Esterase Urine RBC Urine WBC Ur Squamous Epith Cells Urine Bacteria Granular Casts Urine Mucus Micro UA Comment Urine Culture Comments Microbiology 07/21/18 15:20 Clean Catch Urine Urine Culture - Preliminary gram negative rods 07/21/18 15:00 Blood - Peripheral Aerobic Blood Culture - Preliminary No growth in 1 day 07/21/18 15:00 Blood - Peripheral Anaerobic Blood Culture - Preliminary No growth in 1 day 07/21/18 15:35 Blood - Peripheral Aerobic Blood Culture - Preliminary No growth in 1 day 07/21/18 15:35 Blood - Peripheral Anaerobic Blood Culture - Preliminary No growth in 1 day Assessment and Plan - Assessment (1) Diabetic ulcer of left great toe Code(s): E11.621 - Type 2 diabetes mellitus with foot ulcer; L97.529 - Non- pressure chronic ulcer of other part of left foot with unspecified severity Status: Acute (2) Diabetic foot infection Code(s): E11.628 - Type 2 diabetes mellitus with other skin complications; L08.9 - Local infection of the skin and subcutaneous tissue, unspecified Status: Acute - Plan Ordered XR and MRI Left foot to evaluate further for possible osteomyelitis. Discussed with patient that I am suspicious for osteomyelitis given 1 year history of wound to the area and recent flare of infection. Discussed with patient that at a minimum, the wound needs to be cleaned up well , vs amputation. Discussed with patient that her blood sugars are significantly elevated and likely this is due, in part, to infection. NPO after midnight in anticipation of a surgery pending MRI.
--- NOTE | 2018-07-22 23:50 | XR ---
EXAM DATE: 07/22/2018 10:40 PM EDT AGE/SEX: 58 years / Female INDICATIONS: Left foot great toe pain,stepped on glass. CLINICAL DATA: This is the patient's subsequent encounter. Patient reports that signs and symptoms h ave been present for 3 weeks and indicates a pain score of 8/10. MEDICAL/SURGICAL HISTORY: . Hypertension. Diabetes mellitus type 2.. . . Colon resection. Lucas arean section COMPARISON: [facility], FOOT COMPLETE LEFT 3V, 06/26/2018. . FINDINGS: 3 views of the left foot. Soft tissue defect is seen the plantar aspect of the great toe. There is a gap in the medial cortex of the distal phalanx with adjacent lucency that is new indicating bone eros ion. Diffuse soft tissue swelling of the great toe. CONCLUSION: Soft tissue swelling of the great toe with new bone erosion of the distal phalanx. Findings are suspi cious for osteomyelitis in the proper clinical setting. Electronically signed by: Alvaro Daugherty MD 07/22/2018 11:49 PM EDT
[2018-07-23] MEDS: Sod Chloride 0.9% Inj 1,000 ML IV.CONT SCH ×4 (02:37→22:37)
[2018-07-23] MEDS: Insulin NovoLOG Aspart Correctional Sugar Inj SQ SCH ×4 (08:24→21:11)
[2018-07-23] MEDS: amLODIPine 5 MG Tablet PO SCH (08:25)
[2018-07-23] MEDS: Senna/Docusate Sodium 8.6/50 MG Tablet PO SCH ×2 (08:25→21:13)
[2018-07-23] MEDS ORDERED: Gadobutrol PF 7.5 MMOL/7.5 ML Vial (for RAD) IV.SIG ONE (09:43)
--- NOTE | 2018-07-23 10:06 | MR ---
EXAM DATE: 07/23/2018 9:57 AM EDT AGE/SEX: 58 years / Female INDICATIONS: . Left foot wound on plantar surface of great toe. CLINICAL DATA: This is the patient's subsequent encounter. Patient reports that signs and symptoms h ave been present for 2 days and indicates a pain score of 3/10. MEDICAL/SURGICAL HISTORY: Diabetes mellitus type II. Chronic obstructive pulmonary disease. H ypertension. CAD Hysterectomy. lower bowel surgery, vascular surgery COMPARISON: [facility] [place] W & W/O CONTRAST, 06/27/2018. . TECHNIQUE: Multiplanar, multisequence MRI examination was performed without contrast and after th e intravenous administration of 7 ml Gadavist (gadobutrol) single exam dose. FINDINGS: There is abnormal marrow edema, marrow enhancement involving the proximal and distal phalanx of the g reat toe. There is also soft tissue swelling and ulceration on the plantar surface. No other signific ant marrow signal abnormalities are identified within the foot. There is some subcutaneous edema in t he forefoot as well. CONCLUSION: 1. Marrow edema and enhancement with surrounding soft tissue swelling and ulceration involving the g reat toe characteristic of osteomyelitis. Electronically signed by: Benny Garcia MD 07/23/2018 10:05 AM EDT
[2018-07-23] MEDS ORDERED: Pharmacy Ordered Lab Info OTHER ONE (10:45)
[2018-07-23] MEDS ORDERED: LORazepam 0.5 MG Tablet PO PRN (11:16)
--- NOTE | 2018-07-23 11:24 | P.PNIM ---
Subjective Interval history: The patient was extremely anxious about her procedure. She thought she would be better taken care of at rehab instead of going home following discharge. She had questions about amputation. She had questions about the healing time. She was sad that her family was not here visiting her. Discussed with nursing. Physical Exam Vital signs: Vital Signs 07/22/18 12:00 07/22/18 16:00 07/22/18 20:00 Temperature 98 F 97.3 F L 98.3 F Pulse Rate 76 103 H 112 H Respiratory Rate 20 20 18 Blood Pressure 191/82 H 177/80 H 133/70 Pulse Oximetry 96 93 L 94 L 07/22/18 20:46 07/22/18 20:52 07/23/18 00:00 Temperature 97.7 F Pulse Rate 95 H Respiratory Rate 20 20 20 Blood Pressure 154/87 H Pulse Oximetry 95 07/23/18 03:37 07/23/18 04:00 07/23/18 05:30 Temperature 97.8 F Pulse Rate 93 H 85 Respiratory Rate 18 18 Blood Pressure 146/85 H Pulse Oximetry 94 L 07/23/18 08:00 Temperature 97.7 F Pulse Rate 102 H Respiratory Rate 20 Blood Pressure 173/104 H Pulse Oximetry 95 Intake & Output 07/22/18 07/23/18 07/23/18 18:59 06:59 18:59 Intake Total 1350 / 1350 1350 / 1350 Balance 1350 / 1350 1350 / 1350 Intake: IV 1350 / 1350 1350 / 1350 NS Inj 1,000 ML @ 100 mls/hr IV 1000 / 1000 1000 / 1000 .CONT .Q10H [facility] Rx#:[id number] Maxipime Inj 1,000 MG In NS Inj 100 / 100 100 / 100 100 ML @ 200 mls/hr IV.SIG Q12H GIL Rx#:[id number] Vancomycin Inj 1,000 MG In NS 250 / 250 250 / 250 Inj 250 ML @ 250 mls/hr IV.SIG Q12H GIL Rx#:[id number] Other: # Voids 1 1 Date of Last Bowel Movement 07/21/18 Narrative: GENERAL: Anxious. SKIN: Focused skin assessment warm and dry. HEENT: PERRLA, EOMI. No scleral icterus or conjunctival pallor. No lid lag or facial droop. CARDIOVASCULAR: Regular rate and rhythm. No obvious murmurs to auscultation. No chest tenderness to palpation. RESPIRATORY: No obvious rhonchi or wheezing. Clear to auscultation. Breath sounds equal bilaterally. GASTROINTESTINAL: Abdomen soft, non-tender, nondistended. BS normal. MUSCULOSKELETAL: Extremities without clubbing, cyanosis, or edema. Left groin w / purulent drainage, foul-smelling, left great toe w/ necrotic skin, ulcer. NEUROLOGICAL: Awake, alert and oriented x4. No focal neurologic deficits. Moving both upper and lower extremities spontaneously. PSYCHIATRIC: Crying. Results - Labs CBC & Chem 7: 07/22/18 06:38 07/22/18 09:09 Laboratory Results - last 24 hr 07/21/18 07/22/18 07/22/18 15:20 12:11 16:51 POC Glucose 236 H 294 H Urine Color Yellow Urine Clarity Hazy H Urine pH 5.0 Ur Specific [place] 1.023 Urine Protein 500 or greater Urine Glucose (UA) 500 or greater Urine Ketones Trace H Urine Occult Blood Negative Urine Nitrate Positive H Urine Bilirubin Negative Urine Urobilinogen Less than 2 Ur Leukocyte Esterase Small H Urine RBC 1 Urine WBC 59 H Ur Squamous Epith Cells 4 Urine Bacteria Few H Granular Casts 12 Urine Mucus Few H Micro UA Comment Culture indicated Urine Culture Comments Culture indicated 07/22/18 20:43 POC Glucose 326 H Urine Color Urine Clarity Urine pH Ur Specific [place] Urine Protein Urine Glucose (UA) Urine Ketones Urine Occult Blood Urine Nitrate Urine Bilirubin Urine Urobilinogen Ur Leukocyte Esterase Urine RBC Urine WBC Ur Squamous Epith Cells Urine Bacteria Granular Casts Urine Mucus Micro UA Comment Urine Culture Comments Microbiology 07/21/18 15:00 Blood - Peripheral Aerobic Blood Culture - Preliminary No growth in 2 days 07/21/18 15:00 Blood - Peripheral Anaerobic Blood Culture - Preliminary No growth in 2 days 07/21/18 15:35 Blood - Peripheral Aerobic Blood Culture - Preliminary No growth in 2 days 07/21/18 15:35 Blood - Peripheral Anaerobic Blood Culture - Preliminary No growth in 2 days 07/21/18 15:20 Clean Catch Urine Urine Culture - Final Escherichia coli - Imaging Impressions Foot X-Ray 07/22/18 00:00 CONCLUSION: Soft tissue swelling of the great toe with new bone erosion of the distal phalanx. Findings are suspicious for osteomyelitis in the proper clinical setting. Foot MRI 07/23/18 07:01 CONCLUSION: 1. Marrow edema and enhancement with surrounding soft tissue swelling and ulceration involving the great toe characteristic of osteomyelitis. Assessment and Plan - Assessment (1) Sepsis Code(s): A41.9 - Sepsis, unspecified organism Status: Acute (2) Postoperative wound infection Code(s): T81.4XXA - Infection following a procedure, initial encounter Status : Acute (3) COPD (chronic obstructive pulmonary disease) Code(s): J44.9 - Chronic obstructive pulmonary disease, unspecified Status: Acute (4) UTI (urinary tract infection) Code(s): N39.0 - Urinary tract infection, site not specified Status: Acute (5) Tobacco abuse Code(s): Z72.0 - Tobacco use Status: Acute (6) DM (diabetes mellitus) Code(s): E11.9 - Type 2 diabetes mellitus without complications Status: Acute - Plan Sepsis HR 123, WBC 14, Lactic Acid 3.8, source-post op wound infection/toe infection. -continue IV Abx including cefepime and vancomycin. -follow up cultures. -IVFs. Post-op infection/ Toe infection S/p Fem-Pop bypass by Dr. Lainez on 07/02/18, wound w/ dehiscence and purulent drainage. Also with necrotic toe on LLE. MRI confirms osteomyelitis of left great toe. -continue w/ IV Abx. -vascular surgery and podiatry consults appreciated. Plan for left great toe amputation by podiatry. -follow culture data. -pain control as needed. -PT/OT following procedure. UTI U/a w/ significant UTI. E coli growing in urine. -continue w/ IV Abx. COPD Chronic respiratory failure, recent admit w/ respiratory failure requiring intubation, currently controlled. -DuoNeb prn. -Counselled against smoking. -encourage ambulation. -incentive spirometry. DM Uncontrolled. -Sliding scale w/ Accu-Cheks. -Levemir 15 units HS. Anxiety Pt is having severe anxiety, almost panic attacks. -Ativan 1 mg IV x 1 now and PO as needed. DVT Prophylaxis: Mechanical contraindication in light of acute infection Discharge Planning: Needs toe amputation, then ? SNF
[2018-07-23 11:34] LABS: Glomerular Filtration Rate Greater Than 89 mL/min (>89)
[2018-07-23 11:35] LABS: Blood Urea Nitrogen 11 mg/dL (7-18)
[2018-07-23] MEDS: Vancomycin Inj 1,000 MG in Sodium Chlor 0.9% Inj 250 ML IV.SIG SCH (12:25)
[2018-07-23] MEDS ORDERED: Metoprolol Tartrate 25 MG Tablet PO ONE (14:34)
[2018-07-23] MEDS ORDERED: Chlorhexidine Gluconate 2% 1 Pack (2 Cloths) TOPICAL ONE (14:34)
[2018-07-23] MEDS ORDERED: Sodium Chlor 0.9% Inj 500 ML IV.SIG ONE (15:00)
--- NOTE | 2018-07-23 15:09 | P.PNVS ---
Subjective Subjective/Hospital Course: 58-year-old female known to me from previous encounters Underwent left femoral-popliteal bypass about 3 weeks ago. At the time she was noted to have incipient gangrene any reversible ischemia of the left greater toe but refused amputation. Patient was supposed to come to my office last week but failed to show up. Now comes back with partial dehiscence of the skin of the left groin incision and gangrene and osteomyelitis of the left greater toe Apparently throughout her stay patient has not been noncompliant with care continue to smoke and did not wash the incision is instructed Allegedly she had some home health visits bilateral how that went Physical examination reveals left femoral-popliteal graft to be patent with excellent Doppler signal Brisk popliteal artery signal in warm left foot Left greater toe is gangrenous and needs to be amputated for otherwise patient will get infection of the entire graft and it will lead to catastrophe for the time graft would need to be explanted and patient with end up with above-knee amputation. As far as left groin is concerned there is a small area of skin dehiscence with some fibrin in it and all given instructions for wound care No surgery is needed at this time 07/23/2018 Groin is now much equipment or machinery cleaner dressing has been applied and area washed Osteomyelitis of the greater toe and further care per podiatry Patient continues to smoke and there is a good chance that the toe amputation site will heal poorly due to this extensive small vessel disease. This patient is at high risk of below-knee amputation but with a patent femoral-popliteal graft at least she will not need an above-knee amputation should it come to it. Agree with podiatry Objective Vital Signs / I&O: Vital Signs 07/22/18 16:00 07/22/18 20:00 07/22/18 20:46 Temperature 97.3 F L 98.3 F Pulse Rate 103 H 112 H Respiratory Rate 20 18 20 Blood Pressure 177/80 H 133/70 Pulse Oximetry 93 L 94 L 07/22/18 20:52 07/23/18 00:00 07/23/18 03:37 Temperature 97.7 F Pulse Rate 95 H Respiratory Rate 20 20 18 Blood Pressure 154/87 H Pulse Oximetry 95 07/23/18 04:00 07/23/18 05:30 07/23/18 08:00 Temperature 97.8 F 97.7 F Pulse Rate 93 H 85 102 H Respiratory Rate 18 20 Blood Pressure 146/85 H 173/104 H Pulse Oximetry 94 L 95 07/23/18 12:00 Temperature 97.7 F Pulse Rate 130 H Respiratory Rate 20 Blood Pressure 165/86 H Pulse Oximetry 94 L Intake & Output 07/22/18 07/23/18 07/23/18 18:59 06:59 18:59 Intake Total 1350 / 1350 1350 / 1350 100 / 100 Balance 1350 / 1350 1350 / 1350 100 / 100 Intake: IV 1350 / 1350 1350 / 1350 100 / 100 NS Inj 1,000 ML @ 100 mls/hr IV 1000 / 1000 1000 / 1000 .CONT .Q10H GIL Rx#:[id number] Maxipime Inj 1,000 MG In NS Inj 100 / 100 100 / 100 100 / 100 100 ML @ 200 mls/hr IV.SIG Q12H GIL Rx#:[id number] Vancomycin Inj 1,000 MG In NS 250 / 250 250 / 250 Inj 250 ML @ 250 mls/hr IV.SIG Q12H GIL Rx#:[id number] Other: # Voids 1 1 Date of Last Bowel Movement 07/21/18 Laboratory Results - last 24 hr 07/22/18 07/22/18 07/23/18 16:51 20:43 10:37 BUN 11 Creatinine 0.60 Estimated GFR Greater than 89 POC Glucose 294 H 326 H Vancomycin Trough 07/23/18 07/23/18 10:37 12:27 BUN Creatinine Estimated GFR POC Glucose 210 H Vancomycin Trough 11.1 H Microbiology 07/21/18 15:00 Aerobic Blood Culture - Preliminary Blood - Peripheral No growth in 2 days Anaerobic Blood Culture - Preliminary No growth in 2 days 07/21/18 15:35 Aerobic Blood Culture - Preliminary Blood - Peripheral No growth in 2 days Anaerobic Blood Culture - Preliminary No growth in 2 days 07/21/18 15:20 Urine Culture - Final Clean Catch Urine Escherichia coli Impressions Chest X-Ray 07/21/18 15:23 CONCLUSION: Negative examination. Foot X-Ray 07/22/18 00:00 CONCLUSION: Soft tissue swelling of the great toe with new bone erosion of the distal phalanx. Findings are suspicious for osteomyelitis in the proper clinical setting. Foot MRI 07/23/18 07:01 CONCLUSION: 1. Marrow edema and enhancement with surrounding soft tissue swelling and ulceration involving the great toe characteristic of osteomyelitis.
[2018-07-23] MEDS ORDERED: Succinylcholine Inj 100 MG/5 ML Syringe IV.PUSH ONE (16:05)
[2018-07-23] MEDS ORDERED: Lidocaine PF 1% Inj 5 ML Syringe OTHER ONE (16:05)
[2018-07-23] MEDS ORDERED: Phenylephrine/NS 1000 MCG/10ML Syringe IV.PUSH ONE (16:15)
[2018-07-23] MEDS ORDERED: fentaNYL Citrate Inj 100 MCG/2 ML Ampul ONE ×2 (17:06→17:07)
[2018-07-23] MEDS ORDERED: Bupivacaine PF 0.5% Inj 10 ML Vial INFILTRATN ONE (17:08)
[2018-07-23] MEDS ORDERED: Bupivacaine PF 0.5% Inj 30 ML Vial ONE (17:13)
--- NOTE | 2018-07-23 17:13 | P.BOP ---
- Preoperative Diagnosis (1) Osteomyelitis of toe of left foot - Postoperative Diagnosis (1) Osteomyelitis of toe of left foot Date of procedure: 07/23/18 Procedure: Amputation left hallux Prepped and draped per standard. Timeout per facility protocol. Disarticulation of entire hallux with two semielliptical incisions, culture of remaining wound, followed by irrigation and primary closure with 2-0 nylon. Dressing with xeroform, 4x4, cast padding, malcom with no compression. No tourniquet utilized. Minimal intraoperative bleeding. Disposition: Weightbearing to left heel only in surgical shoe. Keep clean, dry, intact. Recommend patient have 2 weeks IV antibiotics due to limb-threatening infection and reduced vascularity to tissue to assist with healing. Recommend rehab x 2 weeks to assist with compliance and diabetes control due to exceptionally high blood sugars to assist with healing. Surgeon: Terri Walton DPM Sweat Box Attendant: staff Estimated blood loss (mL): 10 Pathology: other (1. culture left hallux. 2. left hallux to pathology) Condition: stable Disposition: PACU
--- NOTE | 2018-07-23 18:21 | XR ---
EXAM DATE: 07/23/2018 12:00 AM EDT AGE/SEX: 58 years / Female INDICATIONS: Post op left foot. CLINICAL DATA: This is the patient's subsequent encounter. Patient reports that signs and symptoms h ave been present for 3 days and indicates a pain score of 4/10. MEDICAL/SURGICAL HISTORY: . Diabetes mellitus type II. Chronic obstructive pulmonary disease. H ypertension. CAD . Hysterectomy. lower bowel surgery, vascular surgery COMPAR[place]: [facility] [place] 3V, 07/22/2018. . FINDINGS: Interval amputation of the first digit phalanges. The surgical site, there is a thin linear density m easuring 3 mm in length seen on all 3 views. This is of uncertain significance. The remainder of osse ous structures of the forefoot have a normal radiographic appearance.. CONCLUSION: 1. Postsurgical changes from recent first digit phalangeal amputation. 2. Thin linear density in the soft tissues at the surgical site seen on 3 views, of uncertain signif icance. Electronically signed by: Jl Remy MD 07/23/2018 6:19 PM EDT
--- NOTE | 2018-07-23 18:58 | MP ---
cc: Terri Walton DPM DATE OF OPERATION: 07/23/2018 INDICATIONS: The patient presented with a long history of a wound to the left plantar aspect of the great toe in the area of the interphalangeal joint. She has undergone wound care herself and has had multiple admissions for infections with imaging that had previously stated no evidence of osteomyelitis. She had a flare-up of redness, swelling, drainage to the great toe and has been revascularized to the left lower extremity. She was recommended to undergo amputation due to possible osteomyelitis and gangrenous changes and risk of contaminating her graft. She had MRI performed and an x-ray that both showed findings consistent with osteomyelitis in there and it was recommended to her by me that she undergo amputation of left great toe. She agreed to move forward with surgery. DESCRIPTION OF PROCEDURE: She was seen in preop holding by myself, nursing staff and anesthesia and correct patient, side, and site were all confirmed to be correct in the left hallux. Risks, benefits, and potential complications were explained in detail to the patient and she agreed to move forward with surgery. She was taken to the surgical suite in supine position, prepped and draped in the normal sterile fashion. Timeout was performed as per facility protocol followed by disarticulation of the great toe with 2 semi-elliptical incisions at the level of the metatarsophalangeal joint. The remaining tissue appeared to be healthy and viable, but minimal bleeding was noted at the surgical site. A culture was taken of the surgical wound followed by irrigation with normal saline and primary closure with 2-0 nylon suture. A dressing consisting of Xeroform, 4 x 4's, cast padding and [place] bandage was applied with no compression. She tolerated the procedure and anesthesia well without complications and was taken back to PACU with vital signs stable and vascular status intact to the remainder of the left lower extremity. No tourniquet was utilized. She will be weightbearing as tolerated only to the heel and surgical shoe and will keep the bandage clean, dry and intact, and I recommend that she have 2 weeks of IV antibiotics due to her limb threatening infection, as well as go to rehab if possible for 2 weeks to help with compliance. SHORT OPERATIVE NOTE SURGEON: Terri Walton DPM DELIVER DRIVER: Staff. PREOPERATIVE DIAGNOSIS: Osteomyelitis, left hallux. POSTOPERATIVE DIAGNOSIS: Osteomyelitis, left hallux. PROCEDURE PERFORMED: Amputation of left hallux. PATHOLOGY: 1. Culture, left hallux. 2. Left hallux to pathology. PROPHYLAXIS: Already on scheduled antibiotics. ANESTHESIA: General endotracheal anesthesia plus local consisting of 10 mL of 0.5% Marcaine plain. ESTIMATED BLOOD LOSS: Minimal. CONDITION: Stable to PACU. DISPOSITION: Weightbearing as tolerated to heel in surgical shoe only keep clean, dry and intact. Will assess the surgical site as healing progresses. ALYSSA Bui , 05:25 PM , 05:32 PM
[2018-07-23] MEDS: Insulin Detemir Inj 1,000 UNIT/10 ML Vial SQ SCH (21:11)
[2018-07-24] MEDS: Vancomycin Inj 1,250 MG in Sodium Chlor 0.9% Inj 250 ML IV.SIG SCH ×3 (00:59→23:20)
[2018-07-24] MEDS: Sod Chloride 0.9% Inj 1,000 ML IV.CONT SCH ×3 (06:20→18:06)
[2018-07-24 06:28] LABS: Blood Urea Nitrogen 11 mg/dL (7-18); Glomerular Filtration Rate Greater Than 89 mL/min (>89)
[2018-07-24] MEDS: Senna/Docusate Sodium 8.6/50 MG Tablet PO SCH ×2 (10:16→21:56)
[2018-07-24] MEDS: amLODIPine 5 MG Tablet PO SCH (10:17)
[2018-07-24] MEDS: Insulin NovoLOG Aspart Correctional Sugar Inj SQ SCH ×4 (10:20→22:29)
--- NOTE | 2018-07-24 12:53 | P.PN ---
Subjective Interval history: Follow up for left foot osteomyelitis. Patient is currently doing well. Denies any chest pain, shortness of breath, fever or chills. Pain is well controlled. Physical Exam Vital signs: Vital Signs 07/23/18 17:00 07/23/18 17:15 07/23/18 17:30 Temperature 98.2 F Pulse Rate 96 H 93 H 93 H Respiratory Rate 16 21 21 Blood Pressure 99/57 L 143/65 H 133/64 Pulse Oximetry 98 94 L 94 L 07/23/18 17:45 07/23/18 17:55 07/23/18 20:00 Temperature 98.1 F 97.5 F L Pulse Rate 95 H 95 H 117 H Respiratory Rate 22 22 18 Blood Pressure 131/66 122/67 140/67 Pulse Oximetry 95 96 91 L 07/23/18 21:12 07/24/18 00:00 07/24/18 00:56 Temperature 98 F Pulse Rate 84 Respiratory Rate 22 20 22 Blood Pressure 137/70 Pulse Oximetry 94 L 07/24/18 04:00 07/24/18 06:18 07/24/18 08:00 Temperature 97.1 F L 97.9 F Pulse Rate 92 H 88 Respiratory Rate 20 20 18 Blood Pressure 156/83 H 136/74 Pulse Oximetry 92 L Intake & Output 07/23/18 07/24/18 07/24/18 18:59 06:59 18:59 Intake Total 950 / 950 1362.5 / 1362.5 Output Total 10 / 10 Balance 940 / 940 1362.5 / 1362.5 Weight 74.6 kg Intake: IV 350 / 350 1362.5 / 1362.5 NS Inj 1,000 ML @ 100 mls/hr IV 1000 / 1000 .CONT .Q10H GIL Rx#:[id number] Maxipime Inj 1,000 MG In NS Inj 100 / 100 100 / 100 100 ML @ 200 mls/hr IV.SIG Q12H GIL Rx#:[id number] Vancomycin Inj 1,000 MG In NS 250 / 250 Inj 250 ML @ 250 mls/hr IV.SIG Q12H GIL Rx#:[id number] Vancomycin Inj 1,250 MG In NS 262.5 / 262.5 Inj 250 ML @ 250 mls/hr IV.SIG Q12H GIL Rx#:[id number] Oral 0 / 0 Anesthesia Amount 600 / 600 Output: Urine 0 / 0 Estimated Blood Loss 10 Other: # Voids 1 Date of Last Bowel Movement 07/21/18 Narrative: GENERAL: Anxious. SKIN: Focused skin assessment warm and dry. HEENT: PERRLA, EOMI. No scleral icterus or conjunctival pallor. No lid lag or facial droop. CARDIOVASCULAR: Regular rate and rhythm. No obvious murmurs to auscultation. No chest tenderness to palpation. RESPIRATORY: No obvious rhonchi or wheezing. Clear to auscultation. Breath sounds equal bilaterally. GASTROINTESTINAL: Abdomen soft, non-tender, nondistended. BS normal. MUSCULOSKELETAL: Extremities without clubbing, cyanosis, or edema. s/p left hallux amputation. Able to move all toes. NEUROLOGICAL: Awake, alert and oriented x4. No focal neurologic deficits. Moving both upper and lower extremities spontaneously. PSYCHIATRIC: Crying. Results - Labs CBC & Chem 7: 07/22/18 06:38 07/24/18 05:11 Laboratory Results - last 24 hr 07/23/18 07/23/18 07/23/18 07:26 17:08 18:26 BUN Creatinine Estimated GFR POC Glucose 215 H 161 H 164 H 07/23/18 07/24/18 07/24/18 21:03 05:11 08:28 BUN 11 Creatinine 0.62 Estimated GFR Greater than 89 POC Glucose 217 H 237 H 07/24/18 11:39 BUN Creatinine Estimated GFR POC Glucose 253 H Microbiology 07/21/18 15:00 Blood - Peripheral Aerobic Blood Culture - Preliminary No growth in 3 days 07/21/18 15:00 Blood - Peripheral Anaerobic Blood Culture - Preliminary No growth in 3 days 07/21/18 15:35 Blood - Peripheral Aerobic Blood Culture - Preliminary No growth in 3 days 07/21/18 15:35 Blood - Peripheral Anaerobic Blood Culture - Preliminary No growth in 3 days 07/23/18 16:42 Wound - Foot Fungal Smear - Final No fungal elements seen 07/23/18 16:42 Wound - Foot Gram Stain - Final 07/21/18 15:20 Clean Catch Urine Urine Culture - Final Escherichia coli - Imaging Impressions Foot X-Ray 07/23/18 00:00 CONCLUSION: 1. Postsurgical changes from recent first digit phalangeal amputation. 2. Thin linear density in the soft tissues at the surgical site seen on 3 views , of uncertain significance. Assessment and Plan - Assessment (1) Sepsis Code(s): A41.9 - Sepsis, unspecified organism Status: Acute (2) Postoperative wound infection Code(s): T81.4XXA - Infection following a procedure, initial encounter Status : Acute (3) COPD (chronic obstructive pulmonary disease) Code(s): J44.9 - Chronic obstructive pulmonary disease, unspecified Status: Acute (4) UTI (urinary tract infection) Code(s): N39.0 - Urinary tract infection, site not specified Status: Acute (5) Tobacco abuse Code(s): Z72.0 - Tobacco use Status: Acute (6) DM (diabetes mellitus) Code(s): E11.9 - Type 2 diabetes mellitus without complications Status: Acute - Plan Sepsis (HR 123, WBC 14, Lactic Acid 3.8, source-post op wound infection/toe infection. ) -continue IV Abx including cefepime and vancomycin. -follow up cultures. -IVFs. Left foot osteomyelitis S/p Fem-Pop bypass by Dr. Lainez on 07/02/18, wound w/ dehiscence and purulent drainage. Also with necrotic toe on LLE. MRI confirms osteomyelitis of left great toe. -continue w/ IV Abx. De-escalate abx based on culture and pathology reports. -vascular surgery and podiatry consults appreciated. s/p left great toe amputation by podiatry on 07/23/2018. -follow culture data. -pain control as needed. -PT/OT following procedure. UTI U/a w/ significant UTI. E coli growing in urine. -continue w/ IV Abx. COPD Chronic respiratory failure, recent admit w/ respiratory failure requiring intubation, currently controlled. -DuoNeb prn. -Counselled against smoking. -encourage ambulation. -incentive spirometry. Diabetes mellitus Hypertension -Sliding scale w/ Accu-Cheks. -Increase Levemir 15 units HS. Add pre-meal Aspart 5 units TIDAC -Continue Nifedipine. Full code.
--- NOTE | 2018-07-24 14:10 | P.PNVS ---
Subjective Subjective/Hospital Course: 58-year-old female known to me from previous encounters Underwent left femoral-popliteal bypass about 3 weeks ago. At the time she was noted to have incipient gangrene any reversible ischemia of the left greater toe but refused amputation. Patient was supposed to come to my office last week but failed to show up. Now comes back with partial dehiscence of the skin of the left groin incision and gangrene and osteomyelitis of the left greater toe Apparently throughout her stay patient has not been noncompliant with care continue to smoke and did not wash the incision is instructed Allegedly she had some home health visits bilateral how that went Physical examination reveals left femoral-popliteal graft to be patent with excellent Doppler signal Brisk popliteal artery signal in warm left foot Left greater toe is gangrenous and needs to be amputated for otherwise patient will get infection of the entire graft and it will lead to catastrophe for the time graft would need to be explanted and patient with end up with above-knee amputation. As far as left groin is concerned there is a small area of skin dehiscence with some fibrin in it and all given instructions for wound care No surgery is needed at this time 07/23/2018 Groin is now much area cleaner dressing has been applied and area washed Osteomyelitis of the greater toe and further care per podiatry Patient continues to smoke and there is a good chance that the toe amputation site will heal poorly due to this extensive small vessel disease. This patient is at high risk of below-knee amputation but with a patent femoral-popliteal graft at least she will not need an above-knee amputation should it come to it. Agree with podiatry 07/24/2018 Left groin incision is much area cleaner and is nicely healing by second intention Nothing to add from my point at this time Objective Vital Signs / I&O: Vital Signs 07/23/18 17:00 07/23/18 17:15 07/23/18 17:30 Temperature 98.2 F Pulse Rate 96 H 93 H 93 H Respiratory Rate 16 21 21 Blood Pressure 99/57 L 143/65 H 133/64 Pulse Oximetry 98 94 L 94 L 07/23/18 17:45 07/23/18 17:55 07/23/18 20:00 Temperature 98.1 F 97.5 F L Pulse Rate 95 H 95 H 117 H Respiratory Rate 22 22 18 Blood Pressure 131/66 122/67 140/67 Pulse Oximetry 95 96 91 L 07/23/18 21:12 07/24/18 00:00 07/24/18 00:56 Temperature 98 F Pulse Rate 84 Respiratory Rate 22 20 22 Blood Pressure 137/70 Pulse Oximetry 94 L 07/24/18 04:00 07/24/18 06:18 07/24/18 08:00 Temperature 97.1 F L 97.9 F Pulse Rate 92 H 88 Respiratory Rate 20 20 18 Blood Pressure 156/83 H 136/74 Pulse Oximetry 92 L 07/24/18 12:00 Temperature 98.1 F Pulse Rate 96 H Respiratory Rate 18 Blood Pressure 137/77 Pulse Oximetry 94 L Intake & Output 07/23/18 07/24/18 07/24/18 18:59 06:59 18:59 Intake Total 950 / 950 1362.5 / 1362.5 Output Total 10 / 10 Balance 940 / 940 1362.5 / 1362.5 Weight 74.6 kg Intake: IV 350 / 350 1362.5 / 1362.5 NS Inj 1,000 ML @ 100 mls/hr IV 1000 / 1000 .CONT .Q10H [facility] Rx#:[id number] Maxipime Inj 1,000 MG In NS Inj 100 / 100 100 / 100 100 ML @ 200 mls/hr IV.SIG Q12H [facility] Rx#:[id number] Vancomycin Inj 1,000 MG In NS 250 / 250 Inj 250 ML @ 250 mls/hr IV.SIG Q12H [facility] Rx#:[id number] Vancomycin Inj 1,250 MG In NS 262.5 / 262.5 Inj 250 ML @ 250 mls/hr IV.SIG Q12H [facility] Rx#:[id number] Oral 0 / 0 Anesthesia Amount 600 / 600 Output: Urine 0 / 0 Estimated Blood Loss 10 10 Other: # Voids 1 Date of Last Bowel Movement 07/21/18 Laboratory Results - last 24 hr 07/23/18 07/23/18 07/23/18 07:26 17:08 18:26 BUN Creatinine Estimated GFR POC Glucose 215 H 161 H 164 H 07/23/18 07/24/18 07/24/18 21:03 05:11 08:28 BUN 11 Creatinine 0.62 Estimated GFR Greater than 89 POC Glucose 217 H 237 H 07/24/18 11:39 BUN Creatinine Estimated GFR POC Glucose 253 H Microbiology 07/21/18 15:00 Aerobic Blood Culture - Preliminary Blood - Peripheral No growth in 3 days Anaerobic Blood Culture - Preliminary No growth in 3 days 07/21/18 15:35 Aerobic Blood Culture - Preliminary Blood - Peripheral No growth in 3 days Anaerobic Blood Culture - Preliminary No growth in 3 days 07/23/18 16:42 Fungal Smear - Final Wound - Foot No fungal elements seen 07/23/18 16:42 Gram Stain - Final Wound - Foot Impressions Foot X-Ray 07/22/18 00:00 CONCLUSION: Soft tissue swelling of the great toe with new bone erosion of the distal phalanx. Findings are suspicious for osteomyelitis in the proper clinical setting. Foot X-Ray 07/23/18 00:00 CONCLUSION: 1. Postsurgical changes from recent first digit phalangeal amputation. 2. Thin linear density in the soft tissues at the surgical site seen on 3 views , of uncertain significance. Foot MRI 07/23/18 07:01 CONCLUSION: 1. Marrow edema and enhancement with surrounding soft tissue swelling and ulceration involving the great toe characteristic of osteomyelitis.
[2018-07-24] MEDS: Morphine Inj 4 MG/ML Vial IV.PUSH PRN ×2 (18:11→23:26)
--- NOTE | 2018-07-24 22:26 | P.PNPOD ---
Subjective Interval history: s/p amputation left hallux, 07/23/18 Dr Walton Physical Exam Vital signs: Vital Signs 07/24/18 00:00 07/24/18 00:56 07/24/18 04:00 Temperature 98 F 97.1 F L Pulse Rate 84 92 H Respiratory Rate 20 22 20 Blood Pressure 137/70 156/83 H Pulse Oximetry 94 L 07/24/18 06:18 07/24/18 08:00 07/24/18 12:00 Temperature 97.9 F 98.1 F Pulse Rate 88 96 H Respiratory Rate 20 18 18 Blood Pressure 136/74 137/77 Pulse Oximetry 92 L 94 L 07/24/18 16:00 07/24/18 20:00 Temperature 97.9 F 97.8 F Pulse Rate 98 H 102 H Respiratory Rate 18 17 Blood Pressure 126/90 139/74 Pulse Oximetry 94 L 95 Intake & Output 07/24/18 07/24/18 07/25/18 06:59 18:59 06:59 Intake Total 1362.5 / 1362.5 940 / 940 Balance 1362.5 / 1362.5 940 / 940 Weight 74.6 kg Intake: IV 1362.5 / 1362.5 100 / 100 NS Inj 1,000 ML @ 100 mls/hr IV 1000 / 1000 .CONT .Q10H [facility] Rx#:[id number] Maxipime Inj 1,000 MG In NS Inj 100 / 100 100 / 100 100 ML @ 200 mls/hr IV.SIG Q12H [facility] Rx#:[id number] Vancomycin Inj 1,250 MG In NS 262.5 / 262.5 Inj 250 ML @ 250 mls/hr IV.SIG Q12H [facility] Rx#:[id number] Oral 840 / 840 Other: # Voids 1 5 Date of Last Bowel Movement 07/21/18 07/22/18 # Bowel Movements 3 Narrative: left foot dressing clean, dry, intact Medications and Allergies Active Medications: Active Medications Acetaminophen (Tylenol) 650 mg PO Q4H PRN PRN Reason: Temp > 100.4 Hydrocodone Bitart/Acetaminophen ([place] 5/325) 1 tab PO Q4H PRN PRN Reason: PAIN 3-5 Hydrocodone Bitart/Acetaminophen ([place] 10/325) 1 tab PO Q4H PRN PRN Reason: Pain 6-10 Last Admin: 07/24/18 21:55 Dose: 1 tab Al Hydroxide/Mg Hydroxide (Milk Of [place] Liq) 30 ml PO Q12H PRN PRN Reason: Mild Constipation Albuterol (Duoneb Neb (Prn)) 1 ampul NEB Q4HR NEB PRN PRN Reason: SOB/WHEEZING Amlodipine Besylate (Norvasc) 5 mg PO DAILY [facility] Last Admin: 07/24/18 10:17 Dose: 5 mg Bisacodyl (Dulcolax Supp) 10 mg RECTAL DAILY PRN PRN Reason: SEVERE CONSITIPATION Clonidine HCl (Catapres) 0.1 mg PO Q6H PRN PRN Reason: SBP>160,DBP>100;HR>60 Dextrose (D50w Vial) 50 ml IV.PUSH UNSCH PRN PRN Reason: PER HYPOGLYCEMIA PROTOCOL Glucagon (Glucagon Inj) 1 mg OTHER PRN PRN PRN Reason: for Hypoglycemia Protocol Sodium Chloride (Ns Inj) 1,000 mls @ 0 mls/hr IV.SIG BOLUS [facility] Last Infusion: 07/21/18 16:59 Dose: Infused Cefepime HCl 1,000 mg/ Sodium (Chloride) 100 mls @ 200 mls/hr IV.SIG Q12H [facility] Last Admin: 07/24/18 21:54 Dose: 200 mls/hr Sodium Chloride (Ns Inj) 1,000 mls @ 100 mls/hr IV.CONT .Q10H [facility] Last Admin: 07/24/18 18:06 Dose: Not Given Vancomycin HCl 1,250 mg/ (Sodium Chloride) 262.5 mls @ 250 mls/hr IV.SIG Q12H [facility] Last Infusion: 07/24/18 13:23 Dose: 0 mls/hr Insulin Aspart (Novolog Insulin Correctional Sugar Inj) 0 unit SQ ACHS [facility]; Protocol Last Admin: 07/24/18 18:05 Dose: 5 unit Insulin Aspart (Novolog Inj) 5 units SQ TIDAC [facility] Last Admin: 07/24/18 18:05 Dose: 5 units Insulin Detemir (Levemir Inj) 15 unit SQ HS [facility] Last Admin: 07/23/18 21:11 Dose: 15 unit Lactulose (Lactulose Liq) 30 ml PO DAILY PRN PRN Reason: SEVERE CONSITIPATION Lorazepam (Ativan) 0.5 mg PO Q8H PRN PRN Reason: ANXIETY Miscellaneous Information ([facility] [place]dered Lab Info) 1 each OTHER ONCE ONE Stop: 07/25/18 10:46 Morphine Sulfate (Morphine Inj) 4 mg IV.PUSH Q4H PRN PRN Reason: BREAKTHROUGH PAIN Last Admin: 07/24/18 18:11 Dose: 4 mg Nifedipine (Procardia Xl) 30 mg PO DAILY [facility] Last Admin: 07/24/18 10:16 Dose: 30 mg Ondansetron HCl (Zofran Inj) 4 mg IV.PUSH Q6H PRN PRN Reason: NAUSEA OR VOMITING Pharmacy Profile Note (Vancomycin Consult Pharmacy) 1 each OTHER UNSCH PRN PRN Reason: Pharmacy to dose Senna/Docusate Sodium ([place]-Colace) 1 tab PO BID [facility] Last Admin: 07/24/18 21:56 Dose: Not Given Sennosides (Senokot) 17.2 mg PO Q12H PRN PRN Reason: Moderate Constipation Allergies Allergy/AdvReac Type Severity Reaction Status Date / Time ciprofloxacin Allergy Severe Anaphylaxis Verified 07/21/18 15:24 levofloxacin Allergy Severe Anaphylaxis Verified 07/21/18 15:24 lisinopril AdvReac Intermediate Cough Verified 07/21/18 15:24 Home Medications Medication Instructions Recorded Confirmed Type Novolog U-100 Insulin aspart 20 unit SUB-Q DAILY 06/26/18 07/21/18 History clopidogrel [Plavix] 75 mg PO DAILY 06/26/18 07/21/18 History insulin glargine [Lantus U-100 20 unit SUB-Q DAILY 06/26/18 07/21/18 History Insulin] Results - Labs CBC & Chem 7: 07/22/18 06:38 07/24/18 05:11 Laboratory Results - last 24 hr 07/23/18 07/24/18 07/24/18 07:26 05:11 08:28 BUN 11 Creatinine 0.62 Estimated GFR Greater than 89 POC Glucose 215 H 237 H 07/24/18 07/24/18 11:39 16:40 BUN Creatinine Estimated GFR POC Glucose 253 H 270 H Microbiology 07/23/18 16:42 Wound - Foot Gram Stain - Final 07/23/18 16:42 Wound - Foot Wound Culture - Preliminary Staphylococcus coag positive 07/23/18 16:42 Wound - Foot Fungal Smear - Final No fungal elements seen 07/21/18 15:00 Blood - Peripheral Aerobic Blood Culture - Preliminary No growth in 3 days 07/21/18 15:00 Blood - Peripheral Anaerobic Blood Culture - Preliminary No growth in 3 days 07/21/18 15:35 Blood - Peripheral Aerobic Blood Culture - Preliminary No growth in 3 days 07/21/18 15:35 Blood - Peripheral Anaerobic Blood Culture - Preliminary No growth in 3 days Assessment and Plan - Assessment (1) Diabetic ulcer of left great toe Code(s): E11.621 - Type 2 diabetes mellitus with foot ulcer; L97.529 - Non- pressure chronic ulcer of other part of left foot with unspecified severity Status: Acute (2) Diabetic foot infection Code(s): E11.628 - Type 2 diabetes mellitus with other skin complications; L08.9 - Local infection of the skin and subcutaneous tissue, unspecified Status: Acute - Plan Keep dressing clean, dry, intact. May change tomorrow or Sunday to assess tissue viability. Recommend at least 2 weeks IV antibiotics to assist with limb salvage and healing. Follow up in clinic 1 week after discharge. Weightbearing to heel only for transfers left foot in surgical shoe.
[2018-07-24] MEDS: Insulin Detemir Inj 1,000 UNIT/10 ML Vial SQ SCH (22:28)
[2018-07-25] MEDS: Sod Chloride 0.9% Inj 1,000 ML IV.CONT SCH ×2 (04:14→15:06)
[2018-07-25 08:25] LABS: Blood Urea Nitrogen 11 mg/dL (7-18); Glomerular Filtration Rate Greater Than 89 mL/min (>89)
[2018-07-25] MEDS: Insulin NovoLOG Aspart Correctional Sugar Inj SQ SCH ×4 (09:46→21:24)
[2018-07-25] MEDS: amLODIPine 5 MG Tablet PO SCH (09:49)
[2018-07-25] MEDS: Senna/Docusate Sodium 8.6/50 MG Tablet PO SCH ×2 (09:51→21:16)
[2018-07-25] MEDS ORDERED: Pharmacy Ordered Lab Info OTHER ONE (10:45)
[2018-07-25] MEDS: Morphine Inj 4 MG/ML Vial IV.PUSH PRN ×3 (11:07→21:15)
[2018-07-25] MEDS: Vancomycin Inj 1,250 MG in Sodium Chlor 0.9% Inj 250 ML IV.SIG SCH ×2 (12:26→22:57)
--- NOTE | 2018-07-25 15:43 | P.PN ---
Subjective Interval history: Follow-up of left foot osteomyelitis July 25, 2018-patient seen and examined, quite anxious and complained of moderate left foot pain. Currently afebrile Physical Exam Vital signs: Vital Signs 07/24/18 16:00 07/24/18 20:00 07/25/18 00:00 Temperature 97.9 F 97.8 F 98.0 F Pulse Rate 98 H 102 H 102 H Respiratory Rate 18 17 17 Blood Pressure 126/90 139/74 160/74 H Pulse Oximetry 94 L 95 96 07/25/18 03:32 07/25/18 04:00 07/25/18 08:00 Temperature 98.1 F 98.0 F Pulse Rate 82 89 69 Respiratory Rate 16 Blood Pressure 149/81 H 115/80 Pulse Oximetry 93 L 98 07/25/18 12:00 07/25/18 14:09 Temperature 97.2 F L Pulse Rate 103 H 98 H Respiratory Rate 16 Blood Pressure 181/77 H Pulse Oximetry 96 Intake & Output 07/24/18 07/25/18 07/25/18 18:59 06:59 18:59 Intake Total 1202.5 / 1202.5 662.5 / 662.5 Balance 1202.5 / 1202.5 662.5 / 662.5 Weight 74.5 kg Intake: IV 362.5 / 362.5 362.5 / 362.5 Maxipime Inj 1,000 MG In NS Inj 100 / 100 100 / 100 100 ML @ 200 mls/hr IV.SIG Q12H [facility] Rx#:[id number] Vancomycin Inj 1,250 MG In NS 262.5 / 262.5 262.5 / 262.5 Inj 250 ML @ 250 mls/hr IV.SIG Q12H [facility] Rx#:[id number] Oral 840 / 840 300 / 300 Other: # Voids 5 4 Date of Last Bowel Movement 07/22/18 07/24/18 # Bowel Movements 3 1 Narrative: GENERAL: Anxious. SKIN: Focused skin assessment warm and dry. HEENT: PERRLA, EOMI. No scleral icterus or conjunctival pallor. No lid lag or facial droop. CARDIOVASCULAR: Regular rate and rhythm. No obvious murmurs to auscultation. No chest tenderness to palpation. RESPIRATORY: No obvious rhonchi or wheezing. Clear to auscultation. Breath sounds equal bilaterally. GASTROINTESTINAL: Abdomen soft, non-tender, nondistended. BS normal. MUSCULOSKELETAL: Extremities without clubbing, cyanosis, or edema. s/p left hallux amputation. NEUROLOGICAL: Awake, alert and oriented x4. No focal neurologic deficits. Moving both upper and lower extremities spontaneously. Results - Labs CBC & Chem 7: 07/22/18 06:38 07/25/18 06:53 Laboratory Results - last 24 hr 07/24/18 07/24/18 07/25/18 16:40 22:19 06:53 BUN 11 Creatinine 0.57 Estimated GFR Greater than 89 POC Glucose 270 H 214 H Vancomycin Trough 07/25/18 07/25/18 07/25/18 07:24 11:20 11:52 BUN Creatinine Estimated GFR POC Glucose 230 H 313 H Vancomycin Trough 16.6 H Microbiology 07/23/18 16:42 Wound - Foot Acid Fast Bacilli Smear - Final No acid fast bacilli seen 07/23/18 16:42 Wound - Foot Gram Stain - Final 07/23/18 16:42 Wound - Foot Wound Culture - Final S. aureus MRSA 07/21/18 15:00 Blood - Peripheral Aerobic Blood Culture - Preliminary No growth in 4 days 07/21/18 15:00 Blood - Peripheral Anaerobic Blood Culture - Preliminary No growth in 4 days 07/21/18 15:35 Blood - Peripheral Aerobic Blood Culture - Preliminary No growth in 4 days 07/21/18 15:35 Blood - Peripheral Anaerobic Blood Culture - Preliminary No growth in 4 days 07/23/18 16:42 Wound - Foot Fungal Smear - Final No fungal elements seen - Procedures Status post left hallux amputation Assessment and Plan - Assessment (1) Sepsis Code(s): A41.9 - Sepsis, unspecified organism Status: Acute (2) Postoperative wound infection Code(s): T81.4XXA - Infection following a procedure, initial encounter Status : Acute (3) COPD (chronic obstructive pulmonary disease) Code(s): J44.9 - Chronic obstructive pulmonary disease, unspecified Status: Acute (4) UTI (urinary tract infection) Code(s): N39.0 - Urinary tract infection, site not specified Status: Acute (5) Tobacco abuse Code(s): Z72.0 - Tobacco use Status: Acute (6) DM (diabetes mellitus) Code(s): E11.9 - Type 2 diabetes mellitus without complications Status: Acute - Plan 58-year-old female with Left foot osteomyelitis S/p Fem-Pop bypass by Dr. Lainez on 07/02/18, wound w/ dehiscence and purulent drainage. Also with necrotic toe on LLE. MRI confirms osteomyelitis of left great toe. -continue w/ IV Abx. De-escalate abx based on culture and pathology reports. -vascular surgery and podiatry ff. s/p left great toe amputation by podiatry on 07/23/2018. -follow culture data. Consider ID consultation -pain control as needed. -PT/OT following procedure. UTI U/a w/ significant UTI. E coli growing in urine. -continue w/ IV Abx. COPD Chronic respiratory failure, recent admit w/ respiratory failure requiring intubation, currently controlled. -DuoNeb prn. -Counselled against smoking. Diabetes mellitus Hypertension -Sliding scale w/ Accu-Cheks. -Continue Levemir 15 units HS and pre-meal Aspart 5 units TIDAC -Continue Nifedipine.
--- NOTE | 2018-07-25 16:03 | P.PNPOD ---
Subjective Interval history: Pt is s/p left hallux amputation with on 07/23. She denies any pain but states that she has severe anxiety about being discharged home. Physical Exam Vital signs: Vital Signs 07/24/18 16:00 07/24/18 20:00 07/25/18 00:00 Temperature 97.9 F 97.8 F 98.0 F Pulse Rate 98 H 102 H 102 H Respiratory Rate 18 17 17 Blood Pressure 126/90 139/74 160/74 H Pulse Oximetry 94 L 95 96 07/25/18 03:32 07/25/18 04:00 07/25/18 08:00 Temperature 98.1 F 98.0 F Pulse Rate 82 89 69 Respiratory Rate 16 Blood Pressure 149/81 H 115/80 Pulse Oximetry 93 L 98 07/25/18 12:00 07/25/18 14:09 Temperature 97.2 F L Pulse Rate 103 H 98 H Respiratory Rate 16 Blood Pressure 181/77 H Pulse Oximetry 96 Intake & Output 07/24/18 07/25/18 07/25/18 18:59 06:59 18:59 Intake Total 1202.5 / 1202.5 662.5 / 662.5 Balance 1202.5 / 1202.5 662.5 / 662.5 Weight 74.5 kg Intake: IV 362.5 / 362.5 362.5 / 362.5 Maxipime Inj 1,000 MG In NS Inj 100 / 100 100 / 100 100 ML @ 200 mls/hr IV.SIG Q12H [facility] Rx#:[id number] Vancomycin Inj 1,250 MG In NS 262.5 / 262.5 262.5 / 262.5 Inj 250 ML @ 250 mls/hr IV.SIG Q12H [facility] Rx#:[id number] Oral 840 / 840 300 / 300 Other: # Voids 5 4 Date of Last Bowel Movement 07/22/18 07/24/18 # Bowel Movements 3 1 Narrative: Left hallux amputation site is well coapted with sutures intact. Slight avila wound erythema. Mild edema. No drainage. Medications and Allergies Active Medications: Active Medications Acetaminophen (Tylenol) 650 mg PO Q4H PRN PRN Reason: Temp > 100.4 Hydrocodone Bitart/Acetaminophen ([place] 5/325) 1 tab PO Q4H PRN PRN Reason: PAIN 3-5 Hydrocodone Bitart/Acetaminophen ([place] 10/325) 1 tab PO Q4H PRN PRN Reason: Pain 6-10 Last Admin: 07/25/18 15:27 Dose: 1 tab Al Hydroxide/Mg Hydroxide (Milk Of [place]) 30 ml PO Q12H PRN PRN Reason: Mild Constipation Albuterol (Duoneb Neb (Prn)) 1 ampul NEB Q4HR NEB PRN PRN Reason: SOB/WHEEZING Amlodipine Besylate (Norvasc) 5 mg PO DAILY [facility] Last Admin: 07/25/18 09:49 Dose: 5 mg Bisacodyl (Dulcolax Supp) 10 mg RECTAL DAILY PRN PRN Reason: SEVERE CONSITIPATION Clonidine HCl (Catapres) 0.1 mg PO Q6H PRN PRN Reason: SBP>160,DBP>100;HR>60 Last Admin: 07/25/18 15:29 Dose: 0.1 mg Dextrose (D50w Vial) 50 ml IV.PUSH UNSCH PRN PRN Reason: PER HYPOGLYCEMIA PROTOCOL Glucagon (Glucagon Inj) 1 mg OTHER PRN PRN PRN Reason: for Hypoglycemia Protocol Sodium Chloride (Ns Inj) 1,000 mls @ 0 mls/hr IV.SIG BOLUS [facility] Last Infusion: 07/21/18 16:59 Dose: Infused Cefepime HCl 1,000 mg/ Sodium (Chloride) 100 mls @ 200 mls/hr IV.SIG Q12H [facility] Last Infusion: 07/25/18 10:33 Dose: 0 mls/hr Sodium Chloride (Ns Inj) 1,000 mls @ 100 mls/hr IV.CONT .Q10H [facility] Last Infusion: 07/25/18 15:06 Dose: 0 mls/hr Vancomycin HCl 1,250 mg/ (Sodium Chloride) 262.5 mls @ 250 mls/hr IV.SIG Q12H [facility] Last Infusion: 07/25/18 14:02 Dose: 0 mls/hr Insulin Aspart (Novolog Insulin Correctional Sugar Inj) 0 unit SQ ACHS [facility]; Protocol Last Admin: 07/25/18 12:23 Dose: 7 unit Insulin Aspart (Novolog Inj) 5 units SQ TIDAC [facility] Last Admin: 07/25/18 12:24 Dose: 5 units Insulin Detemir (Levemir Inj) 15 unit SQ HS [facility] Last Admin: 07/24/18 22:28 Dose: 15 unit Lactulose (Lactulose Liq) 30 ml PO DAILY PRN PRN Reason: SEVERE CONSITIPATION Lorazepam (Ativan) 0.5 mg PO Q8H PRN PRN Reason: ANXIETY Morphine Sulfate (Morphine Inj) 4 mg IV.PUSH Q4H PRN PRN Reason: BREAKTHROUGH PAIN Last Admin: 07/25/18 11:07 Dose: 4 mg Nifedipine (Procardia Xl) 30 mg PO DAILY [facility] Last Admin: 07/25/18 09:50 Dose: 30 mg Ondansetron HCl (Zofran Inj) 4 mg IV.PUSH Q6H PRN PRN Reason: NAUSEA OR VOMITING Pharmacy Profile Note (Vancomycin Consult Pharmacy) 1 each OTHER UNSCH PRN PRN Reason: Pharmacy to dose Senna/Docusate Sodium ([place]-Colace) 1 tab PO BID [facility] Last Admin: 07/25/18 09:51 Dose: Not Given Sennosides (Senokot) 17.2 mg PO Q12H PRN PRN Reason: Moderate Constipation Allergies Allergy/AdvReac Type Severity Reaction Status Date / Time ciprofloxacin Allergy Severe Anaphylaxis Verified 07/21/18 15:24 levofloxacin Allergy Severe Anaphylaxis Verified 07/21/18 15:24 lisinopril AdvReac Intermediate Cough Verified 07/21/18 15:24 Home Medications Medication Instructions Recorded Confirmed Type Novolog U-100 Insulin aspart 20 unit SUB-Q DAILY 06/26/18 07/21/18 History clopidogrel [Plavix] 75 mg PO DAILY 06/26/18 07/21/18 History insulin glargine [Lantus U-100 20 unit SUB-Q DAILY 06/26/18 07/21/18 History Insulin] Results - Labs CBC & Chem 7: 07/22/18 06:38 07/25/18 06:53 Laboratory Results - last 24 hr 07/24/18 07/24/18 07/25/18 16:40 22:19 06:53 BUN 11 Creatinine 0.57 Estimated GFR Greater than 89 POC Glucose 270 H 214 H Vancomycin Trough 07/25/18 07/25/18 07/25/18 07:24 11:20 11:52 BUN Creatinine Estimated GFR POC Glucose 230 H 313 H Vancomycin Trough 16.6 H Microbiology 07/23/18 16:42 Wound - Foot Acid Fast Bacilli Smear - Final No acid fast bacilli seen 07/23/18 16:42 Wound - Foot Gram Stain - Final 07/23/18 16:42 Wound - Foot Wound Culture - Final S. aureus MRSA 07/21/18 15:00 Blood - Peripheral Aerobic Blood Culture - Preliminary No growth in 4 days 07/21/18 15:00 Blood - Peripheral Anaerobic Blood Culture - Preliminary No growth in 4 days 07/21/18 15:35 Blood - Peripheral Aerobic Blood Culture - Preliminary No growth in 4 days 07/21/18 15:35 Blood - Peripheral Anaerobic Blood Culture - Preliminary No growth in 4 days 07/23/18 16:42 Wound - Foot Fungal Smear - Final No fungal elements seen - Procedures Status post left hallux amputation Assessment and Plan - Assessment (1) Diabetic ulcer of left great toe Code(s): E11.621 - Type 2 diabetes mellitus with foot ulcer; L97.529 - Non- pressure chronic ulcer of other part of left foot with unspecified severity Status: Acute (2) Diabetic foot infection Code(s): E11.628 - Type 2 diabetes mellitus with other skin complications; L08.9 - Local infection of the skin and subcutaneous tissue, unspecified Status: Acute - Plan - Minimal WBing in surgical shoe - Cont iv abx - requesting 2 weeks iv abx at d/c - Pt requesting SNF at d/c - Dr.J nolasco pt and has made patient well aware that she is a high risk, for limb lose due to poor circulation and smoking. No plans from vascular at this time.
--- NOTE | 2018-07-25 20:54 | P.PNVS ---
Subjective Subjective/Hospital Course: 58-year-old female known to me from previous encounters Underwent left femoral-popliteal bypass about 3 weeks ago. At the time she was noted to have incipient gangrene any reversible ischemia of the left greater toe but refused amputation. Patient was supposed to come to my office last week but failed to show up. Now comes back with partial dehiscence of the skin of the left groin incision and gangrene and osteomyelitis of the left greater toe Apparently throughout her stay patient has not been noncompliant with care continue to smoke and did not wash the incision is instructed Allegedly she had some home health visits bilateral how that went Physical examination reveals left femoral-popliteal graft to be patent with excellent Doppler signal Brisk popliteal artery signal in warm left foot Left greater toe is gangrenous and needs to be amputated for otherwise patient will get infection of the entire graft and it will lead to catastrophe for the time graft would need to be explanted and patient with end up with above-knee amputation. As far as left groin is concerned there is a small area of skin dehiscence with some fibrin in it and all given instructions for wound care No surgery is needed at this time 07/23/2018 Groin is now much can cleaner dressing has been applied and area washed Osteomyelitis of the greater toe and further care per podiatry Patient continues to smoke and there is a good chance that the toe amputation site will heal poorly due to this extensive small vessel disease. This patient is at high risk of below-knee amputation but with a patent femoral-popliteal graft at least she will not need an above-knee amputation should it come to it. Agree with podiatry 07/24/2018 Left groin incision is much can cleaner and is nicely healing by second intention Nothing to add from my point at this time 07/25/2018 Left groin wound looks much can cleaner now that is been taken care off and patient should keep it clean at home once she gets discharged Blood flow to the foot remains precarious and is limited by the small vessel disease so there is nothing further I can reconstruct here surgically. Hopefully the toe amputation site will heal but if it does not I explained to the patient that she is at high risk of having higher level foot amputation and even ending up with below-knee amputation at some point Patient has excellent flow and Doppler signal in the femoropopliteal graft and popliteal artery Patient swears that she will not smoke again however every time we discharged her she continues to smoke so there it is Objective Vital Signs / I&O: Vital Signs 07/25/18 00:00 07/25/18 03:32 07/25/18 04:00 Temperature 98.0 F 98.1 F Pulse Rate 102 H 82 89 Respiratory Rate 17 Blood Pressure 160/74 H 149/81 H Pulse Oximetry 96 93 L 07/25/18 08:00 07/25/18 12:00 07/25/18 14:09 Temperature 98.0 F 97.2 F L Pulse Rate 69 103 H 98 H Respiratory Rate 16 16 Blood Pressure 115/80 181/77 H Pulse Oximetry 98 96 Intake & Output 07/25/18 07/25/18 07/26/18 06:59 18:59 06:59 Intake Total 662.5 / 662.5 Balance 662.5 / 662.5 Weight 74.5 kg Intake: IV 362.5 / 362.5 Maxipime Inj 1,000 MG In NS Inj 100 / 100 100 ML @ 200 mls/hr IV.SIG Q12H [facility] Rx#:[id number] Vancomycin Inj 1,250 MG In NS 262.5 / 262.5 Inj 250 ML @ 250 mls/hr IV.SIG Q12H [facility] Rx#:[id number] Oral 300 / 300 Other: # Voids 4 1 Date of Last Bowel Movement 07/24/18 # Bowel Movements 1 Laboratory Results - last 24 hr 07/24/18 07/25/18 07/25/18 22:19 06:53 07:24 BUN 11 Creatinine 0.57 Estimated GFR Greater than 89 POC Glucose 214 H 230 H Vancomycin Trough 07/25/18 07/25/18 07/25/18 11:20 11:52 16:20 BUN Creatinine Estimated GFR POC Glucose 313 H 202 H Vancomycin Trough 16.6 H Microbiology 07/23/18 16:42 Acid Fast Bacilli Smear - Final Wound - Foot No acid fast bacilli seen 07/23/18 16:42 Gram Stain - Final Wound - Foot Wound Culture - Final S. aureus MRSA 07/21/18 15:00 Aerobic Blood Culture - Preliminary Blood - Peripheral No growth in 4 days Anaerobic Blood Culture - Preliminary No growth in 4 days 07/21/18 15:35 Aerobic Blood Culture - Preliminary Blood - Peripheral No growth in 4 days Anaerobic Blood Culture - Preliminary No growth in 4 days
[2018-07-25] MEDS: Insulin Detemir Inj 1,000 UNIT/10 ML Vial SQ SCH (21:25)
[2018-07-26] MEDS: Sod Chloride 0.9% Inj 1,000 ML IV.CONT SCH ×3 (01:03→21:48)
[2018-07-26] MEDS: Morphine Inj 4 MG/ML Vial IV.PUSH PRN ×4 (02:49→22:35)
[2018-07-26 05:23] LABS: Blood Urea Nitrogen 10 mg/dL (7-18); Glomerular Filtration Rate Greater Than 89 mL/min (>89)
[2018-07-26] MEDS: amLODIPine 5 MG Tablet PO SCH (09:31)
[2018-07-26] MEDS: Senna/Docusate Sodium 8.6/50 MG Tablet PO SCH ×2 (09:31→21:50)
[2018-07-26] MEDS: Insulin NovoLOG Aspart Correctional Sugar Inj SQ SCH ×4 (09:32→21:49)
--- NOTE | 2018-07-26 09:53 | P.PN ---
Subjective Interval history: Follow-up of left foot osteomyelitis July 25, 2018-patient seen and examined, quite anxious and complained of moderate left foot pain. Currently afebrile July 26, 2018-patient seen and examined, was crying quite anxious about losing her lower extremity. Afebrile. No chest pain or shortness of breath. Physical Exam Vital signs: Vital Signs 07/25/18 12:00 07/25/18 14:09 07/25/18 20:00 Temperature 97.2 F L 98.2 F Pulse Rate 103 H 98 H 110 H Respiratory Rate 16 14 Blood Pressure 181/77 H 147/82 H Pulse Oximetry 96 96 07/26/18 00:00 07/26/18 04:00 07/26/18 06:00 Temperature 98.2 F 97.5 F L Pulse Rate 86 56 L 77 Respiratory Rate 14 16 Blood Pressure 129/71 162/80 H Pulse Oximetry 94 L 93 L Intake & Output 07/25/18 07/26/18 07/26/18 18:59 06:59 18:59 Intake Total 262.5 / 262.5 462.5 / 462.5 Balance 262.5 / 262.5 462.5 / 462.5 Weight 74.5 kg Intake: IV 262.5 / 262.5 462.5 / 462.5 Maxipime Inj 1,000 MG In NS Inj 200 / 200 100 ML @ 200 mls/hr IV.SIG Q12H [facility] Rx#:[id number] Vancomycin Inj 1,250 MG In NS 262.5 / 262.5 262.5 / 262.5 Inj 250 ML @ 250 mls/hr IV.SIG Q12H [facility] Rx#:[id number] Other: # Voids 1 3 Date of Last Bowel Movement 07/24/18 07/25/18 07/25/18 # Bowel Movements 1 Narrative: GENERAL: Anxious. SKIN: Focused skin assessment warm and dry. HEENT: PERRLA, EOMI. No scleral icterus or conjunctival pallor. No lid lag or facial droop. CARDIOVASCULAR: Regular rate and rhythm. No obvious murmurs to auscultation. No chest tenderness to palpation. RESPIRATORY: No obvious rhonchi or wheezing. Clear to auscultation. Breath sounds equal bilaterally. GASTROINTESTINAL: Abdomen soft, non-tender, nondistended. BS normal. MUSCULOSKELETAL: Extremities without clubbing, cyanosis, or edema. s/p left hallux amputation. NEUROLOGICAL: Awake, alert and oriented x4. No focal neurologic deficits. Moving both upper and lower extremities spontaneously. Results - Labs CBC & Chem 7: 07/22/18 06:38 07/26/18 04:45 Laboratory Results - last 24 hr 07/25/18 07/25/18 07/25/18 11:20 11:52 16:20 BUN Creatinine Estimated GFR POC Glucose 313 H 202 H Vancomycin Trough 16.6 H 07/25/18 07/26/18 07/26/18 21:18 04:45 09:21 BUN 10 Creatinine 0.51 Estimated GFR Greater than 89 POC Glucose 267 H 255 H Vancomycin Trough Microbiology 07/23/18 16:42 Wound - Foot Acid Fast Bacilli Smear - Final No acid fast bacilli seen 07/23/18 16:42 Wound - Foot Gram Stain - Final 07/23/18 16:42 Wound - Foot Wound Culture - Final S. aureus MRSA 07/21/18 15:00 Blood - Peripheral Aerobic Blood Culture - Preliminary No growth in 4 days 07/21/18 15:00 Blood - Peripheral Anaerobic Blood Culture - Preliminary No growth in 4 days 07/21/18 15:35 Blood - Peripheral Aerobic Blood Culture - Preliminary No growth in 4 days 07/21/18 15:35 Blood - Peripheral Anaerobic Blood Culture - Preliminary No growth in 4 days - Procedures Status post left hallux amputation Assessment and Plan - Assessment (1) Sepsis Code(s): A41.9 - Sepsis, unspecified organism Status: Acute (2) Postoperative wound infection Code(s): T81.4XXA - Infection following a procedure, initial encounter Status : Acute (3) COPD (chronic obstructive pulmonary disease) Code(s): J44.9 - Chronic obstructive pulmonary disease, unspecified Status: Acute (4) UTI (urinary tract infection) Code(s): N39.0 - Urinary tract infection, site not specified Status: Acute (5) Tobacco abuse Code(s): Z72.0 - Tobacco use Status: Acute (6) DM (diabetes mellitus) Code(s): E11.9 - Type 2 diabetes mellitus without complications Status: Acute - Plan 58-year-old female with Left foot osteomyelitis S/p Fem-Pop bypass by Dr. Lainez on 07/02/18, wound w/ dehiscence and purulent drainage. Also with necrotic toe on LLE. MRI confirms osteomyelitis of left great toe. -continue w/ IV Abx. -vascular surgery and podiatry ff. s/p left great toe amputation by podiatry on 07/23/2018. -follow culture data. ID consultation placed today July 26, 2018 -pain control as needed. -PT/OT following procedure. UTI U/a w/ significant UTI. E coli growing in urine. -continue w/ IV Abx. COPD Chronic respiratory failure, recent admit w/ respiratory failure requiring intubation, currently controlled. -DuoNeb prn. -Counselled against smoking. Diabetes mellitus Hypertension -Sliding scale w/ Accu-Cheks. -Continue Levemir 15 units HS and pre-meal Aspart 5 units TIDAC -Continue Nifedipine.
--- NOTE | 2018-07-26 09:57 | P.CONID ---
History of Present Illness Service: Infectious disease Requesting Physician: Curly Muniz Reason for Consult: Evaluate patient with diabetic foot ulcer L great toe Primary Care Provider: Ammy Nj History of Present Illness: Patient seen and examined. Records reviewed. Patient is a 58-year-old female, presented to the hospital for further evaluation of her left great toe, as well as some drainage from her left groin incision. Patient was recently hospitalized June 26 - July 04 and at that time she presented with redness and pain on her left big toe. Evaluation revealed no evidence of osteomyelitis on the MRI. She was also found to have significant peripheral vascular disease. She underwent femoropopliteal bypass grafting on July 02 using PTFE graft. On reviewing her discharge instruction she was on some pain medication and I did not see any antibiotic in the list. She was on IV antibiotics in the hospital, and there was a stool for C. difficile that came back positive and she was on oral vancomycin. Patient has known tobacco abuse but apparently has stopped smoking. This time she came back and she had evidence of infection on her left big toe. There is some wound dehiscence on her left groin. Patient underwent amputation of her left big toe. Pathology did not show any evidence on the margins, and there is evidence of soft tissue inflammation on the biopsy. Culture from the foot is growing MRSA. On this admission she also had an abnormal urinalysis and the urine culture has E. coli. Patient is not febrile. She complains of on and off pain on her left lower extremity from the groin all the way to the foot. Her WBC is mildly elevated. Infectious disease consultation has been requested to evaluate the patient. Review of Systems Constitutional: Denies chills, Denies fever(s), Denies headache(s), Denies night sweats Eyes: Denies discharge, Denies dry eyes Ears, Nose, Mouth, and Throat: Reports ear pain, Denies difficulty swallowing, Denies ear discharge, Denies facial pain, Denies nasal congestion, Denies nasal discharge, Denies sore throat Cardiovascular: Denies chest pain, Denies shortness of breath Respiratory: Denies chest congestion, Denies cough, Denies shortness of breath Gastrointestinal: Reports abdominal pain, Reports loose stools, Denies nausea, Denies vomiting Genitourinary: Denies difficulty urinating, Denies painful urination Musculoskeletal: Reports joint pain Skin/Breast: Denies rash, Denies sores Neurologic: Denies headache(s) PMFSH - History History Provided By: Patient - Medical History Medical History: Medical History (Last Updated 07/26/18 @ 09:54 by Crystal Sanchez MD) H/O: hysterectomy (Acute) Carotid artery disease (Acute) Hernia (Acute) Diabetes (Acute) COPD (chronic obstructive pulmonary disease) HTN (hypertension) PVD (peripheral vascular disease) - Surgical History Surgical History: Surgical History (Last Updated 07/26/18 @ 09:55 by Crystal Sanchez MD) H/O heart artery stent (Acute) Hx of tonsillectomy S/P femoral-popliteal bypass surgery - Family History Family History: Family History (Last Reviewed 07/26/18 @ 09:55 by Crystal Sanchez MD) Mother Family history of cancer - Tobacco History Second Hand Smoke Exposure: No Tobacco Use In Past 30 Days: Yes Smoking Status: Current every day smoker Tobacco Type: Cigarettes - Alcohol History How Often Do You Have a Drink Containing Alcohol: Never - Substance Use History Substance History: Active Abuse - Substance Use Type Marijuana Type: cannabis Status: Active Route Used: Inhalation Frequency: once weekly Reason for Use: Calm Down Comment: when not in pain she doesn't smoke it - Travel History Recent Travel in the [place] Within the Last 8 Weeks: No Recent Travel Out of the Country Within the Last 8 Weeks: No - Immunization History Tetanus Immunization: >5 Years Hx Influenza Vaccine This Season: No Medications and Allergies Active Medications: Active Medications Acetaminophen (Tylenol) 650 mg PO Q4H PRN PRN Reason: Temp > 100.4 Hydrocodone Bitart/Acetaminophen ([place] 5/325) 1 tab PO Q4H PRN PRN Reason: PAIN 3-5 Hydrocodone Bitart/Acetaminophen ([place] 10/325) 1 tab PO Q4H PRN PRN Reason: Pain 6-10 Last Admin: 07/26/18 09:31 Dose: 1 tab Al Hydroxide/Mg Hydroxide (Milk Of Magnesia Liq) 30 ml PO Q12H PRN PRN Reason: Mild Constipation Albuterol (Duoneb Neb (Prn)) 1 ampul NEB Q4HR NEB PRN PRN Reason: SOB/WHEEZING Amlodipine Besylate (Norvasc) 5 mg PO DAILY [facility] Last Admin: 07/26/18 09:31 Dose: 5 mg Bisacodyl (Dulcolax Supp) 10 mg RECTAL DAILY PRN PRN Reason: SEVERE CONSITIPATION Clonidine HCl (Catapres) 0.1 mg PO Q6H PRN PRN Reason: SBP>160,DBP>100;HR>60 Last Admin: 07/25/18 15:29 Dose: 0.1 mg Dextrose (D50w Vial) 50 ml IV.PUSH UNSCH PRN PRN Reason: PER HYPOGLYCEMIA PROTOCOL Glucagon (Glucagon Inj) 1 mg OTHER PRN PRN PRN Reason: for Hypoglycemia Protocol Sodium Chloride (Ns Inj) 1,000 mls @ 0 mls/hr IV.SIG BOLUS [facility] Last Infusion: 07/21/18 16:59 Dose: Infused Cefepime HCl 1,000 mg/ Sodium (Chloride) 100 mls @ 200 mls/hr IV.SIG Q12H [facility] Last Admin: 07/26/18 09:31 Dose: 200 mls/hr Sodium Chloride (Ns Inj) 1,000 mls @ 100 mls/hr IV.CONT .Q10H [facility] Last Admin: 07/26/18 01:03 Dose: 100 mls/hr Vancomycin HCl 1,250 mg/ (Sodium Chloride) 262.5 mls @ 250 mls/hr IV.SIG Q12H [facility] Last Infusion: 07/26/18 01:03 Dose: Infused Insulin Aspart (Novolog Insulin Correctional Sugar Inj) 0 unit SQ ACHS [facility]; Protocol Last Admin: 07/26/18 09:32 Dose: 5 unit Insulin Aspart (Novolog Inj) 5 units SQ TIDAC [facility] Last Admin: 07/26/18 09:32 Dose: 5 units Insulin Detemir (Levemir Inj) 15 unit SQ HS [facility] Last Admin: 07/25/18 21:25 Dose: 15 unit Lactulose (Lactulose Liq) 30 ml PO DAILY PRN PRN Reason: SEVERE CONSITIPATION Lorazepam (Ativan) 0.5 mg PO Q8H PRN PRN Reason: ANXIETY Morphine Sulfate (Morphine Inj) 4 mg IV.PUSH Q4H PRN PRN Reason: BREAKTHROUGH PAIN Last Admin: 07/26/18 02:49 Dose: 4 mg Nifedipine (Procardia Xl) 30 mg PO DAILY [facility] Last Admin: 07/26/18 09:31 Dose: 30 mg Ondansetron HCl (Zofran Inj) 4 mg IV.PUSH Q6H PRN PRN Reason: NAUSEA OR VOMITING Pharmacy Profile Note (Vancomycin Consult Pharmacy) 1 each OTHER UNSCH PRN PRN Reason: Pharmacy to dose Senna/Docusate Sodium (Elidia-Colace) 1 tab PO BID [facility] Last Admin: 07/26/18 09:31 Dose: 1 tab Sennosides (Senokot) 17.2 mg PO Q12H PRN PRN Reason: Moderate Constipation Allergies Allergy/AdvReac Type Severity Reaction Status Date / Time ciprofloxacin Allergy Severe Anaphylaxis Verified 07/21/18 15:24 levofloxacin Allergy Severe Anaphylaxis Verified 07/21/18 15:24 lisinopril AdvReac Intermediate Cough Verified 07/21/18 15:24 Home Medications Medication Instructions Recorded Confirmed Type Novolog U-100 Insulin aspart 20 unit SUB-Q DAILY 06/26/18 07/21/18 History clopidogrel [Plavix] 75 mg PO DAILY 06/26/18 07/21/18 History insulin glargine [Lantus U-100 20 unit SUB-Q DAILY 06/26/18 07/21/18 History Insulin] Exam Vital signs: Vital Signs 07/25/18 12:00 07/25/18 14:09 07/25/18 20:00 Temperature 97.2 F L 98.2 F Pulse Rate 103 H 98 H 110 H Respiratory Rate 16 14 Blood Pressure 181/77 H 147/82 H Pulse Oximetry 96 96 07/26/18 00:00 07/26/18 04:00 07/26/18 06:00 Temperature 98.2 F 97.5 F L Pulse Rate 86 56 L 77 Respiratory Rate 14 16 Blood Pressure 129/71 162/80 H Pulse Oximetry 94 L 93 L Intake & Output 07/25/18 07/26/18 07/26/18 18:59 06:59 18:59 Intake Total 262.5 / 262.5 462.5 / 462.5 Balance 262.5 / 262.5 462.5 / 462.5 Weight 74.5 kg Intake: IV 262.5 / 262.5 462.5 / 462.5 Maxipime Inj 1,000 MG In NS Inj 200 / 200 100 ML @ 200 mls/hr IV.SIG Q12H [facility] Rx#:[id number] Vancomycin Inj 1,250 MG In NS 262.5 / 262.5 262.5 / 262.5 Inj 250 ML @ 250 mls/hr IV.SIG Q12H [facility] Rx#:[id number] Other: # Voids 1 3 Date of Last Bowel Movement 07/24/18 07/25/18 07/25/18 # Bowel Movements 1 Narrative: Physical Examination GENERAL: Patient is a well-nourished, well-developed female, awake and alert , not in respiratory distress. SKIN: Cool and dry. No generalized rash, no ecchymoses and no evidence of embolic lesions. HEAD: Atraumatic. Normocephalic. No temporal wasting, or tenderness. EYES: [place] conjunctiva. No petechia or hemorrhage. Pupils equal, round and reactive to light. Extraocular movements full and intact. No scleral icterus. No injection or drainage. EARS, NOSE AND THROAT: Nose without bleeding or purulent nasal discharge. No sinus tenderness. Mucous membranes pink and moist. No oral lesions noted. No exudate. No oral thrush. NECK: Trachea midline. Supple and not tender, no meningeal signs CARDIOVASCULAR: Regular rate and rhythm. No murmurs, rubs or gallops heard RESPIRATORY: Clear to auscultation. Breath sounds equal bilaterally. No rales , wheezing or rhonchi ABDOMEN: Soft, non-tender, mildly distended. Has midline scar from previous hernia repair. Bowel sounds present and normoactive. No guarding. No rebound. No organomegaly. L groin there is a small area of dehiscence with small amount of slough, no purulence, no periwound erythema, no induration EXTREMITIES: No clubbing, cyanosis. Mild edema on her L foot, amputation site with an area of black eschar, no drainage, min erythema on dorsum. No joint effusion. No calf tenderness. Well perfused and warm. NEUROLOGICAL: Awake and alert. Cranial nerves grossly intact. Motor grossly within normal limits. PSYCHIATRIC: Normal affect, calm and cooperative. LINE: No evidence of infection Results - Labs CBC & Chem 7: 07/22/18 06:38 07/26/18 04:45 Labs: Laboratory Results - last 24 hr 07/25/18 07/25/18 07/25/18 11:20 11:52 16:20 BUN Creatinine Estimated GFR POC Glucose 313 H 202 H Vancomycin Trough 16.6 H 07/25/18 07/26/18 07/26/18 21:18 04:45 09:21 BUN 10 Creatinine 0.51 Estimated GFR Greater than 89 POC Glucose 267 H 255 H Vancomycin Trough Assessment and Plan - Plan Impression Infection L great toe, with osteo, and cellulitis, S/P amputation - margins clear - C/S MRSA UTI, E coli PVD, S/P fempop bypass using PTFE with small wound dehiscence Hx tobacco abuse Recommendation Continue Cefepime for now Add Flagyl Continue vanco - 2 weeks IV Abx per podiatry - end date will be August 05 Repeat UA Check stool for C diff - having diarrhea now L foot still at risk per vascular surgery due to small vessel disease - will give IV Abx to give her amputation site better chance of healing and controlling infection PICC Will ask CM to evaluate for home IV Abx Thank you for this consultation
--- NOTE | 2018-07-26 10:47 | P.DCO ---
Post Hospital Infusion Therapy Patient Weight: 74.5 kg - Diagnosis (1) Diabetic foot infection Code(s): E11.628 - Type 2 diabetes mellitus with other skin complications; L08.9 - Local infection of the skin and subcutaneous tissue, unspecified (2) MRSA (methicillin resistant Staphylococcus aureus) infection Code(s): A49.02 - Methicillin resistant Staphylococcus aureus infection, unspecified site - Administer Medication Vancomycin Additional Dosing Instructions: Vanco 1.25 gm IV q12H Stop Treatment: 08/05/18 - Additional Information Venous Access: PICC Line Additional Instructions: [x] Peripheral flush and dressing changes per protocol [x] Implanted port and central power lineman: * Implanted port: 10 ml Normal Saline followed by 5 ml Heparin 100 units/ml Heparin flush after each use and monthly to maintain. [] May leave port accessed during therapy. [] May leave peripheral site accessed for duration of therapy. [x] If patient has SOB or respiratory distress, check oxygen saturation. If less than 90% or clinical signs of respiratory distress, administer oxygen at 2 L/min. via nasal cannula and notify physician. [x] Anaphylaxis/Reaction orders: * Stop infusion. * Keep IV line open with saline flush. * Notify physician. * Monitor vital signs every 15 minutes until symptoms resolve. * Check Oxygen saturation; Oxygen at 2 L/min. via nasal cannula if less than 90% or clinical signs of respiratory distress. * Administer diphenhydramine (Benadryl) 25 mg IV STAT, (unless patient has received as pre-med). May repeat once, if necessary. * Solu-Cortef 250 mg IVP over 30-60 seconds, use 100 mg vials for each dissolution. * Epinephrine (1mg/1 ml) 0.3 mg subcutaneously or IVP now with any signs of respiratory distress. * Check with physician for new additional pre-med orders if patient is re- challenged or re-treated. [x] May remove PICC line when treatment complete. [x] If the patient is admitted to the hospital, the ED, or transferred via [facility] , complete transfer form including medication reconciliation order sheet. Weekly Labs: CBC w/diff, Creatinine, Vancomycin Trough (Labs every Sunday - copy to nj) Allergies ciprofloxacin Allergy (Severe, Verified 07/21/18 15:24) Anaphylaxis heart stops levofloxacin Allergy (Severe, Verified 07/21/18 15:24) Anaphylaxis stopped her heart lisinopril Adverse Reaction (Intermediate, Verified 07/21/18 15:24) Cough sEVERE DRY COUGH
[2018-07-26] MEDS: Vancomycin Inj 1,250 MG in Sodium Chlor 0.9% Inj 250 ML IV.SIG SCH ×2 (12:01→23:13)
[2018-07-26] MEDS ORDERED: Heparin Central Flush 100 UNIT/ML 5 ML Vial IV.FLUSH PRN (13:41)
--- NOTE | 2018-07-26 13:41 | XR ---
EXAM DATE: 07/26/2018 1:19 PM EDT AGE/SEX: 58 years / Female INDICATIONS: Right sided PICC placement. CLINICAL DATA: This is the patient's initial encounter. Patient reports that signs and symptoms have been present for 1 day and indicates a pain score of 0/10. MEDICAL/SURGICAL HISTORY: Asthma. Chronic obstructive pulmonary disease. Hypercholesterolemia . Diabetes mellitus type 2 Colon resection. Hysterectomy. COMPARISON: C, CHEST 1V SINGLE AP, 07/21/2018. . FINDINGS: Right-sided PICC line at the cavoatrial junction. A single AP view of the chest demonstrates the lung s to be symmetrically aerated without evidence of mass, infiltrate or effusion. The cardiomediastina l contours are unremarkable. Osseous structures are intact. CONCLUSION: 1. Right PICC line tip at the cavoatrial junction. Electronically signed by: Ayaan Alejo MD 07/26/2018 1:39 PM EDT
[2018-07-26] MEDS: Heparin Central Flush 100 UNIT/ML 5 ML Vial IV.FLUSH SCH (17:08)
[2018-07-26] MEDS: metroNIDAZOLE 500 MG Tablet PO SCH ×2 (17:08→21:47)
[2018-07-26] MEDS: Insulin Detemir Inj 1,000 UNIT/10 ML Vial SQ SCH (21:49)
[2018-07-27] MEDS: metroNIDAZOLE 500 MG Tablet PO SCH ×3 (05:59→21:50)
[2018-07-27] MEDS: Sod Chloride 0.9% Inj 1,000 ML IV.CONT SCH ×2 (06:00→17:39)
[2018-07-27 06:51] LABS: Blood Urea Nitrogen 13 mg/dL (7-18); Glomerular Filtration Rate Greater Than 89 mL/min (>89)
[2018-07-27] MEDS: Insulin NovoLOG Aspart Correctional Sugar Inj SQ SCH ×4 (09:41→22:19)
[2018-07-27] MEDS: Heparin Central Flush 100 UNIT/ML 5 ML Vial IV.FLUSH SCH (09:43)
[2018-07-27] MEDS: amLODIPine 5 MG Tablet PO SCH (09:44)
[2018-07-27] MEDS: Senna/Docusate Sodium 8.6/50 MG Tablet PO SCH ×2 (09:44→21:50)
[2018-07-27] MEDS: Morphine Inj 4 MG/ML Vial IV.PUSH PRN (09:45)
[2018-07-27] MEDS: Vancomycin Inj 1,250 MG in Sodium Chlor 0.9% Inj 250 ML IV.SIG SCH (10:27)
--- NOTE | 2018-07-27 11:36 | P.PN ---
Subjective Interval history: Follow-up of left foot osteomyelitis July 25, 2018-patient seen and examined, quite anxious and complained of moderate left foot pain. Currently afebrile July 26, 2018-patient seen and examined, was crying quite anxious about losing her lower extremity. Afebrile. No chest pain or shortness of breath. July 27, 2088-patient seen and examined, no complaint, no acute event overnight, stable. Reports improvement of diarrheal episode. PICC line inserted yesterday Physical Exam Vital signs: Vital Signs 07/26/18 12:00 07/26/18 16:00 07/26/18 20:00 Temperature 98.1 F 97.8 F 97.8 F Pulse Rate 94 H 97 H 113 H Respiratory Rate 18 18 19 Blood Pressure 186/81 H 156/73 H 177/86 H Pulse Oximetry 97 95 95 07/27/18 00:00 07/27/18 04:00 07/27/18 06:33 Temperature 97.8 F 98 F Pulse Rate 90 98 H Respiratory Rate 16 16 18 Blood Pressure 168/78 H 164/77 H Pulse Oximetry 97 96 07/27/18 08:00 Temperature 98 F Pulse Rate 88 Respiratory Rate 20 Blood Pressure 167/79 H Pulse Oximetry 91 L Intake & Output 07/26/18 07/27/18 07/27/18 18:59 06:59 18:59 Intake Total 1762.5 / 1762.5 1842.5 / 1842.5 360 / 360 Output Total 400 / 400 Balance 1362.5 / 1362.5 1842.5 / 1842.5 360 / 360 Weight 74.5 kg 70.4 kg Intake: IV 1362.5 / 1362.5 1362.5 / 1362.5 NS Inj 1,000 ML @ 100 mls/hr IV 1000 / 1000 1000 / 1000 .CONT .Q10H [facility] Rx#:[id number] Maxipime Inj 1,000 MG In NS Inj 100 / 100 100 / 100 100 ML @ 200 mls/hr IV.SIG Q12H [facility] Rx#:[id number] Vancomycin Inj 1,250 MG In NS 262.5 / 262.5 262.5 / 262.5 Inj 250 ML @ 250 mls/hr IV.SIG Q12H [facility] Rx#:[id number] Oral 400 / 400 480 / 480 360 / 360 Output: Urine 400 / 400 Other: # Voids 3 Date of Last Bowel Movement 07/25/18 07/26/18 # Bowel Movements 1 Narrative: GENERAL: NAD SKIN: Focused skin assessment warm and dry. HEENT: PERRLA, EOMI. No scleral icterus or conjunctival pallor. No lid lag or facial droop. CARDIOVASCULAR: Regular rate and rhythm. No obvious murmurs to auscultation. No chest tenderness to palpation. RESPIRATORY: No obvious rhonchi or wheezing. Clear to auscultation. Breath sounds equal bilaterally. GASTROINTESTINAL: Abdomen soft, non-tender, nondistended. BS normal. MUSCULOSKELETAL: Extremities without clubbing, cyanosis, or edema. s/p left hallux amputation. NEUROLOGICAL: Awake, alert and oriented x4. No focal neurologic deficits. Moving both upper and lower extremities spontaneously. Results - Labs CBC & Chem 7: 07/22/18 06:38 07/27/18 06:05 Laboratory Results - last 24 hr 07/26/18 07/26/18 07/26/18 11:27 16:52 17:15 BUN Creatinine Estimated GFR POC Glucose 330 H 194 H Stl C.difficile Tox PCR Negative St C. diff Tox Epid 027 Negative 07/26/18 07/27/18 07/27/18 21:18 06:05 08:03 BUN 13 Creatinine 0.57 Estimated GFR Greater than 89 POC Glucose 268 H 214 H Stl C.difficile Tox PCR St C. diff Tox Epid 027 Microbiology 07/21/18 15:00 Blood - Peripheral Aerobic Blood Culture - Final No growth in 5 days 07/21/18 15:00 Blood - Peripheral Anaerobic Blood Culture - Final No growth in 5 days 07/21/18 15:35 Blood - Peripheral Aerobic Blood Culture - Final No growth in 5 days 07/21/18 15:35 Blood - Peripheral Anaerobic Blood Culture - Final No growth in 5 days - Imaging Impressions Chest X-Ray 07/26/18 13:19 CONCLUSION: 1. Right PICC line tip at the cavoatrial junction. - Procedures Status post left hallux amputation Assessment and Plan - Assessment (1) Sepsis Code(s): A41.9 - Sepsis, unspecified organism Status: Acute (2) Postoperative wound infection Code(s): T81.4XXA - Infection following a procedure, initial encounter Status : Acute (3) COPD (chronic obstructive pulmonary disease) Code(s): J44.9 - Chronic obstructive pulmonary disease, unspecified Status: Acute (4) UTI (urinary tract infection) Code(s): N39.0 - Urinary tract infection, site not specified Status: Acute (5) Tobacco abuse Code(s): Z72.0 - Tobacco use Status: Acute (6) DM (diabetes mellitus) Code(s): E11.9 - Type 2 diabetes mellitus without complications Status: Acute - Plan 58-year-old female with Left foot osteomyelitis S/p Fem-Pop bypass by Dr. Lainez on 07/02/18, wound w/ dehiscence and purulent drainage. Also with necrotic toe on LLE. MRI confirms osteomyelitis of left great toe. -vascular surgery and podiatry ff. s/p left great toe amputation by podiatry on 07/23/2018. -Currently on vancomycin until August 05, 2018 per ID. Continue with cefepime and Flagyl. C. difficile PCR negative -pain control as needed. -PT/OT following procedure. -Strongly counseled on tobacco cessation UTI U/a w/ significant UTI. E coli growing in urine. -continue w/ IV Abx. COPD Chronic respiratory failure, recent admit w/ respiratory failure requiring intubation, currently controlled. -DuoNeb prn. -Counselled against smoking. Diabetes mellitus Hypertension -Sliding scale w/ Accu-Cheks. -Continue Levemir 15 units HS and pre-meal Aspart 5 units TIDAC -Continue Nifedipine.
[2018-07-27] MEDS: Insulin Detemir Inj 1,000 UNIT/10 ML Vial SQ SCH (22:19)
--- NOTE | 2018-07-27 22:39 | XR ---
EXAM DATE: 07/27/2018 10:05 PM EDT AGE/SEX: 58 years / Female INDICATIONS: Pain. CLINICAL DATA: This is the patient's subsequent encounter. Patient reports that signs and symptoms h ave been present for 2 days and indicates a pain score of 7/10. MEDICAL/SURGICAL HISTORY: . Asthma. Chronic obstructive pulmonary disease. Hypercholesterolemia . Diabetes mellitus type 2 . Colon resection. Hysterectomy. Left foot digit amputation. COMPARISON: [facility], XR ABDOMEN KUB, 06/12/2016. . FINDINGS: No dilated loops of small or large bowel. Hemoclips in the right flank. Phleboliths in the right pel vis. Several calcifications in the soft tissues adjacent to the right lateral acetabulum. The visuali zed lower lungs are clear. CONCLUSION: No dilated loops of small or large bowel. Electronically signed by: Jl Remy MD 07/27/2018 10:38 PM EDT
--- NOTE | 2018-07-27 22:41 | XR ---
EXAM DATE: 07/27/2018 10:06 PM EDT AGE/SEX: 58 years / Female INDICATIONS: Central line placement. CLINICAL DATA: This is the patient's subsequent encounter. Patient reports that signs and symptoms h ave been present for 2 days and indicates a pain score of 3/10. MEDICAL/SURGICAL HISTORY: . Asthma. Chronic obstructive pulmonary disease. Hypercholesterolemia . Diabetes mellitus type 2 . Colon resection. Hysterectomy. Left foot digit amputation. COMPARISON: [facility] [place], CHEST 1V SINGLE AP, 07/26/2018. . FINDINGS: A single AP view of the chest demonstrates the lungs to be symmetrically aerated without evidence of mass, infiltrate or effusion. The cardiomediastinal contours are unremarkable. Stable right posterio r lateral fourth and fifth rib fractures.. Right PICC line catheter tip in the distal superior vena c hemanth. No central line seen. No evidence of pneumothorax. CONCLUSION: PICC line catheter at the cavoatrial junction, unchanged from prior. No central line seen. The lungs are clear. No evidence of pneumothorax. Electronically signed by: Jl Remy MD 07/27/2018 10:40 PM EDT
[2018-07-28] MEDS: Vancomycin Inj 1,250 MG in Sodium Chlor 0.9% Inj 250 ML IV.SIG SCH ×3 (00:16→23:52)
[2018-07-28] MEDS: Sod Chloride 0.9% Inj 1,000 ML IV.CONT SCH ×3 (04:00→23:44)
[2018-07-28] MEDS: metroNIDAZOLE 500 MG Tablet PO SCH ×3 (06:05→21:44)
[2018-07-28 06:34] LABS: Glomerular Filtration Rate Greater Than 89 mL/min (>89)
--- NOTE | 2018-07-28 09:26 | P.PN ---
Subjective Interval history: Follow-up of left foot osteomyelitis July 25, 2018-patient seen and examined, quite anxious and complained of moderate left foot pain. Currently afebrile July 26, 2018-patient seen and examined, was crying quite anxious about losing her lower extremity. Afebrile. No chest pain or shortness of breath. July 27, 2018-patient seen and examined, no complaint, no acute event overnight, stable. Reports improvement of diarrheal episode. PICC line inserted yesterday July 28, 2018-patient seen and examined, she had multiple somatic complaints overnight including chest and abdominal pain however all imaging studies were negative. Patient states she would like to stay 1 more day. Physical Exam Vital signs: Vital Signs 07/27/18 12:00 07/27/18 16:00 07/27/18 20:00 Temperature 97.8 F 97.1 F L 97.8 F Pulse Rate 78 102 H 107 H Respiratory Rate 20 20 18 Blood Pressure 188/84 H 131/83 162/78 H Pulse Oximetry 96 97 95 07/27/18 20:30 07/28/18 00:00 07/28/18 03:01 Temperature 97.7 F Pulse Rate 100 H 86 Respiratory Rate 18 18 Blood Pressure 162/79 H Pulse Oximetry 97 07/28/18 04:00 07/28/18 04:30 07/28/18 05:29 Temperature 97.8 F Pulse Rate 91 H 80 93 H Respiratory Rate 18 Blood Pressure 163/77 H Pulse Oximetry 97 07/28/18 08:00 Temperature 97.6 F Pulse Rate 85 Respiratory Rate 20 Blood Pressure 156/85 H Pulse Oximetry 94 L Intake & Output 07/27/18 07/28/18 07/28/18 18:59 06:59 18:59 Intake Total 1962.5 / 1962.5 1362.5 / 1362.5 Output Total 2 / 2 Balance 1960.5 / 1960.5 1362.5 / 1362.5 Weight 70.4 kg Intake: IV 1362.5 / 1362.5 1362.5 / 1362.5 NS Inj 1,000 ML @ 100 mls/hr IV 1000 / 1000 1000 / 1000 .CONT .Q10H [facility] Rx#:[id number] Maxipime Inj 1,000 MG In NS Inj 100 / 100 100 / 100 100 ML @ 200 mls/hr IV.SIG Q12H [facility] Rx#:[id number] Vancomycin Inj 1,250 MG In NS 262.5 / 262.5 262.5 / 262.5 Inj 250 ML @ 250 mls/hr IV.SIG Q12H [facility] Rx#:[id number] Oral 600 / 600 Output: Urine 2 / 2 Other: # Voids 3 3 Date of Last Bowel Movement 07/26/18 07/26/18 Narrative: GENERAL: NAD SKIN: Focused skin assessment warm and dry. HEENT: PERRLA, EOMI. No scleral icterus or conjunctival pallor. No lid lag or facial droop. CARDIOVASCULAR: Regular rate and rhythm. No obvious murmurs to auscultation. No chest tenderness to palpation. RESPIRATORY: No obvious rhonchi or wheezing. Clear to auscultation. Breath sounds equal bilaterally. GASTROINTESTINAL: Abdomen soft, non-tender, nondistended. BS normal. MUSCULOSKELETAL: Extremities without clubbing, cyanosis, or edema. s/p left hallux amputation. NEUROLOGICAL: Awake, alert and oriented x4. No focal neurologic deficits. Moving both upper and lower extremities spontaneously. Results - Labs CBC & Chem 7: 07/22/18 06:38 07/28/18 05:55 Laboratory Results - last 24 hr 07/27/18 07/27/18 07/27/18 11:52 17:36 21:52 Creatinine Estimated GFR POC Glucose 285 H 202 H 219 H 07/28/18 07/28/18 05:55 07:56 Creatinine 0.61 Estimated GFR Greater than 89 POC Glucose 244 H - Imaging Impressions Abdomen X-Ray 07/27/18 22:05 CONCLUSION: No dilated loops of small or large bowel. Chest X-Ray 07/27/18 22:06 CONCLUSION: PICC line catheter at the cavoatrial junction, unchanged from prior. No central line seen. The lungs are clear. No evidence of pneumothorax. - Procedures Status post left hallux amputation Assessment and Plan - Assessment (1) Sepsis Code(s): A41.9 - Sepsis, unspecified organism Status: Acute (2) Postoperative wound infection Code(s): T81.4XXA - Infection following a procedure, initial encounter Status : Acute (3) COPD (chronic obstructive pulmonary disease) Code(s): J44.9 - Chronic obstructive pulmonary disease, unspecified Status: Acute (4) UTI (urinary tract infection) Code(s): N39.0 - Urinary tract infection, site not specified Status: Acute (5) Tobacco abuse Code(s): Z72.0 - Tobacco use Status: Acute (6) DM (diabetes mellitus) Code(s): E11.9 - Type 2 diabetes mellitus without complications Status: Acute - Plan 58-year-old female with Left foot osteomyelitis S/p Fem-Pop bypass by Dr. Lainez on 07/02/18, wound w/ dehiscence and purulent drainage. Also with necrotic toe on LLE. MRI confirms osteomyelitis of left great toe. -vascular surgery and podiatry ff. s/p left great toe amputation by podiatry on 07/23/2018. -Currently on vancomycin until August 05, 2018 per ID. Continue with cefepime and Flagyl. C. difficile PCR negative -pain control as needed. -PT/OT following procedure. -Strongly counseled on tobacco cessation UTI U/a w/ significant UTI. E coli growing in urine. -continue w/ IV Abx. COPD Chronic respiratory failure, recent admit w/ respiratory failure requiring intubation, currently controlled. -DuoNeb prn. -Counselled against smoking. Diabetes mellitus Hypertension -Sliding scale w/ Accu-Cheks. -Continue Levemir 15 units HS and pre-meal Aspart 5 units TIDAC -Continue Nifedipine. Multiple somatic complaints including abdominal and chest pain overnight Chest and abdominal x-rays are negative. Symptoms resolved
[2018-07-28] MEDS: Insulin NovoLOG Aspart Correctional Sugar Inj SQ SCH ×4 (09:40→21:44)
[2018-07-28] MEDS: amLODIPine 10 MG Tablet PO SCH (09:41)
[2018-07-28] MEDS: Senna/Docusate Sodium 8.6/50 MG Tablet PO SCH ×2 (09:41→21:45)
[2018-07-28] MEDS: Heparin Central Flush 100 UNIT/ML 5 ML Vial IV.FLUSH SCH (09:47)
[2018-07-28] MEDS ORDERED: Pharmacy Ordered Lab Info OTHER ONE (10:45)
[2018-07-28 11:19] LABS: Baso # (Auto) 0.1 th/mm3 (0.0-0.2); Baso % (Auto) 0.8 % (0.0-2.0); Eos # (Auto) 0.2 th/mm3 (0.0-0.4); Eos % (Auto) 2.5 % (0.0-4.0); Hematocrit 38.9 % (35.0-46.0); Hemoglobin 12.8 gm/dL (11.6-15.3); Lymph # (Auto) 1.2 th/mm3 (1.0-4.8); Lymph % (Auto) 12.5 % (9.0-44.0); Mean Corpuscular HGB Conc 32.9 % (32.0-36.0); Mean Corpuscular Volume 94.1 fL (80.0-100.0); Mean Platelet Volume 7.8 fL (7.0-11.0); Mono # (Auto) 0.9 th/mm3 (0.0-0.9); Mono % (Auto) 9.2 % (0.0-8.0); Neut # (Auto) 7.2 th/mm3 (1.8-7.7); Platelet Count 363 th/mm3 (150-450); Red Blood Count 4.14 mil/mm3 (4.00-5.30); Red Cell Distribution Width 13.6 % (11.6-17.2); White Blood Count 9.6 th/mm3 (4.0-11.0)
[2018-07-28 11:37] LABS: Albumin 2.6 g/dL (3.4-5.0); Anion Gap 11 meq/L (5-15); Aspartate Aminotransferase 16 U/L (15-37); Blood Urea Nitrogen 12 mg/dL (7-18); Calcium 8.6 mg/dL (8.5-10.1); Carbon Dioxide 26.8 meq/L (21.0-32.0); Chloride 101 meq/L (98-107); Glomerular Filtration Rate 71 mL/min (>89); Glucose,Random 346 mg/dL (74-106); Potassium 3.1 meq/L (3.5-5.1); Sodium 139 meq/L (136-145)
[2018-07-28 11:38] LABS: Alanine Aminotransferase 22 U/L (10-53)
[2018-07-28 11:40] LABS: Alkaline Phosphatase 88 U/L (45-117); Total Protein 6.7 g/dL (6.4-8.2); Vancomycin,Trough 16.3 mcg/mL (5.0-10.0)
[2018-07-28] MEDS: Insulin Detemir Inj 1,000 UNIT/10 ML Vial SQ SCH (21:44)
[2018-07-29] MEDS: metroNIDAZOLE 500 MG Tablet PO SCH ×3 (05:38→14:52)
[2018-07-29] MEDS: Heparin Central Flush 100 UNIT/ML 5 ML Vial IV.FLUSH SCH (08:46)
[2018-07-29] MEDS: Senna/Docusate Sodium 8.6/50 MG Tablet PO SCH (08:46)
[2018-07-29] MEDS: amLODIPine 10 MG Tablet PO SCH (08:47)
[2018-07-29] MEDS: Insulin NovoLOG Aspart Correctional Sugar Inj SQ SCH ×3 (08:48→17:14)
--- NOTE | 2018-07-29 09:05 | P.PN ---
Subjective Interval history: Follow-up of left foot osteomyelitis July 25, 2018-patient seen and examined, quite anxious and complained of moderate left foot pain. Currently afebrile July 26, 2018-patient seen and examined, was crying quite anxious about losing her lower extremity. Afebrile. No chest pain or shortness of breath. July 27, 2018-patient seen and examined, no complaint, no acute event overnight, stable. Reports improvement of diarrheal episode. PICC line inserted yesterday July 28, 2018-patient seen and examined, she had multiple somatic complaints overnight including chest and abdominal pain however all imaging studies were negative. Patient states she would like to stay 1 more day. July 29, 2018-patient seen and examined, no acute event overnight. Afebrile. Denies any left lower extremity pain. Physical Exam Vital signs: Vital Signs 07/28/18 12:00 07/28/18 16:00 07/28/18 20:00 Temperature 97.4 F L 97.7 F 98.0 F Pulse Rate 102 H 93 H 98 H Respiratory Rate 20 20 18 Blood Pressure 154/71 H 152/75 H 181/87 H Pulse Oximetry 95 95 98 07/28/18 20:30 07/29/18 00:00 07/29/18 00:30 Temperature 97.8 F Pulse Rate 124 H 80 84 Respiratory Rate 18 Blood Pressure 159/78 H Pulse Oximetry 96 07/29/18 03:04 07/29/18 04:00 07/29/18 06:49 Temperature 97.6 F Pulse Rate 90 75 Respiratory Rate 18 18 Blood Pressure 137/65 Pulse Oximetry 97 07/29/18 08:46 Temperature Pulse Rate Respiratory Rate 14 Blood Pressure Pulse Oximetry Intake & Output 07/28/18 07/29/18 07/29/18 18:59 06:59 18:59 Intake Total 362.5 / 362.5 362.5 / 362.5 Output Total 7 / 7 Balance 355.5 / 355.5 362.5 / 362.5 Weight 70.4 kg Intake: IV 362.5 / 362.5 362.5 / 362.5 Maxipime Inj 1,000 MG In NS Inj 100 / 100 100 / 100 100 ML @ 200 mls/hr IV.SIG Q12H [facility] Rx#:[id number] Vancomycin Inj 1,250 MG In NS 262.5 / 262.5 262.5 / 262.5 Inj 250 ML @ 250 mls/hr IV.SIG Q12H [facility] Rx#:[id number] Output: Urine 5 / 5 Stool 2 / 2 Other: # Voids 3 Date of Last Bowel Movement 07/28/18 Results - Labs CBC & Chem 7: 07/28/18 10:58 07/28/18 10:58 Laboratory Results - last 24 hr 07/28/18 07/28/18 07/28/18 10:58 10:58 10:58 WBC 9.6 RBC 4.14 Hgb 12.8 Hct 38.9 MCV 94.1 MCH 31.0 MCHC 32.9 RDW 13.6 Plt Count 363 MPV 7.8 Neut % (Auto) 75.0 H Lymph % (Auto) 12.5 [place] % (Auto) 9.2 H Eos % (Auto) 2.5 Baso % (Auto) 0.8 Neut # (Auto) 7.2 Lymph # (Auto) 1.2 [place] # (Auto) 0.9 Eos # (Auto) 0.2 Baso # (Auto) 0.1 WBC Differential . Differential Comment Auto diff final Sodium 139 Potassium 3.1 L Chloride 101 Carbon Dioxide 26.8 Anion Gap 11 BUN Cancelled 12 Creatinine 0.82 Estimated GFR 71 L POC Glucose Random Glucose 346 H Calcium 8.6 Total Bilirubin 0.2 AST 16 ALT 22 Alkaline Phosphatase 88 Total Protein 6.7 Albumin 2.6 L Vancomycin Trough Cancelled 16.3 H 07/28/18 07/28/18 07/28/18 11:31 16:56 21:10 WBC RBC Hgb Hct MCV MCH MCHC RDW Plt Count MPV Neut % (Auto) Lymph % (Auto) [place] % (Auto) Eos % (Auto) Baso % (Auto) Neut # (Auto) Lymph # (Auto) [place] # (Auto) Eos # (Auto) Baso # (Auto) WBC Differential Differential Comment Sodium Potassium Chloride Carbon Dioxide Anion Gap BUN Creatinine Estimated GFR POC Glucose 351 H 283 H 276 H Random Glucose Calcium Total Bilirubin AST ALT Alkaline Phosphatase Total Protein Albumin Vancomycin Trough - Procedures Status post left hallux amputation Assessment and Plan - Assessment (1) Sepsis Code(s): A41.9 - Status: Acute (2) Postoperative wound infection Code(s): T81.4XXA - Status: Acute (3) COPD (chronic obstructive pulmonary disease) Code(s): J44.9 - Status: Acute (4) UTI (urinary tract infection) Code(s): N39.0 - Status: Acute (5) Tobacco abuse Code(s): Z72.0 - Status: Acute (6) DM (diabetes mellitus) Code(s): E11.9 - Status: Acute - Plan 58-year-old female with Left foot osteomyelitis S/p Fem-Pop bypass by Dr. Lainez on 07/02/18, wound w/ dehiscence and purulent drainage. Also with necrotic toe on LLE. MRI confirms osteomyelitis of left great toe. -vascular surgery and podiatry ff. s/p left great toe amputation by podiatry on 07/23/2018. -Currently on vancomycin until August 05, 2018 per ID. Continue with cefepime and Flagyl. C. difficile PCR negative -pain control as needed. -PT/OT following procedure. -Strongly counseled on tobacco cessation UTI U/a w/ significant UTI. E coli growing in urine. -continue w/ IV Abx. COPD Chronic respiratory failure, recent admit w/ respiratory failure requiring intubation, currently controlled. -DuoNeb prn. -Counselled against smoking. Diabetes mellitus Hypertension -Sliding scale w/ Accu-Cheks. -increase Levemir to 20 units HS and continue pre-meal Aspart 5 units TIDAC -Continue Nifedipine.
--- NOTE | 2018-07-29 09:15 | P.DS ---
Date of admission: 07/21/18 19:23 Primary care physician: Ammy Nj Brief History from admission: This is a 58-year-old female with a PMH of HTN, COPD, PVD, DM, Tobacco Abuse and h/o Diabetic Foot Infection who presented to the ER w/ complaints of left great toe infection and wound dehiscence of left groin. Recent admit s/p Fem- Pop Bypass by Dr. Lainez on 07/02/18, s/p eval by Dr. Carrion w/ Podiatry, no surgical intervention for left great toe planned. States she was doing well after discharge until 2-3 days ago when she developed severe pain in her left great toe, states she "got a hold of a pack of cigarettes" and started smoking again to help with the pain. Yesterday, noted purulent drainage from left groin. Denies fever or chills. On arrival, BP 190/94, HR 137, O2 sat 97% on RA, Afebrile. W BC 14.5. BS 319. Lactic Acid 2.8. UA positive for UTI. CXR with no acute findings. Dr. Lainez consulted by ER physician, s/p Deborah/Price in ER DS: Diagnosis - Discharge Diagnosis (1) Sepsis Status: Acute (2) Postoperative wound infection Status: Acute (3) COPD (chronic obstructive pulmonary disease) Status: Acute (4) UTI (urinary tract infection) Status: Acute (5) Tobacco abuse Status: Acute (6) DM (diabetes mellitus) Status: Acute DS: Medications - Discharge Medications Prescriptions: hydrocodone-acetaminophen 1 tab PO Q4H PRN #20 tab PRN Reason: Acute Pain DS: Summary Hospital Course: In hospital, patient was treated for: Left foot osteomyelitis S/p Fem-Pop bypass by Dr. Lainez on 07/02/18, wound w/ dehiscence and purulent drainage. Also with necrotic toe on LLE. MRI confirms osteomyelitis of left great toe. -vascular surgery and podiatry ff. s/p left great toe amputation by podiatry on 07/23/2018. -Currently on vancomycin until August 05, 2018 per ID. She was also treated with cefepime and Flagyl. C. difficile PCR negative -pain control as needed. -PT/OT following procedure. -Strongly counseled on tobacco cessation UTI U/a w/ significant UTI. E coli growing in urine. -continue w/ IV Abx. COPD Chronic respiratory failure, recent admit w/ respiratory failure requiring intubation, currently controlled. -DuoNeb prn. -Counselled against smoking. Diabetes mellitus Hypertension -Sliding scale w/ Accu-Cheks. -increase Levemir to 20 units HS and continue pre-meal Aspart 5 units TIDAC -Continue Nifedipine. - Time Spent with Patient Total time spent providing and/or coordinating discharge services: Greater than 30 minutes - Quality: VTE Deep Vein Thrombosis/Pulmonary Embolism Present on Admission: No Exam Vital signs: Vital Signs 07/28/18 12:00 07/28/18 16:00 07/28/18 20:00 Temperature 97.4 F L 97.7 F 98.0 F Pulse Rate 102 H 93 H 98 H Respiratory Rate 20 20 18 Blood Pressure 154/71 H 152/75 H 181/87 H Pulse Oximetry 95 95 98 07/28/18 20:30 07/29/18 00:00 07/29/18 00:30 Temperature 97.8 F Pulse Rate 124 H 80 84 Respiratory Rate 18 Blood Pressure 159/78 H Pulse Oximetry 96 07/29/18 03:04 07/29/18 04:00 07/29/18 06:49 Temperature 97.6 F Pulse Rate 90 75 Respiratory Rate 18 18 Blood Pressure 137/65 Pulse Oximetry 97 07/29/18 08:46 Temperature Pulse Rate Respiratory Rate 14 Blood Pressure Pulse Oximetry Intake & Output 07/28/18 07/29/18 07/29/18 18:59 06:59 18:59 Intake Total 362.5 / 362.5 362.5 / 362.5 Output Total 7 / 7 Balance 355.5 / 355.5 362.5 / 362.5 Weight 70.4 kg Intake: IV 362.5 / 362.5 362.5 / 362.5 Maxipime Inj 1,000 MG In NS Inj 100 / 100 100 / 100 100 ML @ 200 mls/hr IV.SIG Q12H [facility] Rx#:[id number] Vancomycin Inj 1,250 MG In NS 262.5 / 262.5 262.5 / 262.5 Inj 250 ML @ 250 mls/hr IV.SIG Q12H [facility] Rx#:[id number] Output: Urine 5 / 5 Stool 2 / 2 Other: # Voids 3 Date of Last Bowel Movement 07/28/18 Narrative: GENERAL: NAD SKIN: Focused skin assessment warm and dry. HEENT: PERRLA, EOMI. No scleral icterus or conjunctival pallor. No lid lag or facial droop. CARDIOVASCULAR: Regular rate and rhythm. No obvious murmurs to auscultation. No chest tenderness to palpation. RESPIRATORY: No obvious rhonchi or wheezing. Clear to auscultation. Breath sounds equal bilaterally. GASTROINTESTINAL: Abdomen soft, non-tender, nondistended. BS normal. MUSCULOSKELETAL: Extremities without clubbing, cyanosis, or edema. s/p left hallux amputation. NEUROLOGICAL: Awake, alert and oriented x4. No focal neurologic deficits. Moving both upper and lower extremities spontaneously. Results Procedures completed during hospitalization: Status post left hallux amputation Completed studies during hospitalization: Pending at discharge 07/23/18 07:42 Surgical [PTH] Routine Labs on day of discharge: Labs from last 24 hours 07/28/18 07/28/18 07/28/18 21:10 16:56 11:31 WBC RBC Hgb Hct MCV MCH MCHC RDW Plt Count MPV Neut % (Auto) Lymph % (Auto) [place] % (Auto) Eos % (Auto) Baso % (Auto) Neut # (Auto) Lymph # (Auto) [place] # (Auto) Eos # (Auto) Baso # (Auto) WBC Differential Differential Comment Sodium Potassium Chloride Carbon Dioxide Anion Gap BUN Creatinine Estimated GFR POC Glucose 276 H 283 H 351 H Random Glucose Calcium Total Bilirubin AST ALT Alkaline Phosphatase Total Protein Albumin Vancomycin Trough 07/28/18 07/28/18 07/28/18 10:58 10:58 10:58 WBC 9.6 RBC 4.14 Hgb 12.8 Hct 38.9 MCV 94.1 MCH 31.0 MCHC 32.9 RDW 13.6 Plt Count 363 MPV 7.8 Neut % (Auto) 75.0 H Lymph % (Auto) 12.5 [place] % (Auto) 9.2 H Eos % (Auto) 2.5 Baso % (Auto) 0.8 Neut # (Auto) 7.2 Lymph # (Auto) 1.2 [place] # (Auto) 0.9 Eos # (Auto) 0.2 Baso # (Auto) 0.1 WBC Differential . Differential Comment Auto diff final Sodium 139 Potassium 3.1 L Chloride 101 Carbon Dioxide 26.8 Anion Gap 11 BUN 12 Cancelled Creatinine 0.82 Estimated GFR 71 L POC Glucose Random Glucose 346 H Calcium 8.6 Total Bilirubin 0.2 AST 16 ALT 22 Alkaline Phosphatase 88 Total Protein 6.7 Albumin 2.6 L Vancomycin Trough 16.3 H Cancelled - Impressions ITS Impressions Foot X-Ray 07/23/18 00:00 CONCLUSION: 1. Postsurgical changes from recent first digit phalangeal amputation. 2. Thin linear density in the soft tissues at the surgical site seen on 3 views , of uncertain significance. Foot MRI 07/23/18 07:01 CONCLUSION: 1. Marrow edema and enhancement with surrounding soft tissue swelling and ulceration involving the great toe characteristic of osteomyelitis. Abdomen X-Ray 07/27/18 22:05 CONCLUSION: No dilated loops of small or large bowel. Chest X-Ray 07/27/18 22:06 CONCLUSION: PICC line catheter at the cavoatrial junction, unchanged from prior. No central line seen. The lungs are clear. No evidence of pneumothorax. Discharge Plan - Discharge Disposition Patient Disposition: W/Home Health Service - Discharge Condition Condition: Good - Discharge Order Discharge Orders: Discharge Order (Routine); Ordered 07/29/18 Ordered By: Curly Muniz - Physicians Team Primary Care Provider: Ammy Nj Attending Provider: Curly Muniz Other Providers: Jimmy Mcgarry MD ; Terri Walton DPM ; Crystal Sanchez MD ; [facility] [place], ; [facility]
[2018-07-29] MEDS: Vancomycin Inj 1,250 MG in Sodium Chlor 0.9% Inj 250 ML IV.SIG SCH (11:26)
[2018-07-29] MEDS: Sod Chloride 0.9% Inj 1,000 ML IV.CONT SCH ×2 (11:57→19:37)
[2018-07-29 12:06] LABS: Blood Urea Nitrogen 13 mg/dL (7-18); Glomerular Filtration Rate Greater Than 89 mL/min (>89)
[2018-07-29 20:38] VITALS: BP 166/88; PULSE 80; RESP 19; TEMP 97.5; O2SAT 97
[2018-07-29] MEDS ORDERED: Insulin Detemir Inj 1,000 UNIT/10 ML Vial SQ SCH (21:00)
== END 2018-07-29 20:45 | disposition home health service (06) ==
LOC: NEPE 14:28 → NEDA 19:23 → N05 21:50 → NEDA 22:07
PROVIDERS: ADMIT Hospitalist; ATTEND Hospitalist